=== PATIENT | male | born 1975 | race Two or more races ===

== ENCOUNTER 2017-07-25 12:18 | Inpatient (IN) | payer MEDICAID ==
[~2017-07-25] VITALS: Ht 165.1 cm; Wt 86.2 kg
[~2017-07-25 12:18] MED LIST: CEPHALEXIN500 MG ORAL; HYDROCODON-ACE1 EA15 ORAL; METFORMIN HCL850 M1 ORAL
[2017-07-25] MEDS ORDERED: Vancomycin 1.5gm/D5W 250ml 250 ML IVPB ONE (13:00)
[2017-07-25] MEDS ORDERED: NS 1000ml 2,600 ML IVLG ONE (13:00)
[2017-07-25] MEDS ORDERED: Morphine Sulfate 4mg/ml Inj IVP ONE (13:00)
[2017-07-25] MEDS ORDERED: Cefepime 1gm vial ONE (13:10)
[2017-07-25] MEDS: Cefepime HCl 1 GM in NS 55 ML IV SCH ×2 (13:14→15:59)
[2017-07-25 13:47] VITALS: BP 148/84
[2017-07-25 14:05] LABS: BASOPHILS % (AUTO) 0.8 % (0.0-2.0); EOSINOPHILS % (AUTO) 0.2 % (0.0-3.0); LYMPHOCYTES % (AUTO) 11.4 % (20.0-45.0); MEAN CORPUSCULAR HGB CONC 32.4 G/DL (32.0-36.0); MEAN CORPUSCULAR VOLUME 93 FL (80-99); MONOCYTES % (AUTO) 9.6 % (1.0-10.0); PLATELET COUNT 242 K/UL (150-450); RED CELL DISTRIBUTION WIDTH 11.5 % (11.6-14.8); WHITE BLOOD COUNT 14.6 K/UL (4.8-10.8)
[2017-07-25 14:11] LABS: PROTHROMBIN TIME 10.6 SEC (9.30-11.50)
[2017-07-25 14:16] LABS: TROPONIN I < 0.30 ng/mL (<=0.30)
[2017-07-25 14:19] LABS: ALANINE AMINOTRANSFERASE 25 U/L (3-41); ALBUMIN/GLOBULIN RATIO 0.6 (1.0-2.7); ANION GAP 19 (5-15); ASPARTATE AMINO TRANSFERASE 18 U/L (5-40); CALCIUM 9.2 mg/dL (8.6-10.2); CARBON DIOXIDE 22 mEQ/L (20-30); CHLORIDE 82 mEQ/L (98-107); CREATININE 0.9 mg/dL (0.7-1.2); GLOMERULAR FILTRATION RATE > 60 mL/min (>60); HEMOLYSIS 1; POTASSIUM 4.5 mEQ/L (3.4-4.9); SODIUM 123 mEQ/L (135-145); TOTAL PROTEIN 8.7 g/dL (6.6-8.7)
[2017-07-25 14:21] LABS: REFLEX LACTIC ACID YES OR NO YES
[2017-07-25 14:30] LABS: CKMB 3.1 ng/mL (< 6.7)
--- NOTE | 2017-07-25 14:33 | Emergency Room Report ---
History of Present Illness General Chief Complaint: Skin Rash/Abscess Source: Patient Present Illness HPI The patient presents with an infection of his right shoulder. He is a diabetic. He stopped taking his diabetic medication because he started developing a reaction in his groin. He's been off of his diabetic medications for several months now. He states he had a skin infection a year ago and received a tetanus shot at that time. Says that shoulder is swollen and become red and there is crusting there is no drainage. He says the pain is mild at the moment and doesn't radiate (though he reported 10/10 pain to RN). Pain localized, not radiate and burning, pressure and aching. He denies any shortness of breath a productive cough. He does have polyuria and polydipsia. No cough, chest pain, NVD, dysuria. When previously admitted he had I and D of thigh abscess. W/U neg for osteo and SBE. He was admitted in 2016. D/C dx: 1. Staph aureus back abscess and cellulitis with left leg/thigh abscess, status post incision and drainage. 2. Staph aureus bacteremia and sepsis. , possible thoracic spine abscess. Negative for endocarditis. 3. Hyponatremia. 4. Diabetes mellitus, controlled. 5. Anemia of chronic disease. Allergies: Coded Allergies: No Known Allergies (Unverified , 04/19/16) Patient History Past Medical History: see triage record Social History: Reports: alcohol use - none for 8 months, Denies: smoking, drug use Social History Narrative with family Reviewed Nursing Documentation: PMH: Agreed, PSxH: Agreed Nursing Documentation-PM Past Medical History: No History, Except For Hx Hypertension: Yes Hx Diabetes: Yes Hx Cancer: No Hx Gastrointestinal Problems: Yes Hx Neurological Problems: No Review of Systems All Other Systems: negative except mentioned in HPI Physical Exam Vital Signs Date Time Temp Pulse Resp B/P (MAP) Pulse Ox O2 Delivery O2 Flow Rate FiO2 07/25/17 12:34 134 20 150/87 95 Room Air 07/25/17 13:47 98.9 Sp02 EP Interpretation: reviewed, normal General Appearance: well appearing, no apparent distress, GCS 15 Head: normocephalic Eyes: bilateral eye normal inspection, bilateral eye PERRL ENT: moist mucus membranes Neck: supple Respiratory: lungs clear, normal breath sounds, other - see skin Cardiovascular #1: tachycardia Cardiovascular #2: 2+ radial (R) Gastrointestinal: normal inspection, normal bowel sounds, non tender, no mass, non-distended, overweight Musculoskeletal: back normal, gait/station normal, normal range of motion, other - no shoulder tenderness with AROM Neurologic: alert, oriented x3, grossly normal Psychiatric: mood/affect normal - poor insight Skin: warm/dry, other - large exophytic lesion R shoulder with induration and no fluctuance. Extending erythema anterior shoulder area Medical Decision Making Diagnostic Impression: Primary Impression: Cellulitis right shoulder Additional Impressions: Elevated lactic acid level Poorly controlled diabetes mellitus Non-compliance Possible adverse reaction to diabetic medications ER Course Patient with infection R shoulder and poor compliance with meds for diabetes. Ddx: abscess, cellulitis, sepsis, fasciitis, hyperglycemia, DKA amongst others. Emergent evaluation with labs, BC, lactate, CT of chest with contrast. Antibiotics indicated. Labs with leukocytosis, slightly elevated lactate, elevated glucose with normal bicarb. CT with inflammation without clear abscess formation. SUgar still high after boluses. Insulin ordered. Improved but still needs IV antibiotics and control of glucose. Lactate normalizing. Concern over alleged adverse reaction to diabetic meds. Admit med, Dr. Suarez. (Discussed with Dr. Mendez.) Discussed with Dr. Francis for consult as might need surgical debridement. ( Called as opposed to Dr. Velez and Zeeshan due to lack of follow with other MDs.) Laboratory Tests Test 07/25/17 13:03 07/25/17 14:50 White Blood Count 14.6 K/UL (4.8-10.8) H Red Blood Count 4.70 M/UL (4.70-6.10) Hemoglobin 14.1 G/DL (14.2-18.0) L Hematocrit 43.5 % (42.0-52.0) Mean Corpuscular Volume 93 FL (80-99) Mean Corpuscular Hemoglobin 30.0 PG (27.0-31.0) Mean Corpuscular Hemoglobin Concent 32.4 G/DL (32.0-36.0) Red Cell Distribution Width 11.5 % (11.6-14.8) L Platelet Count 242 K/UL (150-450) Mean Platelet Volume 10.0 FL (6.5-10.1) Neutrophils (%) (Auto) 78.0 % (45.0-75.0) H Lymphocytes (%) (Auto) 11.4 % (20.0-45.0) L Monocytes (%) (Auto) 9.6 % (1.0-10.0) Eosinophils (%) (Auto) 0.2 % (0.0-3.0) Basophils (%) (Auto) 0.8 % (0.0-2.0) Prothrombin Time 10.6 SEC (9.30-11.50) Prothrombin Time INR 1.0 (0.9-1.1) PTT 31 SEC (23-33) Sodium Level 123 mEQ/L (135-145) L Potassium Level 4.5 mEQ/L (3.4-4.9) Chloride Level 82 mEQ/L (98-107) L Carbon Dioxide Level 22 mEQ/L (20-30) Anion Gap 19 (5-15) H Blood Urea Nitrogen 20 mg/dL (7-23) Creatinine 0.9 mg/dL (0.7-1.2) Estimate Glomerular Filtration Rate > 60 mL/min (>60) Glucose Level 637 mg/dL (74-106) *H Lactic Acid Level 2.50 mmol/L (0.66-2.22) H 2.00 mmol/L (0.66-2.22) Calcium Level 9.2 mg/dL (8.6-10.2) Total Bilirubin 0.4 mg/dL (0.0-1.2) Aspartate Amino Transferase (AST) 18 U/L (5-40) Alanine Aminotransferase (ALT) 25 U/L (3-41) Alkaline Phosphatase 134 U/L (40-129) H Total Creatine Kinase 149 U/L (38-174) Creatine Kinase MB 3.1 ng/mL (< 6.7) Creatine Kinase MB Relative Index 2.0 Troponin I < 0.30 ng/mL (<=0.30) Pro-B-Type Natriuretic Peptide 96 pg/mL (0-125) Total Protein 8.7 g/dL (6.6-8.7) Albumin 3.4 g/dL (3.5-5.2) L Globulin 5.3 g/dL Albumin/Globulin Ratio 0.6 (1.0-2.7) L EKG Diagnostic Results Rate: tachycardiac Rhythm: NSR ST Segments: no acute changes Rhythm Strip Diag. Results EP Interpretation: yes Rhythm: no PVC's, no ectopy, other - Sinus tachycardia CT/MRI/US Diagnostic Results CT/MRI/US Diagnostic Results : Imaging Test Ordered: CT chest with contrast Impression Large area of subcutaneous edema skin thickening and right upper back consistent with cellulitis. No abscess fluid definitely seen enlargement of the trapezius another back muscles deep the area of inflammation noticed Last Vital Signs Date Time Temp Pulse Resp B/P (MAP) Pulse Ox O2 Delivery O2 Flow Rate FiO2 07/25/17 16:24 98.4 112 20 142/96 95 Room Air Status: improved Disposition: ADMITTED INPATIENT Condition: Serious Referrals: NOT CHOSEN IPA/,REFERRING (PCP) Earl Méndez M.D. Jul 25, 2017 14:33
[2017-07-25 15:48] VITALS: BP 137/87
[2017-07-25] MEDS ORDERED: Albuterol/Ipratropium 3ml neb HHN PRN (16:15)
[2017-07-25] MEDS ORDERED: Morphine Sulfate 2mg/ml Inj IVP PRN (16:15)
[2017-07-25] MEDS ORDERED: Miralax 17gm pkt ORAL PRN (16:15)
[2017-07-25] MEDS ORDERED: Nitroglycerin Subl 0.4mg tab SL PRN (16:15)
[2017-07-25 16:24] VITALS: BP 142/96
[2017-07-25] MEDS: NovoLOG Insulin Flexpen SUBQ SCH ×2 (17:31→21:24)
--- NOTE | 2017-07-25 18:48 | Infectious Diseases Prog Note ---
Assessment/Plan Problems: (1) Abscess of right shoulder (2) Poorly controlled diabetes mellitus Subjective Allergies: Coded Allergies: No Known Allergies (Unverified , 04/19/16) Objective Vital Signs Last 24 Hour Vital Signs Date Time Temp Pulse Resp B/P (MAP) Pulse Ox O2 Delivery O2 Flow Rate FiO2 07/25/17 16:24 98.4 112 20 142/96 95 Room Air 07/25/17 15:48 98.1 97 20 137/87 96 Room Air 07/25/17 15:19 98 24 148/84 96 Room Air 07/25/17 13:47 98.9 112 29 148/84 93 Room Air 07/25/17 12:34 134 20 150/87 95 Room Air Height (Feet): 5 Height (Inches): 5.00 Weight (Pounds): 190 Laboratory Tests Test 07/25/17 13:03 07/25/17 14:50 White Blood Count 14.6 K/UL (4.8-10.8) H Red Blood Count 4.70 M/UL (4.70-6.10) Hemoglobin 14.1 G/DL (14.2-18.0) L Hematocrit 43.5 % (42.0-52.0) Mean Corpuscular Volume 93 FL (80-99) Mean Corpuscular Hemoglobin 30.0 PG (27.0-31.0) Mean Corpuscular Hemoglobin Concent 32.4 G/DL (32.0-36.0) Red Cell Distribution Width 11.5 % (11.6-14.8) L Platelet Count 242 K/UL (150-450) Mean Platelet Volume 10.0 FL (6.5-10.1) Neutrophils (%) (Auto) 78.0 % (45.0-75.0) H Lymphocytes (%) (Auto) 11.4 % (20.0-45.0) L Monocytes (%) (Auto) 9.6 % (1.0-10.0) Eosinophils (%) (Auto) 0.2 % (0.0-3.0) Basophils (%) (Auto) 0.8 % (0.0-2.0) Prothrombin Time 10.6 SEC (9.30-11.50) Prothromb Time International Ratio 1.0 (0.9-1.1) Activated Partial Thromboplast Time 31 SEC (23-33) Sodium Level 123 mEQ/L (135-145) L Potassium Level 4.5 mEQ/L (3.4-4.9) Chloride Level 82 mEQ/L (98-107) L Carbon Dioxide Level 22 mEQ/L (20-30) Anion Gap 19 (5-15) H Blood Urea Nitrogen 20 mg/dL (7-23) Creatinine 0.9 mg/dL (0.7-1.2) Estimat Glomerular Filtration Rate > 60 mL/min (>60) Glucose Level 637 mg/dL (74-106) *H Lactic Acid Level 2.50 mmol/L (0.66-2.22) H 2.00 mmol/L (0.66-2.22) Calcium Level 9.2 mg/dL (8.6-10.2) Total Bilirubin 0.4 mg/dL (0.0-1.2) Aspartate Amino Transf (AST/SGOT) 18 U/L (5-40) Alanine Aminotransferase (ALT/SGPT) 25 U/L (3-41) Alkaline Phosphatase 134 U/L (40-129) H Total Creatine Kinase 149 U/L (38-174) Creatine Kinase MB 3.1 ng/mL (< 6.7) Creatine Kinase MB Relative Index 2.0 Troponin I < 0.30 ng/mL (<=0.30) Pro-B-Type Natriuretic Peptide 96 pg/mL (0-125) Total Protein 8.7 g/dL (6.6-8.7) Albumin 3.4 g/dL (3.5-5.2) L Globulin 5.3 g/dL Albumin/Globulin Ratio 0.6 (1.0-2.7) L Current Medications Medications (Trade) Dose Ordered Sig/Leah Route PRN Reason Start Time Stop Time Status Last Admin Dose Admin Acetaminophen (Tylenol) 650 mg Q4H PRN ORAL fever 07/25/17 16:15 08/24/17 16:14 Albuterol/ Ipratropium (DuoNeb 0.5-3(2.5)mg/3ml) 3 ml Q4H PRN HHN Shortness of Breath 07/25/17 16:15 07/30/17 16:14 Cefepime HCl 2 gm/ Dextrose 110 ml @ 220 mls/hr EVERY 12 HOURS IV 07/25/17 21:00 08/01/17 20:59 Dextrose (Dextrose 50%) STAT PRN IV Hypoglycemia 07/25/17 16:15 08/24/17 16:14 Heparin Sodium (Porcine) (Heparin 5000 units/ml) 5,000 units EVERY 12 HOURS SUBQ 07/25/17 21:00 08/24/17 20:59 Insulin Aspart (NovoLOG) BEFORE MEALS AND HS SUBQ 07/25/17 17:00 08/24/17 16:59 07/25/17 17:31 Morphine Sulfate (Morphine Sulfate) 2 mg Q4H PRN IVP Moderate Pain (Pain Scale 4-6) 07/25/17 16:15 08/01/17 16:14 Nitroglycerin (Ntg) 0.4 mg Q5M PRN SL Prn Chest Pain 07/25/17 16:15 08/24/17 16:14 Ondansetron HCl (Zofran) 4 mg Q6H PRN IVP Nausea & Vomiting 07/25/17 16:15 08/24/17 16:14 Polyethylene Glycol (Miralax) 17 gm DAILYPRN PRN ORAL Constipation 07/25/17 16:15 08/24/17 16:14 Temazepam (Restoril) 15 mg HSPRN PRN ORAL Insomnia 07/25/17 16:15 08/01/17 16:14 Vancomycin HCl (Vanco rx to dose) 1 ea DAILY PRN MISC PER RX PROTOCOL 07/25/17 16:15 08/24/17 16:14 Vancomycin HCl/ Dextrose 250 ml @ 166.667 mls/hr Q12HR@0200,1400 IVPB 07/26/17 02:00 07/31/17 01:59 Fernando Clayton M.D. Jul 25, 2017 18:48
[2017-07-25 20:00] VITALS: BP 143/94
--- NOTE | 2017-07-25 20:26 | General Surgery Progress Note ---
General Surgery-Progress Note Subjective Reason for Consult abscess right shoulder Objective Last 24 Hour Vital Signs Date Time Temp Pulse Resp B/P (MAP) Pulse Ox O2 Delivery O2 Flow Rate FiO2 07/25/17 16:24 98.4 112 20 142/96 95 Room Air 07/25/17 15:48 98.1 97 20 137/87 96 Room Air 07/25/17 15:19 98 24 148/84 96 Room Air 07/25/17 13:47 98.9 112 29 148/84 93 Room Air 07/25/17 12:34 134 20 150/87 95 Room Air I&O Intake and Output 07/25/17 07/26/17 19:00 07:00 Intake Total 250 ml Output Total 500 ml Balance -250 ml Intake IV Total 250 ml Output Urine Total 500 ml Respiratory: clear Abdomen: soft, non-tender, present bowel sounds Extremities: no tenderness, other - venous stasis changes Laboratory Tests Test 07/25/17 13:03 07/25/17 14:50 White Blood Count 14.6 K/UL (4.8-10.8) H Red Blood Count 4.70 M/UL (4.70-6.10) Hemoglobin 14.1 G/DL (14.2-18.0) L Hematocrit 43.5 % (42.0-52.0) Mean Corpuscular Volume 93 FL (80-99) Mean Corpuscular Hemoglobin 30.0 PG (27.0-31.0) Mean Corpuscular Hemoglobin Concent 32.4 G/DL (32.0-36.0) Red Cell Distribution Width 11.5 % (11.6-14.8) L Platelet Count 242 K/UL (150-450) Mean Platelet Volume 10.0 FL (6.5-10.1) Neutrophils (%) (Auto) 78.0 % (45.0-75.0) H Lymphocytes (%) (Auto) 11.4 % (20.0-45.0) L Monocytes (%) (Auto) 9.6 % (1.0-10.0) Eosinophils (%) (Auto) 0.2 % (0.0-3.0) Basophils (%) (Auto) 0.8 % (0.0-2.0) Prothrombin Time 10.6 SEC (9.30-11.50) Prothromb Time International Ratio 1.0 (0.9-1.1) Activated Partial Thromboplast Time 31 SEC (23-33) Sodium Level 123 mEQ/L (135-145) L Potassium Level 4.5 mEQ/L (3.4-4.9) Chloride Level 82 mEQ/L (98-107) L Carbon Dioxide Level 22 mEQ/L (20-30) Anion Gap 19 (5-15) H Blood Urea Nitrogen 20 mg/dL (7-23) Creatinine 0.9 mg/dL (0.7-1.2) Estimat Glomerular Filtration Rate > 60 mL/min (>60) Glucose Level 637 mg/dL (74-106) *H Lactic Acid Level 2.50 mmol/L (0.66-2.22) H 2.00 mmol/L (0.66-2.22) Calcium Level 9.2 mg/dL (8.6-10.2) Total Bilirubin 0.4 mg/dL (0.0-1.2) Aspartate Amino Transf (AST/SGOT) 18 U/L (5-40) Alanine Aminotransferase (ALT/SGPT) 25 U/L (3-41) Alkaline Phosphatase 134 U/L (40-129) H Total Creatine Kinase 149 U/L (38-174) Creatine Kinase MB 3.1 ng/mL (< 6.7) Creatine Kinase MB Relative Index 2.0 Troponin I < 0.30 ng/mL (<=0.30) Pro-B-Type Natriuretic Peptide 96 pg/mL (0-125) Total Protein 8.7 g/dL (6.6-8.7) Albumin 3.4 g/dL (3.5-5.2) L Globulin 5.3 g/dL Albumin/Globulin Ratio 0.6 (1.0-2.7) L Assessment Additional Comments Abscess Right shoulder Plan Additional Comments Scheduled for I&D tomorrow ZAIN DE LA CRUZ Jul 25, 2017 20:26
[2017-07-25] MEDS ORDERED: Acetaminophen 650 MG SUPP RECTAL PRN (20:30)
[2017-07-25] MEDS: Cefepime HCl 2 GM in D5W 110 ML IV SCH (21:21)
[2017-07-25] MEDS: Heparin 5000 units/ml inj SUBQ SCH (21:24)
[2017-07-25] MEDS ORDERED: Betadine 4oz Bottle TOPIC ONE (23:00)
[2017-07-26 00:12] VITALS: BP 133/94
[2017-07-26] MEDS ORDERED: Vancomycin 1 GM in D5W 275 ML IV SCH (00:30)
[2017-07-26] MEDS: Vancomycin 1250mg/D5W 250ml IVPB SCH ×2 (02:00→14:40)
[2017-07-26 04:00] VITALS: BP 141/85
[2017-07-26] MEDS: NovoLOG Insulin Flexpen SUBQ SCH ×7 (06:23→21:09)
[2017-07-26 08:00] VITALS: BP 133/91
[2017-07-26 08:05] LABS: BASOPHILS % (AUTO) 1.5 % (0.0-2.0); EOSINOPHILS % (AUTO) 0.4 % (0.0-3.0); LYMPHOCYTES % (AUTO) 12.8 % (20.0-45.0); MEAN CORPUSCULAR HEMOGLOBIN 31.8 PG (27.0-31.0); MEAN CORPUSCULAR HGB CONC 34.3 G/DL (32.0-36.0); MEAN CORPUSCULAR VOLUME 93 FL (80-99); MEAN PLATELET VOLUME 9.5 FL (6.5-10.1); MONOCYTES % (AUTO) 8.5 % (1.0-10.0); NEUTROPHILS % (AUTO) 76.8 % (45.0-75.0); PLATELET COUNT 221 K/UL (150-450); RED BLOOD COUNT 4.33 M/UL (4.70-6.10); RED CELL DISTRIBUTION WIDTH 11.6 % (11.6-14.8); WHITE BLOOD COUNT 13.5 K/UL (4.8-10.8)
[2017-07-26 08:17] LABS: ALANINE AMINOTRANSFERASE 20 U/L (3-41); ALBUMIN/GLOBULIN RATIO 0.5 (1.0-2.7); ANION GAP 16 (5-15); ASPARTATE AMINO TRANSFERASE 19 U/L (5-40); CALCIUM 8.8 mg/dL (8.6-10.2); CARBON DIOXIDE 23 mEQ/L (20-30); CHLORIDE 88 mEQ/L (98-107); CREATININE 0.7 mg/dL (0.7-1.2); GLOMERULAR FILTRATION RATE > 60 mL/min (>60); HEMOLYSIS 2; POTASSIUM 3.9 mEQ/L (3.4-4.9); SODIUM 127 mEQ/L (135-145); TOTAL PROTEIN 8.1 g/dL (6.6-8.7)
[2017-07-26] MEDS: Cefepime HCl 2 GM in D5W 110 ML IV SCH (08:20)
[2017-07-26] MEDS: Heparin 5000 units/ml inj SUBQ SCH ×2 (08:21→21:06)
--- NOTE | 2017-07-26 08:32 | Consultation ---
DATE OF CONSULTATION: 07/25/2017 PREOPERATIVE CONSULTATION CONSULTING PHYSICIAN: Mike Francis M.D. Requesting Physician: ER physician, REASON FOR CONSULTATION: Abscess of the posterior right shoulder. History Of Present Illness: This is a 42-year-old male with history of diabetes presented to emergency room complaining of swelling and pain at the right shoulder for about five days. Apparently, it has had a drainage of the pus yesterday. He claims that he has been having low-grade fever, but no chills. He has a history of previous abscesses. Past Medical History: He denies allergies, asthma, hypertension, and cardiac and renal diseases. He has a history of diabetes. Past Surgical History: Include open cholecystectomy and some kind of surgery on the left lower leg. MEDICATIONS: Please see the medicine reconciliation form. Social History: The patient is a 42-year-old male, who is single with one child. He is unemployed and denies smoking and drinking. REVIEW OF SYSTEMS: Unobtainable due to the language barrier. PHYSICAL EXAMINATION: General: The patient appeared to be a well-developed, well-nourished, and mildly obese 42-year-old male, in no acute distress, but it seemed that he has fever and he is warm. HEENT: Head is atraumatic and normocephalic. Eyes, pupils are equal, round, and reactive to light. Mouth is clear. NECK: There is no palpable thyromegaly or adenopathy. CHEST: Clear to auscultation and percussion. Heart: There is no gallop or murmur. S1 and S2 are within normal limits. Abdomen: Obese and protuberant, but soft and nontender. He has a scar of the right paramedian incision. GENITAL: Deferred. Extremities: He has a scar of the wound on the lateral side of the left lower leg. He has venous stasis changes and skin changes on both sides. On the posterior aspect of the right shoulder, he has a very large area of the erythema with induration and pustules besides there is small opening through which a yellowish brown pus is draining. LABORATORY DATA: CBC has shown a WBC 14,000 with a left shift. ASSESSMENT: Abscess of the posterior right shoulder. Plan: The patient has been scheduled for incision and drainage of this abscess tomorrow. The risks and benefits have been explained to him. He understood and granted consent. Mike Francis M.D. DR: JULIENNE JOB#: [id number] CC: LISA
--- NOTE | 2017-07-26 08:34 | General Progress Note ---
Assessment/Plan Problem List: (1) Non-compliance ICD Codes: Z91.19 - Patient's noncompliance with other medical treatment and regimen SNOMED: 0658279 (2) Poorly controlled diabetes mellitus ICD Codes: E11.65 - Type 2 diabetes mellitus with hyperglycemia SNOMED: 814070060 (3) Abscess of right shoulder ICD Codes: L02.413 - Cutaneous abscess of right upper limb SNOMED: 46775058 (4) Elevated lactic acid level ICD Codes: E87.2 - Acidosis SNOMED: 8860042 Assessment/Plan hold Metformin in the context of lactic acidosis Levemir 10 units bid Novolog 8 units ac tid + SSI Subjective Allergies: Coded Allergies: No Known Allergies (Unverified , 04/19/16) All Systems: reviewed and negative except above Subjective The patient presents with an infection of his right shoulder. He is a diabetic. He stopped taking his diabetic medication because he started developing a reaction in his groin. He's been off of his diabetic medications for several months now. He states he had a skin infection a year ago and received a tetanus shot at that time. Says that shoulder is swollen and become red and there is crusting there is no drainage. He says the pain is mild at the moment and doesn't radiate (though he reported 10/10 pain to RN). Pain localized, not radiate and burning, pressure and aching. He denies any shortness of breath a productive cough. He does have polyuria and polydipsia. Objective Last 24 Hour Vital Signs Date Time Temp Pulse Resp B/P (MAP) Pulse Ox O2 Delivery O2 Flow Rate FiO2 07/26/17 04:00 98.9 107 20 141/85 96 Room Air 07/26/17 00:12 98.2 105 20 133/94 94 Room Air 07/25/17 21:17 106 16 Room Air 21 07/25/17 20:00 97.8 97 20 143/94 94 Room Air 07/25/17 16:24 98.4 112 20 142/96 95 Room Air 07/25/17 15:48 98.1 97 20 137/87 96 Room Air 07/25/17 15:19 98 24 148/84 96 Room Air 07/25/17 13:47 98.9 112 29 148/84 93 Room Air 07/25/17 12:34 134 20 150/87 95 Room Air Laboratory Tests 07/25/17 13:03: White Blood Count 14.6H, Red Blood Count 4.70, Hemoglobin 14.1L, Hematocrit 43.5 , Mean Corpuscular Volume 93, Mean Corpuscular Hemoglobin 30.0, Mean Corpuscular Hemoglobin Concent 32.4, Red Cell Distribution Width 11.5L, Platelet Count 242, Mean Platelet Volume 10.0, Neutrophils (%) (Auto) 78.0H, Lymphocytes (%) (Auto) 11.4L, Monocytes (%) (Auto) 9.6, Eosinophils (%) (Auto) 0.2, Basophils (%) (Auto) 0.8, Prothrombin Time 10.6, Prothromb Time International Ratio 1.0, Activated Partial Thromboplast Time 31, Sodium Level 123L, Potassium Level 4.5, Chloride Level 82L, Carbon Dioxide Level 22, Anion Gap 19H, Blood Urea Nitrogen 20, Creatinine 0.9, Estimat Glomerular Filtration Rate > 60, Glucose Level 637*H, Lactic Acid Level 2.50H, Calcium Level 9.2, Total Bilirubin 0.4, Aspartate Amino Transf (AST/SGOT) 18, Alanine Aminotransferase (ALT/SGPT) 25, Alkaline Phosphatase 134H, Total Creatine Kinase 149, Creatine Kinase MB 3.1, Creatine Kinase MB Relative Index 2.0, Troponin I < 0.30, Pro-B-Type Natriuretic Peptide 96, Total Protein 8.7, Albumin 3.4L, Globulin 5.3, Albumin/Globulin Ratio 0.6L 07/25/17 14:50: Lactic Acid Level 2.00 07/26/17 07:00: White Blood Count 13.5H, Red Blood Count 4.33L, Hemoglobin 13.8L, Hematocrit 40.1L, Mean Corpuscular Volume 93, Mean Corpuscular Hemoglobin 31.8H, Mean Corpuscular Hemoglobin Concent 34.3, Red Cell Distribution Width 11.6, Platelet Count 221, Mean Platelet Volume 9.5, Neutrophils (%) (Auto) 76.8H, Lymphocytes ( %) (Auto) 12.8L, Monocytes (%) (Auto) 8.5, Eosinophils (%) (Auto) 0.4, Basophils (%) (Auto) 1.5, Sodium Level 127L, Potassium Level 3.9, Chloride Level 88L, Carbon Dioxide Level 23, Anion Gap 16H, Blood Urea Nitrogen 11, Creatinine 0.7, Estimat Glomerular Filtration Rate > 60, Glucose Level 368#H, Calcium Level 8.8, Total Bilirubin 0.4, Aspartate Amino Transf (AST/SGOT) 19, Alanine Aminotransferase (ALT/SGPT) 20, Alkaline Phosphatase 120, Total Protein 8.1, Albumin 2.7L, Globulin 5.4, Albumin/Globulin Ratio 0.5L Height (Feet): 5 Height (Inches): 5.00 Weight (Pounds): 190 General Appearance: no apparent distress Neck: normal alignment Cardiovascular: normal peripheral pulses Respiratory/Chest: chest wall non-tender Abdomen: normal bowel sounds Pelvis: normal external exam Edema: no edema noted Arm (L), no edema noted Arm (R), no edema noted Leg (L), no edema noted Leg (R), no edema noted Pedal (L), no edema noted Pedal (R), no edema noted Generalized Objective Current Medications Medications (Trade) Dose Ordered Sig/Leah Route PRN Reason Start Time Stop Time Status Last Admin Dose Admin Acetaminophen (Tylenol) 650 mg Q4H PRN ORAL fever 07/25/17 16:15 08/24/17 16:14 Acetaminophen (Tylenol) 650 mg Q4H PRN RECTAL Mild Pain (Pain Scale 1-3) 07/25/17 20:30 08/24/17 20:29 Albuterol/ Ipratropium (DuoNeb 0.5-3(2.5)mg/3ml) 3 ml Q4H PRN HHN Shortness of Breath 07/25/17 16:15 07/30/17 16:14 Cefepime HCl 2 gm/ Dextrose 110 ml @ 220 mls/hr EVERY 12 HOURS IV 07/25/17 21:00 08/01/17 20:59 07/26/17 08:20 Dextrose (Dextrose 50%) STAT PRN IV Hypoglycemia 07/25/17 16:15 08/24/17 16:14 Heparin Sodium (Porcine) (Heparin 5000 units/ml) 5,000 units EVERY 12 HOURS SUBQ 07/25/17 21:00 08/24/17 20:59 07/25/17 21:24 Insulin Aspart (NovoLOG) BEFORE MEALS AND HS SUBQ 07/25/17 17:00 08/24/17 16:59 07/26/17 06:23 Morphine Sulfate (Morphine Sulfate) 2 mg Q4H PRN IVP Moderate Pain (Pain Scale 4-6) 07/25/17 16:15 08/01/17 16:14 Nitroglycerin (Ntg) 0.4 mg Q5M PRN SL Prn Chest Pain 07/25/17 16:15 08/24/17 16:14 Ondansetron HCl (Zofran) 4 mg Q6H PRN IVP Nausea & Vomiting 07/25/17 16:15 08/24/17 16:14 Polyethylene Glycol (Miralax) 17 gm DAILYPRN PRN ORAL Constipation 07/25/17 16:15 08/24/17 16:14 Temazepam (Restoril) 15 mg HSPRN PRN ORAL Insomnia 07/25/17 16:15 08/01/17 16:14 Vancomycin HCl (Vanco rx to dose) 1 ea DAILY PRN MISC PER RX PROTOCOL 07/25/17 16:15 08/24/17 16:14 Vancomycin HCl/ Dextrose 250 ml @ 166.667 mls/hr Q12HR@0200,1400 IVPB 07/26/17 02:00 07/31/17 01:59 07/26/17 02:00 Item Value Date Time Bedside Blood Glucose 327 mg/dl H 07/26/17 0623 Bedside Blood Glucose 369 mg/dl H 07/25/17 2124 Bedside Blood Glucose 375 mg/dl H 07/25/17 1731 Bedside Blood Glucose 445 mg/dl H 07/25/17 1454 ANN DUARTE Jul 26, 2017 08:34
--- NOTE | 2017-07-26 09:06 | Diagnostic Imaging Report ---
Indication: Chest wall abscess. Chest pain Technique: Continuous helical transaxial imaging of the chest was obtained from the thoracic inlet to the upper abdomen after intravenous nonionic contrast administration. Coronal 2-D reformats were also obtained. Total Dose length Product (DLP): [address] Dose Index Volume (CTDIvol): 0.15, 20.16 mGy Comparison: none Findings: In the right upper part of the back there is a fairly extensive focal area of subcutaneous soft tissue stranding with enlargement of the underlying muscle which includes the trapezius muscle. There is no defined fluid collection. Similar findings to lesser extent seen in the right anterior chest wall. By imaging the findings could be due to trauma, contusion injury. Cellulitis is suspected clinically. There is thickening of the skin overlying the back. There is no evidence of intrathoracic extension. The lungs are clear. There is no pleural effusion or mediastinal fluid identified. The liver is diffusely hypodense consistent with fatty infiltration. No gross abnormalities of the osseous structures are identified. Impression: Large area of subcutaneous edema and skin thickening with some muscular enlargement in the right posterior aspect of the chest. Findings consistent with cellulitis given the current history. No drainable abscess identified. Followup suggested. No acute intrathoracic findings Fatty liver The CT scanner at [facility] is accredited by the [employer] and the scans are performed using dose optimization techniques as appropriate to a performed exam including Automatic Exposure control.
--- NOTE | 2017-07-26 10:16 | Diagnostic Imaging Report ---
Indication: Chest pain Comparison: 04/19/16 A single view chest radiograph was obtained. Findings: Sternotomy noted. There is mild left basal atelectasis cardiomegaly and generalized osteopenia. Impression: Mild left basal atelectasis
--- NOTE | 2017-07-26 10:45 | Anethesia Preoperative Eval ---
Anesthesia Pre-op PMH/ROS General Date of Evaluation: Jul 26, 2017 Anesthesiologist: Doris ASA Score: ASA 3 Mallampati Score Class I : Soft palate, uvula, fauces, pillars visible Class II: Soft palate, uvula, fauces visible Class III: Soft palate, base of uvula visible Class IV: Only hard plate visible Mallampati Classification: Class II Surgeon: Tito Diagnosis: Shoulder absess Surgical Procedure: I&D shoulder absess Family History: no anesthesia problems Allergies: Coded Allergies: No Known Allergies (Unverified , 04/19/16) Medications: see eMAR Past Medical History Cardiovascular: Reports: HTN, Denies: CAD, CA, valve dz, arrhythmia, other Pulmonary: Denies: asthma, COPD, MIHIR, other Gastrointestinal/Genitourinary: Denies: GERD, CRI, ESRD, other Neurologic/Psychiatric: Denies: dementia, CVA, depression/anxiety, TIA, other Endocrine: Reports: DM, Denies: hypothyroidism, steroids, other HEENT: Denies: cataract (L), cataract (R), glaucoma, SHISHMAREF IRA (L), SHISHMAREF IRA (R), other Hematology/Immune: Reports: anemia, Denies: DVT, bleeding disorder, other Musculoskeletal/Integumentary: Denies: OA, RA, DJD, DDD, edema, other PMH Narrative: DM, HTN, thigh absess PSxH Narrative: I&D of thigh absess Anesthesia Pre-op Phys. Exam Physician Exam Last Vital Signs Date Time Temp Pulse Resp B/P (MAP) Pulse Ox O2 Delivery O2 Flow Rate FiO2 07/26/17 08:00 98.0 102 20 133/91 95 Room Air 07/26/17 07:55 21 Constitutional: NAD Neurologic: CN 2-12 intact Cardiovascular: RRR, no M/R/G Respiratory: CTA Gastrointestinal: S/NT/ND Airway Exam Mallampati Score: Class II MO: full ROM: full Teeth: intact Anesthesia Pre-op A/P Labs Hematology Test 07/25/17 13:03 07/26/17 07:00 White Blood Count 14.6 K/UL (4.8-10.8) H 13.5 K/UL (4.8-10.8) H Red Blood Count 4.70 M/UL (4.70-6.10) 4.33 M/UL (4.70-6.10) L Hemoglobin 14.1 G/DL (14.2-18.0) L 13.8 G/DL (14.2-18.0) L Hematocrit 43.5 % (42.0-52.0) 40.1 % (42.0-52.0) L Mean Corpuscular Volume 93 FL (80-99) 93 FL (80-99) Mean Corpuscular Hemoglobin 30.0 PG (27.0-31.0) 31.8 PG (27.0-31.0) H Mean Corpuscular Hemoglobin Concent 32.4 G/DL (32.0-36.0) 34.3 G/DL (32.0-36.0) Red Cell Distribution Width 11.5 % (11.6-14.8) L 11.6 % (11.6-14.8) Platelet Count 242 K/UL (150-450) 221 K/UL (150-450) Mean Platelet Volume 10.0 FL (6.5-10.1) 9.5 FL (6.5-10.1) Neutrophils (%) (Auto) 78.0 % (45.0-75.0) H 76.8 % (45.0-75.0) H Lymphocytes (%) (Auto) 11.4 % (20.0-45.0) L 12.8 % (20.0-45.0) L Monocytes (%) (Auto) 9.6 % (1.0-10.0) 8.5 % (1.0-10.0) Eosinophils (%) (Auto) 0.2 % (0.0-3.0) 0.4 % (0.0-3.0) Basophils (%) (Auto) 0.8 % (0.0-2.0) 1.5 % (0.0-2.0) Coagulation Test 07/25/17 13:03 Prothrombin Time 10.6 SEC (9.30-11.50) Prothromb Time International Ratio 1.0 (0.9-1.1) Activated Partial Thromboplast Time 31 SEC (23-33) Chemistry Test 07/25/17 13:03 07/25/17 14:50 07/26/17 07:00 Sodium Level 123 mEQ/L (135-145) L 127 mEQ/L (135-145) L Potassium Level 4.5 mEQ/L (3.4-4.9) 3.9 mEQ/L (3.4-4.9) Chloride Level 82 mEQ/L (98-107) L 88 mEQ/L (98-107) L Carbon Dioxide Level 22 mEQ/L (20-30) 23 mEQ/L (20-30) Anion Gap 19 (5-15) H 16 (5-15) H Blood Urea Nitrogen 20 mg/dL (7-23) 11 mg/dL (7-23) Creatinine 0.9 mg/dL (0.7-1.2) 0.7 mg/dL (0.7-1.2) Estimat Glomerular Filtration Rate > 60 mL/min (>60) > 60 mL/min (>60) Glucose Level 637 mg/dL (74-106) *H 368 mg/dL (74-106) #H Lactic Acid Level 2.50 mmol/L (0.66-2.22) H 2.00 mmol/L (0.66-2.22) Calcium Level 9.2 mg/dL (8.6-10.2) 8.8 mg/dL (8.6-10.2) Total Bilirubin 0.4 mg/dL (0.0-1.2) 0.4 mg/dL (0.0-1.2) Aspartate Amino Transf (AST/SGOT) 18 U/L (5-40) 19 U/L (5-40) Alanine Aminotransferase (ALT/SGPT) 25 U/L (3-41) 20 U/L (3-41) Alkaline Phosphatase 134 U/L (40-129) H 120 U/L (40-129) Total Creatine Kinase 149 U/L (38-174) Creatine Kinase MB 3.1 ng/mL (< 6.7) Creatine Kinase MB Relative Index 2.0 Troponin I < 0.30 ng/mL (<=0.30) Pro-B-Type Natriuretic Peptide 96 pg/mL (0-125) Total Protein 8.7 g/dL (6.6-8.7) 8.1 g/dL (6.6-8.7) Albumin 3.4 g/dL (3.5-5.2) L 2.7 g/dL (3.5-5.2) L Globulin 5.3 g/dL 5.4 g/dL Albumin/Globulin Ratio 0.6 (1.0-2.7) L 0.5 (1.0-2.7) L Risk Assessment & Plan Assessment: Hypertensive, diabetic male admitted with glucose 627...now 368 and hyponatremia of 123 upon admission...now 127 with shoulder absess. Plan: GA. Discussed with Dr. Francis. Patient needs to stabilized before bringing him to the OR for this urgent but non emergent I&D. Patient's glucose and sodium levels are improving and should continue to improve before surgery. Surgery is tentatively scheduled for tomorrow (07/27/17) pending continued lab improvement. Patient's abnormal lab values are more attributed to his non compliance than the absess. OR has been notified to put the case on tomorrow's schedule. Dr. Francis will be available. Status Change Before Surgery: Yes - See above note. Tentatively scheduled for tomorrow pending continued lab improvements. JAIMIE MAKI M.D. Jul 26, 2017 10:45
[2017-07-26] MEDS: Levemir Flexpen SUBQ SCH ×2 (11:25→17:14)
[2017-07-26 12:00] VITALS: BP 140/87
--- NOTE | 2017-07-26 12:03 | Infectious Diseases Prog Note ---
Assessment/Plan Assessment/Plan ASSESSMENT: #Abscess of the posterior right shoulder -afebrile -wound cx ordered #Gram positive bacteremia - 2ry to above- r/o MRSA -07/25- both sets + for GPC in clusters #Leukocytosis, improving #DM2 Plan: -Continue IV Vancomycinand Cefepime #2 pending wound cx and ID GPC in bcx -Plan for I+D today; needs for source control, now specially that is bacteremic -please send bacterial cultures -Repeat 2 sets of bcx -wound care -f/u cx -Monitor CBC/BMP, temperatures Discussed with RN. Subjective Allergies: Coded Allergies: No Known Allergies (Unverified , 04/19/16) Subjective afebrile now bacteremic with GPC in clusters awaiting I+D leukocytosis improving Objective Vital Signs Last 24 Hour Vital Signs Date Time Temp Pulse Resp B/P (MAP) Pulse Ox O2 Delivery O2 Flow Rate FiO2 07/26/17 08:00 98.0 102 20 133/91 95 Room Air 07/26/17 07:55 102 16 Room Air 21 07/26/17 04:00 98.9 107 20 141/85 96 Room Air 07/26/17 00:12 98.2 105 20 133/94 94 Room Air 07/25/17 21:17 106 16 Room Air 21 07/25/17 20:00 97.8 97 20 143/94 94 Room Air 07/25/17 16:24 98.4 112 20 142/96 95 Room Air 07/25/17 15:48 98.1 97 20 137/87 96 Room Air 07/25/17 15:19 98 24 148/84 96 Room Air 07/25/17 13:47 98.9 112 29 148/84 93 Room Air 07/25/17 12:34 134 20 150/87 95 Room Air Height (Feet): 5 Height (Inches): 5.00 Weight (Pounds): 190 Objective General: The patient appeared to be a well-developed, well-nourished, in no acute distress HEENT: Head is atraumatic and normocephalic. Eyes, pupils are equal,round, and reactive to light. Mouth is clear. NECK: There is no palpable thyromegaly or adenopathy. CHEST: Clear to auscultation and percussion. Heart: There is no gallop or murmur. S1 and S2 are within normal limits. Abdomen: Obese and protuberant, but soft and nontender. He has a scar of the right paramedian incision. GENITAL: Deferred. Extremities: He has a scar of the wound on the lateral side of the left lower leg. He has venous stasis changes and skin changes on both sides. On the posterior aspect of the right shoulder, he has a very large area ofthe erythema with induration and pustules besides there is small opening through which a yellowish brown pus is draining. reviewed Laboratory Tests Test 07/25/17 13:03 07/25/17 14:50 07/26/17 07:00 White Blood Count 14.6 K/UL (4.8-10.8) H 13.5 K/UL (4.8-10.8) H Red Blood Count 4.70 M/UL (4.70-6.10) 4.33 M/UL (4.70-6.10) L Hemoglobin 14.1 G/DL (14.2-18.0) L 13.8 G/DL (14.2-18.0) L Hematocrit 43.5 % (42.0-52.0) 40.1 % (42.0-52.0) L Mean Corpuscular Volume 93 FL (80-99) 93 FL (80-99) Mean Corpuscular Hemoglobin 30.0 PG (27.0-31.0) 31.8 PG (27.0-31.0) H Mean Corpuscular Hemoglobin Concent 32.4 G/DL (32.0-36.0) 34.3 G/DL (32.0-36.0) Red Cell Distribution Width 11.5 % (11.6-14.8) L 11.6 % (11.6-14.8) Platelet Count 242 K/UL (150-450) 221 K/UL (150-450) Mean Platelet Volume 10.0 FL (6.5-10.1) 9.5 FL (6.5-10.1) Neutrophils (%) (Auto) 78.0 % (45.0-75.0) H 76.8 % (45.0-75.0) H Lymphocytes (%) (Auto) 11.4 % (20.0-45.0) L 12.8 % (20.0-45.0) L Monocytes (%) (Auto) 9.6 % (1.0-10.0) 8.5 % (1.0-10.0) Eosinophils (%) (Auto) 0.2 % (0.0-3.0) 0.4 % (0.0-3.0) Basophils (%) (Auto) 0.8 % (0.0-2.0) 1.5 % (0.0-2.0) Prothrombin Time 10.6 SEC (9.30-11.50) Prothromb Time International Ratio 1.0 (0.9-1.1) Activated Partial Thromboplast Time 31 SEC (23-33) Sodium Level 123 mEQ/L (135-145) L 127 mEQ/L (135-145) L Potassium Level 4.5 mEQ/L (3.4-4.9) 3.9 mEQ/L (3.4-4.9) Chloride Level 82 mEQ/L (98-107) L 88 mEQ/L (98-107) L Carbon Dioxide Level 22 mEQ/L (20-30) 23 mEQ/L (20-30) Anion Gap 19 (5-15) H 16 (5-15) H Blood Urea Nitrogen 20 mg/dL (7-23) 11 mg/dL (7-23) Creatinine 0.9 mg/dL (0.7-1.2) 0.7 mg/dL (0.7-1.2) Estimat Glomerular Filtration Rate > 60 mL/min (>60) > 60 mL/min (>60) Glucose Level 637 mg/dL (74-106) *H 368 mg/dL (74-106) #H Lactic Acid Level 2.50 mmol/L (0.66-2.22) H 2.00 mmol/L (0.66-2.22) Calcium Level 9.2 mg/dL (8.6-10.2) 8.8 mg/dL (8.6-10.2) Total Bilirubin 0.4 mg/dL (0.0-1.2) 0.4 mg/dL (0.0-1.2) Aspartate Amino Transf (AST/SGOT) 18 U/L (5-40) 19 U/L (5-40) Alanine Aminotransferase (ALT/SGPT) 25 U/L (3-41) 20 U/L (3-41) Alkaline Phosphatase 134 U/L (40-129) H 120 U/L (40-129) Total Creatine Kinase 149 U/L (38-174) Creatine Kinase MB 3.1 ng/mL (< 6.7) Creatine Kinase MB Relative Index 2.0 Troponin I < 0.30 ng/mL (<=0.30) Pro-B-Type Natriuretic Peptide 96 pg/mL (0-125) Total Protein 8.7 g/dL (6.6-8.7) 8.1 g/dL (6.6-8.7) Albumin 3.4 g/dL (3.5-5.2) L 2.7 g/dL (3.5-5.2) L Globulin 5.3 g/dL 5.4 g/dL Albumin/Globulin Ratio 0.6 (1.0-2.7) L 0.5 (1.0-2.7) L Current Medications Medications (Trade) Dose Ordered Sig/Leah Route PRN Reason Start Time Stop Time Status Last Admin Dose Admin Acetaminophen (Tylenol) 650 mg Q4H PRN ORAL fever 07/25/17 16:15 08/24/17 16:14 Acetaminophen (Tylenol) 650 mg Q4H PRN RECTAL Mild Pain (Pain Scale 1-3) 07/25/17 20:30 08/24/17 20:29 Albuterol/ Ipratropium (DuoNeb 0.5-3(2.5)mg/3ml) 3 ml Q4H PRN HHN Shortness of Breath 07/25/17 16:15 07/30/17 16:14 Cefepime HCl 2 gm/ Dextrose 110 ml @ 220 mls/hr EVERY 12 HOURS IV 07/25/17 21:00 08/01/17 20:59 07/26/17 08:20 Dextrose (Dextrose 50%) STAT PRN IV Hypoglycemia 07/25/17 16:15 08/24/17 16:14 Dextrose (Dextrose 50%) STAT PRN IV Hypoglycemia 07/26/17 08:45 08/25/17 08:44 Heparin Sodium (Porcine) (Heparin 5000 units/ml) 5,000 units EVERY 12 HOURS SUBQ 07/25/17 21:00 08/24/17 20:59 07/25/17 21:24 Insulin Aspart (NovoLOG) BEFORE MEALS AND HS SUBQ 07/25/17 17:00 08/24/17 16:59 07/26/17 06:23 Insulin Aspart (NovoLOG) 8 units NOVOTIAC SUBQ 07/26/17 11:50 08/25/17 11:49 Insulin Detemir (Levemir) 10 units BID SUBQ 07/26/17 09:00 08/25/17 08:59 07/26/17 11:25 Morphine Sulfate (Morphine Sulfate) 2 mg Q4H PRN IVP Moderate Pain (Pain Scale 4-6) 07/25/17 16:15 08/01/17 16:14 Nitroglycerin (Ntg) 0.4 mg Q5M PRN SL Prn Chest Pain 07/25/17 16:15 08/24/17 16:14 Ondansetron HCl (Zofran) 4 mg Q6H PRN IVP Nausea & Vomiting 07/25/17 16:15 08/24/17 16:14 Polyethylene Glycol (Miralax) 17 gm DAILYPRN PRN ORAL Constipation 07/25/17 16:15 08/24/17 16:14 Temazepam (Restoril) 15 mg HSPRN PRN ORAL Insomnia 07/25/17 16:15 08/01/17 16:14 Vancomycin HCl (Vanco rx to dose) 1 ea DAILY PRN MISC PER RX PROTOCOL 07/25/17 16:15 08/24/17 16:14 Vancomycin HCl/ Dextrose 250 ml @ 166.667 mls/hr Q12HR@0200,1400 IVPB 07/26/17 02:00 07/31/17 01:59 07/26/17 02:00 Ramya Sutton M.D. Jul 26, 2017 12:03
--- NOTE | 2017-07-26 12:55 | Diagnostic Imaging Report ---
APPROVED REPORT CPT Code: 16971 Present Symptoms Comments: R/O DVT BILATERAL: Imaging reveals a patent deep venous system bilaterally. There is no evidence of thrombus within the femoral, popliteal or tibial segments. The greater saphenous veins are also within normal limits. Doppler indicates normal spontaneous flow within these segments.
--- NOTE | 2017-07-26 12:56 | General Surgery Progress Note ---
General Surgery-Progress Note Objective Last 24 Hour Vital Signs Date Time Temp Pulse Resp B/P (MAP) Pulse Ox O2 Delivery O2 Flow Rate FiO2 07/26/17 12:00 98.2 94 20 140/87 96 Room Air 07/26/17 08:00 98.0 102 20 133/91 95 Room Air 07/26/17 07:55 102 16 Room Air 07/26/17 04:00 98.9 107 20 141/85 96 Room Air 07/26/17 00:12 98.2 105 20 133/94 94 Room Air 07/25/17 21:17 106 16 Room Air 21 07/25/17 20:00 97.8 97 20 143/94 94 Room Air 07/25/17 16:24 98.4 112 20 142/96 95 Room Air 07/25/17 15:48 98.1 97 20 137/87 96 Room Air 07/25/17 15:19 98 24 148/84 96 Room Air 07/25/17 13:47 98.9 112 29 148/84 93 Room Air I&O Intake and Output 07/26/17 07/27/17 19:00 07:00 Output Total 300 ml Balance -300 ml Output Urine Total 300 ml Extremities: other - erythema and edema post. right shoulder Laboratory Tests Test 07/25/17 13:03 07/25/17 14:50 07/26/17 07:00 White Blood Count 14.6 K/UL (4.8-10.8) H 13.5 K/UL (4.8-10.8) H Red Blood Count 4.70 M/UL (4.70-6.10) 4.33 M/UL (4.70-6.10) L Hemoglobin 14.1 G/DL (14.2-18.0) L 13.8 G/DL (14.2-18.0) L Hematocrit 43.5 % (42.0-52.0) 40.1 % (42.0-52.0) L Mean Corpuscular Volume 93 FL (80-99) 93 FL (80-99) Mean Corpuscular Hemoglobin 30.0 PG (27.0-31.0) 31.8 PG (27.0-31.0) H Mean Corpuscular Hemoglobin Concent 32.4 G/DL (32.0-36.0) 34.3 G/DL (32.0-36.0) Red Cell Distribution Width 11.5 % (11.6-14.8) L 11.6 % (11.6-14.8) Platelet Count 242 K/UL (150-450) 221 K/UL (150-450) Mean Platelet Volume 10.0 FL (6.5-10.1) 9.5 FL (6.5-10.1) Neutrophils (%) (Auto) 78.0 % (45.0-75.0) H 76.8 % (45.0-75.0) H Lymphocytes (%) (Auto) 11.4 % (20.0-45.0) L 12.8 % (20.0-45.0) L Monocytes (%) (Auto) 9.6 % (1.0-10.0) 8.5 % (1.0-10.0) Eosinophils (%) (Auto) 0.2 % (0.0-3.0) 0.4 % (0.0-3.0) Basophils (%) (Auto) 0.8 % (0.0-2.0) 1.5 % (0.0-2.0) Prothrombin Time 10.6 SEC (9.30-11.50) Prothromb Time International Ratio 1.0 (0.9-1.1) Activated Partial Thromboplast Time 31 SEC (23-33) Sodium Level 123 mEQ/L (135-145) L 127 mEQ/L (135-145) L Potassium Level 4.5 mEQ/L (3.4-4.9) 3.9 mEQ/L (3.4-4.9) Chloride Level 82 mEQ/L (98-107) L 88 mEQ/L (98-107) L Carbon Dioxide Level 22 mEQ/L (20-30) 23 mEQ/L (20-30) Anion Gap 19 (5-15) H 16 (5-15) H Blood Urea Nitrogen 20 mg/dL (7-23) 11 mg/dL (7-23) Creatinine 0.9 mg/dL (0.7-1.2) 0.7 mg/dL (0.7-1.2) Estimat Glomerular Filtration Rate > 60 mL/min (>60) > 60 mL/min (>60) Glucose Level 637 mg/dL (74-106) *H 368 mg/dL (74-106) #H Lactic Acid Level 2.50 mmol/L (0.66-2.22) H 2.00 mmol/L (0.66-2.22) Calcium Level 9.2 mg/dL (8.6-10.2) 8.8 mg/dL (8.6-10.2) Total Bilirubin 0.4 mg/dL (0.0-1.2) 0.4 mg/dL (0.0-1.2) Aspartate Amino Transf (AST/SGOT) 18 U/L (5-40) 19 U/L (5-40) Alanine Aminotransferase (ALT/SGPT) 25 U/L (3-41) 20 U/L (3-41) Alkaline Phosphatase 134 U/L (40-129) H 120 U/L (40-129) Total Creatine Kinase 149 U/L (38-174) Creatine Kinase MB 3.1 ng/mL (< 6.7) Creatine Kinase MB Relative Index 2.0 Troponin I < 0.30 ng/mL (<=0.30) Pro-B-Type Natriuretic Peptide 96 pg/mL (0-125) Total Protein 8.7 g/dL (6.6-8.7) 8.1 g/dL (6.6-8.7) Albumin 3.4 g/dL (3.5-5.2) L 2.7 g/dL (3.5-5.2) L Globulin 5.3 g/dL 5.4 g/dL Albumin/Globulin Ratio 0.6 (1.0-2.7) L 0.5 (1.0-2.7) L Assessment Additional Comments Abscess posterior right shoulder Plan Additional Comments surgery was postpond by anesthesialogist due to Na 127 and blood glucose of 360. He is scheduled for tomorrow ZAIN DE LA CRUZ Jul 26, 2017 12:56
--- NOTE | 2017-07-26 13:53 | General Progress Note ---
Progress Note Progress Note [id number] full consult dictated BHARGAVI SANZ Jul 26, 2017 13:53
[2017-07-26 16:00] VITALS: BP 112/86
[2017-07-26] MEDS: Betadine 4oz Bottle TOPIC SCH ×2 (16:00→21:28)
--- NOTE | 2017-07-26 17:26 | Infectious Diseases Prog Note ---
Assessment/Plan Problems: (1) Abscess of right shoulder Assessment & Plan: recommend I&D for source control since he is septic , will broaden his coverage to vancomycin and zosyn pending abscess culture results, (2) Gram-positive cocci bacteremia Assessment & Plan: due to shoulder abscess , needs source control with I&D, surgery is following for procedure tomorrow, continue vancomycin, and zosyn , will order 2 D echo to rule out valve vegetations , will repeat blood culture to confirm clearance (3) Poorly controlled diabetes mellitus Subjective Constitutional: Reports: no symptoms HEENT: Reports: no symptoms Respiratory: Reports: no symptoms Breasts: Reports: no symptoms Cardiovascular: Reports: no symptoms Gastrointestinal/Abdominal: Reports: no symptoms Genitourinary: Reports: no symptoms Neurologic: Reports: no symptoms Psychiatric: Reports: no symptoms Skin: Reports: rash, ulcer, other - shoulder swelling and redness Endocrine: Reports: no symptoms Musculoskeletal: Reports: pain, swelling Allergies: Coded Allergies: No Known Allergies (Unverified , 04/19/16) Objective Vital Signs Last 24 Hour Vital Signs Date Time Temp Pulse Resp B/P (MAP) Pulse Ox O2 Delivery O2 Flow Rate FiO2 07/26/17 16:00 97.6 99 19 112/86 95 Room Air 07/26/17 12:00 98.2 94 20 140/87 96 Room Air 07/26/17 08:00 98.0 102 20 133/91 95 Room Air 07/26/17 07:55 102 16 Room Air 07/26/17 04:00 98.9 107 20 141/85 96 Room Air 07/26/17 00:12 98.2 105 20 133/94 94 Room Air 07/25/17 21:17 106 16 Room Air 21 07/25/17 20:00 97.8 97 20 143/94 94 Room Air Height (Feet): 5 Height (Inches): 5.00 Weight (Pounds): 190 General Appearance: WD/WN, no acute distress HEENT: normocephalic, atraumatic, anicteric Respiratory/Chest: chest wall non-tender, lungs clear, normal breath sounds, no respiratory distress, no accessory muscle use Cardiovascular: normal peripheral pulses, normal rate, regular rhythm, no gallop/murmur, no JVD Abdomen: normal bowel sounds, soft, non tender, no organomegaly, non distended , no mass Extremities: no cyanosis, no clubbing Skin: ulcers, other - red and swallen at the right shoulder with flactuation Microbiology Date/Time Source Procedure Growth Status 07/25/17 13:10 Blood Blood Culture - Preliminary Resulted 07/25/17 13:03 Blood Blood Culture - Preliminary Resulted Laboratory Tests Test 07/26/17 07:00 White Blood Count 13.5 K/UL (4.8-10.8) H Red Blood Count 4.33 M/UL (4.70-6.10) L Hemoglobin 13.8 G/DL (14.2-18.0) L Hematocrit 40.1 % (42.0-52.0) L Mean Corpuscular Volume 93 FL (80-99) Mean Corpuscular Hemoglobin 31.8 PG (27.0-31.0) H Mean Corpuscular Hemoglobin Concent 34.3 G/DL (32.0-36.0) Red Cell Distribution Width 11.6 % (11.6-14.8) Platelet Count 221 K/UL (150-450) Mean Platelet Volume 9.5 FL (6.5-10.1) Neutrophils (%) (Auto) 76.8 % (45.0-75.0) H Lymphocytes (%) (Auto) 12.8 % (20.0-45.0) L Monocytes (%) (Auto) 8.5 % (1.0-10.0) Eosinophils (%) (Auto) 0.4 % (0.0-3.0) Basophils (%) (Auto) 1.5 % (0.0-2.0) Sodium Level 127 mEQ/L (135-145) L Potassium Level 3.9 mEQ/L (3.4-4.9) Chloride Level 88 mEQ/L (98-107) L Carbon Dioxide Level 23 mEQ/L (20-30) Anion Gap 16 (5-15) H Blood Urea Nitrogen 11 mg/dL (7-23) Creatinine 0.7 mg/dL (0.7-1.2) Estimat Glomerular Filtration Rate > 60 mL/min (>60) Glucose Level 368 mg/dL (74-106) #H Calcium Level 8.8 mg/dL (8.6-10.2) Total Bilirubin 0.4 mg/dL (0.0-1.2) Aspartate Amino Transf (AST/SGOT) 19 U/L (5-40) Alanine Aminotransferase (ALT/SGPT) 20 U/L (3-41) Alkaline Phosphatase 120 U/L (40-129) Total Protein 8.1 g/dL (6.6-8.7) Albumin 2.7 g/dL (3.5-5.2) L Globulin 5.4 g/dL Albumin/Globulin Ratio 0.5 (1.0-2.7) L Current Medications Medications (Trade) Dose Ordered Sig/Leah Route PRN Reason Start Time Stop Time Status Last Admin Dose Admin Acetaminophen (Tylenol) 650 mg Q4H PRN ORAL fever 07/25/17 16:15 08/24/17 16:14 Acetaminophen (Tylenol) 650 mg Q4H PRN RECTAL Mild Pain (Pain Scale 1-3) 07/25/17 20:30 08/24/17 20:29 Albuterol/ Ipratropium (DuoNeb 0.5-3(2.5)mg/3ml) 3 ml Q4H PRN HHN Shortness of Breath 07/25/17 16:15 07/30/17 16:14 Cefepime HCl 2 gm/ Sodium Chloride 110 ml @ 220 mls/hr EVERY 12 HOURS IV 07/26/17 21:00 08/02/17 20:59 Dextrose (Dextrose 50%) STAT PRN IV Hypoglycemia 07/25/17 16:15 08/24/17 16:14 Dextrose (Dextrose 50%) STAT PRN IV Hypoglycemia 07/26/17 08:45 08/25/17 08:44 Heparin Sodium (Porcine) (Heparin 5000 units/ml) 5,000 units EVERY 12 HOURS SUBQ 07/25/17 21:00 08/24/17 20:59 07/25/17 21:24 Insulin Aspart (NovoLOG) BEFORE MEALS AND HS SUBQ 07/25/17 17:00 08/24/17 16:59 07/26/17 17:16 Insulin Aspart (NovoLOG) 8 units NOVOTIAC SUBQ 07/26/17 11:50 08/25/17 11:49 07/26/17 17:15 Insulin Detemir (Levemir) 10 units BID SUBQ 07/26/17 09:00 08/25/17 08:59 07/26/17 17:14 Morphine Sulfate (Morphine Sulfate) 2 mg Q4H PRN IVP Moderate Pain (Pain Scale 4-6) 07/25/17 16:15 08/01/17 16:14 Nitroglycerin (Ntg) 0.4 mg Q5M PRN SL Prn Chest Pain 07/25/17 16:15 08/24/17 16:14 Ondansetron HCl (Zofran) 4 mg Q6H PRN IVP Nausea & Vomiting 07/25/17 16:15 08/24/17 16:14 Polyethylene Glycol (Miralax) 17 gm DAILYPRN PRN ORAL Constipation 07/25/17 16:15 08/24/17 16:14 Povidone Iodine (Betadine Caridad) 1 applic EVERY 8 HOURS TOPIC 07/26/17 16:00 08/25/17 15:59 Sodium Chloride 1,000 ml @ 100 mls/hr Q10H IV 07/26/17 15:30 08/25/17 15:29 07/26/17 15:30 Temazepam (Restoril) 15 mg HSPRN PRN ORAL Insomnia 07/25/17 16:15 08/01/17 16:14 Vancomycin HCl (Vanco rx to dose) 1 ea DAILY PRN MISC PER RX PROTOCOL 07/25/17 16:15 08/24/17 16:14 Vancomycin HCl 1.25 gm/Sodium Chloride 275 ml @ 183.708 mls/hr Q12HR@0200,1400 IVPB 07/27/17 02:00 08/01/17 01:59 Fernando Clayton M.D. Jul 26, 2017 17:26
[2017-07-26] MEDS: Piperacillin/Tazobactam 3.375 GM in D5W 110 ML IVPB SCH (18:32)
--- NOTE | 2017-07-26 19:16 | Cardiology Report ---
APPROVED REPORT EKG Measurement Heart [id number] Sinus tachycardia Rightward axis T wave abnormality, consider inferior ischemia Abnormal ECG
[2017-07-26 20:00] VITALS: BP 137/99
[2017-07-26 21:00] LABS: APPEARANCE,URINE CLEAR; KETONES,URINE 1+ (NEGATIVE); LEUKOCYTE ESTERASE ,URINE NEGATIVE (NEGATIVE); NITRITE,URINE NEGATIVE (NEGATIVE); PH,URINE 6.5 (4.5-8.0); PROTEIN,URINE 2+ (NEGATIVE); UROBILINOGEN,URINE 4 MG/DL (0.0-1.0)
[2017-07-26] MEDS ORDERED: Cefepime HCl 2 GM in NS 110 ML IV SCH (21:00)
[2017-07-26 21:10] LABS: CREATININE, RANDOM URINE 49.5 mg/dL
[2017-07-26 21:37] LABS: AMORPHOUS SEDIMENT,UR FEW /LPF; BACTERIA,URINE FEW /HPF
--- NOTE | 2017-07-26 22:15 | Consultation ---
DATE OF CONSULTATION: 07/26/2017 NEPHROLOGY CONSULTATION CONSULTING PHYSICIAN: Lashell Pedroza M.D. REFERRING PHYSICIAN: Mu Suarez D.O. REASON FOR CONSULTATION: Persistent hyponatremia. History of Present Illness: The patient is a 42-year-old male with past medical history significant for history of diabetes, hypertension, history of morbid obesity, history of chronic kidney disease baseline creatinine is unknown. He presented to emergency room at [facility] complaining of five days history of right shoulder pain, drainage, redness, and low-grade fever. Upon arrival, the patient found to have blood sugar more than 600. Also the sodium was 127. The patient consequently was seen by a surgeon and was planned to take for I and D of the right shoulder. I was called for management of renal disease and electrolyte imbalance. PAST MEDICAL HISTORY: Includin. Hypertension. 2. Diabetes. 3. Dyslipidemia. 4. Morbid obesity. MEDICATIONS: Reconciliation was reviewed. Social History: This is a 42-year-old male, single, has one child. He is unemployed and denies any history of alcohol or recreational drug use. Family History: Positive for history of diabetes. Denied any history of kidney disease in the family. Review Of Systems: General: He complained of generalized weakness, complained of fever and chills. No night sweats. Head and Neck: Denies any dysphagia, odynophagia, blurry vision, headache, or neck stiffness. Pulmonary: No shortness of breath. No cough. No sputum. Cardiovascular: Denies any chest pain or palpitations. Gastrointestinal: Denies any nausea, vomiting, diarrhea, hematemesis, or hematochezia. Genitourinary: Denies any dysuria, frequency, or hematuria. Musculoskeletal: He complained of right shoulder redness, drainage, and pain. PHYSICAL EXAMINATION: General: The patient is a 42-year-old morbidly obese male, in no acute distress. Vital Signs: Has temperature of 98 degrees, blood pressure of 132/94, pulse rate of 106, and respiratory rate of 18. Head and Neck: No JVP. No LAD. No thyromegaly. Extraocular movement intact. Pupils are reactive to light and accommodation. LUNGS: Clear to auscultation. CARDIAC: Regular rate and rhythm. S1 and S2. No murmur. No rub. ABDOMEN: Obese, nontender, and nondistended. Extremities: A 1 to 2+ edema. Right shoulder, he has a 20 x 20 cm round lesion with the yellowish, foul smelling drainage. It is very tender to touch and has had some degree of fluctuation. Laboratory Values: The patient had sodium of 127, potassium 3.9, chloride 88, bicarb 23 , BUN of 11, creatinine 0.7, and glucose of 368. Calcium of 8.8. Total AST of 18 and ALT of 19. Albumin of 2.7. CBC revealed WBC count of 13.5, hemoglobin of 13.8, hematocrit of 40, and platelet count of 221,000. There is no chemistry. ASSESSMENT: 1. Hypovolemic hyponatremia. The corrected sodium for the elevated blood sugar is 131.6, which is in the more acceptable level. 2. Rule out diabetic nephropathy. 3. Rule out hypertensive nephrosclerosis. 4. Tachycardia. Plan: Plan for the patient to start the patient on normal saline at 100 mL/hour. Obtain UA. Check the random urine protein-creatinine ratio to calculate the proteinuria. Check the urine sodium and creatinine to calculate fractional excretion of sodium. I will mix all IV piggyback with normal saline. I would avoid any NSAIDs or nephrotoxics. Replace electrolytes as needed. Again, I would like to thank Dr. Mu Suarez for allowing me to participate in the care of this patient. Lashell Pedroza M.D. DR: RUBIA JOB#: [id number] CC:
--- NOTE | 2017-07-26 22:51 | Brief Operative Note ---
Immediate Post Operative Note Operative Note Post-op Diagnosis: same as pre-op Findings: consistent w/pre-op dx studies Surgeon: MD Maria Del Carmen Flagsetter: none Anesthesia: general Specimen: none Complications: none Condition: stable Fluids: per anesthesialogist Estimated Blood Loss: minimal Drains: none Implant(s) used?: No ZAIN DE LA CRUZ Jul 26, 2017 22:51
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
[2017-07-27] VITALS (13 sets, daily range): BP systolic 103–155; BP diastolic 68–98
[2017-07-27] MEDS ORDERED: Vancomycin 1.25 GM in NS 275 ML IVPB SCH (02:00)
[2017-07-27] MEDS ORDERED: Vancomycin 1250mg/D5W 250ml 250 ML IVPB SCH (02:00)
[2017-07-27] MEDS ORDERED: Vancomycin 1gm inj IVPB ONE (02:30)
[2017-07-27] MEDS: Betadine 4oz Bottle TOPIC SCH ×3 (06:11→21:41)
[2017-07-27] MEDS: Piperacillin/Tazobactam 3.375 GM in D5W 110 ML IVPB SCH ×2 (06:14→14:00)
[2017-07-27] MEDS: NovoLOG Insulin Flexpen SUBQ SCH ×8 (06:30→21:44)
[2017-07-27 07:19] LABS: BASOPHILS % (AUTO) 1.3 % (0.0-2.0); LYMPHOCYTES % (AUTO) 15.1 % (20.0-45.0); MEAN CORPUSCULAR HEMOGLOBIN 31.8 PG (27.0-31.0); MEAN CORPUSCULAR VOLUME 94 FL (80-99); MONOCYTES % (AUTO) 7.1 % (1.0-10.0); NEUTROPHILS % (AUTO) 75.5 % (45.0-75.0); PLATELET COUNT 219 K/UL (150-450); RED CELL DISTRIBUTION WIDTH 11.9 % (11.6-14.8)
[2017-07-27 07:51] LABS: ANION GAP 13 (5-15); CALCIUM 8.5 mg/dL (8.6-10.2); CARBON DIOXIDE 26 mEQ/L (20-30); CHLORIDE 91 mEQ/L (98-107); CREATININE 0.6 mg/dL (0.7-1.2); GLOMERULAR FILTRATION RATE > 60 mL/min (>60); HEMOLYSIS 1; POTASSIUM 3.9 mEQ/L (3.4-4.9); SODIUM 130 mEQ/L (135-145)
[2017-07-27] MEDS ORDERED: Vancomycin 1.5 GM/D5W 250ML IVPB SCH (08:00)
--- NOTE | 2017-07-27 08:30 | History and Physical Report ---
DATE OF ADMISSION: 07/25/2017 TIME: At 2 p.m. ATTENDING PHYSICIAN: Mu Suarez D.O. CONSULTANTS: 1. Dr. Cleaning. 2. Belen Sanches M.D. 3. Gil Alanis M.D. 4. Lashell Pedroza M.D. CHIEF COMPLAINT: Right should abscess x5 days. History of Present Illness: The patient is a 42-year-old male, who lives at home with history of diabetes, developed right shoulder abscess five days ago that got worse and worse. It is on the posterior of scapular blade upper area. It became painful, red, and draining. The patient came to [place], diagnosed above and admitted to medical floor for further treatment and started on IV antibiotics. Currently, calm, sitting on bed. No complaints other than slight back pain. No shortness of breath. No nausea, vomiting, or diarrhea. PAST MEDICAL HISTORY: Diabetes. PAST SURGICAL HISTORY: Back surgery. Medications: Include NovoLog, Levemir, vancomycin, cefepime, heparin, Tylenol, and morphine. ALLERGIES: Denies. SOCIAL HISTORY: No smoking. No alcohol. No intravenous drug abuse. FAMILY HISTORY: Noncontributory. PHYSICAL EXAMINATION: GENERAL: Calm in bed, oriented x3, in no acute distress. Vital Signs: Temperature is 98 degrees, pulse 94, respiratory rate 20, and blood pressure 140/87. CARDIOVASCULAR: No murmurs. LUNGS: Distant and clear. ABDOMEN: Positive bowel sounds. Nontender and nondistended. EXTREMITIES: No cyanosis, clubbing, or edema. Back: Back area, dressing on the right shoulder blade area stained slightly with blood and drainage. NEUROLOGICAL: The patient moves all extremities, but slightly weak. Laboratory Data: Labs at this time show white count 13, hemoglobin and hematocrit 13.8/40.1, and platelets 221,000. BMP shows sodium 127, chloride , and sugar initially was 267 and now it is 368. BUN and creatinine are 11 and 0.7. INR is 1.0 and PTT is 31. ASSESSMENT: 1. Left shoulder abscess. 2. Diabetes. 3. Hyperglycemia. 4. Hyponatremia. Plan: Continue pre-medications, wound care, antibiotics per Infectious Diseases, blood sugar, pain control, dietary to follow, CBC and BMP in the morning, OT/PT, and dietary evaluation. Dr. Cleaning, Dr. Sanches, Dr. Alanis, and Dr. Pedroza to consult. Mu Suarez D.O. DR: NORMA JOB#: [id number] CC:
[2017-07-27] MEDS: Heparin 5000 units/ml inj SUBQ SCH ×2 (08:42→21:43)
[2017-07-27] MEDS: Levemir Flexpen SUBQ SCH ×2 (08:43→17:26)
--- NOTE | 2017-07-27 09:13 | General Progress Note ---
Assessment/Plan Problem List: (1) Non-compliance ICD Codes: Z91.19 - Patient's noncompliance with other medical treatment and regimen SNOMED: 0098383 (2) Poorly controlled diabetes mellitus ICD Codes: E11.65 - Type 2 diabetes mellitus with hyperglycemia SNOMED: 474254977 (3) Abscess of right shoulder ICD Codes: L02.413 - Cutaneous abscess of right upper limb SNOMED: 31809281 (4) Elevated lactic acid level ICD Codes: E87.2 - Acidosis SNOMED: 0187006 Assessment/Plan continue to hold Metformin increase Levemir to 15 units bid incease Novolog 8 to 12 units ac tid + SSI Subjective Allergies: Coded Allergies: No Known Allergies (Unverified , 04/19/16) All Systems: reviewed and negative except above Subjective events noted - interval noted reviewed did not received scheduled insulin due to NPO status Objective Last 24 Hour Vital Signs Date Time Temp Pulse Resp B/P (MAP) Pulse Ox O2 Delivery O2 Flow Rate FiO2 07/27/17 08:00 98.4 94 20 135/70 97 Room Air 07/27/17 07:46 78 16 Room Air 07/27/17 04:00 97.6 95 20 124/80 96 Room Air 07/27/17 00:00 98.5 93 20 155/86 100 Room Air 07/26/17 20:00 97.8 98 20 137/99 97 Room Air 07/26/17 19:30 98 16 Room Air 21 07/26/17 16:00 97.6 99 19 112/86 95 Room Air 07/26/17 12:00 98.2 94 20 140/87 96 Room Air Laboratory Tests 07/26/17 15:17: Urine Color Yellow, Urine Appearance Clear, Urine pH 6.5, Urine Specific Catarina 1.010, Urine Protein 2+H, Urine Glucose (UA) 4+H, Urine Ketones 1+H, Urine Occult Blood 4+H, Urine Nitrite Negative, Urine Bilirubin Negative, Urine Urobilinogen 4H, Urine Leukocyte Esterase Negative, Urine RBC 5-10H, Urine WBC 2 -4, Urine Squamous Epithelial Cells None, Urine Amorphous Sediment FewH, Urine Bacteria Few 07/26/17 17:57: Urine Random Total Protein 67, Urine Random Sodium 10, Urine Creatinine 49.5 07/26/17 18:30: Urine Random Creatinine [Pending], Urine Random Microalbumin [Pending], Urine Microalbumin/Creatinine Ratio [Pending] 07/27/17 01:00: Vancomycin Level Trough 4.1L 07/27/17 05:55: White Blood Count 13.0H, Red Blood Count 4.00L, Hemoglobin 12.7L, Hematocrit 37.4L, Mean Corpuscular Volume 94, Mean Corpuscular Hemoglobin 31.8H, Mean Corpuscular Hemoglobin Concent 34.0, Red Cell Distribution Width 11.9, Platelet Count 219, Mean Platelet Volume 9.0, Neutrophils (%) (Auto) 75.5H, Lymphocytes ( %) (Auto) 15.1L, Monocytes (%) (Auto) 7.1, Eosinophils (%) (Auto) 1.0, Basophils (%) (Auto) 1.3, Sodium Level 130L, Potassium Level 3.9, Chloride Level 91L, Carbon Dioxide Level 26, Anion Gap 13, Blood Urea Nitrogen 10, Creatinine 0.6L, Estimat Glomerular Filtration Rate > 60, Glucose Level 339H, Calcium Level 8.5L Height (Feet): 5 Height (Inches): 5.00 Weight (Pounds): 190 General Appearance: no apparent distress Neck: normal alignment Cardiovascular: regular rhythm Respiratory/Chest: chest wall non-tender Abdomen: normal bowel sounds Pelvis: normal external exam Objective Current Medications Medications (Trade) Dose Ordered Sig/Leah Route PRN Reason Start Time Stop Time Status Last Admin Dose Admin Acetaminophen (Tylenol) 650 mg Q4H PRN ORAL fever 07/25/17 16:15 08/24/17 16:14 Acetaminophen (Tylenol) 650 mg Q4H PRN RECTAL Mild Pain (Pain Scale 1-3) 07/25/17 20:30 08/24/17 20:29 Albuterol/ Ipratropium (DuoNeb 0.5-3(2.5)mg/3ml) 3 ml Q4H PRN HHN Shortness of Breath 07/25/17 16:15 07/30/17 16:14 Dextrose (Dextrose 50%) STAT PRN IV Hypoglycemia 07/25/17 16:15 08/24/17 16:14 Dextrose (Dextrose 50%) STAT PRN IV Hypoglycemia 07/26/17 08:45 08/25/17 08:44 Heparin Sodium (Porcine) (Heparin 5000 units/ml) 5,000 units EVERY 12 HOURS SUBQ 07/25/17 21:00 08/24/17 20:59 07/27/17 08:42 Insulin Aspart (NovoLOG) BEFORE MEALS AND HS SUBQ 07/25/17 17:00 08/24/17 16:59 07/27/17 07:14 Insulin Aspart (NovoLOG) 8 units NOVOTIAC SUBQ 07/26/17 11:50 08/25/17 11:49 07/26/17 17:15 Insulin Detemir (Levemir) 10 units BID SUBQ 07/26/17 09:00 08/25/17 08:59 07/27/17 08:43 Morphine Sulfate (Morphine Sulfate) 2 mg Q4H PRN IVP Moderate Pain (Pain Scale 4-6) 07/25/17 16:15 08/01/17 16:14 Nitroglycerin (Ntg) 0.4 mg Q5M PRN SL Prn Chest Pain 07/25/17 16:15 08/24/17 16:14 Ondansetron HCl (Zofran) 4 mg Q6H PRN IVP Nausea & Vomiting 07/25/17 16:15 08/24/17 16:14 Piperacillin Sod/ Tazobactam Sod 3.375 gm/Dextrose 110 ml @ 27.5 mls/hr EVERY 8 HOURS IVPB 07/26/17 18:00 07/31/17 17:59 07/27/17 06:14 Polyethylene Glycol (Miralax) 17 gm DAILYPRN PRN ORAL Constipation 07/25/17 16:15 08/24/17 16:14 Povidone Iodine (Betadine Caridad) 1 applic EVERY 8 HOURS TOPIC 07/26/17 16:00 08/25/17 15:59 07/27/17 06:11 Sodium Chloride 1,000 ml @ 100 mls/hr Q10H IV 07/26/17 15:30 08/25/17 15:29 07/27/17 01:38 Temazepam (Restoril) 15 mg HSPRN PRN ORAL Insomnia 07/25/17 16:15 08/01/17 16:14 Vancomycin HCl (Vanco rx to dose) 1 ea DAILY PRN MISC PER RX PROTOCOL 07/25/17 16:15 08/24/17 16:14 Vancomycin HCl/ Dextrose 250 ml @ 125 mls/hr Q8H IVPB 07/27/17 08:00 08/01/17 07:59 Item Value Date Time Bedside Blood Glucose 298 mg/dl H 07/27/17 0843 Bedside Blood Glucose 298 mg/dl H 07/27/17 0630 Bedside Blood Glucose 352 mg/dl H 07/26/17 2109 Bedside Blood Glucose 367 mg/dl H 07/26/17 1716 Bedside Blood Glucose 311 mg/dl H 07/26/17 1442 Bedside Blood Glucose 327 mg/dl H 07/26/17 0623 ANN DUARTE Jul 27, 2017 09:13
[2017-07-27] MEDS ORDERED: Morphine Sulfate 2mg/ml Inj IVP PRN ×2 (10:30→14:15)
[2017-07-27] MEDS ORDERED: Sterile Water Irrig 1000ml IRRIG ONE (10:36)
[2017-07-27] MEDS ORDERED: NS Irrig 1000ml ONE (10:36)
--- NOTE | 2017-07-27 12:10 | Pre-Procedure Note/Attestation ---
Pre-Procedure Note/Attestation Complete Prior to Procedure Planned Procedure: left Procedure Narrative: I&D Abscess posterior left shoulder Indications for Procedure Pre-Operative Diagnosis: Abscess posterior left shoulder Attestation I attest that I discussed the nature of the procedure; its benefits; risks and complications; and alternatives (and the risks and benefits of such alternatives ), prior to the procedure, with the patient (or the patient's legal player services representative). I attest that, if there was a reasonable possibility of needing a blood transfusion, the patient (or the patient's legal player services representative) was given the [facility] standardized written summary, pursuant to the [place] Blood Safety Act ([place] Health and Safety Code # 1645, as amended). I attest that I re-evaluated the patient just prior to the surgery and that there has been no change in the patient's H&P, except as documented below: ZAIN DE LA CRUZ Jul 27, 2017 12:10
--- NOTE | 2017-07-27 12:26 | Pulmonology Progress Note ---
Assessment/Plan Problems: (1) Abscess of right shoulder (2) Poorly controlled diabetes mellitus (3) Gram-positive cocci bacteremia Assessment/Plan IV abx check cultures wound care debridement symptomatic treatment Subjective ROS Limited/Unobtainable: No Constitutional: Reports: no symptoms HEENT: Repors: no symptoms Allergies: Coded Allergies: No Known Allergies (Unverified , 04/19/16) Objective Last 24 Hour Vital Signs Date Time Temp Pulse Resp B/P (MAP) Pulse Ox O2 Delivery O2 Flow Rate FiO2 07/27/17 08:00 98.4 94 20 135/70 97 Room Air 07/27/17 07:46 78 16 Room Air 21 07/27/17 04:00 97.6 95 20 124/80 96 Room Air 07/27/17 00:00 98.5 93 20 155/86 100 Room Air 07/26/17 20:00 97.8 98 20 137/99 97 Room Air 07/26/17 19:30 98 16 Room Air 21 07/26/17 16:00 97.6 99 19 112/86 95 Room Air Intake and Output 07/27/17 07/28/17 19:00 07:00 Intake Total 207.5 ml Output Total 350 ml Balance -142.5 ml IV Total 207.5 ml Output Urine Total 350 ml General Appearance: WD/WN HEENT: normocephalic, atraumatic Respiratory/Chest: chest wall non-tender, lungs clear Cardiovascular: normal peripheral pulses, normal rate Abdomen: soft, non tender, no mass Skin: no rash Microbiology Date/Time Source Procedure Growth Status 07/25/17 13:10 Blood Blood Culture - Preliminary Staphylococcus Aureus Resulted 07/25/17 13:03 Blood Blood Culture - Preliminary Staphylococcus Aureus Resulted 07/25/17 22:30 Shoulder Right Gram Stain - Final Resulted 07/25/17 22:30 Wound Culture - Preliminary Staphylococcus Aureus Resulted Laboratory Tests 07/26/17 15:17: Urine Color Yellow, Urine Appearance Clear, Urine pH 6.5, Urine Specific Celina 1.010, Urine Protein 2+H, Urine Glucose (UA) 4+H, Urine Ketones 1+H, Urine Occult Blood 4+H, Urine Nitrite Negative, Urine Bilirubin Negative, Urine Urobilinogen 4H, Urine Leukocyte Esterase Negative, Urine RBC 5-10H, Urine WBC 2 -4, Urine Squamous Epithelial Cells None, Urine Amorphous Sediment FewH, Urine Bacteria Few 07/26/17 17:57: Urine Random Total Protein 67, Urine Random Sodium 10, Urine Creatinine 49.5 07/26/17 18:30: Urine Random Creatinine [Pending], Urine Random Microalbumin [Pending], Urine Microalbumin/Creatinine Ratio [Pending] 07/27/17 01:00: Vancomycin Level Trough 4.1L 07/27/17 05:55: White Blood Count 13.0H, Red Blood Count 4.00L, Hemoglobin 12.7L, Hematocrit 37.4L, Mean Corpuscular Volume 94, Mean Corpuscular Hemoglobin 31.8H, Mean Corpuscular Hemoglobin Concent 34.0, Red Cell Distribution Width 11.9, Platelet Count 219, Mean Platelet Volume 9.0, Neutrophils (%) (Auto) 75.5H, Lymphocytes ( %) (Auto) 15.1L, Monocytes (%) (Auto) 7.1, Eosinophils (%) (Auto) 1.0, Basophils (%) (Auto) 1.3, Sodium Level 130L, Potassium Level 3.9, Chloride Level 91L, Carbon Dioxide Level 26, Anion Gap 13, Blood Urea Nitrogen 10, Creatinine 0.6L, Estimat Glomerular Filtration Rate > 60, Glucose Level 339H, Calcium Level 8.5L Current Medications Medications (Trade) Dose Ordered Sig/Leah Route PRN Reason Start Time Stop Time Status Last Admin Dose Admin Acetaminophen (Tylenol) 650 mg Q4H PRN ORAL fever 07/25/17 16:15 08/24/17 16:14 Acetaminophen (Tylenol) 650 mg Q4H PRN RECTAL Mild Pain (Pain Scale 1-3) 07/25/17 20:30 08/24/17 20:29 Albuterol/ Ipratropium (DuoNeb 0.5-3(2.5)mg/3ml) 3 ml Q4H PRN HHN Shortness of Breath 07/25/17 16:15 07/30/17 16:14 Dextrose (Dextrose 50%) STAT PRN IV Hypoglycemia 07/25/17 16:15 08/24/17 16:14 Dextrose (Dextrose 50%) STAT PRN IV Hypoglycemia 07/26/17 08:45 08/25/17 08:44 Heparin Sodium (Porcine) (Heparin 5000 units/ml) 5,000 units EVERY 12 HOURS SUBQ 07/25/17 21:00 08/24/17 20:59 07/27/17 08:42 Insulin Aspart (NovoLOG) BEFORE MEALS AND HS SUBQ 07/25/17 17:00 08/24/17 16:59 07/27/17 07:14 Insulin Aspart (NovoLOG) 12 units NOVOTIAC SUBQ 07/27/17 11:50 08/26/17 11:49 Insulin Detemir (Levemir) 15 units BID SUBQ 07/27/17 18:00 08/26/17 17:59 Morphine Sulfate (Morphine Sulfate) 2 mg Q4H PRN IVP For Pain 07/27/17 10:30 08/03/17 10:29 Nitroglycerin (Ntg) 0.4 mg Q5M PRN SL Prn Chest Pain 07/25/17 16:15 08/24/17 16:14 Ondansetron HCl (Zofran) 4 mg Q6H PRN IVP Nausea & Vomiting 07/25/17 16:15 08/24/17 16:14 Piperacillin Sod/ Tazobactam Sod 3.375 gm/Dextrose 110 ml @ 27.5 mls/hr EVERY 8 HOURS IVPB 07/26/17 18:00 07/31/17 17:59 07/27/17 06:14 Polyethylene Glycol (Miralax) 17 gm DAILYPRN PRN ORAL Constipation 07/25/17 16:15 08/24/17 16:14 Povidone Iodine (Betadine Caridad) 1 applic EVERY 8 HOURS TOPIC 07/26/17 16:00 08/25/17 15:59 07/27/17 06:11 Sodium Chloride 1,000 ml @ 100 mls/hr Q10H IV 07/26/17 15:30 08/25/17 15:29 07/27/17 01:38 Temazepam (Restoril) 15 mg HSPRN PRN ORAL Insomnia 07/25/17 16:15 08/01/17 16:14 Vancomycin HCl (Vanco rx to dose) 1 ea DAILY PRN MISC PER RX PROTOCOL 07/25/17 16:15 08/24/17 16:14 Vancomycin HCl/ Dextrose 250 ml @ 125 mls/hr Q8H IVPB 07/27/17 08:00 08/01/17 07:59 07/27/17 10:02 SOPHIA LESLIE 3, 2017 12:26
[2017-07-27] MEDS ORDERED: Bacitracin 50000 Units Vial ONE (12:59)
--- NOTE | 2017-07-27 13:06 | General Progress Note ---
Assessment/Plan Problem List: (1) Abscess of back ICD Codes: L02.212 - Cutaneous abscess of back [any part, except buttock] SNOMED: 012802999 (2) Abscess of right shoulder ICD Codes: L02.413 - Cutaneous abscess of right upper limb SNOMED: 26392347 (3) Poorly controlled diabetes mellitus ICD Codes: E11.65 - Type 2 diabetes mellitus with hyperglycemia SNOMED: 445830506 Status: stable, progressing Assessment/Plan ot pt diet wound care abx pain control cbc bmp am Subjective Constitutional: Reports: weakness Allergies: Coded Allergies: No Known Allergies (Unverified , 04/19/16) All Systems: reviewed and negative except above Subjective pending sx Objective Last 24 Hour Vital Signs Date Time Temp Pulse Resp B/P (MAP) Pulse Ox O2 Delivery O2 Flow Rate FiO2 07/27/17 08:00 98.4 94 20 135/70 97 Room Air 07/27/17 07:46 78 16 Room Air 21 07/27/17 04:00 97.6 95 20 124/80 96 Room Air 07/27/17 00:00 98.5 93 20 155/86 100 Room Air 07/26/17 20:00 97.8 98 20 137/99 97 Room Air 07/26/17 19:30 98 16 Room Air 21 07/26/17 16:00 97.6 99 19 112/86 95 Room Air Intake and Output 07/27/17 07/28/17 19:00 07:00 Intake Total 207.5 ml Output Total 350 ml Balance -142.5 ml IV Total 207.5 ml Output Urine Total 350 ml Laboratory Tests 07/26/17 15:17: Urine Color Yellow, Urine Appearance Clear, Urine pH 6.5, Urine Specific [place] 1.010, Urine Protein 2+H, Urine Glucose (UA) 4+H, Urine Ketones 1+H, Urine Occult Blood 4+H, Urine Nitrite Negative, Urine Bilirubin Negative, Urine Urobilinogen 4H, Urine Leukocyte Esterase Negative, Urine RBC 5-10H, Urine WBC 2 -4, Urine Squamous Epithelial Cells None, Urine Amorphous Sediment FewH, Urine Bacteria Few 07/26/17 17:57: Urine Random Total Protein 67, Urine Random Sodium 10, Urine Creatinine 49.5 07/26/17 18:30: Urine Random Creatinine [Pending], Urine Random Microalbumin [Pending], Urine Microalbumin/Creatinine Ratio [Pending] 07/27/17 01:00: Vancomycin Level Trough 4.1L 07/27/17 05:55: White Blood Count 13.0H, Red Blood Count 4.00L, Hemoglobin 12.7L, Hematocrit 37.4L, Mean Corpuscular Volume 94, Mean Corpuscular Hemoglobin 31.8H, Mean Corpuscular Hemoglobin Concent 34.0, Red Cell Distribution Width 11.9, Platelet Count 219, Mean Platelet Volume 9.0, Neutrophils (%) (Auto) 75.5H, Lymphocytes ( %) (Auto) 15.1L, Monocytes (%) (Auto) 7.1, Eosinophils (%) (Auto) 1.0, Basophils (%) (Auto) 1.3, Sodium Level 130L, Potassium Level 3.9, Chloride Level 91L, Carbon Dioxide Level 26, Anion Gap 13, Blood Urea Nitrogen 10, Creatinine 0.6L, Estimat Glomerular Filtration Rate > 60, Glucose Level 339H, Calcium Level 8.5L Height (Feet): 5 Height (Inches): 5.00 Weight (Pounds): 190 General Appearance: alert EENT: normal ENT inspection Neck: normal alignment Cardiovascular: normal peripheral pulses, normal rate, regular rhythm Respiratory/Chest: chest wall non-tender, lungs clear, normal breath sounds Abdomen: normal bowel sounds, non tender, soft Extremities: normal inspection Edema: no edema noted Arm (L), no edema noted Arm (R), no edema noted Leg (L), no edema noted Leg (R), no edema noted Pedal (L), no edema noted Pedal (R), no edema noted Generalized Neurologic: responsive, motor weakness Skin: normal pigmentation, warm/dry Objective wound dressing sl stained back of right scapula BOB HILL Jul 27, 2017 13:06
--- NOTE | 2017-07-27 13:27 | Immediate Post-Op Evaluation ---
Immediate Post-Op Evalulation Immediate Post-Op Evalulation Procedure: Right shoulder I&D Date of Evaluation: Jul 27, 2017 Time of Evaluation: 13:28 IV Fluids: 1.1L Blood Products: 0 Estimated Blood Loss: 600 Urinary Output: 0 Blood Pressure Systolic: 115 Blood Pressure Diastolic: 72 Pulse Rate: 100 Respiratory Rate: 19 O2 Sat by Pulse Oximetry: 100 Temperature (Fahrenheit): 100.7 Pain Score (1-10): 0 Nausea: No Vomiting: No Complications 0 Patient Status: awake, reacts, patent, none Hydration Status: adequate Drug: Vancomycin 1.5g Given Within 1 Hr of Incision: Yes Time Given: 12:00 DAINA BLAIR M.D. Jul 27, 2017 13:27
--- NOTE | 2017-07-27 13:42 | Brief Operative Note ---
Immediate Post Operative Note Operative Note Pre-op Diagnosis: Abscess posterior left shoulder Procedure: I & D posterior right shoulder with extensive debridement Post-op Diagnosis: sopporotive fasciitis posterior right shoulder Findings: consistent w/pre-op dx studies Surgeon: MD Maria Del Carmen Development Expert: none Anesthesiologist: MD Isra Anesthesia: general Specimen: yes Complications: none Condition: stable Fluids: per anesthesiologist Estimated Blood Loss: volume - 150 ml Packing: Betadine soaked Kerlix roll Implant(s) used?: No ZAIN DE LA CRUZ Jul 27, 2017 13:42
[2017-07-27] MEDS ORDERED: fentaNYL 100 mcg/2 mL IV PRN (13:45)
[2017-07-27] MEDS ORDERED: DiphenhydrAMINE 50mg/ml Inj IVP PRN (13:45)
[2017-07-27] MEDS ORDERED: Morphine Sulfate 4mg/ml Inj IVP PRN (13:45)
--- NOTE | 2017-07-27 13:59 | Pre-Procedure Note/Attestation ---
Pre-Procedure Note/Attestation Complete Prior to Procedure Planned Procedure: right Procedure Narrative: I & D abscess posterior right shoulder Indications for Procedure Pre-Operative Diagnosis: Abscess posterior right shoulder Attestation I attest that I discussed the nature of the procedure; its benefits; risks and complications; and alternatives (and the risks and benefits of such alternatives ), prior to the procedure, with the patient (or the patient's legal admitting representative). I attest that, if there was a reasonable possibility of needing a blood transfusion, the patient (or the patient's legal admitting representative) was given the [facility] standardized written summary, pursuant to the [place] Blood Safety Act ([place] Health and Safety Code # 1645, as amended). I attest that I re-evaluated the patient just prior to the surgery and that there has been no change in the patient's H&P, except as documented below: ZAIN DE LA CRUZ Jul 27, 2017 13:59
[2017-07-27] MEDS ORDERED: Acetaminophen (Non formulary) 100 ML IV ONE (14:00)
--- NOTE | 2017-07-27 15:23 | Nephrology Progress Note ---
Assessment/Plan Assessment 1.Hyponatremia (corrected na is 134) 2,uncontrolled DM 3,HTN 4.Right shoulder abscess 5.morbid obesity Plan to continue ivf mix all ivpb with NS.9 replace electrolyte as need it avoid NSAID Subjective Constitutional: Reports: no symptoms HEENT: Reports: no symptoms Genitourinary: Reports: no symptoms Neurologic/Psychiatric: Reports: no symptoms Subjective going for I&D of his shoulder today Objective Objective Last 24 Hour Vital Signs Date Time Temp Pulse Resp B/P (MAP) Pulse Ox O2 Delivery O2 Flow Rate FiO2 07/27/17 14:25 99.1 100 25 123/86 97 Nasal Cannula 3.0 07/27/17 14:10 98 23 120/85 98 Nasal Cannula 3.0 07/27/17 14:00 98 24 114/83 98 Nasal Cannula 3.0 07/27/17 13:45 101 27 140/89 99 Simple Mask 6.0 07/27/17 13:44 100.3 07/27/17 13:35 101 26 112/68 99 Simple Mask 6.0 07/27/17 13:30 101 30 103/70 99 Simple Mask 6.0 07/27/17 13:27 100 19 100 07/27/17 13:23 100.3 104 28 115/72 99 Simple Mask 6.0 07/27/17 08:00 98.4 94 20 135/70 97 Room Air 07/27/17 07:46 78 16 Room Air 21 07/27/17 04:00 97.6 95 20 124/80 96 Room Air 07/27/17 00:00 98.5 93 20 155/86 100 Room Air 07/26/17 20:00 97.8 98 20 137/99 97 Room Air 07/26/17 19:30 98 16 Room Air 21 07/26/17 16:00 97.6 99 19 112/86 95 Room Air Intake and Output 07/27/17 07/28/17 19:00 07:00 Intake Total 1457.5 ml Output Total 950 ml Balance 507.5 ml IV Total 1457.5 ml Output Urine Total 350 ml Estimated Blood Loss 600 ml Laboratory Tests 07/26/17 15:17: Urine Color Yellow, Urine Appearance Clear, Urine pH 6.5, Urine Specific [place] 1.010, Urine Protein 2+H, Urine Glucose (UA) 4+H, Urine Ketones 1+H, Urine Occult Blood 4+H, Urine Nitrite Negative, Urine Bilirubin Negative, Urine Urobilinogen 4H, Urine Leukocyte Esterase Negative, Urine RBC 5-10H, Urine WBC 2 -4, Urine Squamous Epithelial Cells None, Urine Amorphous Sediment FewH, Urine Bacteria Few 07/26/17 17:57: Urine Random Total Protein 67, Urine Random Sodium 10, Urine Creatinine 49.5 07/26/17 18:30: Urine Random Creatinine [Pending], Urine Random Microalbumin [Pending], Urine Microalbumin/Creatinine Ratio [Pending] 07/27/17 01:00: Vancomycin Level Trough 4.1L 07/27/17 05:55: White Blood Count 13.0H, Red Blood Count 4.00L, Hemoglobin 12.7L, Hematocrit 37.4L, Mean Corpuscular Volume 94, Mean Corpuscular Hemoglobin 31.8H, Mean Corpuscular Hemoglobin Concent 34.0, Red Cell Distribution Width 11.9, Platelet Count 219, Mean Platelet Volume 9.0, Neutrophils (%) (Auto) 75.5H, Lymphocytes ( %) (Auto) 15.1L, Monocytes (%) (Auto) 7.1, Eosinophils (%) (Auto) 1.0, Basophils (%) (Auto) 1.3, Sodium Level 130L, Potassium Level 3.9, Chloride Level 91L, Carbon Dioxide Level 26, Anion Gap 13, Blood Urea Nitrogen 10, Creatinine 0.6L, Estimat Glomerular Filtration Rate > 60, Glucose Level 339H, Calcium Level 8.5L Height (Feet): 5 Height (Inches): 5.00 Weight (Pounds): 190 Objective Head and Neck: No JVP. No LAD. No thyromegaly. Extraocular movement intact. Pupils are reactive to light and accommodation. LUNGS: Clear to auscultation. CARDIAC: Regular rate and rhythm. S1 and S2. No murmur. No rub. ABDOMEN: Obese, nontender, and nondistended. Extremities: A 1 to 2+ edema. Right shoulder, he has a 20 x 20 cm round lesion with the yellowish, foul smelling drainage. It is very tender to touch and has had some degree of fluctuation. BHARGAVI SANZ Jul 27, 2017 15:23
[2017-07-27] MEDS ORDERED: Acetaminophen 650 MG SUPP RECTAL PRN (15:45)
[2017-07-27] MEDS ORDERED: Piperacillin/Tazobactam 3.375 GM in NS 110 ML IVPB SCH (16:00)
[2017-07-27] MEDS: Piperacillin/Tazobactam 3.375 GM in NS 110 ML IVPB SCH (17:19)
--- NOTE | 2017-07-27 17:19 | Infectious Diseases Prog Note ---
Assessment/Plan Problems: (1) Abscess of right shoulder Assessment & Plan: S/P I&D for source control since he is septic , will continue vancomycin and zosyn pending abscess culture results, (2) Gram-positive cocci bacteremia Assessment & Plan: due to shoulder abscess , had source control with I&D, surgery is following , continue vancomycin, and zosyn , await 2 D echo to rule out valve vegetations , will repeat blood culture to confirm clearance (3) Poorly controlled diabetes mellitus Assessment & Plan: recommend tight glycemic control to keep blood glucose between 80-120 Subjective Constitutional: Reports: fatigue, drenching sweats HEENT: Reports: no symptoms Respiratory: Reports: no symptoms Breasts: Reports: no symptoms Cardiovascular: Reports: no symptoms Gastrointestinal/Abdominal: Reports: no symptoms Genitourinary: Reports: no symptoms Neurologic: Reports: no symptoms Psychiatric: Reports: no symptoms Skin: Reports: ulcer, other - redenss and swelling on the right shoulder Musculoskeletal: Reports: pain, swelling Allergies: Coded Allergies: No Known Allergies (Unverified , 04/19/16) Objective Vital Signs Last 24 Hour Vital Signs Date Time Temp Pulse Resp B/P (MAP) Pulse Ox O2 Delivery O2 Flow Rate FiO2 07/27/17 15:46 98.6 102 20 124/83 95 Nasal Cannula 2.0 07/27/17 14:38 98.4 100 20 130/74 95 Nasal Cannula 2.0 07/27/17 14:25 99.1 100 25 123/86 97 Nasal Cannula 3.0 07/27/17 14:10 98 23 120/85 98 Nasal Cannula 3.0 07/27/17 14:00 98 24 114/83 98 Nasal Cannula 3.0 07/27/17 13:45 101 27 140/89 99 Simple Mask 6.0 07/27/17 13:44 100.3 07/27/17 13:35 101 26 112/68 99 Simple Mask 6.0 07/27/17 13:30 101 30 103/70 99 Simple Mask 6.0 07/27/17 13:27 100 19 100 07/27/17 13:23 100.3 104 28 115/72 99 Simple Mask 6.0 07/27/17 08:00 98.4 94 20 135/70 97 Room Air 07/27/17 07:46 78 16 Room Air 21 07/27/17 04:00 97.6 95 20 124/80 96 Room Air 07/27/17 00:00 98.5 93 20 155/86 100 Room Air 07/26/17 20:00 97.8 98 20 137/99 97 Room Air 07/26/17 19:30 98 16 Room Air 21 Height (Feet): 5 Height (Inches): 5.00 Weight (Pounds): 190 General Appearance: WD/WN, no acute distress HEENT: normocephalic, atraumatic, anicteric, mucous membranes moist Respiratory/Chest: chest wall non-tender, lungs clear, normal breath sounds, no respiratory distress, no accessory muscle use Cardiovascular: normal peripheral pulses, normal rate, regular rhythm, no gallop/murmur, no JVD Abdomen: normal bowel sounds, soft, non tender, no organomegaly, non distended , no mass Extremities: no cyanosis, no clubbing Skin: ulcers, other - red and swallen on the posterior right shoulder Microbiology Date/Time Source Procedure Growth Status 07/25/17 13:10 Blood Blood Culture - Preliminary Staphylococcus Aureus Resulted 07/25/17 13:03 Blood Blood Culture - Preliminary Staphylococcus Aureus Resulted 07/25/17 22:30 Shoulder Right Gram Stain - Final Resulted 07/25/17 22:30 Wound Culture - Preliminary Staphylococcus Aureus Resulted Laboratory Tests Test 07/26/17 17:57 07/26/17 18:30 07/27/17 01:00 07/27/17 05:55 Urine Random Total Protein 67 mg/dL Urine Random Sodium 10 mmol/L Urine Creatinine 49.5 mg/dL Urine Random Creatinine Pending Urine Random Microalbumin Pending Urine Microalbumin/Creatinine Ratio Pending Vancomycin Level Trough 4.1 ug/mL (5.0-12.0) L White Blood Count 13.0 K/UL (4.8-10.8) H Red Blood Count 4.00 M/UL (4.70-6.10) L Hemoglobin 12.7 G/DL (14.2-18.0) L Hematocrit 37.4 % (42.0-52.0) L Mean Corpuscular Volume 94 FL (80-99) Mean Corpuscular Hemoglobin 31.8 PG (27.0-31.0) H Mean Corpuscular Hemoglobin Concent 34.0 G/DL (32.0-36.0) Red Cell Distribution Width 11.9 % (11.6-14.8) Platelet Count 219 K/UL (150-450) Mean Platelet Volume 9.0 FL (6.5-10.1) Neutrophils (%) (Auto) 75.5 % (45.0-75.0) H Lymphocytes (%) (Auto) 15.1 % (20.0-45.0) L Monocytes (%) (Auto) 7.1 % (1.0-10.0) Eosinophils (%) (Auto) 1.0 % (0.0-3.0) Basophils (%) (Auto) 1.3 % (0.0-2.0) Sodium Level 130 mEQ/L (135-145) L Potassium Level 3.9 mEQ/L (3.4-4.9) Chloride Level 91 mEQ/L (98-107) L Carbon Dioxide Level 26 mEQ/L (20-30) Anion Gap 13 (5-15) Blood Urea Nitrogen 10 mg/dL (7-23) Creatinine 0.6 mg/dL (0.7-1.2) L Estimat Glomerular Filtration Rate > 60 mL/min (>60) Glucose Level 339 mg/dL (74-106) H Calcium Level 8.5 mg/dL (8.6-10.2) L Current Medications Medications (Trade) Dose Ordered Sig/Leah Route PRN Reason Start Time Stop Time Status Last Admin Dose Admin Acetaminophen (Tylenol) 650 mg Q4H PRN ORAL fever 07/25/17 16:15 08/24/17 16:14 Acetaminophen (Tylenol) 650 mg Q4H PRN RECTAL Mild Pain (Pain Scale 1-3) 07/27/17 15:45 08/24/17 20:29 Albuterol/ Ipratropium (DuoNeb 0.5-3(2.5)mg/3ml) 3 ml Q4H PRN HHN Shortness of Breath 07/25/17 16:15 07/30/17 16:14 Dextrose (Dextrose 50%) STAT PRN IV Hypoglycemia 07/26/17 08:45 08/25/17 08:44 Heparin Sodium (Porcine) (Heparin 5000 units/ml) 5,000 units EVERY 12 HOURS SUBQ 07/25/17 21:00 08/24/17 20:59 07/27/17 08:42 Insulin Aspart (NovoLOG) BEFORE MEALS AND HS SUBQ 07/25/17 17:00 08/24/17 16:59 07/27/17 07:14 Insulin Aspart (NovoLOG) 12 units NOVOTIAC SUBQ 07/27/17 11:50 08/26/17 11:49 Insulin Detemir (Levemir) 15 units BID SUBQ 07/27/17 18:00 08/26/17 17:59 Morphine Sulfate (Morphine Sulfate) 2 mg Q4H PRN IVP Moderate Pain (Pain Scale 4-6) 07/27/17 14:15 08/03/17 10:29 Morphine Sulfate (Morphine Sulfate) 4 mg Q4H PRN IVP pain score 7-10 07/27/17 13:45 08/03/17 13:44 Nitroglycerin (Ntg) 0.4 mg Q5M PRN SL Prn Chest Pain 07/25/17 16:15 08/24/17 16:14 Ondansetron HCl (Zofran) 4 mg Q6H PRN IVP Nausea & Vomiting 07/25/17 16:15 08/24/17 16:14 Piperacillin Sod/ Tazobactam Sod 3.375 gm/Sodium Chloride 110 ml @ 27.5 mls/hr EVERY 8 HOURS IVPB 07/27/17 18:00 08/03/17 17:59 Polyethylene Glycol (Miralax) 17 gm DAILYPRN PRN ORAL Constipation 07/25/17 16:15 08/24/17 16:14 Povidone Iodine (Betadine [place]) 1 applic EVERY 8 HOURS TOPIC 07/26/17 16:00 08/25/17 15:59 07/27/17 06:11 Sodium Chloride 1,000 ml @ 0 mls/hr Q0M IV 07/27/17 14:30 08/26/17 14:29 Temazepam (Restoril) 15 mg HSPRN PRN ORAL Insomnia 07/25/17 16:15 08/01/17 16:14 Vancomycin HCl (Vanco rx to dose) 1 ea DAILY PRN MISC PER RX PROTOCOL 07/25/17 16:15 08/24/17 16:14 Vancomycin HCl 1500 mg/Sodium Chloride 275 ml @ 137.5 mls/ hr Q8HR@0000,0800,1600 IVPB 07/27/17 16:00 08/01/17 15:59 07/27/17 15:56 Fernando Clayton M.D. Jul 27, 2017 17:18
--- NOTE | 2017-07-27 17:56 | Cardiology Report ---
APPROVED REPORT EXAM: Two-dimensional and M-mode echocardiogram with Doppler and color Doppler. INDICATION Endocarditis M-Mode DIMENSIONS IVSd1.0 (0.7-1.1cm)Left Atrium (MM)3.8 (1.6-4.0cm) LVDd1.9 (3.5-5.6cm)Aortic Root2.8 (2.0-3.7cm) PWd5.4 (0.7-1.1cm)Aortic Cusp Exc.2.4 (1.5-2.0cm) LVDs1.3 (2.5-4.0cm) PWs2.6 cm Technically difficult study due to poor acoustical windows. Normal left ventricular chamber size, hyperdynamic systolic function and wall motion to extent visualized. Left ventricular ejection fraction estimated to be 70-75 %. Moderate left ventricular hypertrophy. Anterior Echo-free space, may be due to pericardial fat or effusion. All other cardiac chamber sizes are within normal limits. Focal aortic valve sclerosis with adequate cusp excursion. Thickened mitral valve leaflets with normal excursion. Mitral annulus and aortic root calcification. Pulmonic valve not well visualized. Normal tricuspid valve structure. IVC at normal size with physiologic collapse. No discrete vegetations seen, however SBE may not be excluded by transthoracic 2-D echo. Consider JULEE if clinically indicated. A color flow and spectral Doppler study was performed and revealed: Trace aortic regurgitation. Trace mitral regurgitation. Mitral diastolic velocities suggest reduced left ventricular relaxation c/w mild LV diastolic dysfunction (Grade I). Trace tricuspid regurgitation. Tricuspid systolic velocities suggests peak right ventricular systolic pressure of 24 mmHg.
--- NOTE | 2017-07-27 23:00 | Operative Note - Dictated ---
DATE OF OPERATION: 07/27/2017 PREOPERATIVE DIAGNOSIS: Abscess of the posterior right shoulder. Postoperative Diagnosis: Extensive suppurative fasciitis, posterior right shoulder. Operation: Incision and drainage and extensive debridement of the posterior right shoulder. COMPLICATION: None. SURGEON: Mike Francis M.D. JANITORIAL MAINTENANCE WORKER: None. ANESTHESIA: General with a laryngeal mask. ANESTHESIOLOGIST: Dr. Dhaliwal. Indication: This is a 42-year-old male with a long history of diabetes, presented to emergency room complaining of the swelling, erythema and pain at the posterior aspect of the right shoulder. He claimed that he has had it for about 5 to 6 days. Physical examination showed severe erythema of the large area on the posterior aspect of the right shoulder with the blebs and pustules, besides that he had a small opening from which the pus was draining. The patient was admitted and he was started on IV antibiotic and CBC on admission was 16,000. The patient was scheduled for surgery yesterday, but the blood glucose was still very high and anesthesiologist recommended postponement of the surgery. Finally, today he was scheduled for debridement. Procedure: The patient was placed supine on the operating table and after general anesthesia with laryngeal mask, he was placed in the left decubitus position and the right posterior shoulder was properly prepped and draped. An incision was given at the middle of that erythema and pus drained. Digital examination was performed. It showed the cavity and so the incision was extended and the skin and the subcutaneous tissue in this area was removed and it was noticed that the patient had large amount of necrotic infected tissue, which involved the fascia and even the superficial part of the muscle. Gradually, the debridement was performed and we had to continue removing the skin and the fascia, but there was no end to it and the patient had very extensive infected necrotic fascia in this area and subcutaneous tissue, which was gradually debrided and was removed. Finally, there was a defect was made in the posterior aspect of the right shoulder, which was about 7 x 3 inches. With applying pressure to the around this area, there was a slight amount of pus, but I felt that at this time the debridement was enough and will get a chance to intravenous antibiotic to work for few days and if the infection continued, he would require further debridement, probably the skin and the soft tissues at the posterior aspect of the whole shoulder and scapula needs to be removed, but at this time I would like to give it a chance to the intravenous antibiotics. The bleeding points were cauterized. Despite of extensive care at the exit site, the patient lost about 100 to 150 mL of blood. Then, the cavity was irrigated with antibiotic solution and the bleeding points were controlled and then it was packed with the Kerlix roll soaked with Betadine. The patient tolerated the procedure well and was transferred to recovery room in stable condition and extubated. The sponge and needle count correct. Estimated blood loss 150 mL. Condition of the patient at the end of procedure is stable. Mike Francis M.D. DR: BRIAN JOB#: [id number] CC:
[2017-07-28 00:31] VITALS: BP 132/93
[2017-07-28 04:20] VITALS: BP 135/83
[2017-07-28] MEDS: Piperacillin/Tazobactam 3.375 GM in NS 110 ML IVPB SCH ×3 (05:59→21:44)
[2017-07-28] MEDS: NovoLOG Insulin Flexpen SUBQ SCH ×7 (06:02→21:12)
[2017-07-28] MEDS: Betadine 4oz Bottle TOPIC SCH ×2 (06:05→13:42)
--- NOTE | 2017-07-28 06:59 | 48 Hour Post Anesthesia Eval ---
Post Anesthesia Evaluation Procedure: Right shoulder I&D Date of Evaluation: Jul 28, 2017 Time of Evaluation: 06:34 Blood Pressure Systolic: 135 0: 83 Pulse Rate: 90 Respiratory Rate: 18 Temperature (Fahrenheit): 97.7 O2 Sat by Pulse Oximetry: 96 Airway: patent Nausea: No Vomiting: No Pain Intensity: 2 Hydration Status: adequate Cardiopulmonary Status: Stable Mental Status/LOC: patient returned to baseline Follow-up Care/Observations: 0 Post-Anesthesia Complications: 0 Follow-up care needed: N/A George Nathan MD Jul 28, 2017 06:59
--- NOTE | 2017-07-28 07:46 | General Progress Note ---
Assessment/Plan Problem List: (1) Non-compliance ICD Codes: Z91.19 - Patient's noncompliance with other medical treatment and regimen SNOMED: 6686216 (2) Poorly controlled diabetes mellitus ICD Codes: E11.65 - Type 2 diabetes mellitus with hyperglycemia SNOMED: 260479887 (3) Abscess of right shoulder ICD Codes: L02.413 - Cutaneous abscess of right upper limb SNOMED: 85254864 (4) Elevated lactic acid level ICD Codes: E87.2 - Acidosis SNOMED: 8833577 Assessment/Plan continue to hold Metformin since he presented with lactic acidosis continue Levemir 15 units bid continue Novolog 12 units ac tid + SSI Subjective Allergies: Coded Allergies: No Known Allergies (Unverified , 04/19/16) All Systems: reviewed and negative except above Subjective events noted - interval noted reviewed I&D done yesterday he is back on diabetic diet Objective Last 24 Hour Vital Signs Date Time Temp Pulse Resp B/P (MAP) Pulse Ox O2 Delivery O2 Flow Rate FiO2 07/28/17 06:59 90 18 96 07/28/17 04:20 97.7 90 18 135/83 96 Room Air 07/28/17 00:31 97.7 75 18 132/93 95 Room Air 07/27/17 20:07 99.1 106 19 143/98 98 Room Air 07/27/17 19:30 85 16 Room Air 21 07/27/17 15:46 98.6 102 20 124/83 95 Nasal Cannula 2.0 07/27/17 14:38 98.4 100 20 130/74 95 Nasal Cannula 2.0 07/27/17 14:25 99.1 100 25 123/86 97 Nasal Cannula 3.0 07/27/17 14:10 98 23 120/85 98 Nasal Cannula 3.0 07/27/17 14:00 98 24 114/83 98 Nasal Cannula 3.0 07/27/17 13:45 101 27 140/89 99 Simple Mask 6.0 07/27/17 13:44 100.3 07/27/17 13:35 101 26 112/68 99 Simple Mask 6.0 07/27/17 13:30 101 30 103/70 99 Simple Mask 6.0 07/27/17 13:27 100 19 100 07/27/17 13:23 100.3 104 28 115/72 99 Simple Mask 6.0 07/27/17 08:00 98.4 94 20 135/70 97 Room Air 07/27/17 07:46 78 16 Room Air 21 Height (Feet): 5 Height (Inches): 5.00 Weight (Pounds): 190 General Appearance: no apparent distress Neck: normal alignment Cardiovascular: normal rate Respiratory/Chest: chest wall non-tender Abdomen: normal bowel sounds Pelvis: normal external exam Edema: no edema noted Arm (L), no edema noted Arm (R), no edema noted Leg (L), no edema noted Leg (R), no edema noted Pedal (L), no edema noted Pedal (R), no edema noted Generalized Objective Current Medications Medications (Trade) Dose Ordered Sig/Leah Route PRN Reason Start Time Stop Time Status Last Admin Dose Admin Acetaminophen (Tylenol) 650 mg Q4H PRN ORAL fever 07/25/17 16:15 08/24/17 16:14 Acetaminophen (Tylenol) 650 mg Q4H PRN RECTAL Mild Pain (Pain Scale 1-3) 07/27/17 15:45 08/24/17 20:29 Albuterol/ Ipratropium (DuoNeb 0.5-3(2.5)mg/3ml) 3 ml Q4H PRN HHN Shortness of Breath 07/25/17 16:15 07/30/17 16:14 Dextrose (Dextrose 50%) STAT PRN IV Hypoglycemia 07/26/17 08:45 08/25/17 08:44 Heparin Sodium (Porcine) (Heparin 5000 units/ml) 5,000 units EVERY 12 HOURS SUBQ 07/25/17 21:00 08/24/17 20:59 07/27/17 21:43 Insulin Aspart (NovoLOG) BEFORE MEALS AND HS SUBQ 07/25/17 17:00 08/24/17 16:59 07/28/17 06:02 Insulin Aspart (NovoLOG) 12 units NOVOTIAC SUBQ 07/27/17 11:50 08/26/17 11:49 07/27/17 17:28 Insulin Detemir (Levemir) 15 units BID SUBQ 07/27/17 18:00 08/26/17 17:59 07/27/17 17:26 Morphine Sulfate (Morphine Sulfate) 2 mg Q4H PRN IVP Moderate Pain (Pain Scale 4-6) 07/27/17 14:15 08/03/17 10:29 Morphine Sulfate (Morphine Sulfate) 4 mg Q4H PRN IVP pain score 7-10 07/27/17 13:45 08/03/17 13:44 Nitroglycerin (Ntg) 0.4 mg Q5M PRN SL Prn Chest Pain 07/25/17 16:15 08/24/17 16:14 Ondansetron HCl (Zofran) 4 mg Q6H PRN IVP Nausea & Vomiting 07/25/17 16:15 08/24/17 16:14 Piperacillin Sod/ Tazobactam Sod 3.375 gm/Sodium Chloride 110 ml @ 27.5 mls/hr EVERY 8 HOURS IVPB 07/27/17 18:00 08/03/17 17:59 07/28/17 05:59 Polyethylene Glycol (Miralax) 17 gm DAILYPRN PRN ORAL Constipation 07/25/17 16:15 08/24/17 16:14 Povidone Iodine (Betadine Caridad) 1 applic EVERY 8 HOURS TOPIC 07/26/17 16:00 08/25/17 15:59 07/28/17 06:05 Sodium Chloride 1,000 ml @ 0 mls/hr Q0M IV 07/27/17 14:30 08/26/17 14:29 Temazepam (Restoril) 15 mg HSPRN PRN ORAL Insomnia 07/25/17 16:15 08/01/17 16:14 Vancomycin HCl (Vanco rx to dose) 1 ea DAILY PRN MISC PER RX PROTOCOL 07/25/17 16:15 08/24/17 16:14 Vancomycin HCl 1500 mg/Sodium Chloride 275 ml @ 137.5 mls/ hr Q8HR@0000,0800,1600 IVPB 07/27/17 16:00 08/01/17 15:59 07/27/17 23:28 Item Value Date Time Bedside Blood Glucose 190 mg/dl H 07/28/17 0602 Bedside Blood Glucose 275 mg/dl H 07/27/17 2144 Bedside Blood Glucose 327 mg/dl H 07/27/17 1728 Bedside Blood Glucose 298 mg/dl H 07/27/17 0843 ANN DUARTE Jul 28, 2017 07:46
[2017-07-28 07:59] LABS: BASOPHILS % (AUTO) 0.7 % (0.0-2.0); LYMPHOCYTES % (AUTO) 16.4 % (20.0-45.0); MEAN CORPUSCULAR HEMOGLOBIN 31.5 PG (27.0-31.0); MEAN CORPUSCULAR HGB CONC 34.2 G/DL (32.0-36.0); MEAN CORPUSCULAR VOLUME 92 FL (80-99); MEAN PLATELET VOLUME 8.4 FL (6.5-10.1); PLATELET COUNT 224 K/UL (150-450); RED BLOOD COUNT 3.42 M/UL (4.70-6.10)
[2017-07-28 08:00] VITALS: BP 149/92
[2017-07-28 08:33] LABS: CALCIUM 7.4 mg/dL (8.6-10.2); CREATININE 1.6 mg/dL (0.7-1.2); GLOMERULAR FILTRATION RATE 47.2 mL/min (>60); POTASSIUM 3.5 mEQ/L (3.4-4.9)
[2017-07-28] MEDS: Levemir Flexpen SUBQ SCH ×2 (08:36→17:59)
[2017-07-28] MEDS: Heparin 5000 units/ml inj SUBQ SCH ×2 (08:39→21:13)
[2017-07-28] MEDS ORDERED: Propofol 200mg/20ml IV ONE (09:00)
[2017-07-28] MEDS ORDERED: Midazolam 2mg/2ml Inj ONE (10:32)
[2017-07-28] MEDS ORDERED: fentaNYL 100 mcg/2 mL IV ONE (10:32)
[2017-07-28] MEDS ORDERED: Lidocaine 1% MPF 10mg/ml 5ml ONE (10:32)
[2017-07-28 12:00] VITALS: BP 123/80
--- NOTE | 2017-07-28 12:57 | General Surgery Progress Note ---
General Surgery-Progress Note Subjective Procedure Performed I & D posterior right shoulder with extensive debridement Symptoms: improved Objective Last 24 Hour Vital Signs Date Time Temp Pulse Resp B/P (MAP) Pulse Ox O2 Delivery O2 Flow Rate FiO2 07/28/17 12:00 98.1 93 20 123/80 96 Room Air 07/28/17 09:03 89 16 Room Air 21 07/28/17 08:00 98.4 95 20 149/92 98 Nasal Cannula 2.0 07/28/17 06:59 90 18 96 07/28/17 04:20 97.7 90 18 135/83 96 Room Air 07/28/17 00:31 97.7 75 18 132/93 95 Room Air 07/27/17 20:07 99.1 106 19 143/98 98 Room Air 07/27/17 19:30 85 16 Room Air 21 07/27/17 15:46 98.6 102 20 124/83 95 Nasal Cannula 2.0 07/27/17 14:38 98.4 100 20 130/74 95 Nasal Cannula 2.0 07/27/17 14:25 99.1 100 25 123/86 97 Nasal Cannula 3.0 07/27/17 14:10 98 23 120/85 98 Nasal Cannula 3.0 07/27/17 14:00 98 24 114/83 98 Nasal Cannula 3.0 07/27/17 13:45 101 27 140/89 99 Simple Mask 6.0 07/27/17 13:44 100.3 07/27/17 13:35 101 26 112/68 99 Simple Mask 6.0 07/27/17 13:30 101 30 103/70 99 Simple Mask 6.0 07/27/17 13:27 100 19 100 07/27/17 13:23 100.3 104 28 115/72 99 Simple Mask 6.0 I&O Intake and Output 07/28/17 07/29/17 19:00 07:00 Intake Total 570.0 ml Balance 570.0 ml Intake Oral 350 ml IV Total 220.0 ml Wound: other - cavity open no drainage erythema has reduced Laboratory Tests Test 07/28/17 07:30 White Blood Count 13.0 K/UL (4.8-10.8) H Red Blood Count 3.42 M/UL (4.70-6.10) L Hemoglobin 10.8 G/DL (14.2-18.0) L Hematocrit 31.5 % (42.0-52.0) L Mean Corpuscular Volume 92 FL (80-99) Mean Corpuscular Hemoglobin 31.5 PG (27.0-31.0) H Mean Corpuscular Hemoglobin Concent 34.2 G/DL (32.0-36.0) Red Cell Distribution Width 12.0 % (11.6-14.8) Platelet Count 224 K/UL (150-450) Mean Platelet Volume 8.4 FL (6.5-10.1) Neutrophils (%) (Auto) 76.0 % (45.0-75.0) H Lymphocytes (%) (Auto) 16.4 % (20.0-45.0) L Monocytes (%) (Auto) 6.0 % (1.0-10.0) Eosinophils (%) (Auto) 1.0 % (0.0-3.0) Basophils (%) (Auto) 0.7 % (0.0-2.0) Sodium Level 137 mEQ/L (135-145) Potassium Level 3.5 mEQ/L (3.4-4.9) Chloride Level 98 mEQ/L (98-107) Carbon Dioxide Level 23 mEQ/L (20-30) Anion Gap 16 (5-15) H Blood Urea Nitrogen 21 mg/dL (7-23) Creatinine 1.6 mg/dL (0.7-1.2) #H Estimat Glomerular Filtration Rate 47.2 mL/min (>60) Glucose Level 183 mg/dL (74-106) #H Calcium Level 7.4 mg/dL (8.6-10.2) L Vancomycin Level Trough 30.8 ug/mL (5.0-12.0) H Assessment Post-op Diagnosis suppurotive fasciitis posterior right shoulder Plan Additional Comments continue as before ZAIN DE LA CRUZ Jul 28, 2017 12:57
--- NOTE | 2017-07-28 13:45 | General Progress Note ---
Assessment/Plan Problem List: (1) Abscess of back ICD Codes: L02.212 - Cutaneous abscess of back [any part, except buttock] SNOMED: 408383156 (2) Abscess of right shoulder ICD Codes: L02.413 - Cutaneous abscess of right upper limb SNOMED: 72167220 (3) Poorly controlled diabetes mellitus ICD Codes: E11.65 - Type 2 diabetes mellitus with hyperglycemia SNOMED: 341146542 Status: stable, progressing, tolerating diet Assessment/Plan ot pt diet wound care abx pain control cbc bmp am Subjective Constitutional: Reports: weakness Allergies: Coded Allergies: No Known Allergies (Unverified , 04/19/16) Subjective calm in bed Objective Last 24 Hour Vital Signs Date Time Temp Pulse Resp B/P (MAP) Pulse Ox O2 Delivery O2 Flow Rate FiO2 07/28/17 12:00 98.1 93 20 123/80 96 Room Air 07/28/17 09:03 89 16 Room Air 21 07/28/17 08:00 98.4 95 20 149/92 98 Nasal Cannula 2.0 07/28/17 06:59 90 18 96 07/28/17 04:20 97.7 90 18 135/83 96 Room Air 07/28/17 00:31 97.7 75 18 132/93 95 Room Air 07/27/17 20:07 99.1 106 19 143/98 98 Room Air 07/27/17 19:30 85 16 Room Air 21 07/27/17 15:46 98.6 102 20 124/83 95 Nasal Cannula 2.0 07/27/17 14:38 98.4 100 20 130/74 95 Nasal Cannula 2.0 07/27/17 14:25 99.1 100 25 123/86 97 Nasal Cannula 3.0 07/27/17 14:10 98 23 120/85 98 Nasal Cannula 3.0 07/27/17 14:00 98 24 114/83 98 Nasal Cannula 3.0 Intake and Output 07/28/17 07/29/17 19:00 07:00 Intake Total 810.0 ml Output Total 600 ml Balance 210.0 ml Intake Oral 590 ml IV Total 220.0 ml Output Urine Total 600 ml Laboratory Tests 07/28/17 07:30: White Blood Count 13.0H, Red Blood Count 3.42L, Hemoglobin 10.8L, Hematocrit 31.5L, Mean Corpuscular Volume 92, Mean Corpuscular Hemoglobin 31.5H, Mean Corpuscular Hemoglobin Concent 34.2, Red Cell Distribution Width 12.0, Platelet Count 224, Mean Platelet Volume 8.4, Neutrophils (%) (Auto) 76.0H, Lymphocytes ( %) (Auto) 16.4L, Monocytes (%) (Auto) 6.0, Eosinophils (%) (Auto) 1.0, Basophils (%) (Auto) 0.7, Sodium Level 137, Potassium Level 3.5, Chloride Level 98, Carbon Dioxide Level 23, Anion Gap 16H, Blood Urea Nitrogen 21, Creatinine 1.6#H, Estimat Glomerular Filtration Rate 47.2, Glucose Level 183#H, Calcium Level 7.4L, Vancomycin Level Trough 30.8H Height (Feet): 5 Height (Inches): 5.00 Weight (Pounds): 190 General Appearance: alert EENT: normal ENT inspection Neck: normal alignment Cardiovascular: normal peripheral pulses, normal rate, regular rhythm Respiratory/Chest: chest wall non-tender, lungs clear, normal breath sounds Extremities: normal inspection Edema: no edema noted Arm (L), no edema noted Arm (R), no edema noted Leg (L), no edema noted Leg (R), no edema noted Pedal (L), no edema noted Pedal (R), no edema noted Generalized Neurologic: responsive, motor weakness Skin: normal pigmentation, warm/dry Objective wound dressing sl stained back of right scapula BOB HILL Jul 28, 2017 13:45
[2017-07-28 16:00] VITALS: BP 156/97
--- NOTE | 2017-07-28 16:24 | Infectious Diseases Prog Note ---
Assessment/Plan Problems: (1) Abscess of right shoulder Assessment & Plan: S/P I&D for source control since he is septic , will continue vancomycin and zosyn pending abscess culture results, (2) Gram-positive cocci bacteremia Assessment & Plan: due to shoulder abscess , had source control with I&D, surgery is following , on vancomycin, and zosyn , 2 D echo didn't show any valve vegetations , repeated blood culture to confirm clearance is still negative , will stop vancomycin since his creatinine is going up , continue zosyn only for now which cover MSSA bacteremia and skin abscess. check random vancomycin level (3) Poorly controlled diabetes mellitus Assessment & Plan: recommend tight glycemic control to keep blood glucose between 80-120 (4) AUGUSTO (acute kidney injury) Assessment & Plan: continue iv fluids for hydration, will stop vancomycin , monitor renal function, nephrology is following Subjective Constitutional: Reports: no symptoms HEENT: Reports: no symptoms Respiratory: Reports: no symptoms Breasts: Reports: no symptoms Cardiovascular: Reports: no symptoms Gastrointestinal/Abdominal: Reports: no symptoms Genitourinary: Reports: no symptoms Neurologic: Reports: no symptoms Psychiatric: Reports: no symptoms Skin: Reports: other - red and swallen in the [place] Endocrine: Reports: no symptoms Hematologic: Reports: no symptoms Allergies: Coded Allergies: No Known Allergies (Unverified , 04/19/16) Objective Vital Signs Last 24 Hour Vital Signs Date Time Temp Pulse Resp B/P (MAP) Pulse Ox O2 Delivery O2 Flow Rate FiO2 07/28/17 12:00 98.1 93 20 123/80 96 Room Air 07/28/17 09:03 89 16 Room Air 21 07/28/17 08:00 98.4 95 20 149/92 98 Nasal Cannula 2.0 07/28/17 06:59 90 18 96 07/28/17 04:20 97.7 90 18 135/83 96 Room Air 07/28/17 00:31 97.7 75 18 132/93 95 Room Air 07/27/17 20:07 99.1 106 19 143/98 98 Room Air 07/27/17 19:30 85 16 Room Air 21 Height (Feet): 5 Height (Inches): 5.00 Weight (Pounds): 190 General Appearance: WD/WN, no acute distress HEENT: normocephalic, atraumatic, anicteric, mucous membranes moist, PERRL Respiratory/Chest: chest wall non-tender, lungs clear, normal breath sounds, no respiratory distress, no accessory muscle use Cardiovascular: normal peripheral pulses, normal rate, regular rhythm, no gallop/murmur, no JVD Abdomen: normal bowel sounds, soft, non tender, no organomegaly, non distended , no mass, no scars Extremities: no cyanosis, no clubbing Skin: no rash, no ulcers, other - right [place] surgical wound covered with dressing, unable to assess . Neurologic/Psychiatric: alert, oriented x 3 Lymphatic: no neck adenopathy, no groin adenopathy Musculoskeletal: no effusion, other - right shoulder muscle swelling and tenderness Microbiology Date/Time Source Procedure Growth Status 07/26/17 13:50 Blood Blood Culture - Preliminary NO GROWTH AFTER 24 HOURS Resulted 07/26/17 13:45 Blood Blood Culture - Preliminary NO GROWTH AFTER 24 HOURS Resulted 07/26/17 13:10 Shoulder Right Gram Stain - Final Resulted 07/26/17 13:10 Wound Culture - Preliminary Staphylococcus Aureus Resulted 07/25/17 22:30 Shoulder Right Gram Stain - Final Resulted 07/25/17 22:30 Wound Culture - Preliminary Staphylococcus Aureus Resulted Laboratory Tests Test 07/28/17 07:30 White Blood Count 13.0 K/UL (4.8-10.8) H Red Blood Count 3.42 M/UL (4.70-6.10) L Hemoglobin 10.8 G/DL (14.2-18.0) L Hematocrit 31.5 % (42.0-52.0) L Mean Corpuscular Volume 92 FL (80-99) Mean Corpuscular Hemoglobin 31.5 PG (27.0-31.0) H Mean Corpuscular Hemoglobin Concent 34.2 G/DL (32.0-36.0) Red Cell Distribution Width 12.0 % (11.6-14.8) Platelet Count 224 K/UL (150-450) Mean Platelet Volume 8.4 FL (6.5-10.1) Neutrophils (%) (Auto) 76.0 % (45.0-75.0) H Lymphocytes (%) (Auto) 16.4 % (20.0-45.0) L Monocytes (%) (Auto) 6.0 % (1.0-10.0) Eosinophils (%) (Auto) 1.0 % (0.0-3.0) Basophils (%) (Auto) 0.7 % (0.0-2.0) Sodium Level 137 mEQ/L (135-145) Potassium Level 3.5 mEQ/L (3.4-4.9) Chloride Level 98 mEQ/L (98-107) Carbon Dioxide Level 23 mEQ/L (20-30) Anion Gap 16 (5-15) H Blood Urea Nitrogen 21 mg/dL (7-23) Creatinine 1.6 mg/dL (0.7-1.2) #H Estimat Glomerular Filtration Rate 47.2 mL/min (>60) Glucose Level 183 mg/dL (74-106) #H Calcium Level 7.4 mg/dL (8.6-10.2) L Vancomycin Level Trough 30.8 ug/mL (5.0-12.0) H Current Medications Medications (Trade) Dose Ordered Sig/Leah Route PRN Reason Start Time Stop Time Status Last Admin Dose Admin Acetaminophen (Tylenol) 650 mg Q4H PRN ORAL fever 07/25/17 16:15 08/24/17 16:14 Acetaminophen (Tylenol) 650 mg Q4H PRN RECTAL Mild Pain (Pain Scale 1-3) 07/27/17 15:45 08/24/17 20:29 Albuterol/ Ipratropium (DuoNeb 0.5-3(2.5)mg/3ml) 3 ml Q4H PRN HHN Shortness of Breath 07/25/17 16:15 07/30/17 16:14 Dextrose (Dextrose 50%) STAT PRN IV Hypoglycemia 07/26/17 08:45 08/25/17 08:44 Heparin Sodium (Porcine) (Heparin 5000 units/ml) 5,000 units EVERY 12 HOURS SUBQ 07/25/17 21:00 08/24/17 20:59 07/28/17 08:39 Insulin Aspart (NovoLOG) BEFORE MEALS AND HS SUBQ 07/25/17 17:00 08/24/17 16:59 07/28/17 13:48 Insulin Aspart (NovoLOG) 12 units NOVOTIAC SUBQ 07/27/17 11:50 08/26/17 11:49 07/28/17 13:49 Insulin Detemir (Levemir) 15 units BID SUBQ 07/27/17 18:00 08/26/17 17:59 07/28/17 08:36 Morphine Sulfate (Morphine Sulfate) 2 mg Q4H PRN IVP Moderate Pain (Pain Scale 4-6) 07/27/17 14:15 08/03/17 10:29 Morphine Sulfate (Morphine Sulfate) 4 mg Q4H PRN IVP pain score 7-10 07/27/17 13:45 08/03/17 13:44 Nitroglycerin (Ntg) 0.4 mg Q5M PRN SL Prn Chest Pain 07/25/17 16:15 08/24/17 16:14 Ondansetron HCl (Zofran) 4 mg Q6H PRN IVP Nausea & Vomiting 07/25/17 16:15 08/24/17 16:14 Piperacillin Sod/ Tazobactam Sod 3.375 gm/Sodium Chloride 110 ml @ 27.5 mls/hr EVERY 8 HOURS IVPB 07/27/17 18:00 08/03/17 17:59 07/28/17 13:42 Polyethylene Glycol (Miralax) 17 gm DAILYPRN PRN ORAL Constipation 07/25/17 16:15 08/24/17 16:14 Povidone Iodine (Betadine Caridad) 1 applic EVERY 8 HOURS TOPIC 07/26/17 16:00 08/25/17 15:59 07/28/17 13:42 Sodium Chloride 1,000 ml @ 0 mls/hr Q0M IV 07/27/17 14:30 08/26/17 14:29 Temazepam (Restoril) 15 mg HSPRN PRN ORAL Insomnia 07/25/17 16:15 08/01/17 16:14 Vancomycin HCl (Vanco rx to dose) 1 ea DAILY PRN MISC PER RX PROTOCOL 07/25/17 16:15 08/24/17 16:14 Fernando Clayton M.D. Jul 28, 2017 16:23
[2017-07-28] MEDS ORDERED: D5 1/2NS 1000ml IV ONE (17:44)
[2017-07-28] MEDS ORDERED: NS 500ML IV ONE (17:44)
[2017-07-28] MEDS ORDERED: 1/2 NS 1000ml IV ONE (17:44)
[2017-07-28] MEDS ORDERED: NS 275ml ONE (17:44)
[2017-07-28] MEDS ORDERED: Tubing IV Secondary IV ONE ×2 (17:44)
[2017-07-28 20:11] VITALS: BP 160/96
[2017-07-29] VITALS (7 sets, daily range): BP systolic 111–151; BP diastolic 70–98
[2017-07-29] MEDS: Piperacillin/Tazobactam 3.375 GM in NS 110 ML IVPB SCH ×3 (06:30→20:56)
[2017-07-29] MEDS: NovoLOG Insulin Flexpen SUBQ SCH ×7 (06:39→20:57)
[2017-07-29 07:31] LABS: BASOPHILS % (AUTO) 1.1 % (0.0-2.0); EOSINOPHILS % (AUTO) 1.8 % (0.0-3.0); LYMPHOCYTES % (AUTO) 25.6 % (20.0-45.0); MEAN CORPUSCULAR HEMOGLOBIN 29.5 PG (27.0-31.0); MEAN CORPUSCULAR HGB CONC 30.3 G/DL (32.0-36.0); MEAN CORPUSCULAR VOLUME 97 FL (80-99); MONOCYTES % (AUTO) 6.7 % (1.0-10.0); NEUTROPHILS % (AUTO) 64.8 % (45.0-75.0); PLATELET COUNT 277 K/UL (150-450); RED BLOOD COUNT 3.79 M/UL (4.70-6.10); RED CELL DISTRIBUTION WIDTH 12.4 % (11.6-14.8); WHITE BLOOD COUNT 12.2 K/UL (4.8-10.8)
--- NOTE | 2017-07-29 08:11 | Nephrology Progress Note ---
Assessment/Plan Assessment 1.Hyponatremia (corrected na is 134) 2,uncontrolled DM 3,[place] 4.Right shoulder abscess 5.morbid obesity Plan to continue ivf repeat urine study mix all ivpb with NS.9 replace electrolyte as need it avoid NSAID Subjective Constitutional: Reports: no symptoms Genitourinary: Reports: no symptoms Neurologic/Psychiatric: Reports: no symptoms Subjective c/o right shoulder pain Objective Objective Last 24 Hour Vital Signs Date Time Temp Pulse Resp B/P (MAP) Pulse Ox O2 Delivery O2 Flow Rate FiO2 07/29/17 04:00 97.2 82 18 125/85 96 Room Air 07/29/17 02:00 82 111/70 07/29/17 00:26 97.6 94 19 137/89 100 Room Air 07/29/17 00:11 135/71 07/28/17 21:08 160/96 07/28/17 20:11 97.7 94 19 160/96 98 Room Air 07/28/17 19:56 92 18 Room Air 21 07/28/17 16:00 97.9 92 21 156/97 100 Room Air 07/28/17 12:00 98.1 93 20 123/80 96 Room Air 07/28/17 09:03 89 16 Room Air 21 Intake and Output 07/29/17 07/30/17 19:00 07:00 Intake Total 27.5 ml Balance 27.5 ml IV Total 27.5 ml Laboratory Tests 07/29/17 07:15: White Blood Count 12.2H, Red Blood Count 3.79L, Hemoglobin 11.2L, Hematocrit 37.0L, Mean Corpuscular Volume 97, Mean Corpuscular Hemoglobin 29.5, Mean Corpuscular Hemoglobin Concent 30.3L, Red Cell Distribution Width 12.4, Platelet Count 277, Mean Platelet Volume 8.0, Neutrophils (%) (Auto) 64.8, Lymphocytes (%) (Auto) 25.6, Monocytes (%) (Auto) 6.7, Eosinophils (%) (Auto) 1.8, Basophils (%) (Auto) 1.1, Sodium Level [Pending], Potassium Level [Pending] , Chloride Level [Pending], Carbon Dioxide Level [Pending], Blood Urea Nitrogen [Pending], Creatinine [Pending], Estimat Glomerular Filtration Rate [Pending], Glucose Level [Pending], Calcium Level [Pending], Random Vancomycin Level [ Pending] Height (Feet): 5 Height (Inches): 5.00 Weight (Pounds): 190 Objective Head and Neck: No JVP. No LAD. No thyromegaly. Extraocular movement intact. Pupils are reactive to light and accommodation. LUNGS: Clear to auscultation. CARDIAC: Regular rate and rhythm. S1 and S2. No murmur. No rub. ABDOMEN: Obese, nontender, and nondistended. Extremities: A 1 to 2+ edema. Right shoulder, he has a 20 x 20 cm round lesion with the yellowish, foul smelling drainage. It is very tender to touch and has had some degree of fluctuation. BHARGAVI SANZ Jul 29, 2017 08:11
[2017-07-29 08:15] LABS: CALCIUM 8.4 mg/dL (8.6-10.2); CREATININE 2.1 mg/dL (0.7-1.2); GLOMERULAR FILTRATION RATE 34.5 mL/min (>60)
[2017-07-29] MEDS: Betadine 4oz Bottle TOPIC SCH (08:53)
[2017-07-29] MEDS: Heparin 5000 units/ml inj SUBQ SCH ×2 (08:55→20:56)
[2017-07-29] MEDS: Levemir Flexpen SUBQ SCH ×2 (09:02→17:33)
[2017-07-29 09:54] LABS: CREATININE, RANDOM URINE 47.4 mg/dL
--- NOTE | 2017-07-29 14:50 | General Progress Note ---
Assessment/Plan Problem List: (1) Abscess of back ICD Codes: L02.212 - Cutaneous abscess of back [any part, except buttock] SNOMED: 545973251 (2) Abscess of right shoulder ICD Codes: L02.413 - Cutaneous abscess of right upper limb SNOMED: 60275535 (3) Poorly controlled diabetes mellitus ICD Codes: E11.65 - Type 2 diabetes mellitus with hyperglycemia SNOMED: 961829561 Status: stable, progressing, tolerating diet Assessment/Plan ot pt diet wound care abx pain control cbc bmp am dc plan Subjective Constitutional: Reports: weakness Allergies: Coded Allergies: No Known Allergies (Unverified , 04/19/16) All Systems: reviewed and negative except above Subjective calm in bed Objective Last 24 Hour Vital Signs Date Time Temp Pulse Resp B/P (MAP) Pulse Ox O2 Delivery O2 Flow Rate FiO2 07/29/17 13:00 117/82 07/29/17 12:00 98.3 76 20 117/82 98 Room Air 07/29/17 08:53 139/81 07/29/17 08:00 98.4 91 20 139/81 97 Room Air 07/29/17 06:45 77 17 Room Air 07/29/17 04:00 97.2 82 18 125/85 96 Room Air 07/29/17 02:00 82 111/70 07/29/17 00:26 97.6 94 19 137/89 100 Room Air 07/29/17 00:11 135/71 07/28/17 21:08 160/96 07/28/17 20:11 97.7 94 19 160/96 98 Room Air 07/28/17 19:56 92 18 Room Air 21 07/28/17 16:00 97.9 92 21 156/97 100 Room Air Intake and Output 07/29/17 07/30/17 19:00 07:00 Intake Total 627.5 ml Output Total 550 ml Balance 77.5 ml Intake Oral 600 ml IV Total 27.5 ml Output Urine Total 550 ml # Voids 2 Laboratory Tests 07/29/17 07:15: White Blood Count 12.2H, Red Blood Count 3.79L, Hemoglobin 11.2L, Hematocrit 37.0L, Mean Corpuscular Volume 97, Mean Corpuscular Hemoglobin 29.5, Mean Corpuscular Hemoglobin Concent 30.3L, Red Cell Distribution Width 12.4, Platelet Count 277, Mean Platelet Volume 8.0, Neutrophils (%) (Auto) 64.8, Lymphocytes (%) (Auto) 25.6, Monocytes (%) (Auto) 6.7, Eosinophils (%) (Auto) 1.8, Basophils (%) (Auto) 1.1, Sodium Level 133L, Potassium Level 4.0, Chloride Level 97L, Carbon Dioxide Level 26, Anion Gap 10, Blood Urea Nitrogen 26H, Creatinine 2.1H, Estimat Glomerular Filtration Rate 34.5, Glucose Level 139H, Calcium Level 8.4L, Random Vancomycin Level 24.4 07/29/17 08:50: Urine Eosinophils None seen, Urine Random Creatinine [Pending], Urine Random Microalbumin [Pending], Urine Random Total Protein 21, Urine Random Sodium 35, Urine Creatinine 47.4, Urine Microalbumin/Creatinine Ratio [Pending] Height (Feet): 5 Height (Inches): 5.00 Weight (Pounds): 190 General Appearance: alert EENT: normal ENT inspection Neck: normal alignment Cardiovascular: normal peripheral pulses, normal rate, regular rhythm Respiratory/Chest: chest wall non-tender, lungs clear, normal breath sounds Abdomen: normal bowel sounds, non tender, soft Extremities: normal inspection Edema: no edema noted Arm (L), no edema noted Arm (R), no edema noted Leg (L), no edema noted Leg (R), no edema noted Pedal (L), no edema noted Pedal (R), no edema noted Generalized Neurologic: responsive, motor weakness Skin: normal pigmentation, warm/dry Objective wound dressing sl stained back of right scapula BOB HILL Jul 29, 2017 14:50
--- NOTE | 2017-07-29 16:15 | Infectious Diseases Prog Note ---
Assessment/Plan Problems: (1) Abscess of right shoulder Assessment & Plan: S/P I&D for source control , will continue zosyn for now to cover for necrotizing fasciitis and skin abscess due to MSSA . (2) Gram-positive cocci bacteremia Assessment & Plan: due to shoulder abscess AND necrotizing fascitis , had source control with I&D, surgery is following , now on zosyn , 2 D echo didn' t show any valve vegetations , repeated blood culture to confirm clearance is still negative , continue zosyn only for now which cover MSSA bacteremia and skin necrotizing fascitis and abscess. monitor random vancomycin level (3) Poorly controlled diabetes mellitus Assessment & Plan: recommend tight glycemic control to keep blood glucose between 80-120 (4) AUGUSTO (acute kidney injury) Assessment & Plan: continue iv fluids for hydration, avoid nephrotoxic meds , monitor renal function, nephrology is following Subjective Constitutional: Reports: no symptoms HEENT: Reports: no symptoms Respiratory: Reports: no symptoms Breasts: Reports: no symptoms Cardiovascular: Reports: no symptoms Gastrointestinal/Abdominal: Reports: no symptoms Genitourinary: Reports: no symptoms Neurologic: Reports: no symptoms Psychiatric: Reports: no symptoms Skin: Reports: ulcer - and swelling , other Endocrine: Reports: no symptoms Hematologic: Reports: no symptoms Musculoskeletal: Reports: pain, swelling Allergies: Coded Allergies: No Known Allergies (Unverified , 04/19/16) Objective Vital Signs Last 24 Hour Vital Signs Date Time Temp Pulse Resp B/P (MAP) Pulse Ox O2 Delivery O2 Flow Rate FiO2 07/29/17 13:00 117/82 07/29/17 12:00 98.3 76 20 117/82 98 Room Air 07/29/17 08:53 139/81 07/29/17 08:00 98.4 91 20 139/81 97 Room Air 07/29/17 06:45 77 17 Room Air 07/29/17 04:00 97.2 82 18 125/85 96 Room Air 07/29/17 02:00 82 111/70 07/29/17 00:26 97.6 94 19 137/89 100 Room Air 07/29/17 00:11 135/71 07/28/17 21:08 160/96 07/28/17 20:11 97.7 94 19 160/96 98 Room Air 07/28/17 19:56 92 18 Room Air 21 Height (Feet): 5 Height (Inches): 5.00 Weight (Pounds): 190 General Appearance: WD/WN, no acute distress HEENT: normocephalic, atraumatic, anicteric, mucous membranes moist, PERRL, pharynx normal, supple Respiratory/Chest: chest wall non-tender, lungs clear, normal breath sounds, no respiratory distress, no accessory muscle use Cardiovascular: normal peripheral pulses, normal rate, regular rhythm, no gallop/murmur, no JVD Abdomen: normal bowel sounds, soft, non tender, no organomegaly, non distended , no mass Extremities: no cyanosis, no clubbing Skin: no rash, other - right posterior shoulder redness with erythema and swelling, surgical wound Laboratory Tests Test 07/29/17 07:15 07/29/17 08:50 White Blood Count 12.2 K/UL (4.8-10.8) H Red Blood Count 3.79 M/UL (4.70-6.10) L Hemoglobin 11.2 G/DL (14.2-18.0) L Hematocrit 37.0 % (42.0-52.0) L Mean Corpuscular Volume 97 FL (80-99) Mean Corpuscular Hemoglobin 29.5 PG (27.0-31.0) Mean Corpuscular Hemoglobin Concent 30.3 G/DL (32.0-36.0) L Red Cell Distribution Width 12.4 % (11.6-14.8) Platelet Count 277 K/UL (150-450) Mean Platelet Volume 8.0 FL (6.5-10.1) Neutrophils (%) (Auto) 64.8 % (45.0-75.0) Lymphocytes (%) (Auto) 25.6 % (20.0-45.0) Monocytes (%) (Auto) 6.7 % (1.0-10.0) Eosinophils (%) (Auto) 1.8 % (0.0-3.0) Basophils (%) (Auto) 1.1 % (0.0-2.0) Sodium Level 133 mEQ/L (135-145) L Potassium Level 4.0 mEQ/L (3.4-4.9) Chloride Level 97 mEQ/L (98-107) L Carbon Dioxide Level 26 mEQ/L (20-30) Anion Gap 10 (5-15) Blood Urea Nitrogen 26 mg/dL (7-23) H Creatinine 2.1 mg/dL (0.7-1.2) H Estimat Glomerular Filtration Rate 34.5 mL/min (>60) Glucose Level 139 mg/dL (74-106) H Calcium Level 8.4 mg/dL (8.6-10.2) L Random Vancomycin Level 24.4 ug/mL Urine Eosinophils None seen Urine Random Creatinine Pending Urine Random Microalbumin Pending Urine Random Total Protein 21 mg/dL Urine Random Sodium 35 mmol/L Urine Creatinine 47.4 mg/dL Urine Microalbumin/Creatinine Ratio Pending Current Medications Medications (Trade) Dose Ordered Sig/Leah Route PRN Reason Start Time Stop Time Status Last Admin Dose Admin Acetaminophen (Tylenol) 650 mg Q4H PRN ORAL fever 07/25/17 16:15 08/24/17 16:14 Acetaminophen (Tylenol) 650 mg Q4H PRN RECTAL Mild Pain (Pain Scale 1-3) 07/27/17 15:45 08/24/17 20:29 Albuterol/ Ipratropium (DuoNeb 0.5-3(2.5)mg/3ml) 3 ml Q4H PRN HHN Shortness of Breath 07/25/17 16:15 07/30/17 16:14 Clonidine HCl (Catapres) 0.1 mg QID ORAL 07/29/17 09:00 08/27/17 20:59 07/29/17 08:53 Dextrose (Dextrose 50%) STAT PRN IV Hypoglycemia 07/26/17 08:45 08/25/17 08:44 Heparin Sodium (Porcine) (Heparin 5000 units/ml) 5,000 units EVERY 12 HOURS SUBQ 07/25/17 21:00 08/24/17 20:59 07/29/17 08:55 Insulin Aspart (NovoLOG) BEFORE MEALS AND HS SUBQ 07/25/17 17:00 08/24/17 16:59 07/29/17 11:22 Insulin Aspart (NovoLOG) 12 units NOVOTIAC SUBQ 07/27/17 11:50 08/26/17 11:49 07/29/17 12:28 Insulin Detemir (Levemir) 15 units BID SUBQ 07/27/17 18:00 08/26/17 17:59 07/29/17 09:02 Morphine Sulfate (Morphine Sulfate) 2 mg Q4H PRN IVP Moderate Pain (Pain Scale 4-6) 07/27/17 14:15 08/03/17 10:29 Morphine Sulfate (Morphine Sulfate) 4 mg Q4H PRN IVP pain score 7-10 07/27/17 13:45 08/03/17 13:44 Nitroglycerin (Ntg) 0.4 mg Q5M PRN SL Prn Chest Pain 07/25/17 16:15 08/24/17 16:14 Ondansetron HCl (Zofran) 4 mg Q6H PRN IVP Nausea & Vomiting 07/25/17 16:15 08/24/17 16:14 Piperacillin Sod/ Tazobactam Sod 3.375 gm/Sodium Chloride 110 ml @ 27.5 mls/hr EVERY 8 HOURS IVPB 07/27/17 18:00 08/03/17 17:59 07/29/17 14:25 Polyethylene Glycol (Miralax) 17 gm DAILYPRN PRN ORAL Constipation 07/25/17 16:15 08/24/17 16:14 Povidone Iodine (Betadine Caridad) 1 applic DAILY TOPIC 07/29/17 09:00 08/25/17 15:59 07/29/17 08:53 Sodium Chloride 1,000 ml @ 100 mls/hr Q10H IV 07/29/17 12:45 08/28/17 12:44 07/29/17 12:36 Temazepam (Restoril) 15 mg HSPRN PRN ORAL Insomnia 07/25/17 16:15 08/01/17 16:14 Vancomycin HCl (Vanco rx to dose) 1 ea DAILY PRN MISC PER RX PROTOCOL 07/25/17 16:15 08/24/17 16:14 Fernando Clayton M.D. Jul 29, 2017 16:15
--- NOTE | 2017-07-29 17:54 | General Surgery Progress Note ---
General Surgery-Progress Note Subjective Procedure Performed I & D posterior right shoulder with extensive debridement Symptoms: improved Objective Last 24 Hour Vital Signs Date Time Temp Pulse Resp B/P (MAP) Pulse Ox O2 Delivery O2 Flow Rate FiO2 07/29/17 17:30 121/82 07/29/17 16:00 97.7 82 20 121/82 99 Room Air 07/29/17 13:00 117/82 07/29/17 12:00 98.3 76 20 117/82 98 Room Air 07/29/17 08:53 139/81 07/29/17 08:00 98.4 91 20 139/81 97 Room Air 07/29/17 06:45 77 17 Room Air 07/29/17 04:00 97.2 82 18 125/85 96 Room Air 07/29/17 02:00 82 111/70 07/29/17 00:26 97.6 94 19 137/89 100 Room Air 07/29/17 00:11 135/71 07/28/17 21:08 160/96 07/28/17 20:11 97.7 94 19 160/96 98 Room Air 07/28/17 19:56 92 18 Room Air 21 I&O Intake and Output 07/29/17 07/30/17 19:00 07:00 Intake Total 827.5 ml Output Total 550 ml Balance 277.5 ml Intake Oral 600 ml IV Total 227.5 ml Output Urine Total 550 ml # Voids 2 Extremities: other - cavity open no drainage erythema has improved Laboratory Tests Test 07/29/17 07:15 07/29/17 08:50 White Blood Count 12.2 K/UL (4.8-10.8) H Red Blood Count 3.79 M/UL (4.70-6.10) L Hemoglobin 11.2 G/DL (14.2-18.0) L Hematocrit 37.0 % (42.0-52.0) L Mean Corpuscular Volume 97 FL (80-99) Mean Corpuscular Hemoglobin 29.5 PG (27.0-31.0) Mean Corpuscular Hemoglobin Concent 30.3 G/DL (32.0-36.0) L Red Cell Distribution Width 12.4 % (11.6-14.8) Platelet Count 277 K/UL (150-450) Mean Platelet Volume 8.0 FL (6.5-10.1) Neutrophils (%) (Auto) 64.8 % (45.0-75.0) Lymphocytes (%) (Auto) 25.6 % (20.0-45.0) Monocytes (%) (Auto) 6.7 % (1.0-10.0) Eosinophils (%) (Auto) 1.8 % (0.0-3.0) Basophils (%) (Auto) 1.1 % (0.0-2.0) Sodium Level 133 mEQ/L (135-145) L Potassium Level 4.0 mEQ/L (3.4-4.9) Chloride Level 97 mEQ/L (98-107) L Carbon Dioxide Level 26 mEQ/L (20-30) Anion Gap 10 (5-15) Blood Urea Nitrogen 26 mg/dL (7-23) H Creatinine 2.1 mg/dL (0.7-1.2) H Estimat Glomerular Filtration Rate 34.5 mL/min (>60) Glucose Level 139 mg/dL (74-106) H Calcium Level 8.4 mg/dL (8.6-10.2) L Random Vancomycin Level 24.4 ug/mL Urine Eosinophils None seen Urine Random Creatinine Pending Urine Random Microalbumin Pending Urine Random Total Protein 21 mg/dL Urine Random Sodium 35 mmol/L Urine Creatinine 47.4 mg/dL Urine Microalbumin/Creatinine Ratio Pending Assessment Post-op Diagnosis suppurotive fasciitis posterior right shoulder Plan Additional Comments creatinine is increasing vancomycine should be replaced ZAIN DE LA CRUZ Jul 29, 2017 17:54
[2017-07-30] VITALS: BP 125/86
[2017-07-30 04:00] VITALS: BP 137/86
[2017-07-30 05:44] LABS: BASOPHILS % (AUTO) 0.9 % (0.0-2.0); EOSINOPHILS % (AUTO) 2.2 % (0.0-3.0); LYMPHOCYTES % (AUTO) 27.6 % (20.0-45.0); MEAN CORPUSCULAR HEMOGLOBIN 30.9 PG (27.0-31.0); MEAN CORPUSCULAR HGB CONC 32.6 G/DL (32.0-36.0); MEAN CORPUSCULAR VOLUME 95 FL (80-99); MEAN PLATELET VOLUME 7.9 FL (6.5-10.1); MONOCYTES % (AUTO) 7.6 % (1.0-10.0); NEUTROPHILS % (AUTO) 61.6 % (45.0-75.0); PLATELET COUNT 289 K/UL (150-450); RED CELL DISTRIBUTION WIDTH 12.2 % (11.6-14.8); WHITE BLOOD COUNT 10.1 K/UL (4.8-10.8)
[2017-07-30] MEDS: NovoLOG Insulin Flexpen SUBQ SCH ×7 (06:19→21:00)
[2017-07-30] MEDS: Piperacillin/Tazobactam 3.375 GM in NS 110 ML IVPB SCH ×3 (06:20→23:08)
[2017-07-30 07:27] LABS: CREATININE 2.3 mg/dL (0.7-1.2); POTASSIUM 4.5 mEQ/L (3.4-4.9)
[2017-07-30 08:00] VITALS: BP 147/97
[2017-07-30] MEDS: Heparin 5000 units/ml inj SUBQ SCH ×2 (08:40→23:12)
[2017-07-30] MEDS: Levemir Flexpen SUBQ SCH ×2 (08:41→17:30)
[2017-07-30] MEDS: Betadine 4oz Bottle TOPIC SCH (09:25)
--- NOTE | 2017-07-30 10:36 | General Progress Note ---
Assessment/Plan Problem List: (1) Abscess of back ICD Codes: L02.212 - Cutaneous abscess of back [any part, except buttock] SNOMED: 171773650 (2) Abscess of right shoulder ICD Codes: L02.413 - Cutaneous abscess of right upper limb SNOMED: 78718360 (3) Poorly controlled diabetes mellitus ICD Codes: E11.65 - Type 2 diabetes mellitus with hyperglycemia SNOMED: 700444844 Status: stable, progressing, tolerating diet Assessment/Plan ot pt diet wound care abx pain control dc w abx Subjective Constitutional: Reports: weakness Allergies: Coded Allergies: No Known Allergies (Unverified , 04/19/16) All Systems: reviewed and negative except above Subjective calm in bed Objective Last 24 Hour Vital Signs Date Time Temp Pulse Resp B/P (MAP) Pulse Ox O2 Delivery O2 Flow Rate FiO2 07/30/17 08:38 147/97 07/30/17 08:00 97.9 82 20 147/97 98 Room Air 07/30/17 07:57 82 18 Room Air 07/30/17 04:00 97.6 79 21 137/86 97 Room Air 07/30/17 00:00 97.6 82 20 125/86 97 Room Air 07/29/17 20:55 151/98 07/29/17 20:52 77 19 Room Air 07/29/17 20:00 97.4 80 20 151/98 98 Room Air 07/29/17 17:30 121/82 07/29/17 16:00 97.7 82 20 121/82 99 Room Air 07/29/17 13:00 117/82 07/29/17 12:00 98.3 76 20 117/82 98 Room Air Intake and Output 07/30/17 07/31/17 19:00 07:00 Intake Total 300 ml Balance 300 ml IV Total 300 ml Laboratory Tests 07/30/17 05:15: White Blood Count 10.1, Red Blood Count 3.40L, Hemoglobin 10.5L, Hematocrit 32.2L, Mean Corpuscular Volume 95, Mean Corpuscular Hemoglobin 30.9, Mean Corpuscular Hemoglobin Concent 32.6, Red Cell Distribution Width 12.2, Platelet Count 289, Mean Platelet Volume 7.9, Neutrophils (%) (Auto) 61.6, Lymphocytes (% ) (Auto) 27.6, Monocytes (%) (Auto) 7.6, Eosinophils (%) (Auto) 2.2, Basophils ( %) (Auto) 0.9, Sodium Level 138, Potassium Level 4.5, Chloride Level 102, Carbon Dioxide Level 24, Anion Gap 12, Blood Urea Nitrogen 31H, Creatinine 2.3H , Estimat Glomerular Filtration Rate 31.0, Glucose Level 112H, Calcium Level 8.0L Height (Feet): 5 Height (Inches): 5.00 Weight (Pounds): 190 General Appearance: alert EENT: normal ENT inspection Neck: normal alignment Cardiovascular: normal peripheral pulses, normal rate, regular rhythm Respiratory/Chest: chest wall non-tender, lungs clear, normal breath sounds Abdomen: normal bowel sounds, non tender, soft Extremities: normal inspection Edema: no edema noted Arm (L), no edema noted Arm (R), no edema noted Leg (L), no edema noted Leg (R), no edema noted Pedal (L), no edema noted Pedal (R), no edema noted Generalized Neurologic: responsive, motor weakness Skin: normal pigmentation, warm/dry Objective wound dressing sl stained back of right scapula BOB HILL Jul 30, 2017 10:36
[2017-07-30 12:00] VITALS: BP 120/77
--- NOTE | 2017-07-30 13:33 | General Surgery Progress Note ---
General Surgery-Progress Note Subjective Procedure Performed I & D posterior right shoulder with extensive debridement Symptoms: improved Objective Last 24 Hour Vital Signs Date Time Temp Pulse Resp B/P (MAP) Pulse Ox O2 Delivery O2 Flow Rate FiO2 07/30/17 12:30 120/77 07/30/17 12:00 97.9 69 20 120/77 98 Room Air 07/30/17 08:38 147/97 07/30/17 08:00 97.9 82 20 147/97 98 Room Air 07/30/17 07:57 82 18 Room Air 07/30/17 04:00 97.6 79 21 137/86 97 Room Air 07/30/17 00:00 97.6 82 20 125/86 97 Room Air 07/29/17 20:55 151/98 07/29/17 20:52 77 19 Room Air 07/29/17 20:00 97.4 80 20 151/98 98 Room Air 07/29/17 17:30 121/82 07/29/17 16:00 97.7 82 20 121/82 99 Room Air I&O Intake and Output 07/30/17 07/31/17 19:00 07:00 Intake Total 1200 ml Output Total 800 ml Balance 400 ml Intake Oral 700 ml IV Total 500 ml Output Urine Total 800 ml # Voids 3 Extremities: other - cavity open no drainage has some necrotic tissue at medial side Laboratory Tests Test 07/30/17 05:15 White Blood Count 10.1 K/UL (4.8-10.8) Red Blood Count 3.40 M/UL (4.70-6.10) L Hemoglobin 10.5 G/DL (14.2-18.0) L Hematocrit 32.2 % (42.0-52.0) L Mean Corpuscular Volume 95 FL (80-99) Mean Corpuscular Hemoglobin 30.9 PG (27.0-31.0) Mean Corpuscular Hemoglobin Concent 32.6 G/DL (32.0-36.0) Red Cell Distribution Width 12.2 % (11.6-14.8) Platelet Count 289 K/UL (150-450) Mean Platelet Volume 7.9 FL (6.5-10.1) Neutrophils (%) (Auto) 61.6 % (45.0-75.0) Lymphocytes (%) (Auto) 27.6 % (20.0-45.0) Monocytes (%) (Auto) 7.6 % (1.0-10.0) Eosinophils (%) (Auto) 2.2 % (0.0-3.0) Basophils (%) (Auto) 0.9 % (0.0-2.0) Sodium Level 138 mEQ/L (135-145) Potassium Level 4.5 mEQ/L (3.4-4.9) Chloride Level 102 mEQ/L (98-107) Carbon Dioxide Level 24 mEQ/L (20-30) Anion Gap 12 (5-15) Blood Urea Nitrogen 31 mg/dL (7-23) H Creatinine 2.3 mg/dL (0.7-1.2) H Estimat Glomerular Filtration Rate 31.0 mL/min (>60) Glucose Level 112 mg/dL (74-106) H Calcium Level 8.0 mg/dL (8.6-10.2) L Assessment Post-op Diagnosis suppurative fasciitis posterior right shoulder Plan Additional Comments continue as before ZAIN DE LA CRUZ Jul 30, 2017 13:33
[2017-07-30] MEDS ORDERED: NS 275ml ONE (15:03)
[2017-07-30 16:00] VITALS: BP 130/85
--- NOTE | 2017-07-30 16:19 | Infectious Diseases Prog Note ---
Assessment/Plan Problems: (1) Abscess of right shoulder Assessment & Plan: S/P I&D for source control , will continue zosyn for now to cover for necrotizing fasciitis and skin abscess due to MSSA , continue local wound care and management as per surgery . (2) Gram-positive cocci bacteremia Assessment & Plan: due to shoulder abscess AND necrotizing fascitis , had source control with I&D, surgery is following , now on zosyn , 2 D echo didn' t show any valve vegetations , repeated blood culture to confirm clearance is , continue zosyn only for now which cover MSSA bacteremia and skin necrotizing fascitis and abscess. monitor random vancomycin level , will need four weeks of iv antibiotics therapy for MSSA bacteremia . 08/23/17 (3) Poorly controlled diabetes mellitus Assessment & Plan: recommend tight glycemic control to keep blood glucose between 80-120 (4) [place] (acute kidney injury) Assessment & Plan: continue iv fluids for hydration, avoid nephrotoxic meds , monitor renal function, nephrology is following Subjective Constitutional: Reports: no symptoms HEENT: Reports: no symptoms Respiratory: Reports: no symptoms Breasts: Reports: no symptoms Cardiovascular: Reports: no symptoms Gastrointestinal/Abdominal: Reports: no symptoms Genitourinary: Reports: no symptoms Neurologic: Reports: no symptoms Psychiatric: Reports: no symptoms Skin: Reports: ulcer, other - open surgical wound with mild necrosis at the base Endocrine: Reports: no symptoms Hematologic: Reports: no symptoms Allergies: Coded Allergies: No Known Allergies (Unverified , 04/19/16) Objective Vital Signs Last 24 Hour Vital Signs Date Time Temp Pulse Resp B/P (MAP) Pulse Ox O2 Delivery O2 Flow Rate FiO2 07/30/17 16:00 98.5 72 20 130/85 Room Air 07/30/17 12:30 120/77 07/30/17 12:00 97.9 69 20 120/77 98 Room Air 07/30/17 08:38 147/97 07/30/17 08:00 97.9 82 20 147/97 98 Room Air 07/30/17 07:57 82 18 Room Air 07/30/17 04:00 97.6 79 21 137/86 97 Room Air 07/30/17 00:00 97.6 82 20 125/86 97 Room Air 07/29/17 20:55 151/98 07/29/17 20:52 77 19 Room Air 07/29/17 20:00 97.4 80 20 151/98 98 Room Air 07/29/17 17:30 121/82 Height (Feet): 5 Height (Inches): 5.00 Weight (Pounds): 190 General Appearance: WD/WN, no acute distress HEENT: normocephalic, atraumatic, anicteric, mucous membranes moist Respiratory/Chest: chest wall non-tender, lungs clear, normal breath sounds, no respiratory distress, no accessory muscle use Cardiovascular: normal peripheral pulses, normal rate, regular rhythm, no gallop/murmur Abdomen: normal bowel sounds, soft, non tender, no organomegaly, non distended , no mass Extremities: no cyanosis, no clubbing Skin: no rash, no lesions, other - posterior shoulder necrotic wound with drainage Laboratory Tests Test 07/30/17 05:15 White Blood Count 10.1 K/UL (4.8-10.8) Red Blood Count 3.40 M/UL (4.70-6.10) L Hemoglobin 10.5 G/DL (14.2-18.0) L Hematocrit 32.2 % (42.0-52.0) L Mean Corpuscular Volume 95 FL (80-99) Mean Corpuscular Hemoglobin 30.9 PG (27.0-31.0) Mean Corpuscular Hemoglobin Concent 32.6 G/DL (32.0-36.0) Red Cell Distribution Width 12.2 % (11.6-14.8) Platelet Count 289 K/UL (150-450) Mean Platelet Volume 7.9 FL (6.5-10.1) Neutrophils (%) (Auto) 61.6 % (45.0-75.0) Lymphocytes (%) (Auto) 27.6 % (20.0-45.0) Monocytes (%) (Auto) 7.6 % (1.0-10.0) Eosinophils (%) (Auto) 2.2 % (0.0-3.0) Basophils (%) (Auto) 0.9 % (0.0-2.0) Sodium Level 138 mEQ/L (135-145) Potassium Level 4.5 mEQ/L (3.4-4.9) Chloride Level 102 mEQ/L (98-107) Carbon Dioxide Level 24 mEQ/L (20-30) Anion Gap 12 (5-15) Blood Urea Nitrogen 31 mg/dL (7-23) H Creatinine 2.3 mg/dL (0.7-1.2) H Estimat Glomerular Filtration Rate 31.0 mL/min (>60) Glucose Level 112 mg/dL (74-106) H Calcium Level 8.0 mg/dL (8.6-10.2) L Current Medications Medications (Trade) Dose Ordered Sig/Leah Route PRN Reason Start Time Stop Time Status Last Admin Dose Admin Acetaminophen (Tylenol) 650 mg Q4H PRN ORAL fever 07/25/17 16:15 08/24/17 16:14 Acetaminophen (Tylenol) 650 mg Q4H PRN RECTAL Mild Pain (Pain Scale 1-3) 07/27/17 15:45 08/24/17 20:29 Albuterol/ Ipratropium (DuoNeb 0.5-3(2.5)mg/3ml) 3 ml Q4H PRN HHN Shortness of Breath 07/25/17 16:15 07/30/17 16:14 Clonidine HCl (Catapres) 0.1 mg QID ORAL 07/29/17 09:00 08/27/17 20:59 07/30/17 12:30 Dextrose (Dextrose 50%) STAT PRN IV Hypoglycemia 07/26/17 08:45 08/25/17 08:44 Heparin Sodium (Porcine) (Heparin 5000 units/ml) 5,000 units EVERY 12 HOURS SUBQ 07/25/17 21:00 08/24/17 20:59 07/30/17 08:40 Insulin Aspart (NovoLOG) BEFORE MEALS AND HS SUBQ 07/25/17 17:00 08/24/17 16:59 07/30/17 12:32 Insulin Aspart (NovoLOG) 12 units NOVOTIAC SUBQ 07/27/17 11:50 08/26/17 11:49 07/30/17 12:33 Insulin Detemir (Levemir) 15 units BID SUBQ 07/27/17 18:00 08/26/17 17:59 07/30/17 08:41 Morphine Sulfate (Morphine Sulfate) 2 mg Q4H PRN IVP Moderate Pain (Pain Scale 4-6) 07/27/17 14:15 08/03/17 10:29 Morphine Sulfate (Morphine Sulfate) 4 mg Q4H PRN IVP pain score 7-10 07/27/17 13:45 08/03/17 13:44 Nitroglycerin (Ntg) 0.4 mg Q5M PRN SL Prn Chest Pain 07/25/17 16:15 08/24/17 16:14 Ondansetron HCl (Zofran) 4 mg Q6H PRN IVP Nausea & Vomiting 07/25/17 16:15 08/24/17 16:14 Piperacillin Sod/ Tazobactam Sod 3.375 gm/Sodium Chloride 110 ml @ 27.5 mls/hr EVERY 8 HOURS IVPB 07/27/17 18:00 08/03/17 17:59 07/30/17 13:41 Polyethylene Glycol (Miralax) 17 gm DAILYPRN PRN ORAL Constipation 07/25/17 16:15 08/24/17 16:14 Povidone Iodine (Betadine Caridad) 1 applic DAILY TOPIC 07/29/17 09:00 08/25/17 15:59 07/30/17 09:25 Sodium Chloride 1,000 ml @ 100 mls/hr Q10H IV 07/29/17 12:45 08/28/17 12:44 07/30/17 11:35 Temazepam (Restoril) 15 mg HSPRN PRN ORAL Insomnia 07/25/17 16:15 08/01/17 16:14 Vancomycin HCl (Vanco rx to dose) 1 ea DAILY PRN MISC PER RX PROTOCOL 07/25/17 16:15 08/24/17 16:14 Fernando Clayton M.D. Jul 30, 2017 16:19
--- NOTE | 2017-07-30 18:47 | General Progress Note ---
Assessment/Plan Problem List: (1) Non-compliance ICD Codes: Z91.19 - Patient's noncompliance with other medical treatment and regimen SNOMED: 9932479 (2) Poorly controlled diabetes mellitus ICD Codes: E11.65 - Type 2 diabetes mellitus with hyperglycemia SNOMED: 007189861 (3) Abscess of right shoulder ICD Codes: L02.413 - Cutaneous abscess of right upper limb SNOMED: 18157176 (4) Elevated lactic acid level ICD Codes: E87.2 - Acidosis SNOMED: 3045473 Assessment/Plan continue to hold Metformin since he presented with lactic acidosis continue Levemir 15 units bid continue Novolog 12 units ac tid + SSI Subjective Allergies: Coded Allergies: No Known Allergies (Unverified , 04/19/16) All Systems: reviewed and negative except above Subjective events noted - interval noted reviewed Objective Last 24 Hour Vital Signs Date Time Temp Pulse Resp B/P (MAP) Pulse Ox O2 Delivery O2 Flow Rate FiO2 07/30/17 17:26 130/65 07/30/17 16:00 98.5 72 20 130/85 Room Air 07/30/17 12:30 120/77 07/30/17 12:00 97.9 69 20 120/77 98 Room Air 07/30/17 08:38 147/97 07/30/17 08:00 97.9 82 20 147/97 98 Room Air 07/30/17 07:57 82 18 Room Air 07/30/17 04:00 97.6 79 21 137/86 97 Room Air 07/30/17 00:00 97.6 82 20 125/86 97 Room Air 07/29/17 20:55 151/98 07/29/17 20:52 77 19 Room Air 07/29/17 20:00 97.4 80 20 151/98 98 Room Air Intake and Output 07/30/17 07/31/17 19:00 07:00 Intake Total 2250 ml Output Total 1900 ml Balance 350 ml Intake Oral 1100 ml IV Total 1150 ml Output Urine Total 1900 ml # Voids 6 Laboratory Tests 07/30/17 05:15: White Blood Count 10.1, Red Blood Count 3.40L, Hemoglobin 10.5L, Hematocrit 32.2L, Mean Corpuscular Volume 95, Mean Corpuscular Hemoglobin 30.9, Mean Corpuscular Hemoglobin Concent 32.6, Red Cell Distribution Width 12.2, Platelet Count 289, Mean Platelet Volume 7.9, Neutrophils (%) (Auto) 61.6, Lymphocytes (% ) (Auto) 27.6, Monocytes (%) (Auto) 7.6, Eosinophils (%) (Auto) 2.2, Basophils ( %) (Auto) 0.9, Sodium Level 138, Potassium Level 4.5, Chloride Level 102, Carbon Dioxide Level 24, Anion Gap 12, Blood Urea Nitrogen 31H, Creatinine 2.3H , Estimat Glomerular Filtration Rate 31.0, Glucose Level 112H, Calcium Level 8.0L Height (Feet): 5 Height (Inches): 5.00 Weight (Pounds): 190 General Appearance: no apparent distress EENT: PERRL/EOMI Neck: normal alignment Cardiovascular: normal peripheral pulses Respiratory/Chest: lungs clear Abdomen: normal bowel sounds Edema: no edema noted Arm (L), no edema noted Arm (R), no edema noted Leg (L), no edema noted Leg (R), no edema noted Pedal (L), no edema noted Pedal (R), no edema noted Generalized Objective Current Medications Medications (Trade) Dose Ordered Sig/Leah Route PRN Reason Start Time Stop Time Status Last Admin Dose Admin Acetaminophen (Tylenol) 650 mg Q4H PRN ORAL fever 07/25/17 16:15 08/24/17 16:14 Acetaminophen (Tylenol) 650 mg Q4H PRN RECTAL Mild Pain (Pain Scale 1-3) 07/27/17 15:45 08/24/17 20:29 Clonidine HCl (Catapres) 0.1 mg QID ORAL 07/29/17 09:00 08/27/17 20:59 07/30/17 17:26 Dextrose (Dextrose 50%) STAT PRN IV Hypoglycemia 07/26/17 08:45 08/25/17 08:44 Heparin Sodium (Porcine) (Heparin 5000 units/ml) 5,000 units EVERY 12 HOURS SUBQ 07/25/17 21:00 08/24/17 20:59 07/30/17 08:40 Insulin Aspart (NovoLOG) BEFORE MEALS AND HS SUBQ 07/25/17 17:00 08/24/17 16:59 07/30/17 12:32 Insulin Aspart (NovoLOG) 12 units NOVOTIAC SUBQ 07/27/17 11:50 08/26/17 11:49 07/30/17 17:29 Insulin Detemir (Levemir) 15 units BID SUBQ 07/27/17 18:00 08/26/17 17:59 07/30/17 17:30 Morphine Sulfate (Morphine Sulfate) 2 mg Q4H PRN IVP Moderate Pain (Pain Scale 4-6) 07/27/17 14:15 08/03/17 10:29 Morphine Sulfate (Morphine Sulfate) 4 mg Q4H PRN IVP pain score 7-10 07/27/17 13:45 08/03/17 13:44 Nitroglycerin (Ntg) 0.4 mg Q5M PRN SL Prn Chest Pain 07/25/17 16:15 08/24/17 16:14 Ondansetron HCl (Zofran) 4 mg Q6H PRN IVP Nausea & Vomiting 07/25/17 16:15 08/24/17 16:14 Piperacillin Sod/ Tazobactam Sod 3.375 gm/Sodium Chloride 110 ml @ 27.5 mls/hr EVERY 8 HOURS IVPB 07/27/17 18:00 08/03/17 17:59 07/30/17 13:41 Polyethylene Glycol (Miralax) 17 gm DAILYPRN PRN ORAL Constipation 07/25/17 16:15 08/24/17 16:14 Povidone Iodine (Betadine [place]) 1 applic DAILY TOPIC 07/29/17 09:00 08/25/17 15:59 07/30/17 09:25 Sodium Chloride 1,000 ml @ 100 mls/hr Q10H IV 07/29/17 12:45 08/28/17 12:44 07/30/17 11:35 Temazepam (Restoril) 15 mg HSPRN PRN ORAL Insomnia 07/25/17 16:15 08/01/17 16:14 Vancomycin HCl (Vanco rx to dose) 1 ea DAILY PRN MISC PER RX PROTOCOL 07/25/17 16:15 08/24/17 16:14 Item Value Date Time Bedside Blood Glucose 109 mg/dl 07/30/17 1730 Bedside Blood Glucose 209 mg/dl H 07/30/17 1233 Bedside Blood Glucose 104 mg/dl 07/30/17 0841 Bedside Blood Glucose 104 mg/dl 07/30/17 0619 ANN DUARTE 6, 2017 18:47
--- NOTE | 2017-07-30 18:53 | Pulmonology Progress Note ---
Assessment/Plan Problems: (1) Abscess of right shoulder (2) Poorly controlled diabetes mellitus (3) Gram-positive cocci bacteremia Assessment/Plan IV abx check cultures wound care debridement symptomatic treatment Subjective ROS Limited/Unobtainable: No Constitutional: Reports: fever, chills, fatigue Genitourinary: Reports: frequency Neurologic: Reports: weakness Musculoskeletal: Reports: pain, swelling, stiffness, other - difficult abduction and adduction secondary to severe shoulder pain on right side Allergies: Coded Allergies: No Known Allergies (Unverified , 04/19/16) Objective Last 24 Hour Vital Signs Date Time Temp Pulse Resp B/P (MAP) Pulse Ox O2 Delivery O2 Flow Rate FiO2 07/30/17 17:26 130/65 07/30/17 16:00 98.5 72 20 130/85 Room Air 07/30/17 12:30 120/77 07/30/17 12:00 97.9 69 20 120/77 98 Room Air 07/30/17 08:38 147/97 07/30/17 08:00 97.9 82 20 147/97 98 Room Air 07/30/17 07:57 82 18 Room Air 07/30/17 04:00 97.6 79 21 137/86 97 Room Air 07/30/17 00:00 97.6 82 20 125/86 97 Room Air 07/29/17 20:55 151/98 07/29/17 20:52 77 19 Room Air 07/29/17 20:00 97.4 80 20 151/98 98 Room Air Intake and Output 07/30/17 07/31/17 19:00 07:00 Intake Total 2250 ml Output Total 1900 ml Balance 350 ml Intake Oral 1100 ml IV Total 1150 ml Output Urine Total 1900 ml # Voids 6 General Appearance: no acute distress HEENT: normocephalic, atraumatic, PERRL Respiratory/Chest: chest wall non-tender, lungs clear, normal breath sounds Cardiovascular: normal peripheral pulses, normal rate, regular rhythm, no JVD Abdomen: normal bowel sounds, soft, non tender, no organomegaly, non distended Genitourinary: normal external genitalia Extremities: other - severe limiitation in right shoulder movement secondary to severe pain large carbuncle right shoulder with edema and erythema Skin: rash, lesions Neurologic/Psychiatric: applied exercise physiologist II-XII grossly normal, no motor/sensory deficits Laboratory Tests 07/30/17 05:15: White Blood Count 10.1, Red Blood Count 3.40L, Hemoglobin 10.5L, Hematocrit 32.2L, Mean Corpuscular Volume 95, Mean Corpuscular Hemoglobin 30.9, Mean Corpuscular Hemoglobin Concent 32.6, Red Cell Distribution Width 12.2, Platelet Count 289, Mean Platelet Volume 7.9, Neutrophils (%) (Auto) 61.6, Lymphocytes (% ) (Auto) 27.6, Monocytes (%) (Auto) 7.6, Eosinophils (%) (Auto) 2.2, Basophils ( %) (Auto) 0.9, Sodium Level 138, Potassium Level 4.5, Chloride Level 102, Carbon Dioxide Level 24, Anion Gap 12, Blood Urea Nitrogen 31H, Creatinine 2.3H , Estimat Glomerular Filtration Rate 31.0, Glucose Level 112H, Calcium Level 8.0L Current Medications Medications (Trade) Dose Ordered Sig/Leah Route PRN Reason Start Time Stop Time Status Last Admin Dose Admin Acetaminophen (Tylenol) 650 mg Q4H PRN ORAL fever 07/25/17 16:15 08/24/17 16:14 Acetaminophen (Tylenol) 650 mg Q4H PRN RECTAL Mild Pain (Pain Scale 1-3) 07/27/17 15:45 08/24/17 20:29 Clonidine HCl (Catapres) 0.1 mg QID ORAL 07/29/17 09:00 08/27/17 20:59 07/30/17 17:26 Dextrose (Dextrose 50%) STAT PRN IV Hypoglycemia 07/26/17 08:45 08/25/17 08:44 Heparin Sodium (Porcine) (Heparin 5000 units/ml) 5,000 units EVERY 12 HOURS SUBQ 07/25/17 21:00 08/24/17 20:59 07/30/17 08:40 Insulin Aspart (NovoLOG) BEFORE MEALS AND HS SUBQ 07/25/17 17:00 08/24/17 16:59 07/30/17 12:32 Insulin Aspart (NovoLOG) 12 units NOVOTIAC SUBQ 07/27/17 11:50 08/26/17 11:49 07/30/17 17:29 Insulin Detemir (Levemir) 15 units BID SUBQ 07/27/17 18:00 08/26/17 17:59 07/30/17 17:30 Morphine Sulfate (Morphine Sulfate) 2 mg Q4H PRN IVP Moderate Pain (Pain Scale 4-6) 07/27/17 14:15 08/03/17 10:29 Morphine Sulfate (Morphine Sulfate) 4 mg Q4H PRN IVP pain score 7-10 07/27/17 13:45 08/03/17 13:44 Nitroglycerin (Ntg) 0.4 mg Q5M PRN SL Prn Chest Pain 07/25/17 16:15 08/24/17 16:14 Ondansetron HCl (Zofran) 4 mg Q6H PRN IVP Nausea & Vomiting 07/25/17 16:15 08/24/17 16:14 Piperacillin Sod/ Tazobactam Sod 3.375 gm/Sodium Chloride 110 ml @ 27.5 mls/hr EVERY 8 HOURS IVPB 07/27/17 18:00 08/03/17 17:59 07/30/17 13:41 Polyethylene Glycol (Miralax) 17 gm DAILYPRN PRN ORAL Constipation 07/25/17 16:15 08/24/17 16:14 Povidone Iodine (Betadine Caridad) 1 applic DAILY TOPIC 07/29/17 09:00 08/25/17 15:59 07/30/17 09:25 Sodium Chloride 1,000 ml @ 100 mls/hr Q10H IV 07/29/17 12:45 08/28/17 12:44 07/30/17 11:35 Temazepam (Restoril) 15 mg HSPRN PRN ORAL Insomnia 07/25/17 16:15 08/01/17 16:14 Vancomycin HCl (Vanco rx to dose) 1 ea DAILY PRN MISC PER RX PROTOCOL 07/25/17 16:15 08/24/17 16:14 SOPHIA LESLIE Jul 30, 2017 18:53
[2017-07-30 20:00] VITALS: BP 123/89
[2017-07-31 00:39] VITALS: BP 126/79
[2017-07-31 04:00] VITALS: BP 120/77
[2017-07-31] MEDS: Piperacillin/Tazobactam 3.375 GM in NS 110 ML IVPB SCH ×3 (06:21→21:58)
[2017-07-31] MEDS: NovoLOG Insulin Flexpen SUBQ SCH ×7 (06:26→21:49)
[2017-07-31 07:07] LABS: EOSINOPHILS % (AUTO) 2.4 % (0.0-3.0); LYMPHOCYTES % (AUTO) 26.2 % (20.0-45.0); MEAN CORPUSCULAR HEMOGLOBIN 30.9 PG (27.0-31.0); MEAN CORPUSCULAR HGB CONC 32.8 G/DL (32.0-36.0); MEAN CORPUSCULAR VOLUME 94 FL (80-99); MEAN PLATELET VOLUME 7.3 FL (6.5-10.1); MONOCYTES % (AUTO) 6.6 % (1.0-10.0); NEUTROPHILS % (AUTO) 63.8 % (45.0-75.0); PLATELET COUNT 348 K/UL (150-450); RED BLOOD COUNT 3.85 M/UL (4.70-6.10); RED CELL DISTRIBUTION WIDTH 12.5 % (11.6-14.8); WHITE BLOOD COUNT 9.3 K/UL (4.8-10.8)
[2017-07-31 07:51] LABS: CALCIUM 8.9 mg/dL (8.6-10.2); CREATININE 2.3 mg/dL (0.7-1.2); POTASSIUM 4.6 mEQ/L (3.4-4.9)
[2017-07-31 08:00] VITALS: BP 148/84
[2017-07-31] MEDS: Betadine 4oz Bottle TOPIC SCH (09:02)
[2017-07-31] MEDS: Heparin 5000 units/ml inj SUBQ SCH ×2 (09:03→21:48)
[2017-07-31] MEDS: Levemir Flexpen SUBQ SCH ×2 (09:05→17:49)
[2017-07-31 12:00] VITALS: BP 133/94
[2017-07-31] MEDS ORDERED: Vancomycin 1gm in D5W 275ml IVPB SCH (12:00)
--- NOTE | 2017-07-31 13:18 | General Surgery Progress Note ---
General Surgery-Progress Note Subjective Procedure Performed I & D posterior right shoulder with extensive debridement Symptoms: improved Objective Last 24 Hour Vital Signs Date Time Temp Pulse Resp B/P (MAP) Pulse Ox O2 Delivery O2 Flow Rate FiO2 07/31/17 12:43 146/84 07/31/17 09:02 148/84 07/31/17 08:35 84 18 Room Air 07/31/17 08:00 97.2 75 20 148/84 98 Room Air 07/31/17 04:00 97.6 71 19 120/77 97 Room Air 07/31/17 00:39 97.8 69 20 126/79 98 Room Air 07/30/17 23:12 123/89 07/30/17 20:00 97.3 74 20 123/89 98 Room Air 07/30/17 19:57 86 18 Room Air 07/30/17 17:26 130/65 07/30/17 16:00 98.5 72 20 130/85 Room Air I&O Intake and Output 07/31/17 08/01/17 19:00 07:00 Intake Total 1000 ml Output Total 250 ml Balance 750 ml Intake Oral 300 ml IV Total 700 ml Output Urine Total 250 ml Wound: clean, other - cavity open no drainage Laboratory Tests Test 07/31/17 05:40 White Blood Count 9.3 K/UL (4.8-10.8) Red Blood Count 3.85 M/UL (4.70-6.10) L Hemoglobin 11.9 G/DL (14.2-18.0) L Hematocrit 36.3 % (42.0-52.0) L Mean Corpuscular Volume 94 FL (80-99) Mean Corpuscular Hemoglobin 30.9 PG (27.0-31.0) Mean Corpuscular Hemoglobin Concent 32.8 G/DL (32.0-36.0) Red Cell Distribution Width 12.5 % (11.6-14.8) Platelet Count 348 K/UL (150-450) Mean Platelet Volume 7.3 FL (6.5-10.1) Neutrophils (%) (Auto) 63.8 % (45.0-75.0) Lymphocytes (%) (Auto) 26.2 % (20.0-45.0) Monocytes (%) (Auto) 6.6 % (1.0-10.0) Eosinophils (%) (Auto) 2.4 % (0.0-3.0) Basophils (%) (Auto) 1.0 % (0.0-2.0) Sodium Level 139 mEQ/L (135-145) Potassium Level 4.6 mEQ/L (3.4-4.9) Chloride Level 100 mEQ/L (98-107) Carbon Dioxide Level 27 mEQ/L (20-30) Anion Gap 12 (5-15) Blood Urea Nitrogen 34 mg/dL (7-23) H Creatinine 2.3 mg/dL (0.7-1.2) H Estimat Glomerular Filtration Rate 31.0 mL/min (>60) Glucose Level 110 mg/dL (74-106) H Calcium Level 8.9 mg/dL (8.6-10.2) Random Vancomycin Level 10.7 ug/mL Assessment Post-op Diagnosis suppurative fasciitis posterior right shoulder Plan Additional Comments continue as before ZAIN DE LA CRUZ Jul 31, 2017 13:18
--- NOTE | 2017-07-31 14:45 | Pulmonology Progress Note ---
Assessment/Plan Problems: (1) Abscess of right shoulder (2) Poorly controlled diabetes mellitus (3) Gram-positive cocci bacteremia Assessment/Plan check cultures wound care debridement symptomatic treatment Subjective ROS Limited/Unobtainable: No Constitutional: Reports: no symptoms HEENT: Repors: no symptoms Respiratory: Reports: no symptoms Allergies: Coded Allergies: No Known Allergies (Unverified , 04/19/16) Objective Last 24 Hour Vital Signs Date Time Temp Pulse Resp B/P (MAP) Pulse Ox O2 Delivery O2 Flow Rate FiO2 07/31/17 12:43 146/84 07/31/17 12:00 97.0 72 18 133/94 94 Room Air 07/31/17 09:02 148/84 07/31/17 08:35 84 18 Room Air 07/31/17 08:00 97.2 75 20 148/84 98 Room Air 07/31/17 04:00 97.6 71 19 120/77 97 Room Air 07/31/17 00:39 97.8 69 20 126/79 98 Room Air 07/30/17 23:12 123/89 07/30/17 20:00 97.3 74 20 123/89 98 Room Air 07/30/17 19:57 86 18 Room Air 07/30/17 17:26 130/65 07/30/17 16:00 98.5 72 20 130/85 Room Air Intake and Output 07/31/17 08/01/17 19:00 07:00 Intake Total 1450 ml Output Total 1000 ml Balance 450 ml Intake Oral 650 ml IV Total 800 ml Output Urine Total 1000 ml Objective General Appearance: WD/WN HEENT: normocephalic, mucous membranes moist Respiratory/Chest: chest wall non-tender, normal breath sounds Cardiovascular: normal peripheral pulses, normal rate Abdomen: normal bowel sounds, no organomegaly Laboratory Tests 07/31/17 05:40: White Blood Count 9.3, Red Blood Count 3.85L, Hemoglobin 11.9L, Hematocrit 36.3L , Mean Corpuscular Volume 94, Mean Corpuscular Hemoglobin 30.9, Mean Corpuscular Hemoglobin Concent 32.8, Red Cell Distribution Width 12.5, Platelet Count 348, Mean Platelet Volume 7.3, Neutrophils (%) (Auto) 63.8, Lymphocytes (% ) (Auto) 26.2, Monocytes (%) (Auto) 6.6, Eosinophils (%) (Auto) 2.4, Basophils ( %) (Auto) 1.0, Sodium Level 139, Potassium Level 4.6, Chloride Level 100, Carbon Dioxide Level 27, Anion Gap 12, Blood Urea Nitrogen 34H, Creatinine 2.3H , Estimat Glomerular Filtration Rate 31.0, Glucose Level 110H, Calcium Level 8.9 , Random Vancomycin Level 10.7 Current Medications Medications (Trade) Dose Ordered Sig/Leah Route PRN Reason Start Time Stop Time Status Last Admin Dose Admin Acetaminophen (Tylenol) 650 mg Q4H PRN ORAL fever 07/25/17 16:15 08/24/17 16:14 Acetaminophen (Tylenol) 650 mg Q4H PRN RECTAL Mild Pain (Pain Scale 1-3) 07/27/17 15:45 08/24/17 20:29 Clonidine HCl (Catapres) 0.1 mg QID ORAL 07/29/17 09:00 08/27/17 20:59 07/31/17 12:43 Dextrose (Dextrose 50%) STAT PRN IV Hypoglycemia 07/26/17 08:45 08/25/17 08:44 Heparin Sodium (Porcine) (Heparin 5000 units/ml) 5,000 units EVERY 12 HOURS SUBQ 07/25/17 21:00 08/24/17 20:59 07/31/17 09:03 Insulin Aspart (NovoLOG) BEFORE MEALS AND HS SUBQ 07/25/17 17:00 08/24/17 16:59 07/31/17 12:45 Insulin Aspart (NovoLOG) 12 units NOVOTIAC SUBQ 07/27/17 11:50 08/26/17 11:49 07/31/17 12:46 Insulin Detemir (Levemir) 15 units BID SUBQ 07/27/17 18:00 08/26/17 17:59 07/31/17 09:05 Morphine Sulfate (Morphine Sulfate) 2 mg Q4H PRN IVP Moderate Pain (Pain Scale 4-6) 07/27/17 14:15 08/03/17 10:29 Morphine Sulfate (Morphine Sulfate) 4 mg Q4H PRN IVP pain score 7-10 07/27/17 13:45 08/03/17 13:44 Nitroglycerin (Ntg) 0.4 mg Q5M PRN SL Prn Chest Pain 07/25/17 16:15 08/24/17 16:14 Ondansetron HCl (Zofran) 4 mg Q6H PRN IVP Nausea & Vomiting 07/25/17 16:15 08/24/17 16:14 Piperacillin Sod/ Tazobactam Sod 3.375 gm/Sodium Chloride 110 ml @ 27.5 mls/hr EVERY 8 HOURS IVPB 07/27/17 18:00 08/03/17 17:59 07/31/17 06:21 Polyethylene Glycol (Miralax) 17 gm DAILYPRN PRN ORAL Constipation 07/25/17 16:15 08/24/17 16:14 Povidone Iodine (Betadine Caridad) 1 applic DAILY TOPIC 07/29/17 09:00 08/25/17 15:59 07/31/17 09:02 Sodium Chloride 1,000 ml @ 100 mls/hr Q10H IV 07/29/17 12:45 08/28/17 12:44 07/31/17 06:21 Temazepam (Restoril) 15 mg HSPRN PRN ORAL Insomnia 07/25/17 16:15 08/01/17 16:14 Vancomycin HCl (Vanco rx to dose) 1 ea DAILY PRN MISC PER RX PROTOCOL 07/25/17 16:15 08/24/17 16:14 Vancomycin HCl 1 gm/Dextrose 275 ml @ 183.708 mls/hr Q24H IVPB 07/31/17 12:00 08/05/17 11:59 07/31/17 12:51 SOPHIA LESLIE Jul 31, 2017 14:45
--- NOTE | 2017-07-31 15:38 | Infectious Diseases Prog Note ---
Assessment/Plan Problems: (1) Abscess of right shoulder Assessment & Plan: S/P I&D for source control , will continue zosyn for now to cover for necrotizing fasciitis and skin abscess due to MSSA , continue local wound care and management as per surgery . (2) Gram-positive cocci bacteremia Assessment & Plan: due to shoulder abscess AND necrotizing fascitis , had source control with I&D, surgery is following , now on zosyn only , 2 D echo didn't show any valve vegetations , repeated blood culture to confirm clearance is negative on 07/26 , continue zosyn only for now which cover MSSA bacteremia and skin necrotizing fascitis and abscess. monitor random vancomycin level , will need four weeks of iv antibiotics therapy for MSSA bacteremia . (3) Poorly controlled diabetes mellitus Assessment & Plan: recommend tight glycemic control to keep blood glucose between 80-120 (4) AUGUSTO (acute kidney injury) Assessment & Plan: was given vancomycin again today by pulmonogist, which i stopped before due to renal failure, will stop vancomycin completely , since his creatinine is still high , continue iv fluids for hydration, avoid nephrotoxic meds , monitor renal function, nephrology is following Subjective Constitutional: Reports: no symptoms HEENT: Reports: no symptoms Respiratory: Reports: no symptoms Breasts: Reports: no symptoms Cardiovascular: Reports: no symptoms Gastrointestinal/Abdominal: Reports: no symptoms Genitourinary: Reports: no symptoms Neurologic: Reports: no symptoms Psychiatric: Reports: no symptoms Skin: Reports: other - RIGHT POSTERIOR CHOULDER SURGICAL WOUND , WITH YELLOWISH EXUDATE Endocrine: Reports: no symptoms Hematologic: Reports: no symptoms Musculoskeletal: Reports: no symptoms Allergies: Coded Allergies: No Known Allergies (Unverified , 04/19/16) Objective Vital Signs Last 24 Hour Vital Signs Date Time Temp Pulse Resp B/P (MAP) Pulse Ox O2 Delivery O2 Flow Rate FiO2 07/31/17 12:43 146/84 07/31/17 12:00 97.0 72 18 133/94 94 Room Air 07/31/17 09:02 148/84 07/31/17 08:35 84 18 Room Air 07/31/17 08:00 97.2 75 20 148/84 98 Room Air 07/31/17 04:00 97.6 71 19 120/77 97 Room Air 07/31/17 00:39 97.8 69 20 126/79 98 Room Air 07/30/17 23:12 123/89 07/30/17 20:00 97.3 74 20 123/89 98 Room Air 07/30/17 19:57 86 18 Room Air 07/30/17 17:26 130/65 07/30/17 16:00 98.5 72 20 130/85 Room Air Height (Feet): 5 Height (Inches): 5.00 Weight (Pounds): 190 General Appearance: WD/WN, no acute distress HEENT: normocephalic, atraumatic, anicteric, mucous membranes moist Respiratory/Chest: chest wall non-tender, lungs clear, normal breath sounds, no respiratory distress, no accessory muscle use Cardiovascular: normal peripheral pulses, normal rate, regular rhythm, no gallop/murmur, no JVD Abdomen: normal bowel sounds, soft, non tender, no organomegaly, non distended , no mass, no scars Extremities: no cyanosis, no clubbing Skin: no rash, no lesions, no ulcers Neurologic/Psychiatric: alert, oriented x 3, responsive Lymphatic: no neck adenopathy, no groin adenopathy Laboratory Tests Test 07/31/17 05:40 White Blood Count 9.3 K/UL (4.8-10.8) Red Blood Count 3.85 M/UL (4.70-6.10) L Hemoglobin 11.9 G/DL (14.2-18.0) L Hematocrit 36.3 % (42.0-52.0) L Mean Corpuscular Volume 94 FL (80-99) Mean Corpuscular Hemoglobin 30.9 PG (27.0-31.0) Mean Corpuscular Hemoglobin Concent 32.8 G/DL (32.0-36.0) Red Cell Distribution Width 12.5 % (11.6-14.8) Platelet Count 348 K/UL (150-450) Mean Platelet Volume 7.3 FL (6.5-10.1) Neutrophils (%) (Auto) 63.8 % (45.0-75.0) Lymphocytes (%) (Auto) 26.2 % (20.0-45.0) Monocytes (%) (Auto) 6.6 % (1.0-10.0) Eosinophils (%) (Auto) 2.4 % (0.0-3.0) Basophils (%) (Auto) 1.0 % (0.0-2.0) Sodium Level 139 mEQ/L (135-145) Potassium Level 4.6 mEQ/L (3.4-4.9) Chloride Level 100 mEQ/L (98-107) Carbon Dioxide Level 27 mEQ/L (20-30) Anion Gap 12 (5-15) Blood Urea Nitrogen 34 mg/dL (7-23) H Creatinine 2.3 mg/dL (0.7-1.2) H Estimat Glomerular Filtration Rate 31.0 mL/min (>60) Glucose Level 110 mg/dL (74-106) H Calcium Level 8.9 mg/dL (8.6-10.2) Random Vancomycin Level 10.7 ug/mL Current Medications Medications (Trade) Dose Ordered Sig/Leah Route PRN Reason Start Time Stop Time Status Last Admin Dose Admin Acetaminophen (Tylenol) 650 mg Q4H PRN ORAL fever 07/25/17 16:15 08/24/17 16:14 Acetaminophen (Tylenol) 650 mg Q4H PRN RECTAL Mild Pain (Pain Scale 1-3) 07/27/17 15:45 08/24/17 20:29 Clonidine HCl (Catapres) 0.1 mg QID ORAL 07/29/17 09:00 08/27/17 20:59 07/31/17 12:43 Dextrose (Dextrose 50%) STAT PRN IV Hypoglycemia 07/26/17 08:45 08/25/17 08:44 Heparin Sodium (Porcine) (Heparin 5000 units/ml) 5,000 units EVERY 12 HOURS SUBQ 07/25/17 21:00 08/24/17 20:59 07/31/17 09:03 Insulin Aspart (NovoLOG) BEFORE MEALS AND HS SUBQ 07/25/17 17:00 08/24/17 16:59 07/31/17 12:45 Insulin Aspart (NovoLOG) 12 units NOVOTIAC SUBQ 07/27/17 11:50 08/26/17 11:49 07/31/17 12:46 Insulin Detemir (Levemir) 15 units BID SUBQ 07/27/17 18:00 08/26/17 17:59 07/31/17 09:05 Morphine Sulfate (Morphine Sulfate) 2 mg Q4H PRN IVP Moderate Pain (Pain Scale 4-6) 07/27/17 14:15 08/03/17 10:29 Morphine Sulfate (Morphine Sulfate) 4 mg Q4H PRN IVP pain score 7-10 07/27/17 13:45 08/03/17 13:44 Nitroglycerin (Ntg) 0.4 mg Q5M PRN SL Prn Chest Pain 07/25/17 16:15 08/24/17 16:14 Ondansetron HCl (Zofran) 4 mg Q6H PRN IVP Nausea & Vomiting 07/25/17 16:15 08/24/17 16:14 Piperacillin Sod/ Tazobactam Sod 3.375 gm/Sodium Chloride 110 ml @ 27.5 mls/hr EVERY 8 HOURS IVPB 07/27/17 18:00 08/03/17 17:59 07/31/17 14:57 Polyethylene Glycol (Miralax) 17 gm DAILYPRN PRN ORAL Constipation 07/25/17 16:15 08/24/17 16:14 Povidone Iodine (Betadine Caridad) 1 applic DAILY TOPIC 07/29/17 09:00 08/25/17 15:59 07/31/17 09:02 Sodium Chloride 1,000 ml @ 100 mls/hr Q10H IV 07/29/17 12:45 08/28/17 12:44 07/31/17 06:21 Temazepam (Restoril) 15 mg HSPRN PRN ORAL Insomnia 07/25/17 16:15 08/01/17 16:14 Vancomycin HCl (Vanco rx to dose) 1 ea DAILY PRN MISC PER RX PROTOCOL 07/25/17 16:15 08/24/17 16:14 Vancomycin HCl 1 gm/Dextrose 275 ml @ 183.708 mls/hr Q24H IVPB 07/31/17 12:00 08/05/17 11:59 07/31/17 12:51 Fernando Clayton M.D. Jul 31, 2017 15:38
[2017-07-31 16:00] VITALS: BP 137/100
[2017-07-31 20:05] VITALS: BP 132/86
--- NOTE | 2017-07-31 20:10 | Nephrology Progress Note ---
Assessment/Plan Assessment 1.Hyponatremia (corrected na is 134) 2,uncontrolled DM 3,[place] 4.Right shoulder abscess 5.morbid obesity Plan to continue ivf monitoring renal function mix all ivpb with NS.9 replace electrolyte as need it avoid NSAID Subjective Constitutional: Reports: no symptoms HEENT: Reports: no symptoms Genitourinary: Reports: no symptoms Neurologic/Psychiatric: Reports: no symptoms Subjective no complaints Objective Objective Last 24 Hour Vital Signs Date Time Temp Pulse Resp B/P (MAP) Pulse Ox O2 Delivery O2 Flow Rate FiO2 07/31/17 20:05 97.6 77 19 132/86 100 Room Air 07/31/17 17:47 137/100 07/31/17 16:00 97.8 75 18 137/100 97 Room Air 07/31/17 12:43 146/84 07/31/17 12:00 97.0 72 18 133/94 94 Room Air 07/31/17 09:02 148/84 07/31/17 08:35 84 18 Room Air 07/31/17 08:00 97.2 75 20 148/84 98 Room Air 07/31/17 04:00 97.6 71 19 120/77 97 Room Air 07/31/17 00:39 97.8 69 20 126/79 98 Room Air 07/30/17 23:12 123/89 Intake and Output 07/31/17 08/01/17 19:00 07:00 Intake Total 2560 ml Output Total 1900 ml Balance 660 ml Intake Oral 1000 ml IV Total 1560 ml Output Urine Total 1900 ml # Voids 1 Laboratory Tests 07/31/17 05:40: White Blood Count 9.3, Red Blood Count 3.85L, Hemoglobin 11.9L, Hematocrit 36.3L , Mean Corpuscular Volume 94, Mean Corpuscular Hemoglobin 30.9, Mean Corpuscular Hemoglobin Concent 32.8, Red Cell Distribution Width 12.5, Platelet Count 348, Mean Platelet Volume 7.3, Neutrophils (%) (Auto) 63.8, Lymphocytes (% ) (Auto) 26.2, Monocytes (%) (Auto) 6.6, Eosinophils (%) (Auto) 2.4, Basophils ( %) (Auto) 1.0, Sodium Level 139, Potassium Level 4.6, Chloride Level 100, Carbon Dioxide Level 27, Anion Gap 12, Blood Urea Nitrogen 34H, Creatinine 2.3H , Estimat Glomerular Filtration Rate 31.0, Glucose Level 110H, Calcium Level 8.9 , Random Vancomycin Level 10.7 Height (Feet): 5 Height (Inches): 5.00 Weight (Pounds): 190 Objective Head and Neck: No JVP. No LAD. No thyromegaly. Extraocular movement intact. Pupils are reactive to light and accommodation. LUNGS: Clear to auscultation. CARDIAC: Regular rate and rhythm. S1 and S2. No murmur. No rub. ABDOMEN: Obese, nontender, and nondistended. Extremities: A 1 to 2+ edema. Right shoulder, he has a 20 x 20 cm round lesion with the yellowish, foul smelling drainage. It is very tender to touch and has had some degree of fluctuation. BHARGAVI SANZ Jul 31, 2017 20:09
[2017-08-01 00:41] VITALS: BP 129/79
[2017-08-01 04:23] VITALS: BP 138/86
[2017-08-01] MEDS: Piperacillin/Tazobactam 3.375 GM in NS 110 ML IVPB SCH ×3 (05:17→21:28)
[2017-08-01] MEDS: NovoLOG Insulin Flexpen SUBQ SCH ×7 (06:26→21:00)
--- NOTE | 2017-08-01 07:20 | General Progress Note ---
Assessment/Plan Problem List: (1) Non-compliance ICD Codes: Z91.19 - Patient's noncompliance with other medical treatment and regimen SNOMED: 7874388 (2) Poorly controlled diabetes mellitus ICD Codes: E11.65 - Type 2 diabetes mellitus with hyperglycemia SNOMED: 995584336 (3) Abscess of right shoulder ICD Codes: L02.413 - Cutaneous abscess of right upper limb SNOMED: 38543232 (4) Elevated lactic acid level ICD Codes: E87.2 - Acidosis SNOMED: 4867345 Assessment/Plan reduce Levemir to 12 units bid reduce Novolog to 8 units ac tid + SSI Subjective Allergies: Coded Allergies: No Known Allergies (Unverified , 04/19/16) Subjective events noted - interval noted reviewed Objective Last 24 Hour Vital Signs Date Time Temp Pulse Resp B/P (MAP) Pulse Ox O2 Delivery O2 Flow Rate FiO2 08/01/17 04:23 97.6 71 18 138/86 97 Room Air 08/01/17 00:41 97.9 69 20 129/79 98 Room Air 07/31/17 22:03 69 18 Room Air 07/31/17 21:43 132/86 07/31/17 20:05 97.6 77 19 132/86 100 Room Air 07/31/17 17:47 137/100 07/31/17 16:00 97.8 75 18 137/100 97 Room Air 07/31/17 12:43 146/84 07/31/17 12:00 97.0 72 18 133/94 94 Room Air 07/31/17 09:02 148/84 07/31/17 08:35 84 18 Room Air 07/31/17 08:00 97.2 75 20 148/84 98 Room Air Height (Feet): 5 Height (Inches): 5.00 Weight (Pounds): 190 General Appearance: no apparent distress Neck: normal alignment Cardiovascular: normal rate Respiratory/Chest: lungs clear Abdomen: normal bowel sounds Objective Current Medications Medications (Trade) Dose Ordered Sig/Leah Route PRN Reason Start Time Stop Time Status Last Admin Dose Admin Acetaminophen (Tylenol) 650 mg Q4H PRN ORAL fever 07/25/17 16:15 08/24/17 16:14 Acetaminophen (Tylenol) 650 mg Q4H PRN RECTAL Mild Pain (Pain Scale 1-3) 07/27/17 15:45 08/24/17 20:29 Clonidine HCl (Catapres) 0.1 mg QID ORAL 07/29/17 09:00 08/27/17 20:59 07/31/17 21:43 Dextrose (Dextrose 50%) STAT PRN IV Hypoglycemia 07/26/17 08:45 08/25/17 08:44 Heparin Sodium (Porcine) (Heparin 5000 units/ml) 5,000 units EVERY 12 HOURS SUBQ 07/25/17 21:00 08/24/17 20:59 07/31/17 21:48 Insulin Aspart (NovoLOG) BEFORE MEALS AND HS SUBQ 07/25/17 17:00 08/24/17 16:59 07/31/17 17:52 Insulin Aspart (NovoLOG) 12 units NOVOTIAC SUBQ 07/27/17 11:50 08/26/17 11:49 07/31/17 17:51 Insulin Detemir (Levemir) 15 units BID SUBQ 07/27/17 18:00 08/26/17 17:59 07/31/17 17:49 Morphine Sulfate (Morphine Sulfate) 2 mg Q4H PRN IVP Moderate Pain (Pain Scale 4-6) 07/27/17 14:15 08/03/17 10:29 Morphine Sulfate (Morphine Sulfate) 4 mg Q4H PRN IVP pain score 7-10 07/27/17 13:45 08/03/17 13:44 Nitroglycerin (Ntg) 0.4 mg Q5M PRN SL Prn Chest Pain 07/25/17 16:15 08/24/17 16:14 Ondansetron HCl (Zofran) 4 mg Q6H PRN IVP Nausea & Vomiting 07/25/17 16:15 08/24/17 16:14 Piperacillin Sod/ Tazobactam Sod 3.375 gm/Sodium Chloride 110 ml @ 27.5 mls/hr EVERY 8 HOURS IVPB 07/27/17 18:00 08/03/17 17:59 08/01/17 05:17 Polyethylene Glycol (Miralax) 17 gm DAILYPRN PRN ORAL Constipation 07/25/17 16:15 08/24/17 16:14 Povidone Iodine (Betadine Caridad) 1 applic DAILY TOPIC 07/29/17 09:00 08/25/17 15:59 07/31/17 09:02 Sodium Chloride 1,000 ml @ 75 mls/hr [id number] IV 07/31/17 15:45 08/02/17 15:44 08/01/17 05:17 Temazepam (Restoril) 15 mg HSPRN PRN ORAL Insomnia 07/25/17 16:15 08/01/17 16:14 Item Value Date Time Bedside Blood Glucose 102 mg/dl 08/01/17 0630 Bedside Blood Glucose 100 mg/dl 07/31/17 2149 Bedside Blood Glucose 132 mg/dl H 07/31/17 1752 Bedside Blood Glucose 203 mg/dl H 07/31/17 1246 Bedside Blood Glucose 104 mg/dl 07/31/17 0905 ANN DUARTE Aug 01, 2017 07:20
[2017-08-01 08:00] VITALS: BP 124/83
[2017-08-01] MEDS: Betadine 4oz Bottle TOPIC SCH (08:43)
[2017-08-01] MEDS: Heparin 5000 units/ml inj SUBQ SCH ×2 (08:45→21:26)
[2017-08-01] MEDS: Levemir Flexpen SUBQ SCH ×2 (09:42→17:51)
[2017-08-01] MEDS ORDERED: NS 275ml ONE (09:55)
[2017-08-01] MEDS ORDERED: Tubing IV Secondary IV ONE (09:55)
[2017-08-01 12:00] VITALS: BP 137/80
--- NOTE | 2017-08-01 13:31 | Infectious Diseases Prog Note ---
Assessment/Plan Problems: (1) Abscess of right shoulder Assessment & Plan: S/P I&D for source control , will continue zosyn for now to cover for necrotizing fasciitis and skin abscess due to MSSA , continue local wound care and management as per surgery . (2) Gram-positive cocci bacteremia Assessment & Plan: due to shoulder abscess AND necrotizing fascitis , had source control with I&D, surgery is following , now on zosyn only , 2 D echo didn't show any valve vegetations , repeated blood culture to confirm clearance is negative on 07/26 , continue zosyn only for now which cover MSSA bacteremia and skin necrotizing fascitis and abscess. monitor random vancomycin level , will need four weeks of iv antibiotics therapy for MSSA bacteremia . EOT 08/23/17 (3) Poorly controlled diabetes mellitus Assessment & Plan: recommend tight glycemic control to keep blood glucose between 80-120 (4) AUGUSTO (acute kidney injury) Assessment & Plan: was given vancomycin again yesterday by kiln puller, which i stopped before due to renal failure, will keep off vancomycin completely , since his creatinine is still high , continue iv fluids for hydration, avoid nephrotoxic meds , monitor renal function, nephrology is following Subjective Constitutional: Reports: no symptoms HEENT: Reports: no symptoms Respiratory: Reports: no symptoms Breasts: Reports: no symptoms Cardiovascular: Reports: no symptoms Gastrointestinal/Abdominal: Reports: no symptoms Skin: Reports: other - wound with mild tenderness Endocrine: Reports: no symptoms Allergies: Coded Allergies: No Known Allergies (Unverified , 04/19/16) Objective Vital Signs Last 24 Hour Vital Signs Date Time Temp Pulse Resp B/P (MAP) Pulse Ox O2 Delivery O2 Flow Rate FiO2 08/01/17 08:42 124/83 08/01/17 08:00 97.0 77 20 124/83 96 Room Air 08/01/17 07:20 72 18 Room Air 08/01/17 04:23 97.6 71 18 138/86 97 Room Air 08/01/17 00:41 97.9 69 20 129/79 98 Room Air 07/31/17 22:03 69 18 Room Air 07/31/17 21:43 132/86 07/31/17 20:05 97.6 77 19 132/86 100 Room Air 07/31/17 17:47 137/100 07/31/17 16:00 97.8 75 18 137/100 97 Room Air Height (Feet): 5 Height (Inches): 5.00 Weight (Pounds): 190 General Appearance: WD/WN, no acute distress HEENT: normocephalic, atraumatic, anicteric, mucous membranes moist Respiratory/Chest: chest wall non-tender, lungs clear, normal breath sounds, no respiratory distress, no accessory muscle use Cardiovascular: normal peripheral pulses, normal rate, regular rhythm, no JVD Abdomen: normal bowel sounds, soft, non tender, no organomegaly, non distended , no mass, no scars Extremities: no cyanosis, no clubbing Skin: no rash, no lesions, other - right posterior surgical wound S/P deep debriedment with yellowish exudate Current Medications Medications (Trade) Dose Ordered Sig/Leah Route PRN Reason Start Time Stop Time Status Last Admin Dose Admin Acetaminophen (Tylenol) 650 mg Q4H PRN ORAL fever 07/25/17 16:15 08/24/17 16:14 Acetaminophen (Tylenol) 650 mg Q4H PRN RECTAL Mild Pain (Pain Scale 1-3) 07/27/17 15:45 08/24/17 20:29 Clonidine HCl (Catapres) 0.1 mg QID ORAL 07/29/17 09:00 08/27/17 20:59 08/01/17 08:42 Dextrose (Dextrose 50%) STAT PRN IV Hypoglycemia 07/26/17 08:45 08/25/17 08:44 Heparin Sodium (Porcine) (Heparin 5000 units/ml) 5,000 units EVERY 12 HOURS SUBQ 07/25/17 21:00 08/24/17 20:59 08/01/17 08:45 Insulin Aspart (NovoLOG) BEFORE MEALS AND HS SUBQ 07/25/17 17:00 08/24/17 16:59 08/01/17 12:14 Insulin Aspart (NovoLOG) 8 units NOVOTIAC SUBQ 08/01/17 11:50 08/31/17 11:49 08/01/17 12:13 Insulin Detemir (Levemir) 12 units BID SUBQ 08/01/17 09:00 08/31/17 08:59 08/01/17 09:42 Morphine Sulfate (Morphine Sulfate) 2 mg Q4H PRN IVP Moderate Pain (Pain Scale 4-6) 07/27/17 14:15 08/03/17 10:29 Morphine Sulfate (Morphine Sulfate) 4 mg Q4H PRN IVP pain score 7-10 07/27/17 13:45 08/03/17 13:44 Nitroglycerin (Ntg) 0.4 mg Q5M PRN SL Prn Chest Pain 07/25/17 16:15 08/24/17 16:14 Ondansetron HCl (Zofran) 4 mg Q6H PRN IVP Nausea & Vomiting 07/25/17 16:15 08/24/17 16:14 Piperacillin Sod/ Tazobactam Sod 3.375 gm/Sodium Chloride 110 ml @ 27.5 mls/hr EVERY 8 HOURS IVPB 07/27/17 18:00 08/03/17 17:59 08/01/17 05:17 Polyethylene Glycol (Miralax) 17 gm DAILYPRN PRN ORAL Constipation 07/25/17 16:15 08/24/17 16:14 Povidone Iodine (Betadine Caridad) 1 applic DAILY TOPIC 07/29/17 09:00 08/25/17 15:59 08/01/17 08:43 Sodium Chloride 1,000 ml @ 75 mls/hr [id number] IV 07/31/17 15:45 08/02/17 15:44 08/01/17 05:17 Temazepam (Restoril) 15 mg HSPRN PRN ORAL Insomnia 07/25/17 16:15 08/01/17 16:14 Fernando Clayton M.D. Aug 01, 2017 13:31
[2017-08-01 16:00] VITALS: BP 143/88
[2017-08-01 20:00] VITALS: BP 116/80
[2017-08-02] VITALS: BP 127/80
[2017-08-02 04:00] VITALS: BP 118/83
[2017-08-02] MEDS: Piperacillin/Tazobactam 3.375 GM in NS 110 ML IVPB SCH ×3 (06:12→21:42)
[2017-08-02] MEDS: NovoLOG Insulin Flexpen SUBQ SCH ×7 (06:19→21:41)
[2017-08-02 08:00] VITALS: BP 118/81
[2017-08-02] MEDS: Heparin 5000 units/ml inj SUBQ SCH ×2 (09:21→21:43)
[2017-08-02] MEDS: Levemir Flexpen SUBQ SCH ×2 (09:23→17:59)
[2017-08-02] MEDS: Betadine 4oz Bottle TOPIC SCH (09:27)
--- NOTE | 2017-08-02 11:54 | General Progress Note ---
Assessment/Plan Problem List: (1) Abscess of back ICD Codes: L02.212 - Cutaneous abscess of back [any part, except buttock] SNOMED: 884239475 (2) Abscess of right shoulder ICD Codes: L02.413 - Cutaneous abscess of right upper limb SNOMED: 48655986 (3) Poorly controlled diabetes mellitus ICD Codes: E11.65 - Type 2 diabetes mellitus with hyperglycemia SNOMED: 006615737 Status: stable, progressing, tolerating diet Assessment/Plan ot pt diet wound care abx pain control cbc bmp am dc plan Subjective Constitutional: Reports: weakness Allergies: Coded Allergies: No Known Allergies (Unverified , 04/19/16) All Systems: reviewed and negative except above Subjective calm in bed Objective Last 24 Hour Vital Signs Date Time Temp Pulse Resp B/P (MAP) Pulse Ox O2 Delivery O2 Flow Rate FiO2 08/02/17 09:20 127/80 08/02/17 08:18 69 18 Room Air 08/02/17 08:00 98.0 73 17 118/81 97 Room Air 08/02/17 04:00 97.6 58 20 118/83 98 Room Air 08/02/17 00:00 97.4 61 18 127/80 97 Room Air 08/02/17 00:00 97.4 61 16 127/80 97 Room Air 08/01/17 21:23 127/83 08/01/17 20:00 98.1 70 18 116/80 99 Room Air 08/01/17 19:58 73 18 Room Air 08/01/17 17:49 143/88 08/01/17 16:00 97.5 74 18 143/88 96 Room Air 08/01/17 14:01 137/80 08/01/17 12:00 97.7 72 20 137/80 96 Room Air Intake and Output 08/02/17 08/03/17 19:00 07:00 Intake Total 350 ml Output Total 1000 ml Balance -650 ml Intake Oral 350 ml Output Urine Total 1000 ml Height (Feet): 5 Height (Inches): 5.00 Weight (Pounds): 190 General Appearance: alert EENT: normal ENT inspection Neck: normal alignment Cardiovascular: normal peripheral pulses, normal rate, regular rhythm Respiratory/Chest: chest wall non-tender, lungs clear, normal breath sounds Abdomen: normal bowel sounds, non tender, soft Extremities: normal inspection Edema: no edema noted Arm (L), no edema noted Arm (R), no edema noted Leg (L), no edema noted Leg (R), no edema noted Pedal (L), no edema noted Pedal (R), no edema noted Generalized Neurologic: responsive, motor weakness Skin: normal pigmentation, warm/dry Objective wound dressing sl stained back of right scapula BOB HILL Aug 02, 2017 11:54
[2017-08-02 12:00] VITALS: BP 156/93
--- NOTE | 2017-08-02 14:15 | General Surgery Progress Note ---
General Surgery-Progress Note Subjective Procedure Performed I & D posterior right shoulder with extensive debridement Symptoms: improved Objective Last 24 Hour Vital Signs Date Time Temp Pulse Resp B/P (MAP) Pulse Ox O2 Delivery O2 Flow Rate FiO2 08/02/17 13:17 156/93 08/02/17 12:00 97.0 64 20 156/93 98 Room Air 08/02/17 09:20 127/80 08/02/17 08:18 69 18 Room Air 08/02/17 08:00 98.0 73 17 118/81 97 Room Air 08/02/17 04:00 97.6 58 20 118/83 98 Room Air 08/02/17 00:00 97.4 61 18 127/80 97 Room Air 08/02/17 00:00 97.4 61 16 127/80 97 Room Air 08/01/17 21:23 127/83 08/01/17 20:00 98.1 70 18 116/80 99 Room Air 08/01/17 19:58 73 18 Room Air 08/01/17 17:49 143/88 08/01/17 16:00 97.5 74 18 143/88 96 Room Air I&O Intake and Output 08/02/17 08/03/17 19:00 07:00 Intake Total 650 ml Output Total 1600 ml Balance -950 ml Intake Oral 650 ml Output Urine Total 1600 ml Wound: clean, other - no drainage Laboratory Tests Test 08/02/17 13:50 Sodium Level Pending Potassium Level Pending Chloride Level Pending Carbon Dioxide Level Pending Blood Urea Nitrogen Pending Creatinine Pending Estimat Glomerular Filtration Rate Pending Glucose Level Pending Calcium Level Pending Assessment Post-op Diagnosis suppurative fasciitis posterior right shoulder Plan Additional Comments can be discharged very soon with arrangement for DM and wound care ZAIN DE LA CRUZ Aug 02, 2017 14:15
[2017-08-02 14:17] LABS: ANION GAP 7 (5-15); CALCIUM 8.3 MG/DL (8.5-10.1); CARBON DIOXIDE 25 MMOL/L (21-32); CHLORIDE 99 MMOL/L (98-107); CREATININE 2.4 MG/DL (0.55-1.30); GLOMERULAR FILTRATION RATE 29.6 mL/min (>60); POTASSIUM 4.3 MMOL/L (3.5-5.1); SODIUM 131 MMOL/L (136-145)
--- NOTE | 2017-08-02 14:25 | Nephrology Progress Note ---
Assessment/Plan Assessment 1.AUGUSTO now stabilizing 2,uncontrolled DM 3,Hyponatremia 4.Right shoulder abscess 5.morbid obesity Plan to continue ivf monitoring renal function mix all ivpb with NS.9 replace electrolyte as need it avoid NSAID Subjective Constitutional: Reports: no symptoms HEENT: Reports: no symptoms Genitourinary: Reports: no symptoms Neurologic/Psychiatric: Reports: no symptoms Subjective no complaints Objective Objective Last 24 Hour Vital Signs Date Time Temp Pulse Resp B/P (MAP) Pulse Ox O2 Delivery O2 Flow Rate FiO2 08/02/17 13:17 156/93 08/02/17 12:00 97.0 64 20 156/93 98 Room Air 08/02/17 09:20 127/80 08/02/17 08:18 69 18 Room Air 08/02/17 08:00 98.0 73 17 118/81 97 Room Air 08/02/17 04:00 97.6 58 20 118/83 98 Room Air 08/02/17 00:00 97.4 61 18 127/80 97 Room Air 08/02/17 00:00 97.4 61 16 127/80 97 Room Air 08/01/17 21:23 127/83 08/01/17 20:00 98.1 70 18 116/80 99 Room Air 08/01/17 19:58 73 18 Room Air 08/01/17 17:49 143/88 08/01/17 16:00 97.5 74 18 143/88 96 Room Air Intake and Output 08/02/17 08/03/17 19:00 07:00 Intake Total 650 ml Output Total 1600 ml Balance -950 ml Intake Oral 650 ml Output Urine Total 1600 ml Laboratory Tests 08/02/17 13:50: Sodium Level 131L, Potassium Level 4.3, Chloride Level 99, Carbon Dioxide Level 25, Anion Gap 7, Blood Urea Nitrogen 27H, Creatinine 2.4H, Estimat Glomerular Filtration Rate 29.6, Glucose Level 156H, Calcium Level 8.3L Height (Feet): 5 Height (Inches): 5.00 Weight (Pounds): 190 Objective Head and Neck: No JVP. No LAD. No thyromegaly. Extraocular movement intact. Pupils are reactive to light and accommodation. LUNGS: Clear to auscultation. CARDIAC: Regular rate and rhythm. S1 and S2. No murmur. No rub. ABDOMEN: Obese, nontender, and nondistended. Extremities: A 1 to 2+ edema. Right shoulder, he has a 20 x 20 cm round lesion with the yellowish, foul smelling drainage. It is very tender to touch and has had some degree of fluctuation. BHARGAVI SANZ Aug 02, 2017 14:25
[2017-08-02 16:00] VITALS: BP 120/83
--- NOTE | 2017-08-02 16:01 | Infectious Diseases Prog Note ---
Assessment/Plan Problems: (1) Abscess of right shoulder Assessment & Plan: S/P I&D for source control , will continue zosyn for now to cover for necrotizing fasciitis and skin abscess due to MSSA , continue local wound care and management as per surgery . (2) Gram-positive cocci bacteremia Assessment & Plan: due to shoulder abscess AND necrotizing fascitis , had source control with I&D, surgery is following , now on zosyn only , 2 D echo didn't show any valve vegetations , repeated blood culture to confirm clearance is negative on 07/26 , continue zosyn only for now which cover MSSA bacteremia and skin necrotizing fascitis and abscess. monitor random vancomycin level , will need four weeks of iv antibiotics therapy for MSSA bacteremia . EOT 08/23/17 (3) Poorly controlled diabetes mellitus Assessment & Plan: recommend tight glycemic control to keep blood glucose between 80-120 (4) AUGUSTO (acute kidney injury) Assessment & Plan: was given vancomycin again by yard conductor, which i stopped before due to renal failure, will keep off vancomycin completely , since his creatinine is still high , continue iv fluids for hydration, avoid nephrotoxic meds , monitor renal function, nephrology is following Subjective Constitutional: Reports: no symptoms HEENT: Reports: no symptoms Respiratory: Reports: no symptoms Breasts: Reports: no symptoms Cardiovascular: Reports: no symptoms Gastrointestinal/Abdominal: Reports: no symptoms Genitourinary: Reports: no symptoms Neurologic: Reports: no symptoms Psychiatric: Reports: no symptoms Skin: Reports: ulcer Endocrine: Reports: no symptoms Hematologic: Reports: no symptoms Musculoskeletal: Reports: no symptoms Allergies: Coded Allergies: No Known Allergies (Unverified , 04/19/16) Objective Vital Signs Last 24 Hour Vital Signs Date Time Temp Pulse Resp B/P (MAP) Pulse Ox O2 Delivery O2 Flow Rate FiO2 08/02/17 13:17 156/93 08/02/17 12:00 97.0 64 20 156/93 98 Room Air 08/02/17 09:20 127/80 08/02/17 08:18 69 18 Room Air 08/02/17 08:00 98.0 73 17 118/81 97 Room Air 08/02/17 04:00 97.6 58 20 118/83 98 Room Air 08/02/17 00:00 97.4 61 18 127/80 97 Room Air 08/02/17 00:00 97.4 61 16 127/80 97 Room Air 08/01/17 21:23 127/83 08/01/17 20:00 98.1 70 18 116/80 99 Room Air 08/01/17 19:58 73 18 Room Air 08/01/17 17:49 143/88 08/01/17 16:00 97.5 74 18 143/88 96 Room Air Height (Feet): 5 Height (Inches): 5.00 Weight (Pounds): 190 General Appearance: WD/WN, no acute distress HEENT: normocephalic, atraumatic, anicteric, mucous membranes moist Respiratory/Chest: chest wall non-tender, lungs clear, normal breath sounds, no respiratory distress, no accessory muscle use Cardiovascular: normal peripheral pulses, normal rate, regular rhythm, no gallop/murmur, no JVD Abdomen: normal bowel sounds, soft, non tender, no organomegaly, non distended , no mass, no scars Extremities: no cyanosis, no clubbing Skin: no rash, no lesions, other - large posterior shoulder surgical wound Neurologic/Psychiatric: alert, oriented x 3 Laboratory Tests Test 08/02/17 13:50 Sodium Level 131 MMOL/L (136-145) L Potassium Level 4.3 MMOL/L (3.5-5.1) Chloride Level 99 MMOL/L (98-107) Carbon Dioxide Level 25 MMOL/L (21-32) Anion Gap 7 (5-15) Blood Urea Nitrogen 27 mg/dL (7-18) H Creatinine 2.4 MG/DL (0.55-1.30) H Estimat Glomerular Filtration Rate 29.6 mL/min (>60) Glucose Level 156 MG/DL (74-106) H Calcium Level 8.3 MG/DL (8.5-10.1) L Current Medications Medications (Trade) Dose Ordered Sig/Leah Route PRN Reason Start Time Stop Time Status Last Admin Dose Admin Acetaminophen (Tylenol) 650 mg Q4H PRN ORAL fever 07/25/17 16:15 08/24/17 16:14 Acetaminophen (Tylenol) 650 mg Q4H PRN RECTAL Mild Pain (Pain Scale 1-3) 07/27/17 15:45 08/24/17 20:29 Clonidine HCl (Catapres) 0.1 mg QID ORAL 07/29/17 09:00 08/27/17 20:59 08/02/17 13:17 Dextrose (Dextrose 50%) STAT PRN IV Hypoglycemia 07/26/17 08:45 08/25/17 08:44 Heparin Sodium (Porcine) (Heparin 5000 units/ml) 5,000 units EVERY 12 HOURS SUBQ 07/25/17 21:00 08/24/17 20:59 08/02/17 09:21 Insulin Aspart (NovoLOG) BEFORE MEALS AND HS SUBQ 07/25/17 17:00 08/24/17 16:59 08/02/17 11:48 Insulin Aspart (NovoLOG) 8 units NOVOTIAC SUBQ 08/01/17 11:50 08/31/17 11:49 08/02/17 11:50 Insulin Detemir (Levemir) 12 units BID SUBQ 08/01/17 09:00 08/31/17 08:59 08/02/17 09:23 Morphine Sulfate (Morphine Sulfate) 2 mg Q4H PRN IVP Moderate Pain (Pain Scale 4-6) 07/27/17 14:15 08/03/17 10:29 Morphine Sulfate (Morphine Sulfate) 4 mg Q4H PRN IVP pain score 7-10 07/27/17 13:45 08/03/17 13:44 Nitroglycerin (Ntg) 0.4 mg Q5M PRN SL Prn Chest Pain 07/25/17 16:15 08/24/17 16:14 Ondansetron HCl (Zofran) 4 mg Q6H PRN IVP Nausea & Vomiting 07/25/17 16:15 08/24/17 16:14 Piperacillin Sod/ Tazobactam Sod 3.375 gm/Sodium Chloride 110 ml @ 27.5 mls/hr EVERY 8 HOURS IVPB 07/27/17 18:00 08/07/17 17:59 08/02/17 13:18 Polyethylene Glycol (Miralax) 17 gm DAILYPRN PRN ORAL Constipation 07/25/17 16:15 08/24/17 16:14 Povidone Iodine (Betadine Caridad) 1 applic DAILY TOPIC 07/29/17 09:00 08/25/17 15:59 08/02/17 09:27 Fernando Clayton M.D. Aug 02, 2017 16:00
--- NOTE | 2017-08-02 18:48 | General Progress Note ---
Assessment/Plan Problem List: (1) Non-compliance ICD Codes: Z91.19 - Patient's noncompliance with other medical treatment and regimen SNOMED: 3384107 (2) Poorly controlled diabetes mellitus ICD Codes: E11.65 - Type 2 diabetes mellitus with hyperglycemia SNOMED: 479970900 (3) Abscess of right shoulder ICD Codes: L02.413 - Cutaneous abscess of right upper limb SNOMED: 82254621 (4) Elevated lactic acid level ICD Codes: E87.2 - Acidosis SNOMED: 2126597 Assessment/Plan reduce Levemir to 10 units bid reduce Novolog to 6 units ac tid + SSI Subjective Allergies: Coded Allergies: No Known Allergies (Unverified , 04/19/16) All Systems: reviewed and negative except above Subjective events noted - interval noted reviewed Objective Last 24 Hour Vital Signs Date Time Temp Pulse Resp B/P (MAP) Pulse Ox O2 Delivery O2 Flow Rate FiO2 08/02/17 17:58 120/83 08/02/17 16:00 97.7 66 20 120/83 96 Room Air 08/02/17 13:17 156/93 08/02/17 12:00 97.0 64 20 156/93 98 Room Air 08/02/17 09:20 127/80 08/02/17 08:18 69 18 Room Air 08/02/17 08:00 98.0 73 17 118/81 97 Room Air 08/02/17 04:00 97.6 58 20 118/83 98 Room Air 08/02/17 00:00 97.4 61 18 127/80 97 Room Air 08/02/17 00:00 97.4 61 16 127/80 97 Room Air 08/01/17 21:23 127/83 08/01/17 20:00 98.1 70 18 116/80 99 Room Air 08/01/17 19:58 73 18 Room Air Intake and Output 08/02/17 08/03/17 19:00 07:00 Intake Total 1000 ml Output Total 2000 ml Balance -1000 ml Intake Oral 1000 ml Output Urine Total 2000 ml Laboratory Tests 08/02/17 13:50: Sodium Level 131L, Potassium Level 4.3, Chloride Level 99, Carbon Dioxide Level 25, Anion Gap 7, Blood Urea Nitrogen 27H, Creatinine 2.4H, Estimat Glomerular Filtration Rate 29.6, Glucose Level 156H, Calcium Level 8.3L Height (Feet): 5 Height (Inches): 5.00 Weight (Pounds): 190 General Appearance: no apparent distress Neck: normal alignment Cardiovascular: normal peripheral pulses Respiratory/Chest: lungs clear Abdomen: normal bowel sounds Pelvis: normal external exam Objective Current Medications Medications (Trade) Dose Ordered Sig/Leah Route PRN Reason Start Time Stop Time Status Last Admin Dose Admin Acetaminophen (Tylenol) 650 mg Q4H PRN ORAL fever 07/25/17 16:15 08/24/17 16:14 Acetaminophen (Tylenol) 650 mg Q4H PRN RECTAL Mild Pain (Pain Scale 1-3) 07/27/17 15:45 08/24/17 20:29 Clonidine HCl (Catapres) 0.1 mg QID ORAL 07/29/17 09:00 08/27/17 20:59 08/02/17 17:58 Dextrose (Dextrose 50%) STAT PRN IV Hypoglycemia 07/26/17 08:45 08/25/17 08:44 Heparin Sodium (Porcine) (Heparin 5000 units/ml) 5,000 units EVERY 12 HOURS SUBQ 07/25/17 21:00 08/24/17 20:59 08/02/17 09:21 Insulin Aspart (NovoLOG) BEFORE MEALS AND HS SUBQ 07/25/17 17:00 08/24/17 16:59 08/02/17 17:05 Insulin Aspart (NovoLOG) 8 units NOVOTIAC SUBQ 08/01/17 11:50 08/31/17 11:49 08/02/17 17:06 Insulin Detemir (Levemir) 12 units BID SUBQ 08/01/17 09:00 08/31/17 08:59 08/02/17 17:59 Morphine Sulfate (Morphine Sulfate) 2 mg Q4H PRN IVP Moderate Pain (Pain Scale 4-6) 07/27/17 14:15 08/03/17 10:29 Morphine Sulfate (Morphine Sulfate) 4 mg Q4H PRN IVP pain score 7-10 07/27/17 13:45 08/03/17 13:44 Nitroglycerin (Ntg) 0.4 mg Q5M PRN SL Prn Chest Pain 07/25/17 16:15 08/24/17 16:14 Ondansetron HCl (Zofran) 4 mg Q6H PRN IVP Nausea & Vomiting 07/25/17 16:15 08/24/17 16:14 Piperacillin Sod/ Tazobactam Sod 3.375 gm/Sodium Chloride 110 ml @ 27.5 mls/hr EVERY 8 HOURS IVPB 07/27/17 18:00 08/07/17 17:59 08/02/17 13:18 Polyethylene Glycol (Miralax) 17 gm DAILYPRN PRN ORAL Constipation 07/25/17 16:15 08/24/17 16:14 Povidone Iodine (Betadine Caridad) 1 applic DAILY TOPIC 07/29/17 09:00 08/25/17 15:59 08/02/17 09:27 Item Value Date Time Bedside Blood Glucose 135 mg/dl H 08/02/17 1759 Bedside Blood Glucose 111 mg/dl 08/02/17 1150 Bedside Blood Glucose 143 mg/dl H 08/02/17 0923 Bedside Blood Glucose 86 mg/dl 08/02/17 0619 ANN DUARTE Aug 02, 2017 18:48
[2017-08-02 20:41] VITALS: BP 139/81
--- NOTE | 2017-08-02 22:49 | Pulmonology Progress Note ---
Assessment/Plan Problems: (1) Abscess of right shoulder (2) Poorly controlled diabetes mellitus (3) Gram-positive cocci bacteremia Assessment/Plan check cultures wound care debridement symptomatic treatment pain management adjust antbx as soon as cultures are finished all laboratories seen medications evaluated Subjective ROS Limited/Unobtainable: No Constitutional: Reports: fever, chills, fatigue, anorexia Gastrointestinal/Abdominal: Reports: nausea Skin: Reports: rash, ulcer Musculoskeletal: Reports: pain, swelling, stiffness Allergies: Coded Allergies: No Known Allergies (Unverified , 04/19/16) Objective Last 24 Hour Vital Signs Date Time Temp Pulse Resp B/P (MAP) Pulse Ox O2 Delivery O2 Flow Rate FiO2 08/02/17 21:42 139/81 08/02/17 20:41 97.4 65 20 139/81 98 Room Air 08/02/17 17:58 120/83 08/02/17 16:00 97.7 66 20 120/83 96 Room Air 08/02/17 13:17 156/93 08/02/17 12:00 97.0 64 20 156/93 98 Room Air 08/02/17 09:20 127/80 08/02/17 08:18 69 18 Room Air 08/02/17 08:00 98.0 73 17 118/81 97 Room Air 08/02/17 04:00 97.6 58 20 118/83 98 Room Air 08/02/17 00:00 97.4 61 18 127/80 97 Room Air 08/02/17 00:00 97.4 61 16 127/80 97 Room Air Intake and Output 08/02/17 08/03/17 19:00 07:00 Intake Total 1000 ml Output Total 2000 ml Balance -1000 ml Intake Oral 1000 ml Output Urine Total 2000 ml Objective General Appearance: WD/WN HEENT: normocephalic, mucous membranes moist Respiratory/Chest: chest wall non-tender, normal breath sounds Cardiovascular: normal peripheral pulses, normal rate Abdomen: normal bowel sounds, no organomegaly Extremities: other - severe limitation in any movement of right shoulder secondary to pain secondary to large boil on right shoulder Skin: rash, lesions, ulcers Neurologic/Psychiatric: dyeing machine tender II-XII grossly normal, no motor/sensory deficits Laboratory Tests 08/02/17 13:50: Sodium Level 131L, Potassium Level 4.3, Chloride Level 99, Carbon Dioxide Level 25, Anion Gap 7, Blood Urea Nitrogen 27H, Creatinine 2.4H, Estimat Glomerular Filtration Rate 29.6, Glucose Level 156H, Calcium Level 8.3L Current Medications Medications (Trade) Dose Ordered Sig/Leah Route PRN Reason Start Time Stop Time Status Last Admin Dose Admin Acetaminophen (Tylenol) 650 mg Q4H PRN ORAL fever 07/25/17 16:15 08/24/17 16:14 Acetaminophen (Tylenol) 650 mg Q4H PRN RECTAL Mild Pain (Pain Scale 1-3) 07/27/17 15:45 08/24/17 20:29 Clonidine HCl (Catapres) 0.1 mg QID ORAL 07/29/17 09:00 08/27/17 20:59 08/02/17 21:42 Dextrose (Dextrose 50%) STAT PRN IV Hypoglycemia 07/26/17 08:45 08/25/17 08:44 Heparin Sodium (Porcine) (Heparin 5000 units/ml) 5,000 units EVERY 12 HOURS SUBQ 07/25/17 21:00 08/24/17 20:59 08/02/17 21:43 Insulin Aspart (NovoLOG) BEFORE MEALS AND HS SUBQ 07/25/17 17:00 08/24/17 16:59 08/02/17 17:05 Insulin Aspart (NovoLOG) 6 units NOVOTIAC SUBQ 08/03/17 06:30 09/02/17 06:29 Insulin Detemir (Levemir) 10 units BID SUBQ 08/03/17 09:00 09/02/17 08:59 Morphine Sulfate (Morphine Sulfate) 2 mg Q4H PRN IVP Moderate Pain (Pain Scale 4-6) 07/27/17 14:15 08/03/17 10:29 Morphine Sulfate (Morphine Sulfate) 4 mg Q4H PRN IVP pain score 7-10 07/27/17 13:45 08/03/17 13:44 Nitroglycerin (Ntg) 0.4 mg Q5M PRN SL Prn Chest Pain 07/25/17 16:15 08/24/17 16:14 Ondansetron HCl (Zofran) 4 mg Q6H PRN IVP Nausea & Vomiting 07/25/17 16:15 08/24/17 16:14 Piperacillin Sod/ Tazobactam Sod 3.375 gm/Sodium Chloride 110 ml @ 27.5 mls/hr EVERY 8 HOURS IVPB 07/27/17 18:00 08/07/17 17:59 08/02/17 21:42 Polyethylene Glycol (Miralax) 17 gm DAILYPRN PRN ORAL Constipation 07/25/17 16:15 08/24/17 16:14 Povidone Iodine (Betadine Caridad) 1 applic DAILY TOPIC 07/29/17 09:00 08/25/17 15:59 08/02/17 09:27 SOPHIA LESLIE Aug 02, 2017 22:49
[2017-08-03 00:50] VITALS: BP 135/78
[2017-08-03 04:00] VITALS: BP 115/81
--- NOTE | 2017-08-03 05:51 | General Progress Note ---
Assessment/Plan Problem List: (1) Non-compliance ICD Codes: Z91.19 - Patient's noncompliance with other medical treatment and regimen SNOMED: 9633914 (2) Poorly controlled diabetes mellitus ICD Codes: E11.65 - Type 2 diabetes mellitus with hyperglycemia SNOMED: 679565957 (3) Abscess of right shoulder ICD Codes: L02.413 - Cutaneous abscess of right upper limb SNOMED: 03310083 (4) Elevated lactic acid level ICD Codes: E87.2 - Acidosis SNOMED: 0290354 Assessment/Plan continue Levemir 10 units bid continue Novolog 6 units ac tid + SSI Subjective Allergies: Coded Allergies: No Known Allergies (Unverified , 04/19/16) All Systems: reviewed and negative except above Subjective events noted - interval noted reviewed Objective Last 24 Hour Vital Signs Date Time Temp Pulse Resp B/P (MAP) Pulse Ox O2 Delivery O2 Flow Rate FiO2 08/03/17 04:00 98.0 58 20 115/81 96 Room Air 08/03/17 00:50 97.6 69 20 135/78 98 Room Air 08/02/17 21:42 139/81 08/02/17 20:41 97.4 65 20 139/81 98 Room Air 08/02/17 19:10 71 18 Room Air 08/02/17 17:58 120/83 08/02/17 16:00 97.7 66 20 120/83 96 Room Air 08/02/17 13:17 156/93 08/02/17 12:00 97.0 64 20 156/93 98 Room Air 08/02/17 09:20 127/80 08/02/17 08:18 69 18 Room Air 08/02/17 08:00 98.0 73 17 118/81 97 Room Air Laboratory Tests 08/02/17 13:50: Sodium Level 131L, Potassium Level 4.3, Chloride Level 99, Carbon Dioxide Level 25, Anion Gap 7, Blood Urea Nitrogen 27H, Creatinine 2.4H, Estimat Glomerular Filtration Rate 29.6, Glucose Level 156H, Calcium Level 8.3L Height (Feet): 5 Height (Inches): 5.00 Weight (Pounds): 190 General Appearance: no apparent distress Neck: normal alignment Cardiovascular: normal rate Respiratory/Chest: lungs clear Abdomen: normal bowel sounds Objective Current Medications Medications (Trade) Dose Ordered Sig/Leah Route PRN Reason Start Time Stop Time Status Last Admin Dose Admin Acetaminophen (Tylenol) 650 mg Q4H PRN ORAL fever 07/25/17 16:15 08/24/17 16:14 Acetaminophen (Tylenol) 650 mg Q4H PRN RECTAL Mild Pain (Pain Scale 1-3) 07/27/17 15:45 08/24/17 20:29 Clonidine HCl (Catapres) 0.1 mg QID ORAL 07/29/17 09:00 08/27/17 20:59 08/02/17 21:42 Dextrose (Dextrose 50%) STAT PRN IV Hypoglycemia 07/26/17 08:45 08/25/17 08:44 Heparin Sodium (Porcine) (Heparin 5000 units/ml) 5,000 units EVERY 12 HOURS SUBQ 07/25/17 21:00 08/24/17 20:59 08/02/17 21:43 Insulin Aspart (NovoLOG) BEFORE MEALS AND HS SUBQ 07/25/17 17:00 08/24/17 16:59 08/02/17 17:05 Insulin Aspart (NovoLOG) 6 units NOVOTIAC SUBQ 08/03/17 06:30 09/02/17 06:29 Insulin Detemir (Levemir) 10 units BID SUBQ 08/03/17 09:00 09/02/17 08:59 Morphine Sulfate (Morphine Sulfate) 2 mg Q4H PRN IVP Moderate Pain (Pain Scale 4-6) 07/27/17 14:15 08/03/17 10:29 Morphine Sulfate (Morphine Sulfate) 4 mg Q4H PRN IVP pain score 7-10 07/27/17 13:45 08/03/17 13:44 Nitroglycerin (Ntg) 0.4 mg Q5M PRN SL Prn Chest Pain 07/25/17 16:15 08/24/17 16:14 Ondansetron HCl (Zofran) 4 mg Q6H PRN IVP Nausea & Vomiting 07/25/17 16:15 08/24/17 16:14 Piperacillin Sod/ Tazobactam Sod 3.375 gm/Sodium Chloride 110 ml @ 27.5 mls/hr EVERY 8 HOURS IVPB 07/27/17 18:00 08/07/17 17:59 08/02/17 21:42 Polyethylene Glycol (Miralax) 17 gm DAILYPRN PRN ORAL Constipation 07/25/17 16:15 08/24/17 16:14 Povidone Iodine (Betadine Caridad) 1 applic DAILY TOPIC 07/29/17 09:00 08/25/17 15:59 08/02/17 09:27 Item Value Date Time Bedside Blood Glucose 104 mg/dl 08/02/17 2141 Bedside Blood Glucose 135 mg/dl H 08/02/17 1759 Bedside Blood Glucose 111 mg/dl 08/02/17 1150 ANN DUARTE Aug 03, 2017 05:51
[2017-08-03] MEDS: Piperacillin/Tazobactam 3.375 GM in NS 110 ML IVPB SCH ×3 (06:26→21:13)
[2017-08-03] MEDS: NovoLOG Insulin Flexpen SUBQ SCH ×7 (06:28→21:12)
[2017-08-03 08:00] VITALS: BP 125/81
[2017-08-03 08:31] LABS: BASOPHILS % (AUTO) 0.8 % (0.0-2.0); EOSINOPHILS % (AUTO) 2.1 % (0.0-3.0); LYMPHOCYTES % (AUTO) 30.4 % (20.0-45.0); MEAN CORPUSCULAR HEMOGLOBIN 30.7 PG (27.0-31.0); MEAN CORPUSCULAR HGB CONC 32.4 G/DL (32.0-36.0); MEAN CORPUSCULAR VOLUME 95 FL (80-99); MEAN PLATELET VOLUME 7.2 FL (6.5-10.1); MONOCYTES % (AUTO) 7.2 % (1.0-10.0); NEUTROPHILS % (AUTO) 59.6 % (45.0-75.0); PLATELET COUNT 470 K/UL (150-450); RED BLOOD COUNT 3.83 M/UL (4.70-6.10); RED CELL DISTRIBUTION WIDTH 12.3 % (11.6-14.8); WHITE BLOOD COUNT 10.5 K/UL (4.8-10.8)
[2017-08-03] MEDS: Betadine 4oz Bottle TOPIC SCH (09:17)
[2017-08-03] MEDS: Heparin 5000 units/ml inj SUBQ SCH ×2 (09:19→21:14)
[2017-08-03 09:21] LABS: ANION GAP 9 (5-15); CALCIUM 8.8 MG/DL (8.5-10.1); CARBON DIOXIDE 25 MMOL/L (21-32); CHLORIDE 100 MMOL/L (98-107); CREATININE 2.7 MG/DL (0.55-1.30); GLOMERULAR FILTRATION RATE 25.8 mL/min (>60); POTASSIUM 4.4 MMOL/L (3.5-5.1); SODIUM 134 MMOL/L (136-145)
[2017-08-03] MEDS: Levemir Flexpen SUBQ SCH ×2 (10:05→17:59)
--- NOTE | 2017-08-03 11:19 | Nephrology Progress Note ---
Assessment/Plan Assessment 1.AUGUSTO most likely AIN 2,uncontrolled DM 3,Hyponatremia 4.Right shoulder abscess 5.morbid obesity Plan to continue ivf change iv antibiotic based on renal functon monitoring renal function mix all ivpb with NS.9 replace electrolyte as need it avoid NSAID Subjective Constitutional: Reports: no symptoms HEENT: Reports: no symptoms Genitourinary: Reports: no symptoms Neurologic/Psychiatric: Reports: no symptoms Subjective no complaints Objective Objective Last 24 Hour Vital Signs Date Time Temp Pulse Resp B/P (MAP) Pulse Ox O2 Delivery O2 Flow Rate FiO2 08/03/17 09:18 125/81 08/03/17 08:00 98.2 75 20 125/81 98 Room Air 08/03/17 04:00 98.0 58 20 115/81 96 Room Air 08/03/17 00:50 97.6 69 20 135/78 98 Room Air 08/02/17 21:42 139/81 08/02/17 20:41 97.4 65 20 139/81 98 Room Air 08/02/17 19:10 71 18 Room Air 08/02/17 17:58 120/83 08/02/17 16:00 97.7 66 20 120/83 96 Room Air 08/02/17 13:17 156/93 08/02/17 12:00 97.0 64 20 156/93 98 Room Air Intake and Output 08/03/17 08/04/17 19:00 07:00 Output Total 650 ml Balance -650 ml Output Urine Total 650 ml Laboratory Tests 08/02/17 13:50: Sodium Level 131L, Potassium Level 4.3, Chloride Level 99, Carbon Dioxide Level 25, Anion Gap 7, Blood Urea Nitrogen 27H, Creatinine 2.4H, Estimat Glomerular Filtration Rate 29.6, Glucose Level 156H, Calcium Level 8.3L 08/03/17 07:43: Sodium Level 134L, Potassium Level 4.4, Chloride Level 100, Carbon Dioxide Level 25, Anion Gap 9, Blood Urea Nitrogen 27H, Creatinine 2.7H, Estimat Glomerular Filtration Rate 25.8, Glucose Level 126H, Calcium Level 8.8, White Blood Count 10.5, Red Blood Count 3.83L, Hemoglobin 11.8L, Hematocrit 36.3L, Mean Corpuscular Volume 95, Mean Corpuscular Hemoglobin 30.7, Mean Corpuscular Hemoglobin Concent 32.4, Red Cell Distribution Width 12.3, Platelet Count 470H, Mean Platelet Volume 7.2, Neutrophils (%) (Auto) 59.6, Lymphocytes (%) (Auto) 30.4, Monocytes (%) (Auto) 7.2, Eosinophils (%) (Auto) 2.1, Basophils (%) (Auto ) 0.8 Height (Feet): 5 Height (Inches): 5.00 Weight (Pounds): 190 Objective Head and Neck: No JVP. No LAD. No thyromegaly. Extraocular movement intact. Pupils are reactive to light and accommodation. LUNGS: Clear to auscultation. CARDIAC: Regular rate and rhythm. S1 and S2. No murmur. No rub. ABDOMEN: Obese, nontender, and nondistended. Extremities: A 1 to 2+ edema. Right shoulder, he has a 20 x 20 cm round lesion with the yellowish, foul smelling drainage. It is very tender to touch and has had some degree of fluctuation. BHARGAVI SANZ Aug 03, 2017 11:19
[2017-08-03 12:00] VITALS: BP 136/86
--- NOTE | 2017-08-03 14:55 | General Progress Note ---
Assessment/Plan Problem List: (1) Abscess of back ICD Codes: L02.212 - Cutaneous abscess of back [any part, except buttock] SNOMED: 985889048 (2) Abscess of right shoulder ICD Codes: L02.413 - Cutaneous abscess of right upper limb SNOMED: 63800135 (3) Poorly controlled diabetes mellitus ICD Codes: E11.65 - Type 2 diabetes mellitus with hyperglycemia SNOMED: 593494072 Status: stable, progressing, tolerating diet Assessment/Plan ot pt diet wound care abx pain control cbc bmp am dc plan Subjective Constitutional: Reports: weakness Allergies: Coded Allergies: No Known Allergies (Unverified , 04/19/16) All Systems: reviewed and negative except above Subjective calm in bed Objective Last 24 Hour Vital Signs Date Time Temp Pulse Resp B/P (MAP) Pulse Ox O2 Delivery O2 Flow Rate FiO2 08/03/17 13:03 136/86 08/03/17 12:00 97.6 63 19 136/86 99 Room Air 08/03/17 09:18 125/81 08/03/17 08:00 98.2 75 20 125/81 98 Room Air 08/03/17 04:00 98.0 58 20 115/81 96 Room Air 08/03/17 00:50 97.6 69 20 135/78 98 Room Air 08/02/17 21:42 139/81 08/02/17 20:41 97.4 65 20 139/81 98 Room Air 08/02/17 19:10 71 18 Room Air 08/02/17 17:58 120/83 08/02/17 16:00 97.7 66 20 120/83 96 Room Air Intake and Output 08/03/17 08/04/17 19:00 07:00 Intake Total 642.5 ml Output Total 650 ml Balance -7.5 ml Intake Oral 560 ml IV Total 82.5 ml Output Urine Total 650 ml Laboratory Tests 08/03/17 07:43: White Blood Count 10.5, Red Blood Count 3.83L, Hemoglobin 11.8L, Hematocrit 36.3L, Mean Corpuscular Volume 95, Mean Corpuscular Hemoglobin 30.7, Mean Corpuscular Hemoglobin Concent 32.4, Red Cell Distribution Width 12.3, Platelet Count 470H, Mean Platelet Volume 7.2, Neutrophils (%) (Auto) 59.6, Lymphocytes ( %) (Auto) 30.4, Monocytes (%) (Auto) 7.2, Eosinophils (%) (Auto) 2.1, Basophils (%) (Auto) 0.8, Sodium Level 134L, Potassium Level 4.4, Chloride Level 100, Carbon Dioxide Level 25, Anion Gap 9, Blood Urea Nitrogen 27H, Creatinine 2.7H, Estimat Glomerular Filtration Rate 25.8, Glucose Level 126H, Calcium Level 8.8 Height (Feet): 5 Height (Inches): 5.00 Weight (Pounds): 190 General Appearance: alert EENT: normal ENT inspection Neck: normal alignment Cardiovascular: normal peripheral pulses, normal rate, regular rhythm Respiratory/Chest: chest wall non-tender, lungs clear, normal breath sounds Abdomen: normal bowel sounds, non tender, soft Extremities: normal inspection Edema: no edema noted Arm (L), no edema noted Arm (R), no edema noted Leg (L), no edema noted Leg (R), no edema noted Pedal (L), no edema noted Pedal (R), no edema noted Generalized Neurologic: responsive, motor weakness Skin: normal pigmentation, warm/dry Objective wound dressing sl stained back of right scapula BOB HILL Aug 03, 2017 14:55
--- NOTE | 2017-08-03 15:04 | General Surgery Progress Note ---
General Surgery-Progress Note Subjective Procedure Performed I & D posterior right shoulder with extensive debridement Objective Last 24 Hour Vital Signs Date Time Temp Pulse Resp B/P (MAP) Pulse Ox O2 Delivery O2 Flow Rate FiO2 08/03/17 13:03 136/86 08/03/17 12:00 97.6 63 19 136/86 99 Room Air 08/03/17 09:18 125/81 08/03/17 08:00 98.2 75 20 125/81 98 Room Air 08/03/17 04:00 98.0 58 20 115/81 96 Room Air 08/03/17 00:50 97.6 69 20 135/78 98 Room Air 08/02/17 21:42 139/81 08/02/17 20:41 97.4 65 20 139/81 98 Room Air 08/02/17 19:10 71 18 Room Air 08/02/17 17:58 120/83 08/02/17 16:00 97.7 66 20 120/83 96 Room Air I&O Intake and Output 08/03/17 08/04/17 19:00 07:00 Intake Total 642.5 ml Output Total 650 ml Balance -7.5 ml Intake Oral 560 ml IV Total 82.5 ml Output Urine Total 650 ml Wound: clean, other - no change Laboratory Tests Test 08/03/17 07:43 White Blood Count 10.5 K/UL (4.8-10.8) Red Blood Count 3.83 M/UL (4.70-6.10) L Hemoglobin 11.8 G/DL (14.2-18.0) L Hematocrit 36.3 % (42.0-52.0) L Mean Corpuscular Volume 95 FL (80-99) Mean Corpuscular Hemoglobin 30.7 PG (27.0-31.0) Mean Corpuscular Hemoglobin Concent 32.4 G/DL (32.0-36.0) Red Cell Distribution Width 12.3 % (11.6-14.8) Platelet Count 470 K/UL (150-450) H Mean Platelet Volume 7.2 FL (6.5-10.1) Neutrophils (%) (Auto) 59.6 % (45.0-75.0) Lymphocytes (%) (Auto) 30.4 % (20.0-45.0) Monocytes (%) (Auto) 7.2 % (1.0-10.0) Eosinophils (%) (Auto) 2.1 % (0.0-3.0) Basophils (%) (Auto) 0.8 % (0.0-2.0) Sodium Level 134 MMOL/L (136-145) L Potassium Level 4.4 MMOL/L (3.5-5.1) Chloride Level 100 MMOL/L (98-107) Carbon Dioxide Level 25 MMOL/L (21-32) Anion Gap 9 (5-15) Blood Urea Nitrogen 27 mg/dL (7-18) H Creatinine 2.7 MG/DL (0.55-1.30) H Estimat Glomerular Filtration Rate 25.8 mL/min (>60) Glucose Level 126 MG/DL (74-106) H Calcium Level 8.8 MG/DL (8.5-10.1) Assessment Post-op Diagnosis suppurative fasciitis posterior right shoulder Plan Additional Comments continue as before ZAIN DE LA CRUZ Aug 03, 2017 15:04
--- NOTE | 2017-08-03 15:37 | Infectious Diseases Prog Note ---
Assessment/Plan Problems: (1) Abscess of right shoulder Assessment & Plan: S/P I&D for source control , continue zosyn for now to cover for necrotizing fasciitis and skin abscess due to MSSA , and bacteremia , continue local wound care and management as per surgery . (2) Gram-positive cocci bacteremia Assessment & Plan: due to shoulder abscess AND necrotizing fascitis , had source control with I&D, surgery is following , now on zosyn only , 2 D echo didn't show any valve vegetations , repeated blood culture to confirm clearance is negative on 07/26 , continue zosyn only for now which cover MSSA bacteremia and skin necrotizing fascitis and abscess. monitor random vancomycin level , will need four weeks of iv antibiotics therapy for MSSA bacteremia . EOT 08/23/17 (3) Poorly controlled diabetes mellitus Assessment & Plan: recommend tight glycemic control to keep blood glucose between 80-120 (4) AUGUSTO (acute kidney injury) Assessment & Plan: was given vancomycin again by check scaler, which i stopped before due to renal failure, will keep off vancomycin completely , since his creatinine is still high , continue iv fluids for hydration, avoid nephrotoxic meds , monitor renal function, nephrology is following Subjective Constitutional: Reports: no symptoms HEENT: Reports: no symptoms Respiratory: Reports: no symptoms Breasts: Reports: no symptoms Cardiovascular: Reports: no symptoms Gastrointestinal/Abdominal: Reports: no symptoms Skin: Reports: ulcer Endocrine: Reports: no symptoms Hematologic: Reports: no symptoms Allergies: Coded Allergies: No Known Allergies (Unverified , 04/19/16) Objective Vital Signs Last 24 Hour Vital Signs Date Time Temp Pulse Resp B/P (MAP) Pulse Ox O2 Delivery O2 Flow Rate FiO2 08/03/17 13:03 136/86 08/03/17 12:00 97.6 63 19 136/86 99 Room Air 08/03/17 09:18 125/81 08/03/17 08:00 98.2 75 20 125/81 98 Room Air 08/03/17 04:00 98.0 58 20 115/81 96 Room Air 08/03/17 00:50 97.6 69 20 135/78 98 Room Air 08/02/17 21:42 139/81 08/02/17 20:41 97.4 65 20 139/81 98 Room Air 08/02/17 19:10 71 18 Room Air 08/02/17 17:58 120/83 08/02/17 16:00 97.7 66 20 120/83 96 Room Air Height (Feet): 5 Height (Inches): 5.00 Weight (Pounds): 190 General Appearance: WD/WN, no acute distress HEENT: normocephalic, atraumatic, anicteric Respiratory/Chest: chest wall non-tender, lungs clear, normal breath sounds, no respiratory distress Cardiovascular: normal peripheral pulses, normal rate, regular rhythm, no gallop/murmur, no JVD Abdomen: normal bowel sounds, soft, non tender, no organomegaly, non distended , no mass Extremities: no cyanosis, no clubbing Skin: no rash, no lesions, ulcers - shanthi posterior shoulder surgical wound with dark necrotic tissue Neurologic/Psychiatric: alert, oriented x 3 Laboratory Tests Test 08/03/17 07:43 White Blood Count 10.5 K/UL (4.8-10.8) Red Blood Count 3.83 M/UL (4.70-6.10) L Hemoglobin 11.8 G/DL (14.2-18.0) L Hematocrit 36.3 % (42.0-52.0) L Mean Corpuscular Volume 95 FL (80-99) Mean Corpuscular Hemoglobin 30.7 PG (27.0-31.0) Mean Corpuscular Hemoglobin Concent 32.4 G/DL (32.0-36.0) Red Cell Distribution Width 12.3 % (11.6-14.8) Platelet Count 470 K/UL (150-450) H Mean Platelet Volume 7.2 FL (6.5-10.1) Neutrophils (%) (Auto) 59.6 % (45.0-75.0) Lymphocytes (%) (Auto) 30.4 % (20.0-45.0) Monocytes (%) (Auto) 7.2 % (1.0-10.0) Eosinophils (%) (Auto) 2.1 % (0.0-3.0) Basophils (%) (Auto) 0.8 % (0.0-2.0) Sodium Level 134 MMOL/L (136-145) L Potassium Level 4.4 MMOL/L (3.5-5.1) Chloride Level 100 MMOL/L (98-107) Carbon Dioxide Level 25 MMOL/L (21-32) Anion Gap 9 (5-15) Blood Urea Nitrogen 27 mg/dL (7-18) H Creatinine 2.7 MG/DL (0.55-1.30) H Estimat Glomerular Filtration Rate 25.8 mL/min (>60) Glucose Level 126 MG/DL (74-106) H Calcium Level 8.8 MG/DL (8.5-10.1) Current Medications Medications (Trade) Dose Ordered Sig/Leah Route PRN Reason Start Time Stop Time Status Last Admin Dose Admin Acetaminophen (Tylenol) 650 mg Q4H PRN ORAL fever 07/25/17 16:15 08/24/17 16:14 Acetaminophen (Tylenol) 650 mg Q4H PRN RECTAL Mild Pain (Pain Scale 1-3) 07/27/17 15:45 08/24/17 20:29 Clonidine HCl (Catapres) 0.1 mg QID ORAL 07/29/17 09:00 08/27/17 20:59 08/03/17 13:03 Dextrose (Dextrose 50%) STAT PRN IV Hypoglycemia 07/26/17 08:45 08/25/17 08:44 Heparin Sodium (Porcine) (Heparin 5000 units/ml) 5,000 units EVERY 12 HOURS SUBQ 07/25/17 21:00 08/24/17 20:59 08/03/17 09:19 Insulin Aspart (NovoLOG) BEFORE MEALS AND HS SUBQ 07/25/17 17:00 08/24/17 16:59 08/03/17 13:05 Insulin Aspart (NovoLOG) 6 units NOVOTIAC SUBQ 08/03/17 06:30 09/02/17 06:29 08/03/17 13:05 Insulin Detemir (Levemir) 10 units BID SUBQ 08/03/17 09:00 09/02/17 08:59 08/03/17 10:05 Nitroglycerin (Ntg) 0.4 mg Q5M PRN SL Prn Chest Pain 07/25/17 16:15 08/24/17 16:14 Ondansetron HCl (Zofran) 4 mg Q6H PRN IVP Nausea & Vomiting 07/25/17 16:15 08/24/17 16:14 Piperacillin Sod/ Tazobactam Sod 3.375 gm/Sodium Chloride 110 ml @ 27.5 mls/hr EVERY 8 HOURS IVPB 07/27/17 18:00 08/07/17 17:59 08/03/17 13:46 Polyethylene Glycol (Miralax) 17 gm DAILYPRN PRN ORAL Constipation 07/25/17 16:15 08/24/17 16:14 Povidone Iodine (Betadine Caridad) 1 applic DAILY TOPIC 07/29/17 09:00 08/25/17 15:59 08/03/17 09:17 Fernando Clayton M.D. Aug 03, 2017 15:37
[2017-08-03 16:00] VITALS: BP 117/76
--- NOTE | 2017-08-03 18:03 | Pulmonology Progress Note ---
Assessment/Plan Problems: (1) Abscess of right shoulder (2) Poorly controlled diabetes mellitus (3) Gram-positive cocci bacteremia Assessment/Plan wound care s/p debridement symptomatic treatment dc planning Subjective ROS Limited/Unobtainable: No Constitutional: Reports: no symptoms HEENT: Repors: no symptoms Respiratory: Reports: no symptoms Allergies: Coded Allergies: No Known Allergies (Unverified , 04/19/16) Objective Last 24 Hour Vital Signs Date Time Temp Pulse Resp B/P (MAP) Pulse Ox O2 Delivery O2 Flow Rate FiO2 08/03/17 16:00 97.7 64 19 117/76 97 Room Air 08/03/17 13:03 136/86 08/03/17 12:00 97.6 63 19 136/86 99 Room Air 08/03/17 09:18 125/81 08/03/17 08:00 98.2 75 20 125/81 98 Room Air 08/03/17 04:00 98.0 58 20 115/81 96 Room Air 08/03/17 00:50 97.6 69 20 135/78 98 Room Air 08/02/17 21:42 139/81 08/02/17 20:41 97.4 65 20 139/81 98 Room Air 08/02/17 19:10 71 18 Room Air Intake and Output 08/03/17 08/04/17 19:00 07:00 Intake Total 725.0 ml Output Total 650 ml Balance 75.0 ml Intake Oral 560 ml IV Total 165.0 ml Output Urine Total 650 ml Objective General Appearance: WD/WN HEENT: normocephalic, mucous membranes moist Respiratory/Chest: chest wall non-tender, normal breath sounds Cardiovascular: normal peripheral pulses, normal rate Abdomen: normal bowel sounds, no organomegaly Laboratory Tests 08/03/17 07:43: White Blood Count 10.5, Red Blood Count 3.83L, Hemoglobin 11.8L, Hematocrit 36.3L, Mean Corpuscular Volume 95, Mean Corpuscular Hemoglobin 30.7, Mean Corpuscular Hemoglobin Concent 32.4, Red Cell Distribution Width 12.3, Platelet Count 470H, Mean Platelet Volume 7.2, Neutrophils (%) (Auto) 59.6, Lymphocytes ( %) (Auto) 30.4, Monocytes (%) (Auto) 7.2, Eosinophils (%) (Auto) 2.1, Basophils (%) (Auto) 0.8, Sodium Level 134L, Potassium Level 4.4, Chloride Level 100, Carbon Dioxide Level 25, Anion Gap 9, Blood Urea Nitrogen 27H, Creatinine 2.7H, Estimat Glomerular Filtration Rate 25.8, Glucose Level 126H, Calcium Level 8.8 08/03/17 15:15: Random Vancomycin Level 5.3 Current Medications Medications (Trade) Dose Ordered Sig/Leah Route PRN Reason Start Time Stop Time Status Last Admin Dose Admin Acetaminophen (Tylenol) 650 mg Q4H PRN ORAL fever 07/25/17 16:15 08/24/17 16:14 Acetaminophen (Tylenol) 650 mg Q4H PRN RECTAL Mild Pain (Pain Scale 1-3) 07/27/17 15:45 08/24/17 20:29 Clonidine HCl (Catapres) 0.1 mg QID ORAL 07/29/17 09:00 08/27/17 20:59 08/03/17 13:03 Dextrose (Dextrose 50%) STAT PRN IV Hypoglycemia 07/26/17 08:45 08/25/17 08:44 Heparin Sodium (Porcine) (Heparin 5000 units/ml) 5,000 units EVERY 12 HOURS SUBQ 07/25/17 21:00 08/24/17 20:59 08/03/17 09:19 Insulin Aspart (NovoLOG) BEFORE MEALS AND HS SUBQ 07/25/17 17:00 08/24/17 16:59 08/03/17 13:05 Insulin Aspart (NovoLOG) 6 units NOVOTIAC SUBQ 08/03/17 06:30 09/02/17 06:29 08/03/17 13:05 Insulin Detemir (Levemir) 10 units BID SUBQ 08/03/17 09:00 09/02/17 08:59 08/03/17 10:05 Nitroglycerin (Ntg) 0.4 mg Q5M PRN SL Prn Chest Pain 07/25/17 16:15 08/24/17 16:14 Ondansetron HCl (Zofran) 4 mg Q6H PRN IVP Nausea & Vomiting 07/25/17 16:15 08/24/17 16:14 Piperacillin Sod/ Tazobactam Sod 3.375 gm/Sodium Chloride 110 ml @ 27.5 mls/hr EVERY 8 HOURS IVPB 07/27/17 18:00 08/07/17 17:59 08/03/17 13:46 Polyethylene Glycol (Miralax) 17 gm DAILYPRN PRN ORAL Constipation 07/25/17 16:15 08/24/17 16:14 Povidone Iodine (Betadine Caridad) 1 applic DAILY TOPIC 07/29/17 09:00 08/25/17 15:59 08/03/17 09:17 SOPHIA LESLIE Aug 03, 2017 18:03
[2017-08-03 20:00] VITALS: BP 150/90
[2017-08-04 00:58] VITALS: BP 110/74
[2017-08-04 04:37] VITALS: BP 125/69
[2017-08-04] MEDS: Piperacillin/Tazobactam 3.375 GM in NS 110 ML IVPB SCH ×3 (05:32→22:02)
[2017-08-04] MEDS: NovoLOG Insulin Flexpen SUBQ SCH ×7 (06:30→21:44)
[2017-08-04 07:08] LABS: BASOPHILS % (AUTO) 0.9 % (0.0-2.0); EOSINOPHILS % (AUTO) 2.8 % (0.0-3.0); LYMPHOCYTES % (AUTO) 36.9 % (20.0-45.0); MEAN CORPUSCULAR HEMOGLOBIN 31.2 PG (27.0-31.0); MEAN CORPUSCULAR HGB CONC 33.3 G/DL (32.0-36.0); MEAN CORPUSCULAR VOLUME 94 FL (80-99); MEAN PLATELET VOLUME 6.9 FL (6.5-10.1); MONOCYTES % (AUTO) 7.4 % (1.0-10.0); NEUTROPHILS % (AUTO) 52.1 % (45.0-75.0); PLATELET COUNT 423 K/UL (150-450); RED BLOOD COUNT 3.46 M/UL (4.70-6.10); RED CELL DISTRIBUTION WIDTH 12.4 % (11.6-14.8); WHITE BLOOD COUNT 8.3 K/UL (4.8-10.8)
[2017-08-04 08:03] VITALS: BP 116/73
[2017-08-04] MEDS: Betadine 4oz Bottle TOPIC SCH (08:06)
[2017-08-04] MEDS: Heparin 5000 units/ml inj SUBQ SCH ×2 (08:07→21:43)
[2017-08-04] MEDS: Levemir Flexpen SUBQ SCH ×2 (08:13→17:47)
[2017-08-04 09:16] LABS: ANION GAP 6 (5-15); CALCIUM 8.9 MG/DL (8.5-10.1); CARBON DIOXIDE 28 MMOL/L (21-32); CHLORIDE 99 MMOL/L (98-107); CREATININE 2.7 MG/DL (0.55-1.30); GLOMERULAR FILTRATION RATE 25.8 mL/min (>60); POTASSIUM 4.3 MMOL/L (3.5-5.1); SODIUM 133 MMOL/L (136-145)
[2017-08-04 12:00] VITALS: BP 130/74
--- NOTE | 2017-08-04 14:51 | Nephrology Progress Note ---
Assessment/Plan Assessment 1.[place]UST[place] most likely AIN 2,uncontrolled DM 3,Hyponatremia 4.Right shoulder abscess 5.morbid obesity Plan renal function is stable start iv change iv antibiotic based on renal function monitoring renal function mix all ivpb with NS.9 replace electrolyte as need it avoid NSAID Subjective Constitutional: Reports: no symptoms HEENT: Reports: no symptoms Genitourinary: Reports: no symptoms Neurologic/Psychiatric: Reports: no symptoms Subjective no complaints Objective Objective Last 24 Hour Vital Signs Date Time Temp Pulse Resp B/P (MAP) Pulse Ox O2 Delivery O2 Flow Rate FiO2 08/04/17 14:38 130/74 08/04/17 12:00 97.4 60 16 130/74 97 Room Air 08/04/17 08:06 116/73 08/04/17 08:03 97.2 69 20 116/73 96 Room Air 08/04/17 04:37 98.1 87 20 125/69 98 Room Air 08/04/17 00:58 97.5 60 20 110/74 97 Room Air 08/03/17 21:07 150/90 08/03/17 20:00 97.7 62 19 150/90 99 Room Air 08/03/17 17:58 117/76 08/03/17 16:00 97.7 64 19 117/76 97 Room Air Intake and Output 08/04/17 08/05/17 19:00 07:00 Intake Total 82.5 ml Balance 82.5 ml IV Total 82.5 ml # Bowel Movements 1 Laboratory Tests 08/03/17 15:15: Random Vancomycin Level 5.3 08/04/17 04:45: White Blood Count 8.3, Red Blood Count 3.46L, Hemoglobin 10.8L, Hematocrit 32.5L , Mean Corpuscular Volume 94, Mean Corpuscular Hemoglobin 31.2H, Mean Corpuscular Hemoglobin Concent 33.3, Red Cell Distribution Width 12.4, Platelet Count 423, Mean Platelet Volume 6.9, Neutrophils (%) (Auto) 52.1, Lymphocytes (% ) (Auto) 36.9, Monocytes (%) (Auto) 7.4, Eosinophils (%) (Auto) 2.8, Basophils ( %) (Auto) 0.9, Sodium Level 133L, Potassium Level 4.3, Chloride Level 99, Carbon Dioxide Level 28, Anion Gap 6, Blood Urea Nitrogen 29H, Creatinine 2.7H, Estimat Glomerular Filtration Rate 25.8, Glucose Level 87, Calcium Level 8.9 Height (Feet): 5 Height (Inches): 5.00 Weight (Pounds): 190 Objective Head and Neck: No JVP. No LAD. No thyromegaly. Extraocular movement intact. Pupils are reactive to light and accommodation. LUNGS: Clear to auscultation. CARDIAC: Regular rate and rhythm. S1 and S2. No murmur. No rub. ABDOMEN: Obese, nontender, and nondistended. Extremities: A 1 to 2+ edema. Right shoulder, he has a 20 x 20 cm round lesion with the yellowish, foul smelling drainage. It is very tender to touch and has had some degree of fluctuation. BHARGAVI SANZ Aug 04, 2017 14:51
--- NOTE | 2017-08-04 14:55 | General Progress Note ---
Assessment/Plan Problem List: (1) Abscess of back ICD Codes: L02.212 - Cutaneous abscess of back [any part, except buttock] SNOMED: 836281880 (2) Abscess of right shoulder ICD Codes: L02.413 - Cutaneous abscess of right upper limb SNOMED: 27430450 (3) Poorly controlled diabetes mellitus ICD Codes: E11.65 - Type 2 diabetes mellitus with hyperglycemia SNOMED: 440229369 Status: stable, progressing, tolerating diet Assessment/Plan ot pt diet wound care abx pain control cbc bmp am dc plan Subjective Constitutional: Reports: weakness Allergies: Coded Allergies: No Known Allergies (Unverified , 04/19/16) All Systems: reviewed and negative except above Subjective calm in bed Objective Last 24 Hour Vital Signs Date Time Temp Pulse Resp B/P (MAP) Pulse Ox O2 Delivery O2 Flow Rate FiO2 08/04/17 14:38 130/74 08/04/17 12:00 97.4 60 16 130/74 97 Room Air 08/04/17 08:06 116/73 08/04/17 08:03 97.2 69 20 116/73 96 Room Air 08/04/17 04:37 98.1 87 20 125/69 98 Room Air 08/04/17 00:58 97.5 60 20 110/74 97 Room Air 08/03/17 21:07 150/90 08/03/17 20:00 97.7 62 19 150/90 99 Room Air 08/03/17 17:58 117/76 08/03/17 16:00 97.7 64 19 117/76 97 Room Air Intake and Output 08/04/17 08/05/17 19:00 07:00 Intake Total 82.5 ml Balance 82.5 ml IV Total 82.5 ml # Bowel Movements 1 Laboratory Tests 08/03/17 15:15: Random Vancomycin Level 5.3 08/04/17 04:45: White Blood Count 8.3, Red Blood Count 3.46L, Hemoglobin 10.8L, Hematocrit 32.5L , Mean Corpuscular Volume 94, Mean Corpuscular Hemoglobin 31.2H, Mean Corpuscular Hemoglobin Concent 33.3, Red Cell Distribution Width 12.4, Platelet Count 423, Mean Platelet Volume 6.9, Neutrophils (%) (Auto) 52.1, Lymphocytes (% ) (Auto) 36.9, Monocytes (%) (Auto) 7.4, Eosinophils (%) (Auto) 2.8, Basophils ( %) (Auto) 0.9, Sodium Level 133L, Potassium Level 4.3, Chloride Level 99, Carbon Dioxide Level 28, Anion Gap 6, Blood Urea Nitrogen 29H, Creatinine 2.7H, Estimat Glomerular Filtration Rate 25.8, Glucose Level 87, Calcium Level 8.9 Height (Feet): 5 Height (Inches): 5.00 Weight (Pounds): 190 General Appearance: alert EENT: normal ENT inspection Neck: normal alignment Cardiovascular: normal peripheral pulses, normal rate, regular rhythm Respiratory/Chest: chest wall non-tender, lungs clear, normal breath sounds Abdomen: normal bowel sounds, non tender, soft Extremities: normal inspection Edema: no edema noted Arm (L), no edema noted Arm (R), no edema noted Leg (L), no edema noted Leg (R), no edema noted Pedal (L), no edema noted Pedal (R), no edema noted Generalized Neurologic: responsive, motor weakness Skin: normal pigmentation, warm/dry Objective wound dressing sl stained back of right scapula BOB HILL Aug 04, 2017 14:55
[2017-08-04 16:00] VITALS: BP 123/75
--- NOTE | 2017-08-04 17:27 | Infectious Diseases Prog Note ---
Assessment/Plan Problems: (1) Abscess of right shoulder Assessment & Plan: S/P I&D for source control , continue zosyn for now to cover for necrotizing fasciitis and skin abscess due to MSSA , and bacteremia , continue local wound care and management as per surgery . (2) Gram-positive cocci bacteremia Assessment & Plan: due to shoulder abscess AND necrotizing fascitis , had source control with I&D, surgery is following , now on zosyn only , 2 D echo didn't show any valve vegetations , repeated blood culture to confirm clearance is negative on 07/26 , continue zosyn only for now which cover MSSA bacteremia and skin necrotizing fascitis and abscess. monitor random vancomycin level , will need four weeks of iv antibiotics therapy for MSSA bacteremia . EOT 08/23/17 (3) Poorly controlled diabetes mellitus Assessment & Plan: recommend tight glycemic control to keep blood glucose between 80-120 (4) AUGUSTO (acute kidney injury) Assessment & Plan: keep off vancomycin completely , since his creatinine is still high , continue iv fluids for hydration, avoid nephrotoxic meds , monitor renal function, nephrology is following Subjective Constitutional: Reports: no symptoms HEENT: Reports: no symptoms Respiratory: Reports: no symptoms Breasts: Reports: no symptoms Cardiovascular: Reports: no symptoms Gastrointestinal/Abdominal: Reports: no symptoms Genitourinary: Reports: no symptoms Neurologic: Reports: no symptoms Psychiatric: Reports: no symptoms Skin: Reports: no symptoms Endocrine: Reports: no symptoms Hematologic: Reports: no symptoms Musculoskeletal: Reports: no symptoms Allergies: Coded Allergies: No Known Allergies (Unverified , 04/19/16) Objective Vital Signs Last 24 Hour Vital Signs Date Time Temp Pulse Resp B/P (MAP) Pulse Ox O2 Delivery O2 Flow Rate FiO2 08/04/17 16:00 97.9 61 16 123/75 97 Room Air 08/04/17 14:38 130/74 08/04/17 12:00 97.4 60 16 130/74 97 Room Air 08/04/17 08:06 116/73 08/04/17 08:03 97.2 69 20 116/73 96 Room Air 08/04/17 04:37 98.1 87 20 125/69 98 Room Air 08/04/17 00:58 97.5 60 20 110/74 97 Room Air 08/03/17 21:07 150/90 08/03/17 20:00 97.7 62 19 150/90 99 Room Air 08/03/17 17:58 117/76 Height (Feet): 5 Height (Inches): 5.00 Weight (Pounds): 190 General Appearance: WD/WN, no acute distress HEENT: normocephalic, atraumatic, anicteric, mucous membranes moist Respiratory/Chest: chest wall non-tender, lungs clear, normal breath sounds Cardiovascular: normal peripheral pulses, normal rate, regular rhythm Abdomen: normal bowel sounds, soft, non tender, no organomegaly, non distended , no mass, no scars Extremities: no cyanosis, no clubbing Skin: no rash, no lesions, other - right shoulder surgical wound with mild black necrotic tissue Neurologic/Psychiatric: alert, oriented x 3 Lymphatic: no groin adenopathy Laboratory Tests Test 08/04/17 04:45 White Blood Count 8.3 K/UL (4.8-10.8) Red Blood Count 3.46 M/UL (4.70-6.10) L Hemoglobin 10.8 G/DL (14.2-18.0) L Hematocrit 32.5 % (42.0-52.0) L Mean Corpuscular Volume 94 FL (80-99) Mean Corpuscular Hemoglobin 31.2 PG (27.0-31.0) H Mean Corpuscular Hemoglobin Concent 33.3 G/DL (32.0-36.0) Red Cell Distribution Width 12.4 % (11.6-14.8) Platelet Count 423 K/UL (150-450) Mean Platelet Volume 6.9 FL (6.5-10.1) Neutrophils (%) (Auto) 52.1 % (45.0-75.0) Lymphocytes (%) (Auto) 36.9 % (20.0-45.0) Monocytes (%) (Auto) 7.4 % (1.0-10.0) Eosinophils (%) (Auto) 2.8 % (0.0-3.0) Basophils (%) (Auto) 0.9 % (0.0-2.0) Sodium Level 133 MMOL/L (136-145) L Potassium Level 4.3 MMOL/L (3.5-5.1) Chloride Level 99 MMOL/L (98-107) Carbon Dioxide Level 28 MMOL/L (21-32) Anion Gap 6 (5-15) Blood Urea Nitrogen 29 mg/dL (7-18) H Creatinine 2.7 MG/DL (0.55-1.30) H Estimat Glomerular Filtration Rate 25.8 mL/min (>60) Glucose Level 87 MG/DL (74-106) Calcium Level 8.9 MG/DL (8.5-10.1) Current Medications Medications (Trade) Dose Ordered Sig/Leah Route PRN Reason Start Time Stop Time Status Last Admin Dose Admin Acetaminophen (Tylenol) 650 mg Q4H PRN ORAL fever 07/25/17 16:15 08/24/17 16:14 Acetaminophen (Tylenol) 650 mg Q4H PRN RECTAL Mild Pain (Pain Scale 1-3) 07/27/17 15:45 08/24/17 20:29 Clonidine HCl (Catapres) 0.1 mg QID ORAL 07/29/17 09:00 08/27/17 20:59 08/04/17 14:38 Dextrose (Dextrose 50%) STAT PRN IV Hypoglycemia 07/26/17 08:45 08/25/17 08:44 Heparin Sodium (Porcine) (Heparin 5000 units/ml) 5,000 units EVERY 12 HOURS SUBQ 07/25/17 21:00 08/24/17 20:59 08/04/17 08:07 Insulin Aspart (NovoLOG) BEFORE MEALS AND HS SUBQ 07/25/17 17:00 08/24/17 16:59 08/04/17 14:37 Insulin Aspart (NovoLOG) 6 units NOVOTIAC SUBQ 08/03/17 06:30 09/02/17 06:29 08/04/17 14:38 Insulin Detemir (Levemir) 10 units BID SUBQ 08/03/17 09:00 09/02/17 08:59 08/04/17 08:13 Nitroglycerin (Ntg) 0.4 mg Q5M PRN SL Prn Chest Pain 07/25/17 16:15 08/24/17 16:14 Ondansetron HCl (Zofran) 4 mg Q6H PRN IVP Nausea & Vomiting 07/25/17 16:15 08/24/17 16:14 Piperacillin Sod/ Tazobactam Sod 3.375 gm/Sodium Chloride 110 ml @ 27.5 mls/hr EVERY 8 HOURS IVPB 10/3/17 18:00 08/23/17 17:59 08/04/17 14:40 Polyethylene Glycol (Miralax) 17 gm DAILYPRN PRN ORAL Constipation 07/25/17 16:15 08/24/17 16:14 Povidone Iodine (Betadine Caridad) 1 applic DAILY TOPIC 07/29/17 09:00 08/25/17 15:59 08/04/17 08:06 Fernando Clayton M.D. Aug 04, 2017 17:27
[2017-08-04 20:00] VITALS: BP 120/80
[2017-08-05 00:51] VITALS: BP 132/77
[2017-08-05 04:00] VITALS: BP 126/84
[2017-08-05 06:30] LABS: BASOPHILS % (AUTO) 1.2 % (0.0-2.0); EOSINOPHILS % (AUTO) 3.1 % (0.0-3.0); MEAN CORPUSCULAR HEMOGLOBIN 30.9 PG (27.0-31.0); MEAN CORPUSCULAR VOLUME 94 FL (80-99); MONOCYTES % (AUTO) 7.6 % (1.0-10.0); NEUTROPHILS % (AUTO) 52.1 % (45.0-75.0); PLATELET COUNT 428 K/UL (150-450); RED BLOOD COUNT 3.24 M/UL (4.70-6.10); RED CELL DISTRIBUTION WIDTH 12.4 % (11.6-14.8); WHITE BLOOD COUNT 7.4 K/UL (4.8-10.8)
[2017-08-05] MEDS: Piperacillin/Tazobactam 3.375 GM in NS 110 ML IVPB SCH ×3 (06:30→21:22)
[2017-08-05] MEDS: NovoLOG Insulin Flexpen SUBQ SCH ×7 (06:30→21:00)
--- NOTE | 2017-08-05 07:49 | Nephrology Progress Note ---
Assessment/Plan Assessment 1.[place]USTO most likely AIN 2,uncontrolled DM 3,Hyponatremia 4.Right shoulder abscess 5.morbid obesity Plan renal function is stable start IVF change iv antibiotic based on renal function monitoring renal function mix all ivpb with NS.9 replace electrolyte as need it avoid NSAID ok to d/c home fallow up as out patient for monitoring renal function Subjective Constitutional: Reports: no symptoms HEENT: Reports: no symptoms Genitourinary: Reports: no symptoms Neurologic/Psychiatric: Reports: no symptoms Subjective no complaints Objective Objective Last 24 Hour Vital Signs Date Time Temp Pulse Resp B/P (MAP) Pulse Ox O2 Delivery O2 Flow Rate FiO2 08/05/17 04:00 97.9 60 20 126/84 98 Room Air 08/05/17 00:51 97.6 70 20 132/77 99 Room Air 08/04/17 21:44 120/80 08/04/17 20:00 97.5 61 19 120/80 98 Room Air 08/04/17 17:45 123/75 08/04/17 16:00 97.9 61 16 123/75 97 Room Air 08/04/17 14:38 130/74 08/04/17 12:00 97.4 60 16 130/74 97 Room Air 08/04/17 08:06 116/73 08/04/17 08:03 97.2 69 20 116/73 96 Room Air Laboratory Tests 08/05/17 05:30: White Blood Count 7.4, Red Blood Count 3.24L, Hemoglobin 10.0L, Hematocrit 30.4L , Mean Corpuscular Volume 94, Mean Corpuscular Hemoglobin 30.9, Mean Corpuscular Hemoglobin Concent 33.0, Red Cell Distribution Width 12.4, Platelet Count 428, Mean Platelet Volume 7.0, Neutrophils (%) (Auto) 52.1, Lymphocytes (% ) (Auto) 36.0, Monocytes (%) (Auto) 7.6, Eosinophils (%) (Auto) 3.1H, Basophils (%) (Auto) 1.2, Sodium Level [Pending], Potassium Level [Pending], Chloride Level [Pending], Carbon Dioxide Level [Pending], Blood Urea Nitrogen [Pending], Creatinine [Pending], Estimat Glomerular Filtration Rate [Pending], Glucose Level [Pending], Calcium Level [Pending] Height (Feet): 5 Height (Inches): 5.00 Weight (Pounds): 190 Objective Head and Neck: No JVP. No LAD. No thyromegaly. Extraocular movement intact. Pupils are reactive to light and accommodation. LUNGS: Clear to auscultation. CARDIAC: Regular rate and rhythm. S1 and S2. No murmur. No rub. ABDOMEN: Obese, nontender, and nondistended. Extremities: A 1 to 2+ edema. Right shoulder, he has a 20 x 20 cm round lesion with the yellowish, foul smelling drainage. It is very tender to touch and has had some degree of fluctuation. BHARGAVI SANZ Aug 05, 2017 07:49
[2017-08-05 07:53] LABS: ANION GAP 7 (5-15); CALCIUM 9.1 MG/DL (8.5-10.1); CARBON DIOXIDE 24 MMOL/L (21-32); CHLORIDE 102 MMOL/L (98-107); CREATININE 2.6 MG/DL (0.55-1.30); GLOMERULAR FILTRATION RATE 26.9 mL/min (>60); POTASSIUM 4.4 MMOL/L (3.5-5.1); SODIUM 133 MMOL/L (136-145)
[2017-08-05 08:00] VITALS: BP 127/81
[2017-08-05] MEDS: Heparin 5000 units/ml inj SUBQ SCH ×2 (08:52→21:20)
[2017-08-05] MEDS: Levemir Flexpen SUBQ SCH ×2 (08:53→18:18)
[2017-08-05] MEDS: Betadine 4oz Bottle TOPIC SCH (08:54)
--- NOTE | 2017-08-05 11:04 | Pulmonology Progress Note ---
Assessment/Plan Assessment/Plan ASSESSMENT R shoulder abscess bacteremia with Staph aureus s/p I&D and extensive debridement posterior R shoulder DM OOC ARF, likely AIN (per nephro) Morbid obesity PLAN OF CARE Abx ID follows initial blood cx + Staph aureus, repeated blood cx negative Wound care surgery follows pain management bowel regimen ECHO with pEF 70-75%, no evidence of vegetation Venous Duplex BLE negative CT chest initially noted IVF nephro follows Monitor renal parameters, lytes, avoid nephrotoxic, especially NSAIDs off Vanco creat still high replace lytes as needed DVT prophylaxis BS management with long acting and short acting insulin and SSI prn dc plan per ID need four weeks of iv antibiotics therapy for MSSA bacteremia . EOT ? PICC line prior case discussed and evaluated by supervising physician Subjective Allergies: Coded Allergies: No Known Allergies (Unverified , 04/19/16) Subjective denies pain afebrile, no leucocytosis creat still high Objective Last 24 Hour Vital Signs Date Time Temp Pulse Resp B/P (MAP) Pulse Ox O2 Delivery O2 Flow Rate FiO2 08/05/17 08:46 127/81 08/05/17 08:00 97.6 57 19 127/81 97 Room Air 08/05/17 04:00 97.9 60 20 126/84 98 Room Air 08/05/17 00:51 97.6 70 20 132/77 99 Room Air 08/04/17 21:44 120/80 08/04/17 20:00 97.5 61 19 120/80 98 Room Air 08/04/17 17:45 123/75 08/04/17 16:00 97.9 61 16 123/75 97 Room Air 08/04/17 14:38 130/74 08/04/17 12:00 97.4 60 16 130/74 97 Room Air Intake and Output 08/05/17 08/06/17 19:00 07:00 # Bowel Movements 1 General Appearance: WD/WN, no acute distress HEENT: normocephalic, atraumatic, anicteric, mucous membranes moist, PERRL Respiratory/Chest: chest wall non-tender, lungs clear, no respiratory distress , chest wall tender Cardiovascular: normal peripheral pulses, normal rate, regular rhythm, no JVD Abdomen: normal bowel sounds, soft, non tender, non distended Skin: other - left shoulder posterior area with bulky dressing, intact, with dry serosanguinous drainage Neurologic/Psychiatric: alert, oriented x 3, responsive - Serbian speaking Musculoskeletal: normal muscle bulk Laboratory Tests 08/05/17 05:30: White Blood Count 7.4, Red Blood Count 3.24L, Hemoglobin 10.0L, Hematocrit 30.4L , Mean Corpuscular Volume 94, Mean Corpuscular Hemoglobin 30.9, Mean Corpuscular Hemoglobin Concent 33.0, Red Cell Distribution Width 12.4, Platelet Count 428, Mean Platelet Volume 7.0, Neutrophils (%) (Auto) 52.1, Lymphocytes (% ) (Auto) 36.0, Monocytes (%) (Auto) 7.6, Eosinophils (%) (Auto) 3.1H, Basophils (%) (Auto) 1.2, Sodium Level 133L, Potassium Level 4.4, Chloride Level 102, Carbon Dioxide Level 24, Anion Gap 7, Blood Urea Nitrogen 30H, Creatinine 2.6H, Estimat Glomerular Filtration Rate 26.9, Glucose Level 106, Calcium Level 9.1 Current Medications Medications (Trade) Dose Ordered Sig/Leah Route PRN Reason Start Time Stop Time Status Last Admin Dose Admin Acetaminophen (Tylenol) 650 mg Q4H PRN ORAL fever 07/25/17 16:15 08/24/17 16:14 Acetaminophen (Tylenol) 650 mg Q4H PRN RECTAL Mild Pain (Pain Scale 1-3) 07/27/17 15:45 08/24/17 20:29 Clonidine HCl (Catapres) 0.1 mg QID ORAL 07/29/17 09:00 08/27/17 20:59 08/05/17 08:46 Dextrose (Dextrose 50%) STAT PRN IV Hypoglycemia 07/26/17 08:45 08/25/17 08:44 Heparin Sodium (Porcine) (Heparin 5000 units/ml) 5,000 units EVERY 12 HOURS SUBQ 07/25/17 21:00 08/24/17 20:59 08/05/17 08:52 Insulin Aspart (NovoLOG) BEFORE MEALS AND HS SUBQ 07/25/17 17:00 08/24/17 16:59 08/04/17 21:44 Insulin Aspart (NovoLOG) 6 units NOVOTIAC SUBQ 08/03/17 06:30 09/02/17 06:29 08/04/17 17:48 Insulin Detemir (Levemir) 10 units BID SUBQ 08/03/17 09:00 09/02/17 08:59 08/05/17 08:53 Nitroglycerin (Ntg) 0.4 mg Q5M PRN SL Prn Chest Pain 07/25/17 16:15 08/24/17 16:14 Ondansetron HCl (Zofran) 4 mg Q6H PRN IVP Nausea & Vomiting 07/25/17 16:15 08/24/17 16:14 Piperacillin Sod/ Tazobactam Sod 3.375 gm/Sodium Chloride 110 ml @ 27.5 mls/hr EVERY 8 HOURS IVPB 07/27/17 18:00 08/23/17 17:59 08/05/17 06:30 Polyethylene Glycol (Miralax) 17 gm DAILYPRN PRN ORAL Constipation 07/25/17 16:15 08/24/17 16:14 Povidone Iodine (Betadine Caridad) 1 applic DAILY TOPIC 07/29/17 09:00 08/25/17 15:59 08/05/17 08:54 Nilay Rudolphmoses)Marnie NP Aug 05, 2017 11:04
[2017-08-05 12:00] VITALS: BP 130/79
--- NOTE | 2017-08-05 14:23 | General Progress Note ---
Assessment/Plan Problem List: (1) Abscess of back ICD Codes: L02.212 - Cutaneous abscess of back [any part, except buttock] SNOMED: 884539626 (2) Abscess of right shoulder ICD Codes: L02.413 - Cutaneous abscess of right upper limb SNOMED: 10558126 (3) Poorly controlled diabetes mellitus ICD Codes: E11.65 - Type 2 diabetes mellitus with hyperglycemia SNOMED: 636166210 Status: stable, progressing, tolerating diet Assessment/Plan ot pt diet wound care abx pain control cbc bmp am dc plan Subjective Constitutional: Reports: weakness Allergies: Coded Allergies: No Known Allergies (Unverified , 04/19/16) All Systems: reviewed and negative except above Subjective calm in bed Objective Last 24 Hour Vital Signs Date Time Temp Pulse Resp B/P (MAP) Pulse Ox O2 Delivery O2 Flow Rate FiO2 08/05/17 13:14 130/79 08/05/17 12:00 97.3 62 19 130/79 97 Room Air 08/05/17 08:46 127/81 08/05/17 08:00 97.6 57 19 127/81 97 Room Air 08/05/17 04:00 97.9 60 20 126/84 98 Room Air 08/05/17 00:51 97.6 70 20 132/77 99 Room Air 08/04/17 21:44 120/80 08/04/17 20:00 97.5 61 19 120/80 98 Room Air 08/04/17 17:45 123/75 08/04/17 16:00 97.9 61 16 123/75 97 Room Air 08/04/17 14:38 130/74 Intake and Output 08/05/17 08/06/17 19:00 07:00 Intake Total 400 ml Output Total 1600 ml Balance -1200 ml Intake Oral 400 ml Output Urine Total 1600 ml # Voids 2 # Bowel Movements 1 Laboratory Tests 08/05/17 05:30: White Blood Count 7.4, Red Blood Count 3.24L, Hemoglobin 10.0L, Hematocrit 30.4L , Mean Corpuscular Volume 94, Mean Corpuscular Hemoglobin 30.9, Mean Corpuscular Hemoglobin Concent 33.0, Red Cell Distribution Width 12.4, Platelet Count 428, Mean Platelet Volume 7.0, Neutrophils (%) (Auto) 52.1, Lymphocytes (% ) (Auto) 36.0, Monocytes (%) (Auto) 7.6, Eosinophils (%) (Auto) 3.1H, Basophils (%) (Auto) 1.2, Sodium Level 133L, Potassium Level 4.4, Chloride Level 102, Carbon Dioxide Level 24, Anion Gap 7, Blood Urea Nitrogen 30H, Creatinine 2.6H, Estimat Glomerular Filtration Rate 26.9, Glucose Level 106, Calcium Level 9.1 Height (Feet): 5 Height (Inches): 5.00 Weight (Pounds): 190 General Appearance: lethargic EENT: normal ENT inspection Neck: normal alignment Cardiovascular: normal peripheral pulses, normal rate, regular rhythm Respiratory/Chest: chest wall non-tender, lungs clear, normal breath sounds Abdomen: normal bowel sounds, non tender, soft Extremities: normal inspection Edema: no edema noted Arm (L), no edema noted Arm (R), no edema noted Leg (L), no edema noted Leg (R), no edema noted Pedal (L), no edema noted Pedal (R), no edema noted Generalized Neurologic: responsive, motor weakness Skin: normal pigmentation, warm/dry Objective wound dressing sl stained back of right scapula BOB HILL Aug 05, 2017 14:23
--- NOTE | 2017-08-05 14:25 | General Surgery Progress Note ---
General Surgery-Progress Note Subjective Procedure Performed I & D posterior right shoulder with extensive debridement Symptoms: improved Objective Last 24 Hour Vital Signs Date Time Temp Pulse Resp B/P (MAP) Pulse Ox O2 Delivery O2 Flow Rate FiO2 08/05/17 13:14 130/79 08/05/17 12:00 97.3 62 19 130/79 97 Room Air 08/05/17 08:46 127/81 08/05/17 08:00 97.6 57 19 127/81 97 Room Air 08/05/17 04:00 97.9 60 20 126/84 98 Room Air 08/05/17 00:51 97.6 70 20 132/77 99 Room Air 08/04/17 21:44 120/80 08/04/17 20:00 97.5 61 19 120/80 98 Room Air 08/04/17 17:45 123/75 08/04/17 16:00 97.9 61 16 123/75 97 Room Air 08/04/17 14:38 130/74 I&O Intake and Output 08/05/17 08/06/17 19:00 07:00 Intake Total 400 ml Output Total 1600 ml Balance -1200 ml Intake Oral 400 ml Output Urine Total 1600 ml # Voids 2 # Bowel Movements 1 Wound: other - open no drainage slight necrotic tissue no erythema Laboratory Tests Test 08/05/17 05:30 White Blood Count 7.4 K/UL (4.8-10.8) Red Blood Count 3.24 M/UL (4.70-6.10) L Hemoglobin 10.0 G/DL (14.2-18.0) L Hematocrit 30.4 % (42.0-52.0) L Mean Corpuscular Volume 94 FL (80-99) Mean Corpuscular Hemoglobin 30.9 PG (27.0-31.0) Mean Corpuscular Hemoglobin Concent 33.0 G/DL (32.0-36.0) Red Cell Distribution Width 12.4 % (11.6-14.8) Platelet Count 428 K/UL (150-450) Mean Platelet Volume 7.0 FL (6.5-10.1) Neutrophils (%) (Auto) 52.1 % (45.0-75.0) Lymphocytes (%) (Auto) 36.0 % (20.0-45.0) Monocytes (%) (Auto) 7.6 % (1.0-10.0) Eosinophils (%) (Auto) 3.1 % (0.0-3.0) H Basophils (%) (Auto) 1.2 % (0.0-2.0) Sodium Level 133 MMOL/L (136-145) L Potassium Level 4.4 MMOL/L (3.5-5.1) Chloride Level 102 MMOL/L (98-107) Carbon Dioxide Level 24 MMOL/L (21-32) Anion Gap 7 (5-15) Blood Urea Nitrogen 30 mg/dL (7-18) H Creatinine 2.6 MG/DL (0.55-1.30) H Estimat Glomerular Filtration Rate 26.9 mL/min (>60) Glucose Level 106 MG/DL (74-106) Calcium Level 9.1 MG/DL (8.5-10.1) Assessment Post-op Diagnosis suppurative fasciitis posterior right shoulder Plan Additional Comments Per PCP ZAIN DE LA CRUZ Aug 05, 2017 14:25
--- NOTE | 2017-08-05 15:18 | Infectious Diseases Prog Note ---
Assessment/Plan Problems: (1) Abscess of right shoulder Assessment & Plan: S/P I&D for source control , on zosyn for now to cover for necrotizing fasciitis and skin abscess due to MSSA , and bacteremia , continue local wound care and management as per surgery. will need four weeks of IV antibiotics (2) Gram-positive cocci bacteremia Assessment & Plan: due to shoulder abscess AND necrotizing fascitis , had source control with I&D, surgery is following , now on zosyn only , 2 D echo didn't show any valve vegetations , repeated blood culture to confirm clearance is negative on 07/26 , continue zosyn only for now which cover MSSA bacteremia and skin necrotizing fascitis and abscess. monitor random vancomycin level , will need four weeks of iv antibiotics therapy for MSSA bacteremia . EOT 08/23/17 (3) Poorly controlled diabetes mellitus Assessment & Plan: recommend tight glycemic control to keep blood glucose between 80-120 (4) AUGUSTO (acute kidney injury) Assessment & Plan: improving , keep off vancomycin completely , since his creatinine is still high , continue iv fluids for hydration, avoid nephrotoxic meds , monitor renal function, nephrology is following Subjective Constitutional: Reports: no symptoms HEENT: Reports: no symptoms Respiratory: Reports: no symptoms Breasts: Reports: no symptoms Cardiovascular: Reports: no symptoms Gastrointestinal/Abdominal: Reports: no symptoms Genitourinary: Reports: no symptoms Neurologic: Reports: no symptoms Psychiatric: Reports: no symptoms Skin: Reports: other - right posterior shoulder surgical wound Endocrine: Reports: no symptoms Hematologic: Reports: no symptoms Allergies: Coded Allergies: No Known Allergies (Unverified , 04/19/16) Objective Vital Signs Last 24 Hour Vital Signs Date Time Temp Pulse Resp B/P (MAP) Pulse Ox O2 Delivery O2 Flow Rate FiO2 08/05/17 13:14 130/79 08/05/17 12:00 97.3 62 19 130/79 97 Room Air 08/05/17 08:46 127/81 08/05/17 08:00 97.6 57 19 127/81 97 Room Air 08/05/17 04:00 97.9 60 20 126/84 98 Room Air 08/05/17 00:51 97.6 70 20 132/77 99 Room Air 08/04/17 21:44 120/80 08/04/17 20:00 97.5 61 19 120/80 98 Room Air 08/04/17 17:45 123/75 08/04/17 16:00 97.9 61 16 123/75 97 Room Air Height (Feet): 5 Height (Inches): 5.00 Weight (Pounds): 190 General Appearance: WD/WN, no acute distress HEENT: normocephalic, atraumatic, anicteric, mucous membranes moist Respiratory/Chest: chest wall non-tender, lungs clear, normal breath sounds, no respiratory distress, no accessory muscle use Cardiovascular: normal peripheral pulses, normal rate, regular rhythm, no gallop/murmur, no JVD Abdomen: normal bowel sounds, soft, non tender, no organomegaly, non distended , no mass, no scars Extremities: no cyanosis, no clubbing Skin: no rash, no lesions, other - right posterior shoulder surgical wound with mild necrosis and yellowish exudate Neurologic/Psychiatric: alert, oriented x 3 Laboratory Tests Test 08/05/17 05:30 White Blood Count 7.4 K/UL (4.8-10.8) Red Blood Count 3.24 M/UL (4.70-6.10) L Hemoglobin 10.0 G/DL (14.2-18.0) L Hematocrit 30.4 % (42.0-52.0) L Mean Corpuscular Volume 94 FL (80-99) Mean Corpuscular Hemoglobin 30.9 PG (27.0-31.0) Mean Corpuscular Hemoglobin Concent 33.0 G/DL (32.0-36.0) Red Cell Distribution Width 12.4 % (11.6-14.8) Platelet Count 428 K/UL (150-450) Mean Platelet Volume 7.0 FL (6.5-10.1) Neutrophils (%) (Auto) 52.1 % (45.0-75.0) Lymphocytes (%) (Auto) 36.0 % (20.0-45.0) Monocytes (%) (Auto) 7.6 % (1.0-10.0) Eosinophils (%) (Auto) 3.1 % (0.0-3.0) H Basophils (%) (Auto) 1.2 % (0.0-2.0) Sodium Level 133 MMOL/L (136-145) L Potassium Level 4.4 MMOL/L (3.5-5.1) Chloride Level 102 MMOL/L (98-107) Carbon Dioxide Level 24 MMOL/L (21-32) Anion Gap 7 (5-15) Blood Urea Nitrogen 30 mg/dL (7-18) H Creatinine 2.6 MG/DL (0.55-1.30) H Estimat Glomerular Filtration Rate 26.9 mL/min (>60) Glucose Level 106 MG/DL (74-106) Calcium Level 9.1 MG/DL (8.5-10.1) Current Medications Medications (Trade) Dose Ordered Sig/Leah Route PRN Reason Start Time Stop Time Status Last Admin Dose Admin Acetaminophen (Tylenol) 650 mg Q4H PRN ORAL fever 07/25/17 16:15 08/24/17 16:14 Acetaminophen (Tylenol) 650 mg Q4H PRN RECTAL Mild Pain (Pain Scale 1-3) 07/27/17 15:45 08/24/17 20:29 Clonidine HCl (Catapres) 0.1 mg QID ORAL 07/29/17 09:00 08/27/17 20:59 08/05/17 13:14 Dextrose (Dextrose 50%) STAT PRN IV Hypoglycemia 07/26/17 08:45 08/25/17 08:44 Heparin Sodium (Porcine) (Heparin 5000 units/ml) 5,000 units EVERY 12 HOURS SUBQ 07/25/17 21:00 08/24/17 20:59 08/05/17 08:52 Insulin Aspart (NovoLOG) BEFORE MEALS AND HS SUBQ 07/25/17 17:00 08/24/17 16:59 08/05/17 11:59 Insulin Aspart (NovoLOG) 6 units NOVOTIAC SUBQ 08/03/17 06:30 09/02/17 06:29 08/05/17 12:00 Insulin Detemir (Levemir) 10 units BID SUBQ 08/03/17 09:00 09/02/17 08:59 08/05/17 08:53 Nitroglycerin (Ntg) 0.4 mg Q5M PRN SL Prn Chest Pain 07/25/17 16:15 08/24/17 16:14 Ondansetron HCl (Zofran) 4 mg Q6H PRN IVP Nausea & Vomiting 07/25/17 16:15 08/24/17 16:14 Piperacillin Sod/ Tazobactam Sod 3.375 gm/Sodium Chloride 110 ml @ 27.5 mls/hr EVERY 8 HOURS IVPB 07/27/17 18:00 08/23/17 17:59 08/05/17 13:15 Polyethylene Glycol (Miralax) 17 gm DAILYPRN PRN ORAL Constipation 07/25/17 16:15 08/24/17 16:14 Povidone Iodine (Betadine Caridad) 1 applic DAILY TOPIC 07/29/17 09:00 08/25/17 15:59 08/05/17 08:54 Fernando Clayton M.D. Aug 05, 2017 15:18
[2017-08-05 16:00] VITALS: BP 124/86
[2017-08-05 20:26] VITALS: BP 124/84
[2017-08-06] VITALS: BP 115/78
[2017-08-06 04:00] VITALS: BP 122/88
[2017-08-06] MEDS: Piperacillin/Tazobactam 3.375 GM in NS 110 ML IVPB SCH ×3 (05:07→22:28)
[2017-08-06] MEDS: NovoLOG Insulin Flexpen SUBQ SCH ×7 (06:26→22:26)
--- NOTE | 2017-08-06 07:16 | Nephrology Progress Note ---
Assessment/Plan Assessment 1.AUGUSTO most likely AIN 2,uncontrolled DM 3,Hyponatremia 4.Right shoulder abscess 5.morbid obesity Plan renal function is stable start IVF change iv antibiotic based on renal function monitoring renal function mix all ivpb with NS.9 replace electrolyte as need it avoid NSAID ok to d/c home fallow up as out patient for monitoring renal function Subjective Subjective no complaints Objective Objective Last 24 Hour Vital Signs Date Time Temp Pulse Resp B/P (MAP) Pulse Ox O2 Delivery O2 Flow Rate FiO2 08/06/17 04:00 97.4 53 17 122/88 98 Room Air 08/06/17 00:00 97.9 56 19 115/78 97 Room Air 08/05/17 21:19 124/84 08/05/17 20:26 97.9 55 18 124/84 98 Room Air 08/05/17 17:11 124/86 08/05/17 16:00 97.5 58 19 124/86 98 Room Air 08/05/17 13:14 130/79 08/05/17 12:00 97.3 62 19 130/79 97 Room Air 08/05/17 08:46 127/81 08/05/17 08:00 97.6 57 19 127/81 97 Room Air Height (Feet): 5 Height (Inches): 5.00 Weight (Pounds): 190 Objective Head and Neck: No JVP. No LAD. No thyromegaly. Extraocular movement intact. Pupils are reactive to light and accommodation. LUNGS: Clear to auscultation. CARDIAC: Regular rate and rhythm. S1 and S2. No murmur. No rub. ABDOMEN: Obese, nontender, and nondistended. Extremities: A 1 to 2+ edema. Right shoulder, he has a 20 x 20 cm round lesion with the yellowish, foul smelling drainage. It is very tender to touch and has had some degree of fluctuation. BHARGAVI SANZ Aug 06, 2017 07:16
--- NOTE | 2017-08-06 07:35 | Pulmonology Progress Note ---
Assessment/Plan Assessment/Plan ASSESSMENT R shoulder abscess bacteremia with Staph aureus s/p I&D and extensive debridement posterior R shoulder DM OOC ARF, likely AIN (per nephro) Morbid obesity PLAN OF CARE Abx ID follows initial blood cx + Staph aureus, repeated blood cx negative Wound care surgery follows pain management bowel regimen ECHO with pEF 70-75%, no evidence of vegetation Venous Duplex BLE negative CT chest initially noted IVF nephro follows Monitor renal parameters, lytes, avoid nephrotoxic, especially NSAIDs off Vanco creat still high labs pending for this am replace lytes as needed DVT prophylaxis BS management with long acting and short acting insulin and SSI prn dc plan per ID need four weeks of iv antibiotics therapy for MSSA bacteremia . EOT ? PICC line prior case discussed and evaluated by supervising physician Subjective Allergies: Coded Allergies: No Known Allergies (Unverified , 04/19/16) Subjective denies pain afebrile, no leucocytosis Objective Last 24 Hour Vital Signs Date Time Temp Pulse Resp B/P (MAP) Pulse Ox O2 Delivery O2 Flow Rate FiO2 08/06/17 04:00 97.4 53 17 122/88 98 Room Air 08/06/17 00:00 97.9 56 19 115/78 97 Room Air 08/05/17 21:19 124/84 08/05/17 20:26 97.9 55 18 124/84 98 Room Air 08/05/17 17:11 124/86 08/05/17 16:00 97.5 58 19 124/86 98 Room Air 08/05/17 13:14 130/79 08/05/17 12:00 97.3 62 19 130/79 97 Room Air 08/05/17 08:46 127/81 08/05/17 08:00 97.6 57 19 127/81 97 Room Air Objective General Appearance: WD/WN, no acute distress awake, alert, oriented Polish speaking male HEENT: normocephalic, atraumatic, anicteric, mucous membranes moist, PERRL Respiratory/Chest: chest wall non-tender, lungs clear, no respiratory distress , chest wall tender Cardiovascular: normal peripheral pulses, normal rate, regular rhythm, no JVD Abdomen: normal bowel sounds, soft, non tender, non distended Skin: other - left shoulder posterior area with bulky dressing, intact, with dry serosanguineous drainage Neurologic/Psychiatric: alert, oriented x 3, responsive -=, Polish speaking Musculoskeletal: normal muscle bulk Current Medications Medications (Trade) Dose Ordered Sig/Leah Route PRN Reason Start Time Stop Time Status Last Admin Dose Admin Acetaminophen (Tylenol) 650 mg Q4H PRN ORAL fever 07/25/17 16:15 08/24/17 16:14 Acetaminophen (Tylenol) 650 mg Q4H PRN RECTAL Mild Pain (Pain Scale 1-3) 07/27/17 15:45 08/24/17 20:29 Clonidine HCl (Catapres) 0.1 mg QID ORAL 07/29/17 09:00 08/27/17 20:59 08/05/17 21:19 Dextrose (Dextrose 50%) STAT PRN IV Hypoglycemia 07/26/17 08:45 08/25/17 08:44 Heparin Sodium (Porcine) (Heparin 5000 units/ml) 5,000 units EVERY 12 HOURS SUBQ 07/25/17 21:00 08/24/17 20:59 08/05/17 21:20 Insulin Aspart (NovoLOG) BEFORE MEALS AND HS SUBQ 07/25/17 17:00 08/24/17 16:59 08/05/17 17:07 Insulin Aspart (NovoLOG) 6 units NOVOTIAC SUBQ 08/03/17 06:30 09/02/17 06:29 08/05/17 17:07 Insulin Detemir (Levemir) 10 units BID SUBQ 08/03/17 09:00 09/02/17 08:59 08/05/17 18:18 Nitroglycerin (Ntg) 0.4 mg Q5M PRN SL Prn Chest Pain 07/25/17 16:15 08/24/17 16:14 Ondansetron HCl (Zofran) 4 mg Q6H PRN IVP Nausea & Vomiting 07/25/17 16:15 08/24/17 16:14 Piperacillin Sod/ Tazobactam Sod 3.375 gm/Sodium Chloride 110 ml @ 27.5 mls/hr EVERY 8 HOURS IVPB 07/27/17 18:00 08/23/17 17:59 08/06/17 05:07 Polyethylene Glycol (Miralax) 17 gm DAILYPRN PRN ORAL Constipation 07/25/17 16:15 08/24/17 16:14 Povidone Iodine (Betadine Caridad) 1 applic DAILY TOPIC 07/29/17 09:00 08/25/17 15:59 08/05/17 08:54 [place] ([facility])Marnie NP Aug 06, 2017 07:35
[2017-08-06 08:00] VITALS: BP 130/77
[2017-08-06] MEDS: Heparin 5000 units/ml inj SUBQ SCH ×2 (08:38→22:24)
[2017-08-06] MEDS: Levemir Flexpen SUBQ SCH ×2 (08:39→18:42)
[2017-08-06] MEDS: Betadine 4oz Bottle TOPIC SCH (08:39)
[2017-08-06 10:52] LABS: EOSINOPHILS % (AUTO) 2.2 % (0.0-3.0); LYMPHOCYTES % (AUTO) 30.4 % (20.0-45.0); MEAN CORPUSCULAR HEMOGLOBIN 30.4 PG (27.0-31.0); MEAN CORPUSCULAR HGB CONC 32.3 G/DL (32.0-36.0); MEAN CORPUSCULAR VOLUME 94 FL (80-99); MEAN PLATELET VOLUME 7.1 FL (6.5-10.1); MONOCYTES % (AUTO) 6.8 % (1.0-10.0); NEUTROPHILS % (AUTO) 59.6 % (45.0-75.0); PLATELET COUNT 445 K/UL (150-450); RED BLOOD COUNT 3.67 M/UL (4.70-6.10); RED CELL DISTRIBUTION WIDTH 12.8 % (11.6-14.8); WHITE BLOOD COUNT 8.5 K/UL (4.8-10.8)
[2017-08-06 11:06] LABS: ANION GAP 9 (5-15); CALCIUM 9.2 MG/DL (8.5-10.1); CARBON DIOXIDE 26 MMOL/L (21-32); CHLORIDE 100 MMOL/L (98-107); CREATININE 2.4 MG/DL (0.55-1.30); GLOMERULAR FILTRATION RATE 29.6 mL/min (>60); POTASSIUM 4.3 MMOL/L (3.5-5.1); SODIUM 135 MMOL/L (136-145)
[2017-08-06 12:00] VITALS: BP 123/75
--- NOTE | 2017-08-06 13:58 | General Progress Note ---
Assessment/Plan Problem List: (1) Abscess of back ICD Codes: L02.212 - Cutaneous abscess of back [any part, except buttock] SNOMED: 433833050 (2) Abscess of right shoulder ICD Codes: L02.413 - Cutaneous abscess of right upper limb SNOMED: 35924759 (3) Poorly controlled diabetes mellitus ICD Codes: E11.65 - Type 2 diabetes mellitus with hyperglycemia SNOMED: 971309297 Status: stable, progressing, tolerating diet Assessment/Plan ot pt diet wound care abx pain control cbc bmp am dc plan Subjective Constitutional: Reports: weakness Allergies: Coded Allergies: No Known Allergies (Unverified , 04/19/16) All Systems: reviewed and negative except above Subjective calm in bed Objective Last 24 Hour Vital Signs Date Time Temp Pulse Resp B/P (MAP) Pulse Ox O2 Delivery O2 Flow Rate FiO2 08/06/17 12:16 123/75 08/06/17 12:00 97.9 57 20 123/75 98 Room Air 08/06/17 08:32 130/77 08/06/17 08:00 97.8 59 20 130/77 96 Room Air 08/06/17 04:00 97.4 53 17 122/88 98 Room Air 08/06/17 00:00 97.9 56 19 115/78 97 Room Air 08/05/17 21:19 124/84 08/05/17 20:26 97.9 55 18 124/84 98 Room Air 08/05/17 17:11 124/86 08/05/17 16:00 97.5 58 19 124/86 98 Room Air Intake and Output 08/06/17 08/07/17 19:00 07:00 Intake Total 350 ml Output Total 750 ml Balance -400 ml Intake Oral 350 ml Output Urine Total 750 ml # Voids 2 # Bowel Movements 1 Laboratory Tests 08/06/17 10:15: White Blood Count 8.5, Red Blood Count 3.67L, Hemoglobin 11.1L, Hematocrit 34.5L , Mean Corpuscular Volume 94, Mean Corpuscular Hemoglobin 30.4, Mean Corpuscular Hemoglobin Concent 32.3, Red Cell Distribution Width 12.8, Platelet Count 445, Mean Platelet Volume 7.1, Neutrophils (%) (Auto) 59.6, Lymphocytes (% ) (Auto) 30.4, Monocytes (%) (Auto) 6.8, Eosinophils (%) (Auto) 2.2, Basophils ( %) (Auto) 1.0, Sodium Level 135L, Potassium Level 4.3, Chloride Level 100, Carbon Dioxide Level 26, Anion Gap 9, Blood Urea Nitrogen 24H, Creatinine 2.4H, Estimat Glomerular Filtration Rate 29.6, Glucose Level 155H, Calcium Level 9.2 Height (Feet): 5 Height (Inches): 5.00 Weight (Pounds): 190 General Appearance: alert EENT: normal ENT inspection Neck: normal alignment Cardiovascular: normal peripheral pulses, normal rate, regular rhythm Respiratory/Chest: chest wall non-tender, lungs clear, normal breath sounds Abdomen: normal bowel sounds, non tender, soft Extremities: normal inspection Edema: no edema noted Arm (L), no edema noted Arm (R), no edema noted Leg (L), no edema noted Leg (R), no edema noted Pedal (L), no edema noted Pedal (R), no edema noted Generalized Neurologic: responsive, motor weakness Skin: normal pigmentation, warm/dry Objective wound dressing sl stained back of right scapula BOB HILL Aug 06, 2017 13:58
[2017-08-06 16:00] VITALS: BP 136/83
--- NOTE | 2017-08-06 18:21 | Infectious Diseases Prog Note ---
Assessment/Plan Problems: (1) Abscess of right shoulder Assessment & Plan: S/P I&D for source control , on zosyn for now to cover for necrotizing fasciitis and skin abscess due to MSSA , and bacteremia , continue local wound care and management as per surgery. will need four weeks of IV antibiotics (2) Gram-positive cocci bacteremia Assessment & Plan: due to shoulder abscess AND necrotizing fascitis , had source control with I&D, surgery is following , now on zosyn only , 2 D echo didn't show any valve vegetations , repeated blood culture to confirm clearance is negative on 07/26 , continue zosyn only for now which cover MSSA bacteremia and skin necrotizing fascitis and abscess. monitor random vancomycin level , will need four weeks of iv antibiotics therapy for MSSA bacteremia . EOT 08/23/17 (3) Poorly controlled diabetes mellitus Assessment & Plan: recommend tight glycemic control to keep blood glucose between 80-120 (4) AUGUSTO (acute kidney injury) Assessment & Plan: improving , keep off vancomycin completely , since his creatinine is still high , continue iv fluids for hydration, avoid nephrotoxic meds , monitor renal function, nephrology is following Subjective Constitutional: Reports: no symptoms HEENT: Reports: no symptoms Respiratory: Reports: no symptoms Breasts: Reports: no symptoms Cardiovascular: Reports: no symptoms Gastrointestinal/Abdominal: Reports: no symptoms Genitourinary: Reports: no symptoms Neurologic: Reports: no symptoms Psychiatric: Reports: no symptoms Skin: Reports: no symptoms Endocrine: Reports: no symptoms Hematologic: Reports: no symptoms Musculoskeletal: Reports: no symptoms Allergies: Coded Allergies: No Known Allergies (Unverified , 04/19/16) Objective Vital Signs Last 24 Hour Vital Signs Date Time Temp Pulse Resp B/P (MAP) Pulse Ox O2 Delivery O2 Flow Rate FiO2 08/06/17 17:35 136/83 08/06/17 16:00 98.4 61 20 136/83 99 Room Air 08/06/17 12:16 123/75 08/06/17 12:00 97.9 57 20 123/75 98 Room Air 08/06/17 08:32 130/77 08/06/17 08:00 97.8 59 20 130/77 96 Room Air 08/06/17 04:00 97.4 53 17 122/88 98 Room Air 08/06/17 00:00 97.9 56 19 115/78 97 Room Air 08/05/17 21:19 124/84 08/05/17 20:26 97.9 55 18 124/84 98 Room Air Height (Feet): 5 Height (Inches): 5.00 Weight (Pounds): 190 General Appearance: WD/WN, no acute distress HEENT: normocephalic, atraumatic, anicteric, mucous membranes moist, EOMI, pharynx normal, supple, no JVD Respiratory/Chest: chest wall non-tender, lungs clear, normal breath sounds, no respiratory distress, no accessory muscle use, decreased breath sounds, crackles/rales Cardiovascular: normal peripheral pulses, normal rate, regular rhythm, no gallop/murmur, no JVD Abdomen: normal bowel sounds, soft, non tender, no organomegaly, non distended , no scars Genitourinary: normal external genitalia Extremities: no cyanosis, no clubbing Skin: no rash, no lesions, ulcers Lymphatic: no neck adenopathy, no groin adenopathy Laboratory Tests Test 08/06/17 10:15 White Blood Count 8.5 K/UL (4.8-10.8) Red Blood Count 3.67 M/UL (4.70-6.10) L Hemoglobin 11.1 G/DL (14.2-18.0) L Hematocrit 34.5 % (42.0-52.0) L Mean Corpuscular Volume 94 FL (80-99) Mean Corpuscular Hemoglobin 30.4 PG (27.0-31.0) Mean Corpuscular Hemoglobin Concent 32.3 G/DL (32.0-36.0) Red Cell Distribution Width 12.8 % (11.6-14.8) Platelet Count 445 K/UL (150-450) Mean Platelet Volume 7.1 FL (6.5-10.1) Neutrophils (%) (Auto) 59.6 % (45.0-75.0) Lymphocytes (%) (Auto) 30.4 % (20.0-45.0) Monocytes (%) (Auto) 6.8 % (1.0-10.0) Eosinophils (%) (Auto) 2.2 % (0.0-3.0) Basophils (%) (Auto) 1.0 % (0.0-2.0) Sodium Level 135 MMOL/L (136-145) L Potassium Level 4.3 MMOL/L (3.5-5.1) Chloride Level 100 MMOL/L (98-107) Carbon Dioxide Level 26 MMOL/L (21-32) Anion Gap 9 (5-15) Blood Urea Nitrogen 24 mg/dL (7-18) H Creatinine 2.4 MG/DL (0.55-1.30) H Estimat Glomerular Filtration Rate 29.6 mL/min (>60) Glucose Level 155 MG/DL (74-106) H Calcium Level 9.2 MG/DL (8.5-10.1) Current Medications Medications (Trade) Dose Ordered Sig/Leah Route PRN Reason Start Time Stop Time Status Last Admin Dose Admin Acetaminophen (Tylenol) 650 mg Q4H PRN ORAL fever 07/25/17 16:15 08/24/17 16:14 Acetaminophen (Tylenol) 650 mg Q4H PRN RECTAL Mild Pain (Pain Scale 1-3) 07/27/17 15:45 08/24/17 20:29 Clonidine HCl (Catapres) 0.1 mg QID ORAL 07/29/17 09:00 08/27/17 20:59 08/06/17 17:35 Dextrose (Dextrose 50%) STAT PRN IV Hypoglycemia 07/26/17 08:45 08/25/17 08:44 Heparin Sodium (Porcine) (Heparin 5000 units/ml) 5,000 units EVERY 12 HOURS SUBQ 07/25/17 21:00 08/24/17 20:59 08/06/17 08:38 Insulin Aspart (NovoLOG) BEFORE MEALS AND HS SUBQ 07/25/17 17:00 08/24/17 16:59 08/06/17 17:33 Insulin Aspart (NovoLOG) 6 units NOVOTIAC SUBQ 08/03/17 06:30 09/02/17 06:29 08/06/17 17:34 Insulin Detemir (Levemir) 10 units BID SUBQ 08/03/17 09:00 09/02/17 08:59 08/06/17 08:39 Nitroglycerin (Ntg) 0.4 mg Q5M PRN SL Prn Chest Pain 07/25/17 16:15 08/24/17 16:14 Ondansetron HCl (Zofran) 4 mg Q6H PRN IVP Nausea & Vomiting 10/1/17 16:15 08/24/17 16:14 Piperacillin Sod/ Tazobactam Sod 3.375 gm/Sodium Chloride 110 ml @ 27.5 mls/hr EVERY 8 HOURS IVPB 07/27/17 18:00 08/23/17 17:59 08/06/17 15:18 Polyethylene Glycol (Miralax) 17 gm DAILYPRN PRN ORAL Constipation 07/25/17 16:15 08/24/17 16:14 Povidone Iodine (Betadine Caridad) 1 applic DAILY TOPIC 07/29/17 09:00 08/25/17 15:59 08/06/17 08:39 Fernando Clayton M.D. Aug 06, 2017 18:21
[2017-08-06 20:00] VITALS: BP 134/81
[2017-08-07] VITALS: BP 124/80
[2017-08-07 04:00] VITALS: BP 158/92
[2017-08-07] MEDS: Piperacillin/Tazobactam 3.375 GM in NS 110 ML IVPB SCH ×3 (05:46→20:56)
[2017-08-07] MEDS: NovoLOG Insulin Flexpen SUBQ SCH ×7 (06:28→21:12)
[2017-08-07 08:07] VITALS: BP 135/75
[2017-08-07] MEDS: Heparin 5000 units/ml inj SUBQ SCH ×2 (09:00→21:06)
[2017-08-07] MEDS: Betadine 4oz Bottle TOPIC SCH (09:01)
[2017-08-07] MEDS: Levemir Flexpen SUBQ SCH ×2 (09:01→17:44)
[2017-08-07 09:42] LABS: EOSINOPHILS % (AUTO) 3.1 % (0.0-3.0); LYMPHOCYTES % (AUTO) 29.6 % (20.0-45.0); MEAN CORPUSCULAR HEMOGLOBIN 30.6 PG (27.0-31.0); MEAN CORPUSCULAR HGB CONC 32.4 G/DL (32.0-36.0); MEAN CORPUSCULAR VOLUME 94 FL (80-99); MEAN PLATELET VOLUME 7.2 FL (6.5-10.1); NEUTROPHILS % (AUTO) 60.4 % (45.0-75.0); PLATELET COUNT 461 K/UL (150-450); RED BLOOD COUNT 3.63 M/UL (4.70-6.10); RED CELL DISTRIBUTION WIDTH 12.7 % (11.6-14.8); WHITE BLOOD COUNT 8.3 K/UL (4.8-10.8)
[2017-08-07 10:33] LABS: ANION GAP 3 (5-15); CALCIUM 9.2 MG/DL (8.5-10.1); CARBON DIOXIDE 29 MMOL/L (21-32); CHLORIDE 97 MMOL/L (98-107); CREATININE 2.7 MG/DL (0.55-1.30); GLOMERULAR FILTRATION RATE 25.8 mL/min (>60); POTASSIUM 4.7 MMOL/L (3.5-5.1); SODIUM 129 MMOL/L (136-145)
--- NOTE | 2017-08-07 10:37 | General Progress Note ---
Assessment/Plan Problem List: (1) Abscess of back ICD Codes: L02.212 - Cutaneous abscess of back [any part, except buttock] SNOMED: 888728526 (2) Abscess of right shoulder ICD Codes: L02.413 - Cutaneous abscess of right upper limb SNOMED: 24167983 (3) Poorly controlled diabetes mellitus ICD Codes: E11.65 - Type 2 diabetes mellitus with hyperglycemia SNOMED: 324419838 Status: stable, progressing, tolerating diet Assessment/Plan ot pt diet wound care abx pain control cbc bmp am dc plan Subjective Constitutional: Reports: weakness Allergies: Coded Allergies: No Known Allergies (Unverified , 04/19/16) All Systems: reviewed and negative except above Subjective calm in bed Objective Last 24 Hour Vital Signs Date Time Temp Pulse Resp B/P (MAP) Pulse Ox O2 Delivery O2 Flow Rate FiO2 08/07/17 08:59 135/75 08/07/17 08:07 98.3 61 20 135/75 97 Room Air 08/07/17 04:00 97.5 50 18 158/92 100 Room Air 08/07/17 00:00 97.6 54 19 124/80 99 Room Air 08/06/17 22:30 134/81 08/06/17 20:00 98.0 55 20 134/81 98 Room Air 08/06/17 17:35 136/83 08/06/17 16:00 98.4 61 20 136/83 99 Room Air 08/06/17 12:16 123/75 08/06/17 12:00 97.9 57 20 123/75 98 Room Air Intake and Output 08/07/17 08/08/17 19:00 07:00 Intake Total 340 ml Output Total 700 ml Balance -360 ml Intake Oral 340 ml Output Urine Total 700 ml # Voids 1 Laboratory Tests 08/07/17 09:17: White Blood Count 8.3, Red Blood Count 3.63L, Hemoglobin 11.1L, Hematocrit 34.3L , Mean Corpuscular Volume 94, Mean Corpuscular Hemoglobin 30.6, Mean Corpuscular Hemoglobin Concent 32.4, Red Cell Distribution Width 12.7, Platelet Count 461H, Mean Platelet Volume 7.2, Neutrophils (%) (Auto) 60.4, Lymphocytes ( %) (Auto) 29.6, Monocytes (%) (Auto) 6.0, Eosinophils (%) (Auto) 3.1H, Basophils (%) (Auto) 1.0, Sodium Level 129L, Potassium Level 4.7, Chloride Level 97L, Carbon Dioxide Level 29, Anion Gap 3L, Blood Urea Nitrogen 24H, Creatinine 2.7H, Estimat Glomerular Filtration Rate 25.8, Glucose Level 199H, Calcium Level 9.2 Height (Feet): 5 Height (Inches): 5.00 Weight (Pounds): 190 General Appearance: lethargic EENT: normal ENT inspection Neck: normal alignment Cardiovascular: normal peripheral pulses, normal rate, regular rhythm Respiratory/Chest: chest wall non-tender, lungs clear, normal breath sounds Abdomen: normal bowel sounds, non tender, soft Extremities: normal inspection Edema: no edema noted Arm (L), no edema noted Arm (R), no edema noted Leg (L), no edema noted Leg (R), no edema noted Pedal (L), no edema noted Pedal (R), no edema noted Generalized Neurologic: responsive, motor weakness Skin: normal pigmentation, warm/dry Objective wound dressing sl stained back of right scapula BOB HILL Aug 07, 2017 10:37
[2017-08-07 11:47] VITALS: BP 129/78
--- NOTE | 2017-08-07 15:11 | Infectious Diseases Prog Note ---
Assessment/Plan Problems: (1) Abscess of right shoulder Assessment & Plan: S/P I&D for source control , on zosyn to cover for necrotizing fasciitis and skin abscess due to MSSA , and bacteremia , continue local wound care and debridement as per surgery. will need four weeks of IV antibiotics, EOT 08/27/17 (2) Gram-positive cocci bacteremia Assessment & Plan: WITH MSSA, due to shoulder abscess AND necrotizing fascitis , had source control with I&D, now on zosyn only , 2 D echo didn't show any valve vegetations , repeated blood culture to confirm clearance is negative on 07/26 , continue zosyn only for now which cover MSSA bacteremia and skin necrotizing fascitis and abscess. will need four weeks of iv antibiotics therapy for MSSA bacteremia and necrotizing fascitis . EOT 08/27/17 (3) Poorly controlled diabetes mellitus Assessment & Plan: recommend tight glycemic control to keep blood glucose between 80-120 (4) AUGUSTO (acute kidney injury) Assessment & Plan: keep off vancomycin completely , since his creatinine is still high , continue iv fluids for hydration, avoid nephrotoxic meds , monitor renal function, nephrology is following Subjective Constitutional: Reports: no symptoms HEENT: Reports: no symptoms Respiratory: Reports: no symptoms Breasts: Reports: no symptoms Cardiovascular: Reports: no symptoms Gastrointestinal/Abdominal: Reports: no symptoms Genitourinary: Reports: no symptoms Neurologic: Reports: no symptoms Psychiatric: Reports: no symptoms Skin: Reports: no symptoms Endocrine: Reports: no symptoms Hematologic: Reports: no symptoms Musculoskeletal: Reports: no symptoms Allergies: Coded Allergies: No Known Allergies (Unverified , 04/19/16) Objective Vital Signs Last 24 Hour Vital Signs Date Time Temp Pulse Resp B/P (MAP) Pulse Ox O2 Delivery O2 Flow Rate FiO2 08/07/17 12:30 129/78 08/07/17 11:47 98.1 61 20 129/78 98 Room Air 08/07/17 08:59 135/75 08/07/17 08:07 98.3 61 20 135/75 97 Room Air 08/07/17 04:00 97.5 50 18 158/92 100 Room Air 08/07/17 00:00 97.6 54 19 124/80 99 Room Air 08/06/17 22:30 134/81 08/06/17 20:00 98.0 55 20 134/81 98 Room Air 08/06/17 17:35 136/83 08/06/17 16:00 98.4 61 20 136/83 99 Room Air Height (Feet): 5 Height (Inches): 5.00 Weight (Pounds): 190 General Appearance: WD/WN, no acute distress HEENT: normocephalic, atraumatic, anicteric, mucous membranes moist Respiratory/Chest: chest wall non-tender, lungs clear, normal breath sounds, no respiratory distress, no accessory muscle use Cardiovascular: normal peripheral pulses, normal rate, regular rhythm, no gallop/murmur, no JVD Abdomen: normal bowel sounds, soft, non tender, no organomegaly, non distended , no mass, no scars Extremities: no cyanosis, no clubbing Skin: no rash, no lesions, other - right posterior shoulder surgical wound with right side black necrotic tissue and left side yellowish exudate Neurologic/Psychiatric: alert, oriented x 3, responsive Lymphatic: no neck adenopathy, no groin adenopathy Musculoskeletal: normal muscle bulk Laboratory Tests Test 08/07/17 09:17 White Blood Count 8.3 K/UL (4.8-10.8) Red Blood Count 3.63 M/UL (4.70-6.10) L Hemoglobin 11.1 G/DL (14.2-18.0) L Hematocrit 34.3 % (42.0-52.0) L Mean Corpuscular Volume 94 FL (80-99) Mean Corpuscular Hemoglobin 30.6 PG (27.0-31.0) Mean Corpuscular Hemoglobin Concent 32.4 G/DL (32.0-36.0) Red Cell Distribution Width 12.7 % (11.6-14.8) Platelet Count 461 K/UL (150-450) H Mean Platelet Volume 7.2 FL (6.5-10.1) Neutrophils (%) (Auto) 60.4 % (45.0-75.0) Lymphocytes (%) (Auto) 29.6 % (20.0-45.0) Monocytes (%) (Auto) 6.0 % (1.0-10.0) Eosinophils (%) (Auto) 3.1 % (0.0-3.0) H Basophils (%) (Auto) 1.0 % (0.0-2.0) Sodium Level 129 MMOL/L (136-145) L Potassium Level 4.7 MMOL/L (3.5-5.1) Chloride Level 97 MMOL/L (98-107) L Carbon Dioxide Level 29 MMOL/L (21-32) Anion Gap 3 (5-15) L Blood Urea Nitrogen 24 mg/dL (7-18) H Creatinine 2.7 MG/DL (0.55-1.30) H Estimat Glomerular Filtration Rate 25.8 mL/min (>60) Glucose Level 199 MG/DL (74-106) H Calcium Level 9.2 MG/DL (8.5-10.1) Current Medications Medications (Trade) Dose Ordered Sig/Leah Route PRN Reason Start Time Stop Time Status Last Admin Dose Admin Acetaminophen (Tylenol) 650 mg Q4H PRN ORAL fever 07/25/17 16:15 08/24/17 16:14 Acetaminophen (Tylenol) 650 mg Q4H PRN RECTAL Mild Pain (Pain Scale 1-3) 07/27/17 15:45 08/24/17 20:29 Clonidine HCl (Catapres) 0.1 mg QID ORAL 07/29/17 09:00 08/27/17 20:59 08/07/17 12:30 Dextrose (Dextrose 50%) STAT PRN IV Hypoglycemia 07/26/17 08:45 08/25/17 08:44 Heparin Sodium (Porcine) (Heparin 5000 units/ml) 5,000 units EVERY 12 HOURS SUBQ 07/25/17 21:00 08/24/17 20:59 08/07/17 09:00 Insulin Aspart (NovoLOG) BEFORE MEALS AND HS SUBQ 07/25/17 17:00 08/24/17 16:59 08/07/17 12:30 Insulin Aspart (NovoLOG) 6 units NOVOTIAC SUBQ 08/03/17 06:30 09/02/17 06:29 08/07/17 12:28 Insulin Detemir (Levemir) 10 units BID SUBQ 08/03/17 09:00 09/02/17 08:59 08/07/17 09:01 Nitroglycerin (Ntg) 0.4 mg Q5M PRN SL Prn Chest Pain 07/25/17 16:15 08/24/17 16:14 Ondansetron HCl (Zofran) 4 mg Q6H PRN IVP Nausea & Vomiting 07/25/17 16:15 08/24/17 16:14 Piperacillin Sod/ Tazobactam Sod 3.375 gm/Sodium Chloride 110 ml @ 27.5 mls/hr EVERY 8 HOURS IVPB 07/27/17 18:00 08/23/17 17:59 08/07/17 14:39 Polyethylene Glycol (Miralax) 17 gm DAILYPRN PRN ORAL Constipation 07/25/17 16:15 08/24/17 16:14 Povidone Iodine (Betadine Caridad) 1 applic DAILY TOPIC 07/29/17 09:00 08/25/17 15:59 08/07/17 09:01 Fernando Clayton M.D. Aug 07, 2017 15:10
--- NOTE | 2017-08-07 15:28 | Pulmonology Progress Note ---
Assessment/Plan Assessment/Plan ASSESSMENT R shoulder abscess bacteremia with Staph aureus s/p I&D and extensive debridement posterior R shoulder DM OOC ARF, likely AIN (per nephro) Morbid obesity PLAN OF CARE Abx ID follows initial blood cx + Staph aureus, repeated blood cx negative Wound care surgery follows pain management bowel regimen ECHO with pEF 70-75%, no evidence of vegetation Venous Duplex BLE negative CT chest initially noted IVF nephro follows Monitor renal parameters, lytes, avoid nephrotoxic, especially NSAIDs off Vanco creat still high labs pending for this am replace lytes as needed DVT prophylaxis BS management with long acting and short acting insulin and SSI prn dc plan per ID: will need four weeks of iv antibiotics therapy for MSSA bacteremia . EOT 08/23/17 ? PICC line prior - per ID discretion case discussed and evaluated by supervising physician Subjective Allergies: Coded Allergies: No Known Allergies (Unverified , 04/19/16) Subjective denies pain no signs of distress afebrile, no leucocytosis Objective Last 24 Hour Vital Signs Date Time Temp Pulse Resp B/P (MAP) Pulse Ox O2 Delivery O2 Flow Rate FiO2 08/07/17 12:30 129/78 08/07/17 11:47 98.1 61 20 129/78 98 Room Air 08/07/17 08:59 135/75 08/07/17 08:07 98.3 61 20 135/75 97 Room Air 08/07/17 04:00 97.5 50 18 158/92 100 Room Air 08/07/17 00:00 97.6 54 19 124/80 99 Room Air 08/06/17 22:30 134/81 08/06/17 20:00 98.0 55 20 134/81 98 Room Air 08/06/17 17:35 136/83 08/06/17 16:00 98.4 61 20 136/83 99 Room Air Intake and Output 08/07/17 08/08/17 19:00 07:00 Intake Total 760 ml Output Total 1000 ml Balance -240 ml Intake Oral 760 ml Output Urine Total 1000 ml # Voids 3 # Bowel Movements 1 Objective General Appearance: WD/WN, no acute distress awake, alert, oriented Jordanian speaking male HEENT: normocephalic, atraumatic, anicteric, mucous membranes moist, PERRL Respiratory/Chest: chest wall non-tender, lungs clear, no respiratory distress , chest wall tender Cardiovascular: normal peripheral pulses, normal rate, regular rhythm, no JVD Abdomen: normal bowel sounds, soft, non tender, non distended Skin: other - left shoulder posterior area with bulky dressing, intact, with dry serosanguineous drainage Neurologic/Psychiatric: alert, oriented x 3, responsive -=, Jordanian speaking Musculoskeletal: normal muscle bulk Laboratory Tests 08/07/17 09:17: White Blood Count 8.3, Red Blood Count 3.63L, Hemoglobin 11.1L, Hematocrit 34.3L , Mean Corpuscular Volume 94, Mean Corpuscular Hemoglobin 30.6, Mean Corpuscular Hemoglobin Concent 32.4, Red Cell Distribution Width 12.7, Platelet Count 461H, Mean Platelet Volume 7.2, Neutrophils (%) (Auto) 60.4, Lymphocytes ( %) (Auto) 29.6, Monocytes (%) (Auto) 6.0, Eosinophils (%) (Auto) 3.1H, Basophils (%) (Auto) 1.0, Sodium Level 129L, Potassium Level 4.7, Chloride Level 97L, Carbon Dioxide Level 29, Anion Gap 3L, Blood Urea Nitrogen 24H, Creatinine 2.7H, Estimat Glomerular Filtration Rate 25.8, Glucose Level 199H, Calcium Level 9.2 Current Medications Medications (Trade) Dose Ordered Sig/Leah Route PRN Reason Start Time Stop Time Status Last Admin Dose Admin Acetaminophen (Tylenol) 650 mg Q4H PRN ORAL fever 07/25/17 16:15 08/24/17 16:14 Acetaminophen (Tylenol) 650 mg Q4H PRN RECTAL Mild Pain (Pain Scale 1-3) 07/27/17 15:45 08/24/17 20:29 Clonidine HCl (Catapres) 0.1 mg QID ORAL 07/29/17 09:00 08/27/17 20:59 08/07/17 12:30 Dextrose (Dextrose 50%) STAT PRN IV Hypoglycemia 07/26/17 08:45 08/25/17 08:44 Heparin Sodium (Porcine) (Heparin 5000 units/ml) 5,000 units EVERY 12 HOURS SUBQ 07/25/17 21:00 08/24/17 20:59 08/07/17 09:00 Insulin Aspart (NovoLOG) BEFORE MEALS AND HS SUBQ 07/25/17 17:00 08/24/17 16:59 08/07/17 12:30 Insulin Aspart (NovoLOG) 6 units NOVOTIAC SUBQ 08/03/17 06:30 09/02/17 06:29 08/07/17 12:28 Insulin Detemir (Levemir) 10 units BID SUBQ 08/03/17 09:00 09/02/17 08:59 08/07/17 09:01 Nitroglycerin (Ntg) 0.4 mg Q5M PRN SL Prn Chest Pain 07/25/17 16:15 08/24/17 16:14 Ondansetron HCl (Zofran) 4 mg Q6H PRN IVP Nausea & Vomiting 07/25/17 16:15 08/24/17 16:14 Piperacillin Sod/ Tazobactam Sod 3.375 gm/Sodium Chloride 110 ml @ 27.5 mls/hr EVERY 8 HOURS IVPB 07/27/17 18:00 08/23/17 17:59 08/07/17 14:39 Polyethylene Glycol (Miralax) 17 gm DAILYPRN PRN ORAL Constipation 07/25/17 16:15 08/24/17 16:14 Povidone Iodine (Betadine Caridad) 1 applic DAILY TOPIC 07/29/17 09:00 08/25/17 15:59 08/07/17 09:01 Nilay ZepedaMargaretville Memorial HospitalMarnie Adames NP Aug 07, 2017 15:28
[2017-08-07 15:47] VITALS: BP 115/77
[2017-08-07 20:13] VITALS: BP 137/88
[2017-08-08] VITALS (7 sets, daily range): BP systolic 113–151; BP diastolic 70–91
[2017-08-08] MEDS: Piperacillin/Tazobactam 3.375 GM in NS 110 ML IVPB SCH ×3 (06:27→22:38)
[2017-08-08] MEDS: NovoLOG Insulin Flexpen SUBQ SCH ×7 (06:28→22:41)
[2017-08-08] MEDS: Levemir Flexpen SUBQ SCH ×2 (08:10→18:31)
[2017-08-08] MEDS: Betadine 4oz Bottle TOPIC SCH (08:11)
[2017-08-08] MEDS: Heparin 5000 units/ml inj SUBQ SCH ×2 (08:11→21:00)
--- NOTE | 2017-08-08 10:32 | General Progress Note ---
Assessment/Plan Problem List: (1) Abscess of back ICD Codes: L02.212 - Cutaneous abscess of back [any part, except buttock] SNOMED: 058568821 (2) Abscess of right shoulder ICD Codes: L02.413 - Cutaneous abscess of right upper limb SNOMED: 06434408 (3) Poorly controlled diabetes mellitus ICD Codes: E11.65 - Type 2 diabetes mellitus with hyperglycemia SNOMED: 689096173 Status: stable, progressing, tolerating diet Assessment/Plan ot pt diet wound care abx pain control cbc bmp am dc plan Subjective Constitutional: Reports: weakness Allergies: Coded Allergies: No Known Allergies (Unverified , 04/19/16) All Systems: reviewed and negative except above Subjective calm in bed Objective Last 24 Hour Vital Signs Date Time Temp Pulse Resp B/P (MAP) Pulse Ox O2 Delivery O2 Flow Rate FiO2 08/08/17 08:08 151/70 08/08/17 08:00 98.9 72 20 151/70 96 Room Air 08/08/17 04:00 97.2 57 20 132/79 99 Room Air 08/08/17 00:00 97.5 58 20 118/76 99 Room Air 08/07/17 20:55 137/88 08/07/17 20:13 97.8 53 20 137/88 95 Room Air 08/07/17 17:41 115/77 08/07/17 15:47 97.9 58 20 115/77 100 Room Air 08/07/17 12:30 129/78 08/07/17 11:47 98.1 61 20 129/78 98 Room Air Height (Feet): 5 Height (Inches): 5.00 Weight (Pounds): 190 General Appearance: alert EENT: normal ENT inspection Neck: normal alignment Cardiovascular: normal peripheral pulses, normal rate, regular rhythm Respiratory/Chest: chest wall non-tender, lungs clear, normal breath sounds Abdomen: normal bowel sounds, non tender, soft Extremities: normal inspection Edema: no edema noted Arm (L), no edema noted Arm (R), no edema noted Leg (L), no edema noted Leg (R), no edema noted Pedal (L), no edema noted Pedal (R), no edema noted Generalized Neurologic: responsive, motor weakness Skin: normal pigmentation, warm/dry Objective wound dressing sl stained back of right scapula BOB HILL Aug 08, 2017 10:32
[2017-08-08] MEDS ORDERED: NS 275ml ONE (10:54)
[2017-08-08] MEDS ORDERED: Tubing IV Secondary IV ONE (10:54)
[2017-08-08 11:22] LABS: ANION GAP 8 (5-15); CARBON DIOXIDE 23 MMOL/L (21-32); CHLORIDE 102 MMOL/L (98-107); CREATININE 2.2 MG/DL (0.55-1.30); GLOMERULAR FILTRATION RATE 32.7 mL/min (>60); POTASSIUM 4.8 MMOL/L (3.5-5.1); SODIUM 133 MMOL/L (136-145)
[2017-08-08 14:04] LABS: BASOPHILS % (AUTO) 1.2 % (0.0-2.0); EOSINOPHILS % (AUTO) 2.6 % (0.0-3.0); LYMPHOCYTES % (AUTO) 36.3 % (20.0-45.0); MEAN CORPUSCULAR HEMOGLOBIN 30.7 PG (27.0-31.0); MEAN CORPUSCULAR HGB CONC 32.6 G/DL (32.0-36.0); MEAN CORPUSCULAR VOLUME 94 FL (80-99); MEAN PLATELET VOLUME 7.2 FL (6.5-10.1); PLATELET COUNT 484 K/UL (150-450); RED BLOOD COUNT 3.69 M/UL (4.70-6.10); RED CELL DISTRIBUTION WIDTH 12.8 % (11.6-14.8); WHITE BLOOD COUNT 7.3 K/UL (4.8-10.8)
--- NOTE | 2017-08-08 14:07 | Pulmonology Progress Note ---
Assessment/Plan Assessment/Plan ASSESSMENT R shoulder abscess bacteremia with Staph aureus s/p I&D and extensive debridement posterior R shoulder DM OOC ARF, likely ATN (per nephro) Morbid obesity PLAN OF CARE Abx ID follows initial blood cx + Staph aureus, repeated blood cx negative Wound care surgery follows pain management bowel regimen ECHO with pEF 70-75%, no evidence of vegetation Venous Duplex BLE negative CT chest initially noted IVF nephro follows Monitor renal parameters, lytes, avoid nephrotoxic, especially NSAIDs off Vanco creat slowly trending down -2.2 today labs pending for this am replace lytes as needed DVT prophylaxis BS management with long acting and short acting insulin and SSI prn ? dc plan per ID: will need total four weeks of iv antibiotics therapy for MSSA bacteremia . EOT 08/23/17 ? PICC line prior - per ID discretion case discussed and evaluated by supervising physician Subjective Allergies: Coded Allergies: No Known Allergies (Unverified , 04/19/16) Subjective afebrile, no leucocytosis denies pain no signs of distress Objective Last 24 Hour Vital Signs Date Time Temp Pulse Resp B/P (MAP) Pulse Ox O2 Delivery O2 Flow Rate FiO2 08/08/17 13:30 113/78 08/08/17 12:00 96.6 66 20 113/78 96 Room Air 08/08/17 08:08 151/70 08/08/17 08:00 98.9 72 20 151/70 96 Room Air 08/08/17 04:00 97.2 57 20 132/79 99 Room Air 08/08/17 00:00 97.5 58 20 118/76 99 Room Air 08/07/17 20:55 137/88 08/07/17 20:13 97.8 53 20 137/88 95 Room Air 08/07/17 17:41 115/77 08/07/17 15:47 97.9 58 20 115/77 100 Room Air Objective General Appearance: WD/WN, no acute distress awake, alert, oriented Cook Islander speaking male HEENT: normocephalic, atraumatic, anicteric, mucous membranes moist, PERRL Respiratory/Chest: chest wall non-tender, lungs clear, no respiratory distress , chest wall tender Cardiovascular: normal peripheral pulses, normal rate, regular rhythm, no JVD Abdomen: normal bowel sounds, soft, non tender, non distended Skin: other - left shoulder posterior area with bulky dressing, intact, with dry serosanguineous drainage Neurologic/Psychiatric: alert, oriented x 3, responsive -=, [place] Islander speaking Musculoskeletal: normal muscle bulk Laboratory Tests 08/08/17 10:00: Sodium Level 133L, Potassium Level 4.8, Chloride Level 102, Carbon Dioxide Level 23, Anion Gap 8, Blood Urea Nitrogen 24H, Creatinine 2.2H, Estimat Glomerular Filtration Rate 32.7, Glucose Level 155H, Calcium Level 9.0 08/08/17 13:20: White Blood Count 7.3, Red Blood Count 3.69L, Hemoglobin 11.3L, Hematocrit 34.7L , Mean Corpuscular Volume 94, Mean Corpuscular Hemoglobin 30.7, Mean Corpuscular Hemoglobin Concent 32.6, Red Cell Distribution Width 12.8, Platelet Count 484H, Mean Platelet Volume 7.2, Neutrophils (%) (Auto) 55.0, Lymphocytes ( %) (Auto) 36.3, Monocytes (%) (Auto) 5.0, Eosinophils (%) (Auto) 2.6, Basophils (%) (Auto) 1.2 Current Medications Medications (Trade) Dose Ordered Sig/Leah Route PRN Reason Start Time Stop Time Status Last Admin Dose Admin Acetaminophen (Tylenol) 650 mg Q4H PRN ORAL fever 07/25/17 16:15 08/24/17 16:14 Acetaminophen (Tylenol) 650 mg Q4H PRN RECTAL Mild Pain (Pain Scale 1-3) 07/27/17 15:45 08/24/17 20:29 Clonidine HCl (Catapres) 0.1 mg QID ORAL 07/29/17 09:00 08/27/17 20:59 08/08/17 13:30 Dextrose (Dextrose 50%) STAT PRN IV Hypoglycemia 07/26/17 08:45 08/25/17 08:44 Heparin Sodium (Porcine) (Heparin 5000 units/ml) 5,000 units EVERY 12 HOURS SUBQ 07/25/17 21:00 08/24/17 20:59 08/08/17 08:11 Insulin Aspart (NovoLOG) BEFORE MEALS AND HS SUBQ 07/25/17 17:00 08/24/17 16:59 08/08/17 12:03 Insulin Aspart (NovoLOG) 6 units NOVOTIAC SUBQ 08/03/17 06:30 09/02/17 06:29 08/08/17 12:04 Insulin Detemir (Levemir) 10 units BID SUBQ 08/03/17 09:00 09/02/17 08:59 08/08/17 08:10 Nitroglycerin (Ntg) 0.4 mg Q5M PRN SL Prn Chest Pain 07/25/17 16:15 08/24/17 16:14 Ondansetron HCl (Zofran) 4 mg Q6H PRN IVP Nausea & Vomiting 07/25/17 16:15 08/24/17 16:14 Piperacillin Sod/ Tazobactam Sod 3.375 gm/Sodium Chloride 110 ml @ 27.5 mls/hr EVERY 8 HOURS IVPB 07/27/17 18:00 08/23/17 17:59 08/08/17 13:31 Polyethylene Glycol (Miralax) 17 gm DAILYPRN PRN ORAL Constipation 07/25/17 16:15 08/24/17 16:14 Povidone Iodine (Betadine Caridad) 1 applic DAILY TOPIC 07/29/17 09:00 08/25/17 15:59 08/08/17 08:11 Nilay (Savita)Marnie NP Aug 08, 2017 14:07
--- NOTE | 2017-08-08 15:25 | Nephrology Progress Note ---
Assessment/Plan Assessment 1.[place]UST[place] most likely AIN 2,uncontrolled DM 3,Hyponatremia improving 4.Right shoulder abscess 5.morbid obesity Plan renal function is stable continue IVF change iv antibiotic based on renal function monitoring renal function mix all ivpb with NS.9 replace electrolyte as need it avoid NSAID ok to d/c home fallow up as out patient for monitoring renal function Subjective Constitutional: Reports: no symptoms HEENT: Reports: no symptoms Genitourinary: Reports: no symptoms Neurologic/Psychiatric: Reports: no symptoms Subjective no complaints Objective Objective Last 24 Hour Vital Signs Date Time Temp Pulse Resp B/P (MAP) Pulse Ox O2 Delivery O2 Flow Rate FiO2 08/08/17 13:30 113/78 08/08/17 12:00 96.6 66 20 113/78 96 Room Air 08/08/17 08:08 151/70 08/08/17 08:00 98.9 72 20 151/70 96 Room Air 08/08/17 04:00 97.2 57 20 132/79 99 Room Air 08/08/17 00:00 97.5 58 20 118/76 99 Room Air 08/07/17 20:55 137/88 08/07/17 20:13 97.8 53 20 137/88 95 Room Air 08/07/17 17:41 115/77 08/07/17 15:47 97.9 58 20 115/77 100 Room Air Laboratory Tests 08/08/17 10:00: Sodium Level 133L, Potassium Level 4.8, Chloride Level 102, Carbon Dioxide Level 23, Anion Gap 8, Blood Urea Nitrogen 24H, Creatinine 2.2H, Estimat Glomerular Filtration Rate 32.7, Glucose Level 155H, Calcium Level 9.0 08/08/17 13:20: White Blood Count 7.3, Red Blood Count 3.69L, Hemoglobin 11.3L, Hematocrit 34.7L , Mean Corpuscular Volume 94, Mean Corpuscular Hemoglobin 30.7, Mean Corpuscular Hemoglobin Concent 32.6, Red Cell Distribution Width 12.8, Platelet Count 484H, Mean Platelet Volume 7.2, Neutrophils (%) (Auto) 55.0, Lymphocytes ( %) (Auto) 36.3, Monocytes (%) (Auto) 5.0, Eosinophils (%) (Auto) 2.6, Basophils (%) (Auto) 1.2 Height (Feet): 5 Height (Inches): 5.00 Weight (Pounds): 190 Objective Head and Neck: No JVP. No LAD. No thyromegaly. Extraocular movement intact. Pupils are reactive to light and accommodation. LUNGS: Clear to auscultation. CARDIAC: Regular rate and rhythm. S1 and S2. No murmur. No rub. ABDOMEN: Obese, nontender, and nondistended. Extremities: A 1 to 2+ edema. Right shoulder, he has a 20 x 20 cm round lesion with the yellowish, foul smelling drainage. It is very tender to touch and has had some degree of fluctuation. BHARGAVI SANZ Aug 08, 2017 15:25
--- NOTE | 2017-08-08 18:55 | Infectious Diseases Prog Note ---
Assessment/Plan Problems: (1) Abscess of right shoulder Assessment & Plan: S/P I&D for source control , on zosyn to cover for necrotizing fasciitis and skin abscess due to MSSA , and bacteremia , continue local wound care and debridement as per surgery. will need four weeks of IV antibiotics, EOT 08/27/17 (2) Gram-positive cocci bacteremia Assessment & Plan: WITH MSSA, due to shoulder abscess AND necrotizing fascitis , had source control with I&D, now on zosyn only , 2 D echo didn't show any valve vegetations , repeated blood culture to confirm clearance is negative on 07/26 , continue zosyn only for now which cover MSSA bacteremia and skin necrotizing fascitis and abscess. will need four weeks of iv antibiotics therapy for MSSA bacteremia and necrotizing fascitis . EOT 08/27/17 (3) Poorly controlled diabetes mellitus Assessment & Plan: recommend tight glycemic control to keep blood glucose between 80-120 (4) AUGUSTO (acute kidney injury) Assessment & Plan: keep off vancomycin completely , since his creatinine is still high , continue iv fluids for hydration, avoid nephrotoxic meds , monitor renal function, nephrology is following Subjective Constitutional: Reports: no symptoms HEENT: Reports: no symptoms Respiratory: Reports: no symptoms Breasts: Reports: no symptoms Cardiovascular: Reports: no symptoms Gastrointestinal/Abdominal: Reports: no symptoms Genitourinary: Reports: no symptoms Neurologic: Reports: no symptoms Psychiatric: Reports: no symptoms Skin: Reports: no symptoms Allergies: Coded Allergies: No Known Allergies (Unverified , 04/19/16) Objective Vital Signs Last 24 Hour Vital Signs Date Time Temp Pulse Resp B/P (MAP) Pulse Ox O2 Delivery O2 Flow Rate FiO2 08/08/17 18:29 133/91 08/08/17 16:00 97.4 55 20 133/91 97 Room Air 08/08/17 13:30 113/78 08/08/17 12:00 96.6 66 20 113/78 96 Room Air 08/08/17 08:08 151/70 08/08/17 08:00 98.9 72 20 151/70 96 Room Air 08/08/17 04:00 97.2 57 20 132/79 99 Room Air 08/08/17 00:00 97.5 58 20 118/76 99 Room Air 08/07/17 20:55 137/88 08/07/17 20:13 97.8 53 20 137/88 95 Room Air Height (Feet): 5 Height (Inches): 5.00 Weight (Pounds): 190 General Appearance: WD/WN, no acute distress HEENT: normocephalic, atraumatic, anicteric, mucous membranes moist Respiratory/Chest: chest wall non-tender, lungs clear, normal breath sounds Cardiovascular: normal peripheral pulses, normal rate, regular rhythm Abdomen: normal bowel sounds, soft, non tender, no organomegaly, non distended , no mass, no scars Genitourinary: normal external genitalia Extremities: no cyanosis, no clubbing Skin: no rash, no lesions, ulcers - right posterior surgical wound with mild necrosis and yellowish exudate Laboratory Tests Test 08/08/17 10:00 08/08/17 13:20 Sodium Level 133 MMOL/L (136-145) L Potassium Level 4.8 MMOL/L (3.5-5.1) Chloride Level 102 MMOL/L (98-107) Carbon Dioxide Level 23 MMOL/L (21-32) Anion Gap 8 (5-15) Blood Urea Nitrogen 24 mg/dL (7-18) H Creatinine 2.2 MG/DL (0.55-1.30) H Estimat Glomerular Filtration Rate 32.7 mL/min (>60) Glucose Level 155 MG/DL (74-106) H Calcium Level 9.0 MG/DL (8.5-10.1) White Blood Count 7.3 K/UL (4.8-10.8) Red Blood Count 3.69 M/UL (4.70-6.10) L Hemoglobin 11.3 G/DL (14.2-18.0) L Hematocrit 34.7 % (42.0-52.0) L Mean Corpuscular Volume 94 FL (80-99) Mean Corpuscular Hemoglobin 30.7 PG (27.0-31.0) Mean Corpuscular Hemoglobin Concent 32.6 G/DL (32.0-36.0) Red Cell Distribution Width 12.8 % (11.6-14.8) Platelet Count 484 K/UL (150-450) H Mean Platelet Volume 7.2 FL (6.5-10.1) Neutrophils (%) (Auto) 55.0 % (45.0-75.0) Lymphocytes (%) (Auto) 36.3 % (20.0-45.0) Monocytes (%) (Auto) 5.0 % (1.0-10.0) Eosinophils (%) (Auto) 2.6 % (0.0-3.0) Basophils (%) (Auto) 1.2 % (0.0-2.0) Current Medications Medications (Trade) Dose Ordered Sig/Leah Route PRN Reason Start Time Stop Time Status Last Admin Dose Admin Acetaminophen (Tylenol) 650 mg Q4H PRN ORAL fever 07/25/17 16:15 08/24/17 16:14 Acetaminophen (Tylenol) 650 mg Q4H PRN RECTAL Mild Pain (Pain Scale 1-3) 07/27/17 15:45 08/24/17 20:29 Clonidine HCl (Catapres) 0.1 mg QID ORAL 07/29/17 09:00 08/27/17 20:59 08/08/17 18:29 Dextrose (Dextrose 50%) STAT PRN IV Hypoglycemia 07/26/17 08:45 08/25/17 08:44 Heparin Sodium (Porcine) (Heparin 5000 units/ml) 5,000 units EVERY 12 HOURS SUBQ 07/25/17 21:00 08/24/17 20:59 08/08/17 08:11 Insulin Aspart (NovoLOG) BEFORE MEALS AND HS SUBQ 07/25/17 17:00 08/24/17 16:59 08/08/17 16:39 Insulin Aspart (NovoLOG) 6 units NOVOTIAC SUBQ 08/03/17 06:30 09/02/17 06:29 08/08/17 16:40 Insulin Detemir (Levemir) 10 units BID SUBQ 08/03/17 09:00 09/02/17 08:59 08/08/17 18:31 Nitroglycerin (Ntg) 0.4 mg Q5M PRN SL Prn Chest Pain 07/25/17 16:15 08/24/17 16:14 Ondansetron HCl (Zofran) 4 mg Q6H PRN IVP Nausea & Vomiting 07/25/17 16:15 08/24/17 16:14 Piperacillin Sod/ Tazobactam Sod 3.375 gm/Sodium Chloride 110 ml @ 27.5 mls/hr EVERY 8 HOURS IVPB 07/27/17 18:00 08/23/17 17:59 08/08/17 13:31 Polyethylene Glycol (Miralax) 17 gm DAILYPRN PRN ORAL Constipation 07/25/17 16:15 08/24/17 16:14 Povidone Iodine (Betadine Caridad) 1 applic DAILY TOPIC 07/29/17 09:00 08/25/17 15:59 08/08/17 08:11 Fernando Clayton M.D. Aug 08, 2017 18:55
[2017-08-09] MEDS: NovoLOG Insulin Flexpen SUBQ SCH ×7 (06:30→21:25)
[2017-08-09] MEDS: Piperacillin/Tazobactam 3.375 GM in NS 110 ML IVPB SCH ×3 (06:39→21:28)
[2017-08-09 07:36] LABS: ANION GAP 5 (5-15); CALCIUM 9.1 MG/DL (8.5-10.1); CARBON DIOXIDE 28 MMOL/L (21-32); CHLORIDE 101 MMOL/L (98-107); CREATININE 2.4 MG/DL (0.55-1.30); GLOMERULAR FILTRATION RATE 29.6 mL/min (>60); SODIUM 134 MMOL/L (136-145)
[2017-08-09 07:37] LABS: BASOPHILS % (AUTO) 1.8 % (0.0-2.0); EOSINOPHILS % (AUTO) 3.8 % (0.0-3.0); LYMPHOCYTES % (AUTO) 44.7 % (20.0-45.0); MEAN CORPUSCULAR HEMOGLOBIN 31.9 PG (27.0-31.0); MEAN CORPUSCULAR HGB CONC 34.2 G/DL (32.0-36.0); MEAN CORPUSCULAR VOLUME 93 FL (80-99); MEAN PLATELET VOLUME 7.6 FL (6.5-10.1); MONOCYTES % (AUTO) 6.3 % (1.0-10.0); NEUTROPHILS % (AUTO) 43.5 % (45.0-75.0); PLATELET COUNT 433 K/UL (150-450); RED BLOOD COUNT 3.37 M/UL (4.70-6.10); RED CELL DISTRIBUTION WIDTH 12.6 % (11.6-14.8); WHITE BLOOD COUNT 6.5 K/UL (4.8-10.8)
[2017-08-09 08:00] VITALS: BP 124/81
--- NOTE | 2017-08-09 08:15 | Geriatric Medicine Prog Note ---
SUBJECTIVE: The patient is more comfortable today. OBJECTIVE: VITAL SIGNS: Blood pressure 120/80, pulse 70, respiratory rate 24, and temperature 98.0 RESPIRATORY: Decreased breath sounds. CARDIOVASCULAR: Regular. LABORATORY DATA: Glucose is 122. ASSESSMENT: Diabetes mellitus, improved. PLAN: To continue Levemir insulin 15 units q.12 hours. Evaristo Vora M.D. DR: NEELIMA JOB#: [id number] CC: LISA
--- NOTE | 2017-08-09 08:32 | Geriatric Medicine Prog Note ---
DATE: 08/07/2017 ENDOCRINE PROGRESS NOTE SUBJECTIVE: The patient remains comfortable today. OBJECTIVE: VITAL SIGNS: Blood pressure 132/80, p80,R20,T68.6. RESPIRATORY: Clear. CVS: Regular. LABORATORY DATA: Glucose 168. ASSESSMENT: Diabetes mellitus, improved. PLAN: Continue sliding scale NovoLog q.i.d. before meals and at bedtime. Evaristo Vora M.D. DR: NEELIMA JOB#: [id number] CC: LISA
[2017-08-09] MEDS: Betadine 4oz Bottle TOPIC SCH (09:13)
[2017-08-09] MEDS: Heparin 5000 units/ml inj SUBQ SCH ×2 (09:15→21:26)
[2017-08-09] MEDS: Levemir Flexpen SUBQ SCH ×2 (09:16→18:02)
--- NOTE | 2017-08-09 11:59 | General Progress Note ---
Assessment/Plan Problem List: (1) Abscess of back ICD Codes: L02.212 - Cutaneous abscess of back [any part, except buttock] SNOMED: 779175432 (2) Abscess of right shoulder ICD Codes: L02.413 - Cutaneous abscess of right upper limb SNOMED: 64059375 (3) Poorly controlled diabetes mellitus ICD Codes: E11.65 - Type 2 diabetes mellitus with hyperglycemia SNOMED: 650126117 Status: stable, progressing, tolerating diet Assessment/Plan ot pt diet wound care abx pain control cbc bmp am dc plan Subjective Constitutional: Reports: weakness Allergies: Coded Allergies: No Known Allergies (Unverified , 04/19/16) All Systems: reviewed and negative except above Subjective calm in bed Objective Last 24 Hour Vital Signs Date Time Temp Pulse Resp B/P (MAP) Pulse Ox O2 Delivery O2 Flow Rate FiO2 08/09/17 09:14 124/81 08/09/17 08:00 97.5 75 17 124/81 97 Room Air 08/08/17 22:44 141/51 08/08/17 21:44 97.7 58 20 141/81 99 Room Air 08/08/17 21:41 97.7 58 20 141/81 99 Room Air 08/08/17 18:29 133/91 08/08/17 16:00 97.4 55 20 133/91 97 Room Air 08/08/17 13:30 113/78 08/08/17 12:00 96.6 66 20 113/78 96 Room Air Intake and Output 08/09/17 08/10/17 19:00 07:00 Intake Total 400 ml Balance 400 ml Intake Oral 400 ml # Voids 1 # Bowel Movements 1 Laboratory Tests 08/08/17 13:20: White Blood Count 7.3, Red Blood Count 3.69L, Hemoglobin 11.3L, Hematocrit 34.7L , Mean Corpuscular Volume 94, Mean Corpuscular Hemoglobin 30.7, Mean Corpuscular Hemoglobin Concent 32.6, Red Cell Distribution Width 12.8, Platelet Count 484H, Mean Platelet Volume 7.2, Neutrophils (%) (Auto) 55.0, Lymphocytes ( %) (Auto) 36.3, Monocytes (%) (Auto) 5.0, Eosinophils (%) (Auto) 2.6, Basophils (%) (Auto) 1.2 08/09/17 05:15: White Blood Count 6.5, Red Blood Count 3.37L, Hemoglobin 10.8L, Hematocrit 31.5L , Mean Corpuscular Volume 93, Mean Corpuscular Hemoglobin 31.9H, Mean Corpuscular Hemoglobin Concent 34.2, Red Cell Distribution Width 12.6, Platelet Count 433, Mean Platelet Volume 7.6, Neutrophils (%) (Auto) 43.5L, Lymphocytes ( %) (Auto) 44.7, Monocytes (%) (Auto) 6.3, Eosinophils (%) (Auto) 3.8H, Basophils (%) (Auto) 1.8, Sodium Level 134L, Potassium Level 4.0, Chloride Level 101, Carbon Dioxide Level 28, Anion Gap 5, Blood Urea Nitrogen 25H, Creatinine 2.4H, Estimat Glomerular Filtration Rate 29.6, Glucose Level 109H, Calcium Level 9.1 Height (Feet): 5 Height (Inches): 5.00 Weight (Pounds): 190 General Appearance: alert EENT: normal ENT inspection Neck: normal alignment Cardiovascular: normal peripheral pulses, normal rate, regular rhythm Respiratory/Chest: chest wall non-tender, lungs clear, normal breath sounds Abdomen: normal bowel sounds, non tender, soft Extremities: normal inspection Edema: no edema noted Arm (L), no edema noted Arm (R), no edema noted Leg (L), no edema noted Leg (R), no edema noted Pedal (L), no edema noted Pedal (R), no edema noted Generalized Neurologic: responsive, motor weakness Skin: normal pigmentation, warm/dry Objective wound dressing sl stained back of right scapula BOB HILL Aug 09, 2017 11:59
[2017-08-09 12:00] VITALS: BP 142/85
[2017-08-09 16:00] VITALS: BP 147/79
--- NOTE | 2017-08-09 16:46 | Nephrology Progress Note ---
Assessment/Plan Assessment 1.[place] most likely AIN 2,uncontrolled DM 3,Hyponatremia improving 4.Right shoulder abscess 5.morbid obesity Plan renal function is stable continue IVF change iv antibiotic based on renal function monitoring renal function mix all ivpb with NS.9 replace electrolyte as need it avoid NSAID ok to d/c home fallow up as out patient for monitoring renal function Subjective Constitutional: Reports: no symptoms HEENT: Reports: no symptoms Genitourinary: Reports: no symptoms Neurologic/Psychiatric: Reports: no symptoms Subjective no complaints feeling ok Objective Objective Last 24 Hour Vital Signs Date Time Temp Pulse Resp B/P (MAP) Pulse Ox O2 Delivery O2 Flow Rate FiO2 08/09/17 12:04 142/85 08/09/17 12:00 97.8 63 18 142/85 98 Room Air 08/09/17 09:14 124/81 08/09/17 08:00 97.5 75 17 124/81 97 Room Air 08/08/17 22:44 141/51 08/08/17 21:44 97.7 58 20 141/81 99 Room Air 08/08/17 21:41 97.7 58 20 141/81 99 Room Air 08/08/17 18:29 133/91 Intake and Output 08/09/17 08/10/17 19:00 07:00 Intake Total 400 ml Balance 400 ml Intake Oral 400 ml # Voids 1 # Bowel Movements 1 Laboratory Tests 08/09/17 05:15: White Blood Count 6.5, Red Blood Count 3.37L, Hemoglobin 10.8L, Hematocrit 31.5L , Mean Corpuscular Volume 93, Mean Corpuscular Hemoglobin 31.9H, Mean Corpuscular Hemoglobin Concent 34.2, Red Cell Distribution Width 12.6, Platelet Count 433, Mean Platelet Volume 7.6, Neutrophils (%) (Auto) 43.5L, Lymphocytes ( %) (Auto) 44.7, Monocytes (%) (Auto) 6.3, Eosinophils (%) (Auto) 3.8H, Basophils (%) (Auto) 1.8, Sodium Level 134L, Potassium Level 4.0, Chloride Level 101, Carbon Dioxide Level 28, Anion Gap 5, Blood Urea Nitrogen 25H, Creatinine 2.4H, Estimat Glomerular Filtration Rate 29.6, Glucose Level 109H, Calcium Level 9.1 Height (Feet): 5 Height (Inches): 5.00 Weight (Pounds): 190 Objective Head and Neck: No JVP. No LAD. No thyromegaly. Extraocular movement intact. Pupils are reactive to light and accommodation. LUNGS: Clear to auscultation. CARDIAC: Regular rate and rhythm. S1 and S2. No murmur. No rub. ABDOMEN: Obese, nontender, and nondistended. Extremities: A 1 to 2+ edema. Right shoulder, he has a 20 x 20 cm round lesion with the yellowish, foul smelling drainage. It is very tender to touch and has had some degree of fluctuation. BHARGAVI SANZ Aug 09, 2017 16:45
[2017-08-09 17:58] VITALS: BP 155/90
[2017-08-09 20:00] VITALS: BP 153/96
--- NOTE | 2017-08-09 23:22 | Infectious Diseases Prog Note ---
Assessment/Plan Problems: (1) MSSA (methicillin susceptible Staphylococcus aureus) septicemia Assessment & Plan: In the setting of right shoulder abscess. Now status-post I&D. F/u BCx cleared. On Zosyn till 08/27/2017. (2) Diabetes mellitus (3) AUGUSTO (acute kidney injury) Assessment & Plan: Now CKD. In the setting of sepsis. (4) Abscess of right shoulder Assessment & Plan: Due to MSSA. Had necrotizing fascitis. Status post I&D. On Zosyn. Subjective Allergies: Coded Allergies: No Known Allergies (Unverified , 04/19/16) Objective Vital Signs Last 24 Hour Vital Signs Date Time Temp Pulse Resp B/P (MAP) Pulse Ox O2 Delivery O2 Flow Rate FiO2 08/09/17 21:16 152/96 08/09/17 18:00 155/90 08/09/17 17:58 75 155/90 08/09/17 16:00 98.5 74 147/79 08/09/17 12:04 142/85 08/09/17 12:00 97.8 63 18 142/85 98 Room Air 08/09/17 09:14 124/81 08/09/17 08:00 97.5 75 17 124/81 97 Room Air Height (Feet): 5 Height (Inches): 5.00 Weight (Pounds): 190 Laboratory Tests Test 08/09/17 05:15 White Blood Count 6.5 K/UL (4.8-10.8) Red Blood Count 3.37 M/UL (4.70-6.10) L Hemoglobin 10.8 G/DL (14.2-18.0) L Hematocrit 31.5 % (42.0-52.0) L Mean Corpuscular Volume 93 FL (80-99) Mean Corpuscular Hemoglobin 31.9 PG (27.0-31.0) H Mean Corpuscular Hemoglobin Concent 34.2 G/DL (32.0-36.0) Red Cell Distribution Width 12.6 % (11.6-14.8) Platelet Count 433 K/UL (150-450) Mean Platelet Volume 7.6 FL (6.5-10.1) Neutrophils (%) (Auto) 43.5 % (45.0-75.0) L Lymphocytes (%) (Auto) 44.7 % (20.0-45.0) Monocytes (%) (Auto) 6.3 % (1.0-10.0) Eosinophils (%) (Auto) 3.8 % (0.0-3.0) H Basophils (%) (Auto) 1.8 % (0.0-2.0) Sodium Level 134 MMOL/L (136-145) L Potassium Level 4.0 MMOL/L (3.5-5.1) Chloride Level 101 MMOL/L (98-107) Carbon Dioxide Level 28 MMOL/L (21-32) Anion Gap 5 (5-15) Blood Urea Nitrogen 25 mg/dL (7-18) H Creatinine 2.4 MG/DL (0.55-1.30) H Estimat Glomerular Filtration Rate 29.6 mL/min (>60) Glucose Level 109 MG/DL (74-106) H Calcium Level 9.1 MG/DL (8.5-10.1) Current Medications Medications (Trade) Dose Ordered Sig/Leah Route PRN Reason Start Time Stop Time Status Last Admin Dose Admin Acetaminophen (Tylenol) 650 mg Q4H PRN ORAL fever 07/25/17 16:15 08/24/17 16:14 Acetaminophen (Tylenol) 650 mg Q4H PRN RECTAL Mild Pain (Pain Scale 1-3) 07/27/17 15:45 08/24/17 20:29 Clonidine HCl (Catapres) 0.1 mg QID ORAL 07/29/17 09:00 08/27/17 20:59 08/09/17 21:16 Dextrose (Dextrose 50%) STAT PRN IV Hypoglycemia 07/26/17 08:45 08/25/17 08:44 Heparin Sodium (Porcine) (Heparin 5000 units/ml) 5,000 units EVERY 12 HOURS SUBQ 07/25/17 21:00 08/24/17 20:59 08/09/17 21:26 Insulin Aspart (NovoLOG) BEFORE MEALS AND HS SUBQ 07/25/17 17:00 08/24/17 16:59 08/09/17 21:25 Insulin Aspart (NovoLOG) 6 units NOVOTIAC SUBQ 08/03/17 06:30 09/02/17 06:29 08/09/17 18:00 Insulin Detemir (Levemir) 10 units BID SUBQ 08/03/17 09:00 09/02/17 08:59 08/09/17 18:02 Nitroglycerin (Ntg) 0.4 mg Q5M PRN SL Prn Chest Pain 07/25/17 16:15 08/24/17 16:14 Ondansetron HCl (Zofran) 4 mg Q6H PRN IVP Nausea & Vomiting 07/25/17 16:15 08/24/17 16:14 Piperacillin Sod/ Tazobactam Sod 3.375 gm/Sodium Chloride 110 ml @ 27.5 mls/hr EVERY 8 HOURS IVPB 07/27/17 18:00 08/27/17 23:59 08/09/17 21:28 Polyethylene Glycol (Miralax) 17 gm DAILYPRN PRN ORAL Constipation 07/25/17 16:15 08/24/17 16:14 Povidone Iodine (Betadine Caridad) 1 applic DAILY TOPIC 07/29/17 09:00 08/25/17 15:59 08/09/17 09:13 CALLIE ESCAMILLA Aug 09, 2017 23:22
[2017-08-10] VITALS: BP 119/74
[2017-08-10 04:00] VITALS: BP 124/77
[2017-08-10] MEDS: NovoLOG Insulin Flexpen SUBQ SCH ×8 (06:13→20:37)
[2017-08-10] MEDS: Piperacillin/Tazobactam 3.375 GM in NS 110 ML IVPB SCH ×3 (06:14→20:29)
[2017-08-10 07:18] LABS: BASOPHILS % (AUTO) 2.1 % (0.0-2.0); EOSINOPHILS % (AUTO) 3.8 % (0.0-3.0); LYMPHOCYTES % (AUTO) 42.9 % (20.0-45.0); MEAN CORPUSCULAR HEMOGLOBIN 31.9 PG (27.0-31.0); MEAN CORPUSCULAR HGB CONC 34.1 G/DL (32.0-36.0); MEAN CORPUSCULAR VOLUME 94 FL (80-99); MONOCYTES % (AUTO) 6.5 % (1.0-10.0); NEUTROPHILS % (AUTO) 44.7 % (45.0-75.0); PLATELET COUNT 403 K/UL (150-450); RED BLOOD COUNT 3.44 M/UL (4.70-6.10); RED CELL DISTRIBUTION WIDTH 12.8 % (11.6-14.8); WHITE BLOOD COUNT 5.9 K/UL (4.8-10.8)
[2017-08-10 07:32] LABS: ANION GAP 8 mmol/L (5-15); CALCIUM 9.2 MG/DL (8.5-10.1); CARBON DIOXIDE 26 MMOL/L (21-32); CHLORIDE 102 MMOL/L (98-107); CREATININE 2.4 MG/DL (0.55-1.30); GLOMERULAR FILTRATION RATE 29.6 mL/min (>60); SODIUM 136 MMOL/L (136-145)
[2017-08-10 08:00] VITALS: BP 133/91
[2017-08-10] MEDS: Heparin 5000 units/ml inj SUBQ SCH ×2 (08:29→20:26)
[2017-08-10] MEDS: Levemir Flexpen SUBQ SCH ×2 (08:30→17:14)
--- NOTE | 2017-08-10 09:02 | Nephrology Progress Note ---
Assessment/Plan Assessment 1.[place] most likely AIN now stable 2,uncontrolled DM 3,Hyponatremia improving 4.Right shoulder abscess 5.morbid obesity Plan renal function is stable change iv antibiotic based on renal function monitoring renal function mix all ivpb with NS.9 replace electrolyte as need it avoid NSAID ok to d/c home fallow up as out patient for monitoring renal function Subjective Constitutional: Reports: no symptoms HEENT: Reports: no symptoms Genitourinary: Reports: no symptoms Neurologic/Psychiatric: Reports: no symptoms Subjective no complaints feeling ok Objective Objective Last 24 Hour Vital Signs Date Time Temp Pulse Resp B/P (MAP) Pulse Ox O2 Delivery O2 Flow Rate FiO2 08/10/17 08:28 133/91 08/10/17 08:00 97.6 75 20 133/91 99 Room Air 08/10/17 04:00 97.3 52 18 124/77 98 08/10/17 00:00 97.3 53 18 119/74 97 08/09/17 21:16 152/96 08/09/17 20:00 97.1 56 18 153/96 100 08/09/17 18:00 155/90 08/09/17 17:58 75 155/90 08/09/17 16:00 98.5 74 147/79 08/09/17 12:04 142/85 08/09/17 12:00 97.8 63 18 142/85 98 Room Air 08/09/17 09:14 124/81 Intake and Output 08/10/17 08/11/17 19:00 07:00 Output Total 700 ml Balance -700 ml Output Urine Total 700 ml Laboratory Tests 08/10/17 05:25: White Blood Count 5.9, Red Blood Count 3.44L, Hemoglobin 11.0L, Hematocrit 32.1L , Mean Corpuscular Volume 94, Mean Corpuscular Hemoglobin 31.9H, Mean Corpuscular Hemoglobin Concent 34.1, Red Cell Distribution Width 12.8, Platelet Count 403, Mean Platelet Volume 8.0, Neutrophils (%) (Auto) 44.7L, Lymphocytes ( %) (Auto) 42.9, Monocytes (%) (Auto) 6.5, Eosinophils (%) (Auto) 3.8H, Basophils (%) (Auto) 2.1H, Sodium Level 136, Potassium Level 4.0, Chloride Level 102, Carbon Dioxide Level 26, Anion Gap 8, Blood Urea Nitrogen 27H, Creatinine 2.4H, Estimat Glomerular Filtration Rate 29.6, Glucose Level 102, Calcium Level 9.2 Height (Feet): 5 Height (Inches): 5.00 Weight (Pounds): 190 Objective Head and Neck: No JVP. No LAD. No thyromegaly. Extraocular movement intact. Pupils are reactive to light and accommodation. LUNGS: Clear to auscultation. CARDIAC: Regular rate and rhythm. S1 and S2. No murmur. No rub. ABDOMEN: Obese, nontender, and nondistended. Extremities: A 1 to 2+ edema. Right shoulder, he has a 20 x 20 cm round lesion with the yellowish, foul smelling drainage. It is very tender to touch and has had some degree of fluctuation. BHARGAVI SANZ Aug 10, 2017 09:02
[2017-08-10 11:48] VITALS: BP 131/89
[2017-08-10] MEDS: Betadine 4oz Bottle TOPIC SCH (13:02)
--- NOTE | 2017-08-10 13:17 | General Progress Note ---
Assessment/Plan Problem List: (1) Abscess of back ICD Codes: L02.212 - Cutaneous abscess of back [any part, except buttock] SNOMED: 951698498 (2) Abscess of right shoulder ICD Codes: L02.413 - Cutaneous abscess of right upper limb SNOMED: 52278456 (3) Poorly controlled diabetes mellitus ICD Codes: E11.65 - Type 2 diabetes mellitus with hyperglycemia SNOMED: 810900934 Status: stable, progressing, tolerating diet Assessment/Plan ot pt diet wound care abx pain control cbc bmp am dc plan Subjective Constitutional: Reports: weakness Allergies: Coded Allergies: No Known Allergies (Unverified , 04/19/16) All Systems: reviewed and negative except above Subjective calm in bed Objective Last 24 Hour Vital Signs Date Time Temp Pulse Resp B/P (MAP) Pulse Ox O2 Delivery O2 Flow Rate FiO2 08/10/17 13:05 131/89 08/10/17 11:48 97.2 71 18 131/89 99 Room Air 08/10/17 08:28 133/91 08/10/17 08:00 97.6 75 20 133/91 99 Room Air 08/10/17 04:00 97.3 52 18 124/77 98 08/10/17 00:00 97.3 53 18 119/74 97 08/09/17 21:16 152/96 08/09/17 20:00 97.1 56 18 153/96 100 08/09/17 18:00 155/90 08/09/17 17:58 75 155/90 08/09/17 16:00 98.5 74 147/79 Intake and Output 08/10/17 08/11/17 19:00 07:00 Intake Total 110.0 ml Output Total 700 ml Balance -590.0 ml IV Total 110.0 ml Output Urine Total 700 ml Laboratory Tests 08/10/17 05:25: White Blood Count 5.9, Red Blood Count 3.44L, Hemoglobin 11.0L, Hematocrit 32.1L , Mean Corpuscular Volume 94, Mean Corpuscular Hemoglobin 31.9H, Mean Corpuscular Hemoglobin Concent 34.1, Red Cell Distribution Width 12.8, Platelet Count 403, Mean Platelet Volume 8.0, Neutrophils (%) (Auto) 44.7L, Lymphocytes ( %) (Auto) 42.9, Monocytes (%) (Auto) 6.5, Eosinophils (%) (Auto) 3.8H, Basophils (%) (Auto) 2.1H, Sodium Level 136, Potassium Level 4.0, Chloride Level 102, Carbon Dioxide Level 26, Anion Gap 8, Blood Urea Nitrogen 27H, Creatinine 2.4H, Estimat Glomerular Filtration Rate 29.6, Glucose Level 102, Calcium Level 9.2 Height (Feet): 5 Height (Inches): 5.00 Weight (Pounds): 190 General Appearance: alert EENT: normal ENT inspection Neck: normal alignment Cardiovascular: normal peripheral pulses, normal rate, regular rhythm Respiratory/Chest: chest wall non-tender, lungs clear, normal breath sounds Abdomen: normal bowel sounds, non tender, soft Extremities: normal inspection Edema: no edema noted Arm (L), no edema noted Arm (R), no edema noted Leg (L), no edema noted Leg (R), no edema noted Pedal (L), no edema noted Pedal (R), no edema noted Generalized Neurologic: responsive, motor weakness Skin: normal pigmentation, warm/dry Objective wound dressing sl stained back of right scapula BOB HILL Aug 10, 2017 13:17
[2017-08-10 15:49] VITALS: BP 111/73
[2017-08-10 20:06] VITALS: BP 106/61
[2017-08-11] VITALS (7 sets, daily range): BP systolic 120–146; BP diastolic 70–91
[2017-08-11] MEDS: Piperacillin/Tazobactam 3.375 GM in NS 110 ML IVPB SCH ×3 (05:16→22:00)
[2017-08-11] MEDS: NovoLOG Insulin Flexpen SUBQ SCH ×6 (05:17→21:42)
[2017-08-11 06:53] LABS: BASOPHILS % (AUTO) 1.4 % (0.0-2.0); LYMPHOCYTES % (AUTO) 45.4 % (20.0-45.0); MEAN CORPUSCULAR HEMOGLOBIN 31.7 PG (27.0-31.0); MEAN CORPUSCULAR VOLUME 93 FL (80-99); MEAN PLATELET VOLUME 8.2 FL (6.5-10.1); MONOCYTES % (AUTO) 6.7 % (1.0-10.0); NEUTROPHILS % (AUTO) 42.6 % (45.0-75.0); PLATELET COUNT 407 K/UL (150-450); RED BLOOD COUNT 3.53 M/UL (4.70-6.10); RED CELL DISTRIBUTION WIDTH 13.3 % (11.6-14.8)
[2017-08-11] MEDS: Betadine 4oz Bottle TOPIC SCH (09:24)
[2017-08-11] MEDS: Heparin 5000 units/ml inj SUBQ SCH ×2 (09:27→21:42)
[2017-08-11] MEDS: Levemir Flexpen SUBQ SCH ×2 (09:28→17:34)
[2017-08-11 09:35] LABS: ANION GAP 11 mmol/L (5-15); CALCIUM 9.4 MG/DL (8.5-10.1); CARBON DIOXIDE 24 MMOL/L (21-32); CHLORIDE 102 MMOL/L (98-107); CREATININE 2.3 MG/DL (0.55-1.30); POTASSIUM 4.1 MMOL/L (3.5-5.1); SODIUM 137 MMOL/L (136-145)
--- NOTE | 2017-08-11 13:35 | Nephrology Progress Note ---
Assessment/Plan Assessment 1.[place] most likely AIN now stable 2,uncontrolled DM 3,Hyponatremia improving 4.Right shoulder abscess 5.morbid obesity Plan renal function is stable change iv antibiotic based on renal function monitoring renal function mix all ivpb with NS.9 replace electrolyte as need it avoid NSAID ok to d/c home fallow up as out patient for monitoring renal function Subjective Constitutional: Reports: no symptoms HEENT: Reports: no symptoms Genitourinary: Reports: no symptoms Neurologic/Psychiatric: Reports: no symptoms Subjective no complaints feeling ok Objective Objective Last 24 Hour Vital Signs Date Time Temp Pulse Resp B/P (MAP) Pulse Ox O2 Delivery O2 Flow Rate FiO2 08/11/17 13:16 134/88 08/11/17 12:00 98.4 54 20 134/88 98 Room Air 08/11/17 09:24 146/91 08/11/17 08:00 98.7 59 18 146/91 97 Room Air 08/11/17 05:27 97.4 57 18 120/82 94 Room Air 08/11/17 04:00 97.4 57 18 120/82 94 Room Air 08/11/17 00:00 97.2 60 19 120/70 96 Room Air 08/10/17 20:25 101/62 08/10/17 20:06 97.6 54 18 106/61 95 Room Air 08/10/17 17:11 111/73 08/10/17 15:49 97.7 56 18 111/73 99 Room Air Laboratory Tests 08/11/17 05:45: White Blood Count 6.0, Red Blood Count 3.53L, Hemoglobin 11.2L, Hematocrit 32.9L , Mean Corpuscular Volume 93, Mean Corpuscular Hemoglobin 31.7H, Mean Corpuscular Hemoglobin Concent 34.0, Red Cell Distribution Width 13.3, Platelet Count 407, Mean Platelet Volume 8.2, Neutrophils (%) (Auto) 42.6L, Lymphocytes ( %) (Auto) 45.4H, Monocytes (%) (Auto) 6.7, Eosinophils (%) (Auto) 4.0H, Basophils (%) (Auto) 1.4, Sodium Level 137, Potassium Level 4.1, Chloride Level 102, Carbon Dioxide Level 24, Anion Gap 11, Blood Urea Nitrogen 27H, Creatinine 2.3H, Estimat Glomerular Filtration Rate 31.0, Glucose Level 105, Calcium Level 9.4 Height (Feet): 5 Height (Inches): 5.00 Weight (Pounds): 190 Objective Head and Neck: No JVP. No LAD. No thyromegaly. Extraocular movement intact. Pupils are reactive to light and accommodation. LUNGS: Clear to auscultation. CARDIAC: Regular rate and rhythm. S1 and S2. No murmur. No rub. ABDOMEN: Obese, nontender, and nondistended. Extremities: A 1 to 2+ edema. Right shoulder, he has a 20 x 20 cm round lesion with the yellowish, foul smelling drainage. It is very tender to touch and has had some degree of fluctuation. BHARGAVI SANZ Aug 11, 2017 13:35
--- NOTE | 2017-08-11 14:46 | General Progress Note ---
Assessment/Plan Problem List: (1) Abscess of back ICD Codes: L02.212 - Cutaneous abscess of back [any part, except buttock] SNOMED: 764363246 (2) Abscess of right shoulder ICD Codes: L02.413 - Cutaneous abscess of right upper limb SNOMED: 47713418 (3) Poorly controlled diabetes mellitus ICD Codes: E11.65 - Type 2 diabetes mellitus with hyperglycemia SNOMED: 903544810 Status: stable, progressing, tolerating diet Assessment/Plan ot pt diet wound care abx pain control cbc bmp am dc plan Subjective Constitutional: Reports: weakness Allergies: Coded Allergies: No Known Allergies (Unverified , 04/19/16) All Systems: reviewed and negative except above Subjective calm in bed Objective Last 24 Hour Vital Signs Date Time Temp Pulse Resp B/P (MAP) Pulse Ox O2 Delivery O2 Flow Rate FiO2 08/11/17 13:16 134/88 08/11/17 12:00 98.4 54 20 134/88 98 Room Air 08/11/17 09:24 146/91 08/11/17 08:00 98.7 59 18 146/91 97 Room Air 08/11/17 05:27 97.4 57 18 120/82 94 Room Air 08/11/17 04:00 97.4 57 18 120/82 94 Room Air 08/11/17 00:00 97.2 60 19 120/70 96 Room Air 08/10/17 20:25 101/62 08/10/17 20:06 97.6 54 18 106/61 95 Room Air 08/10/17 17:11 111/73 08/10/17 15:49 97.7 56 18 111/73 99 Room Air Laboratory Tests 08/11/17 05:45: White Blood Count 6.0, Red Blood Count 3.53L, Hemoglobin 11.2L, Hematocrit 32.9L , Mean Corpuscular Volume 93, Mean Corpuscular Hemoglobin 31.7H, Mean Corpuscular Hemoglobin Concent 34.0, Red Cell Distribution Width 13.3, Platelet Count 407, Mean Platelet Volume 8.2, Neutrophils (%) (Auto) 42.6L, Lymphocytes ( %) (Auto) 45.4H, Monocytes (%) (Auto) 6.7, Eosinophils (%) (Auto) 4.0H, Basophils (%) (Auto) 1.4, Sodium Level 137, Potassium Level 4.1, Chloride Level 102, Carbon Dioxide Level 24, Anion Gap 11, Blood Urea Nitrogen 27H, Creatinine 2.3H, Estimat Glomerular Filtration Rate 31.0, Glucose Level 105, Calcium Level 9.4 Height (Feet): 5 Height (Inches): 5.00 Weight (Pounds): 190 General Appearance: alert EENT: normal ENT inspection Neck: normal alignment Cardiovascular: normal peripheral pulses, normal rate, regular rhythm Respiratory/Chest: chest wall non-tender, lungs clear, normal breath sounds Abdomen: normal bowel sounds, non tender, soft Extremities: normal inspection Edema: no edema noted Arm (L), no edema noted Arm (R), no edema noted Leg (L), no edema noted Leg (R), no edema noted Pedal (L), no edema noted Pedal (R), no edema noted Generalized Neurologic: responsive, motor weakness Skin: normal pigmentation, warm/dry Objective wound dressing sl stained back of right scapula BOB HILL Aug 11, 2017 14:46
--- NOTE | 2017-08-11 18:56 | General Progress Note ---
Assessment/Plan Problem List: (1) Non-compliance ICD Codes: Z91.19 - Patient's noncompliance with other medical treatment and regimen SNOMED: 3454847 (2) Poorly controlled diabetes mellitus ICD Codes: E11.65 - Type 2 diabetes mellitus with hyperglycemia SNOMED: 574389451 (3) Abscess of right shoulder ICD Codes: L02.413 - Cutaneous abscess of right upper limb SNOMED: 26554617 (4) Elevated lactic acid level ICD Codes: E87.2 - Acidosis SNOMED: 3840269 Assessment/Plan glucose is well controlled on current insulin regimen continue Levemir 10 units bid continue Novolog 6 units ac tid + SSI clear for DC home for endocrine stand point Rx for all diabetes meds and supply left in chart Subjective Allergies: Coded Allergies: No Known Allergies (Unverified , 04/19/16) All Systems: reviewed and negative except above Subjective events noted - interval noted reviewed doing fine - no complaints Objective Last 24 Hour Vital Signs Date Time Temp Pulse Resp B/P (MAP) Pulse Ox O2 Delivery O2 Flow Rate FiO2 08/11/17 17:26 134/88 08/11/17 16:00 97.7 76 18 129/84 99 Room Air 08/11/17 13:16 134/88 08/11/17 12:00 98.4 54 20 134/88 98 Room Air 08/11/17 09:24 146/91 08/11/17 08:00 98.7 59 18 146/91 97 Room Air 08/11/17 05:27 97.4 57 18 120/82 94 Room Air 08/11/17 04:00 97.4 57 18 120/82 94 Room Air 08/11/17 00:00 97.2 60 19 120/70 96 Room Air 08/10/17 20:25 101/62 08/10/17 20:06 97.6 54 18 106/61 95 Room Air Laboratory Tests 08/11/17 05:45: White Blood Count 6.0, Red Blood Count 3.53L, Hemoglobin 11.2L, Hematocrit 32.9L , Mean Corpuscular Volume 93, Mean Corpuscular Hemoglobin 31.7H, Mean Corpuscular Hemoglobin Concent 34.0, Red Cell Distribution Width 13.3, Platelet Count 407, Mean Platelet Volume 8.2, Neutrophils (%) (Auto) 42.6L, Lymphocytes ( %) (Auto) 45.4H, Monocytes (%) (Auto) 6.7, Eosinophils (%) (Auto) 4.0H, Basophils (%) (Auto) 1.4, Sodium Level 137, Potassium Level 4.1, Chloride Level 102, Carbon Dioxide Level 24, Anion Gap 11, Blood Urea Nitrogen 27H, Creatinine 2.3H, Estimat Glomerular Filtration Rate 31.0, Glucose Level 105, Calcium Level 9.4 Height (Feet): 5 Height (Inches): 5.00 Weight (Pounds): 190 General Appearance: no apparent distress EENT: PERRL/EOMI Neck: normal alignment Cardiovascular: normal rate Respiratory/Chest: lungs clear Abdomen: normal bowel sounds Pelvis: normal external exam Edema: no edema noted Arm (L), no edema noted Arm (R), no edema noted Leg (L), no edema noted Leg (R), no edema noted Pedal (L), no edema noted Pedal (R), no edema noted Generalized Objective Current Medications Medications (Trade) Dose Ordered Sig/Leah Route PRN Reason Start Time Stop Time Status Last Admin Dose Admin Acetaminophen (Tylenol) 650 mg Q4H PRN ORAL fever 07/25/17 16:15 08/24/17 16:14 Acetaminophen (Tylenol) 650 mg Q4H PRN RECTAL Mild Pain (Pain Scale 1-3) 07/27/17 15:45 08/24/17 20:29 Clonidine HCl (Catapres) 0.1 mg QID ORAL 07/29/17 09:00 08/27/17 20:59 08/11/17 17:26 Dextrose (Dextrose 50%) STAT PRN IV Hypoglycemia 07/26/17 08:45 08/25/17 08:44 Heparin Sodium (Porcine) (Heparin 5000 units/ml) 5,000 units EVERY 12 HOURS SUBQ 07/25/17 21:00 08/24/17 20:59 08/11/17 09:27 Insulin Aspart (NovoLOG) BEFORE MEALS AND HS SUBQ 07/25/17 17:00 08/24/17 16:59 08/11/17 17:32 Insulin Aspart (NovoLOG) 6 units NOVOTIAC SUBQ 08/03/17 06:30 09/02/17 06:29 08/11/17 13:19 Insulin Detemir (Levemir) 10 units BID SUBQ 08/03/17 09:00 09/02/17 08:59 08/11/17 17:34 Nitroglycerin (Ntg) 0.4 mg Q5M PRN SL Prn Chest Pain 07/25/17 16:15 08/24/17 16:14 Ondansetron HCl (Zofran) 4 mg Q6H PRN IVP Nausea & Vomiting 07/25/17 16:15 08/24/17 16:14 Piperacillin Sod/ Tazobactam Sod 3.375 gm/Sodium Chloride 110 ml @ 27.5 mls/hr EVERY 8 HOURS IVPB 07/27/17 18:00 08/27/17 23:59 08/11/17 13:34 Polyethylene Glycol (Miralax) 17 gm DAILYPRN PRN ORAL Constipation 07/25/17 16:15 08/24/17 16:14 Povidone Iodine (Betadine Caridad) 1 applic DAILY TOPIC 07/29/17 09:00 08/25/17 15:59 08/11/17 09:24 Item Value Date Time Bedside Blood Glucose 135 mg/dl H 08/11/17 1734 Bedside Blood Glucose 156 mg/dl H 08/11/17 1319 Bedside Blood Glucose 102 mg/dl 08/11/17 0928 Bedside Blood Glucose 102 mg/dl 08/11/17 0630 Bedside Blood Glucose 112 mg/dl 08/10/17 2100 Bedside Blood Glucose 130 mg/dl H 08/10/17 1716 ANN DUARTE Aug 11, 2017 18:56
--- NOTE | 2017-08-11 23:12 | Infectious Diseases Prog Note ---
Assessment/Plan Problems: (1) MSSA (methicillin susceptible Staphylococcus aureus) septicemia Assessment & Plan: In the setting of right shoulder abscess. Now status-post I&D. F/u BCx cleared. On Zosyn till 08/27/2017. (2) Diabetes mellitus (3) AUGUSTO (acute kidney injury) Assessment & Plan: Now CKD. In the setting of sepsis. (4) Abscess of right shoulder Assessment & Plan: Due to MSSA. Had necrotizing fascitis. Status post I&D. On Zosyn. Subjective Allergies: Coded Allergies: No Known Allergies (Unverified , 04/19/16) Objective Vital Signs Last 24 Hour Vital Signs Date Time Temp Pulse Resp B/P (MAP) Pulse Ox O2 Delivery O2 Flow Rate FiO2 08/11/17 21:35 120/78 08/11/17 17:26 134/88 08/11/17 16:00 97.7 76 18 129/84 99 Room Air 08/11/17 13:16 134/88 08/11/17 12:00 98.4 54 20 134/88 98 Room Air 08/11/17 09:24 146/91 08/11/17 08:00 98.7 59 18 146/91 97 Room Air 08/11/17 05:27 97.4 57 18 120/82 94 Room Air 08/11/17 04:00 97.4 57 18 120/82 94 Room Air 08/11/17 00:00 97.2 60 19 120/70 96 Room Air Height (Feet): 5 Height (Inches): 5.00 Weight (Pounds): 190 Laboratory Tests Test 08/11/17 05:45 White Blood Count 6.0 K/UL (4.8-10.8) Red Blood Count 3.53 M/UL (4.70-6.10) L Hemoglobin 11.2 G/DL (14.2-18.0) L Hematocrit 32.9 % (42.0-52.0) L Mean Corpuscular Volume 93 FL (80-99) Mean Corpuscular Hemoglobin 31.7 PG (27.0-31.0) H Mean Corpuscular Hemoglobin Concent 34.0 G/DL (32.0-36.0) Red Cell Distribution Width 13.3 % (11.6-14.8) Platelet Count 407 K/UL (150-450) Mean Platelet Volume 8.2 FL (6.5-10.1) Neutrophils (%) (Auto) 42.6 % (45.0-75.0) L Lymphocytes (%) (Auto) 45.4 % (20.0-45.0) H Monocytes (%) (Auto) 6.7 % (1.0-10.0) Eosinophils (%) (Auto) 4.0 % (0.0-3.0) H Basophils (%) (Auto) 1.4 % (0.0-2.0) Sodium Level 137 MMOL/L (136-145) Potassium Level 4.1 MMOL/L (3.5-5.1) Chloride Level 102 MMOL/L (98-107) Carbon Dioxide Level 24 MMOL/L (21-32) Anion Gap 11 mmol/L (5-15) Blood Urea Nitrogen 27 mg/dL (7-18) H Creatinine 2.3 MG/DL (0.55-1.30) H Estimat Glomerular Filtration Rate 31.0 mL/min (>60) Glucose Level 105 MG/DL (74-106) Calcium Level 9.4 MG/DL (8.5-10.1) Current Medications Medications (Trade) Dose Ordered Sig/Leah Route PRN Reason Start Time Stop Time Status Last Admin Dose Admin Acetaminophen (Tylenol) 650 mg Q4H PRN ORAL fever 07/25/17 16:15 08/24/17 16:14 Acetaminophen (Tylenol) 650 mg Q4H PRN RECTAL Mild Pain (Pain Scale 1-3) 07/27/17 15:45 08/24/17 20:29 Clonidine HCl (Catapres) 0.1 mg QID ORAL 07/29/17 09:00 08/27/17 20:59 08/11/17 21:35 Dextrose (Dextrose 50%) STAT PRN IV Hypoglycemia 07/26/17 08:45 08/25/17 08:44 Heparin Sodium (Porcine) (Heparin 5000 units/ml) 5,000 units EVERY 12 HOURS SUBQ 07/25/17 21:00 08/24/17 20:59 08/11/17 21:42 Insulin Aspart (NovoLOG) BEFORE MEALS AND HS SUBQ 07/25/17 17:00 08/24/17 16:59 08/11/17 21:42 Insulin Aspart (NovoLOG) 6 units NOVOTIAC SUBQ 08/03/17 06:30 09/02/17 06:29 08/11/17 13:19 Insulin Detemir (Levemir) 10 units BID SUBQ 08/03/17 09:00 09/02/17 08:59 08/11/17 17:34 Nitroglycerin (Ntg) 0.4 mg Q5M PRN SL Prn Chest Pain 07/25/17 16:15 08/24/17 16:14 Ondansetron HCl (Zofran) 4 mg Q6H PRN IVP Nausea & Vomiting 07/25/17 16:15 08/24/17 16:14 Piperacillin Sod/ Tazobactam Sod 3.375 gm/Sodium Chloride 110 ml @ 27.5 mls/hr EVERY 8 HOURS IVPB 07/27/17 18:00 08/27/17 23:59 08/11/17 22:00 Polyethylene Glycol (Miralax) 17 gm DAILYPRN PRN ORAL Constipation 07/25/17 16:15 08/24/17 16:14 Povidone Iodine (Betadine Caridad) 1 applic DAILY TOPIC 07/29/17 09:00 08/25/17 15:59 08/11/17 09:24 CALLIE ESCAMILLA Aug 11, 2017 23:12
[2017-08-12] VITALS (7 sets, daily range): BP systolic 107–143; BP diastolic 72–91
[2017-08-12] MEDS: NovoLOG Insulin Flexpen SUBQ SCH ×8 (06:30→21:50)
[2017-08-12] MEDS: Piperacillin/Tazobactam 3.375 GM in NS 110 ML IVPB SCH ×3 (06:35→21:47)
--- NOTE | 2017-08-12 08:11 | Nephrology Progress Note ---
Assessment/Plan Assessment 1.[place] most likely AIN now stable 2,uncontrolled DM 3,Hyponatremia improving 4.Right shoulder abscess 5.morbid obesity Plan renal function is stable monitoring renal function mix all ivpb with NS.9 replace electrolyte as need it avoid NSAID ok to d/c home fallow up as out patient for monitoring renal function Subjective HEENT: Reports: no symptoms Genitourinary: Reports: no symptoms Neurologic/Psychiatric: Reports: no symptoms Subjective no complaints feeling ok Objective Objective Last 24 Hour Vital Signs Date Time Temp Pulse Resp B/P (MAP) Pulse Ox O2 Delivery O2 Flow Rate FiO2 08/12/17 04:00 98.0 60 18 107/72 98 Room Air 08/12/17 00:27 97.3 55 16 120/74 97 Room Air 08/11/17 21:35 120/78 08/11/17 20:00 97.4 59 18 120/78 100 Room Air 08/11/17 17:26 134/88 08/11/17 16:00 97.7 76 18 129/84 99 Room Air 08/11/17 13:16 134/88 08/11/17 12:00 98.4 54 20 134/88 98 Room Air 08/11/17 09:24 146/91 Height (Feet): 5 Height (Inches): 5.00 Weight (Pounds): 190 Objective Head and Neck: No JVP. No LAD. No thyromegaly. Extraocular movement intact. Pupils are reactive to light and accommodation. LUNGS: Clear to auscultation. CARDIAC: Regular rate and rhythm. S1 and S2. No murmur. No rub. ABDOMEN: Obese, nontender, and nondistended. Extremities: A 1 to 2+ edema. Right shoulder, he has a 20 x 20 cm round lesion with the yellowish, foul smelling drainage. It is very tender to touch and has had some degree of fluctuation. BHARGAVI SANZ Aug 12, 2017 08:11
[2017-08-12] MEDS: Levemir Flexpen SUBQ SCH ×2 (08:54→17:18)
[2017-08-12] MEDS: Heparin 5000 units/ml inj SUBQ SCH ×2 (08:55→21:48)
[2017-08-12] MEDS: Betadine 4oz Bottle TOPIC SCH ×2 (08:56→22:45)
[2017-08-12 09:12] LABS: BASOPHILS % (AUTO) 2.3 % (0.0-2.0); EOSINOPHILS % (AUTO) 5.2 % (0.0-3.0); LYMPHOCYTES % (AUTO) 46.5 % (20.0-45.0); MEAN CORPUSCULAR HGB CONC 33.1 G/DL (32.0-36.0); MEAN CORPUSCULAR VOLUME 94 FL (80-99); MEAN PLATELET VOLUME 8.2 FL (6.5-10.1); MONOCYTES % (AUTO) 5.4 % (1.0-10.0); NEUTROPHILS % (AUTO) 40.7 % (45.0-75.0); PLATELET COUNT 388 K/UL (150-450); RED BLOOD COUNT 3.65 M/UL (4.70-6.10); RED CELL DISTRIBUTION WIDTH 13.1 % (11.6-14.8); WHITE BLOOD COUNT 5.4 K/UL (4.8-10.8)
[2017-08-12 09:24] LABS: ANION GAP 8 mmol/L (5-15); CALCIUM 9.3 MG/DL (8.5-10.1); CARBON DIOXIDE 28 MMOL/L (21-32); CHLORIDE 101 MMOL/L (98-107); CREATININE 2.2 MG/DL (0.55-1.30); GLOMERULAR FILTRATION RATE 32.7 mL/min (>60); POTASSIUM 4.4 MMOL/L (3.5-5.1); SODIUM 137 MMOL/L (136-145)
--- NOTE | 2017-08-12 15:16 | General Progress Note ---
Assessment/Plan Problem List: (1) Abscess of back ICD Codes: L02.212 - Cutaneous abscess of back [any part, except buttock] SNOMED: 661983235 (2) Abscess of right shoulder ICD Codes: L02.413 - Cutaneous abscess of right upper limb SNOMED: 76172747 (3) Poorly controlled diabetes mellitus ICD Codes: E11.65 - Type 2 diabetes mellitus with hyperglycemia SNOMED: 645282864 Status: stable, progressing, tolerating diet Assessment/Plan ot pt diet wound care abx pain control cbc bmp am dc plan Subjective Constitutional: Reports: weakness Allergies: Coded Allergies: No Known Allergies (Unverified , 04/19/16) All Systems: reviewed and negative except above Subjective calm in bed Objective Last 24 Hour Vital Signs Date Time Temp Pulse Resp B/P (MAP) Pulse Ox O2 Delivery O2 Flow Rate FiO2 08/12/17 12:52 137/88 08/12/17 12:38 97.5 60 18 137/88 98 Room Air 08/12/17 09:00 97.5 93 18 140/91 98 Room Air 08/12/17 08:53 140/91 08/12/17 04:00 98.0 60 18 107/72 98 Room Air 08/12/17 00:27 97.3 55 16 120/74 97 Room Air 08/11/17 21:35 120/78 08/11/17 20:00 97.4 59 18 120/78 100 Room Air 08/11/17 17:26 134/88 08/11/17 16:00 97.7 76 18 129/84 99 Room Air Laboratory Tests 08/12/17 08:50: White Blood Count 5.4, Red Blood Count 3.65L, Hemoglobin 11.3L, Hematocrit 34.1L , Mean Corpuscular Volume 94, Mean Corpuscular Hemoglobin 31.0, Mean Corpuscular Hemoglobin Concent 33.1, Red Cell Distribution Width 13.1, Platelet Count 388, Mean Platelet Volume 8.2, Neutrophils (%) (Auto) 40.7L, Lymphocytes ( %) (Auto) 46.5H, Monocytes (%) (Auto) 5.4, Eosinophils (%) (Auto) 5.2H, Basophils (%) (Auto) 2.3H, Sodium Level 137, Potassium Level 4.4, Chloride Level 101, Carbon Dioxide Level 28, Anion Gap 8, Blood Urea Nitrogen 27H, Creatinine 2.2H, Estimat Glomerular Filtration Rate 32.7, Glucose Level 157H, Calcium Level 9.3 Height (Feet): 5 Height (Inches): 5.00 Weight (Pounds): 190 General Appearance: alert EENT: normal ENT inspection Neck: normal alignment Cardiovascular: normal peripheral pulses, normal rate, regular rhythm Respiratory/Chest: chest wall non-tender, lungs clear, normal breath sounds Abdomen: normal bowel sounds, non tender, soft Extremities: normal inspection Edema: no edema noted Arm (L), no edema noted Arm (R), no edema noted Leg (L), no edema noted Leg (R), no edema noted Pedal (L), no edema noted Pedal (R), no edema noted Generalized Neurologic: responsive, motor weakness Skin: normal pigmentation, warm/dry Objective wound dressing sl stained back of right scapula BOB HILL Aug 12, 2017 15:16
[2017-08-13 04:29] VITALS: BP 131/71
[2017-08-13] MEDS: Piperacillin/Tazobactam 3.375 GM in NS 110 ML IVPB SCH ×2 (06:08→14:17)
[2017-08-13] MEDS: NovoLOG Insulin Flexpen SUBQ SCH ×7 (06:30→20:29)
[2017-08-13 07:58] LABS: BASOPHILS % (AUTO) 1.9 % (0.0-2.0); LYMPHOCYTES % (AUTO) 51.2 % (20.0-45.0); MEAN CORPUSCULAR HEMOGLOBIN 30.9 PG (27.0-31.0); MEAN CORPUSCULAR HGB CONC 33.2 G/DL (32.0-36.0); MEAN CORPUSCULAR VOLUME 93 FL (80-99); MONOCYTES % (AUTO) 6.4 % (1.0-10.0); NEUTROPHILS % (AUTO) 34.5 % (45.0-75.0); PLATELET COUNT 355 K/UL (150-450); RED BLOOD COUNT 3.53 M/UL (4.70-6.10); RED CELL DISTRIBUTION WIDTH 12.8 % (11.6-14.8); WHITE BLOOD COUNT 5.5 K/UL (4.8-10.8)
[2017-08-13 08:00] VITALS: BP 118/84
[2017-08-13 08:19] LABS: ANION GAP 8 mmol/L (5-15); CALCIUM 9.1 MG/DL (8.5-10.1); CARBON DIOXIDE 27 MMOL/L (21-32); CHLORIDE 103 MMOL/L (98-107); CREATININE 2.2 MG/DL (0.55-1.30); GLOMERULAR FILTRATION RATE 32.7 mL/min (>60); POTASSIUM 4.1 MMOL/L (3.5-5.1); SODIUM 138 MMOL/L (136-145)
[2017-08-13] MEDS: Levemir Flexpen SUBQ SCH ×2 (08:39→18:07)
[2017-08-13] MEDS: Heparin 5000 units/ml inj SUBQ SCH ×2 (08:40→20:30)
--- NOTE | 2017-08-13 11:32 | Nephrology Progress Note ---
Assessment/Plan Assessment 1.[place] most likely AIN now stable 2,uncontrolled DM 3,Hyponatremia improving 4.Right shoulder abscess 5.morbid obesity Plan renal function is stable monitoring renal function mix all ivpb with NS.9 replace electrolyte as need it avoid NSAID ok to d/c home fallow up as out patient for monitoring renal function Subjective HEENT: Reports: no symptoms Genitourinary: Reports: no symptoms Neurologic/Psychiatric: Reports: no symptoms Subjective alert and awake feeling ok Objective Objective Last 24 Hour Vital Signs Date Time Temp Pulse Resp B/P (MAP) Pulse Ox O2 Delivery O2 Flow Rate FiO2 08/13/17 08:35 118/84 08/13/17 08:00 97.3 80 18 118/84 98 Room Air 08/13/17 04:29 97.4 60 16 131/71 99 Room Air 08/12/17 23:26 97.5 62 20 137/78 98 Room Air 08/12/17 21:47 127/89 08/12/17 20:07 97.4 57 18 127/89 97 Room Air 08/12/17 16:46 143/68 08/12/17 16:00 98.1 68 18 143/90 98 Room Air 08/12/17 12:52 137/88 08/12/17 12:38 97.5 60 18 137/88 98 Room Air Laboratory Tests 08/13/17 07:20: White Blood Count 5.5, Red Blood Count 3.53L, Hemoglobin 10.9L, Hematocrit 32.9L , Mean Corpuscular Volume 93, Mean Corpuscular Hemoglobin 30.9, Mean Corpuscular Hemoglobin Concent 33.2, Red Cell Distribution Width 12.8, Platelet Count 355, Mean Platelet Volume 8.0, Neutrophils (%) (Auto) 34.5L, Lymphocytes ( %) (Auto) 51.2H, Monocytes (%) (Auto) 6.4, Eosinophils (%) (Auto) 6.0H, Basophils (%) (Auto) 1.9, Sodium Level 138, Potassium Level 4.1, Chloride Level 103, Carbon Dioxide Level 27, Anion Gap 8, Blood Urea Nitrogen 30H, Creatinine 2.2H, Estimat Glomerular Filtration Rate 32.7, Glucose Level 104, Calcium Level 9.1 Height (Feet): 5 Height (Inches): 5.00 Weight (Pounds): 190 Objective Head and Neck: No JVP. No LAD. No thyromegaly. Extraocular movement intact. Pupils are reactive to light and accommodation. LUNGS: Clear to auscultation. CARDIAC: Regular rate and rhythm. S1 and S2. No murmur. No rub. ABDOMEN: Obese, nontender, and nondistended. Extremities: A 1 to 2+ edema. Right shoulder, he has a 20 x 20 cm round lesion with the yellowish, foul smelling drainage. It is very tender to touch and has had some degree of fluctuation. BHARGAVI SANZ Aug 13, 2017 11:32
[2017-08-13 12:00] VITALS: BP 104/73
--- NOTE | 2017-08-13 13:20 | General Progress Note ---
Assessment/Plan Problem List: (1) Abscess of back ICD Codes: L02.212 - Cutaneous abscess of back [any part, except buttock] SNOMED: 940881989 (2) Abscess of right shoulder ICD Codes: L02.413 - Cutaneous abscess of right upper limb SNOMED: 28914900 (3) Poorly controlled diabetes mellitus ICD Codes: E11.65 - Type 2 diabetes mellitus with hyperglycemia SNOMED: 243863800 Status: stable, progressing, tolerating diet Assessment/Plan ot pt diet wound care abx pain control cbc bmp am dc plan Subjective Constitutional: Reports: weakness Allergies: Coded Allergies: No Known Allergies (Unverified , 04/19/16) All Systems: reviewed and negative except above Subjective calm in bed Objective Last 24 Hour Vital Signs Date Time Temp Pulse Resp B/P (MAP) Pulse Ox O2 Delivery O2 Flow Rate FiO2 08/13/17 12:59 104/73 08/13/17 12:00 97.8 74 18 104/73 98 Room Air 08/13/17 08:35 118/84 08/13/17 08:00 97.3 80 18 118/84 98 Room Air 08/13/17 04:29 97.4 60 16 131/71 99 Room Air 08/12/17 23:26 97.5 62 20 137/78 98 Room Air 08/12/17 21:47 127/89 08/12/17 20:07 97.4 57 18 127/89 97 Room Air 08/12/17 16:46 143/68 08/12/17 16:00 98.1 68 18 143/90 98 Room Air Laboratory Tests 08/13/17 07:20: White Blood Count 5.5, Red Blood Count 3.53L, Hemoglobin 10.9L, Hematocrit 32.9L , Mean Corpuscular Volume 93, Mean Corpuscular Hemoglobin 30.9, Mean Corpuscular Hemoglobin Concent 33.2, Red Cell Distribution Width 12.8, Platelet Count 355, Mean Platelet Volume 8.0, Neutrophils (%) (Auto) 34.5L, Lymphocytes ( %) (Auto) 51.2H, Monocytes (%) (Auto) 6.4, Eosinophils (%) (Auto) 6.0H, Basophils (%) (Auto) 1.9, Sodium Level 138, Potassium Level 4.1, Chloride Level 103, Carbon Dioxide Level 27, Anion Gap 8, Blood Urea Nitrogen 30H, Creatinine 2.2H, Estimat Glomerular Filtration Rate 32.7, Glucose Level 104, Calcium Level 9.1 Height (Feet): 5 Height (Inches): 5.00 Weight (Pounds): 190 General Appearance: alert EENT: normal ENT inspection Neck: normal alignment Cardiovascular: normal peripheral pulses, normal rate, regular rhythm Respiratory/Chest: chest wall non-tender, lungs clear, normal breath sounds Abdomen: normal bowel sounds, non tender, soft Extremities: normal inspection Edema: no edema noted Arm (L), no edema noted Arm (R), no edema noted Leg (L), no edema noted Leg (R), no edema noted Pedal (L), no edema noted Pedal (R), no edema noted Generalized Neurologic: responsive, motor weakness Skin: normal pigmentation, warm/dry Objective wound dressing sl stained back of right scapula BOB HILL Aug 13, 2017 13:20
[2017-08-13 16:00] VITALS: BP 133/80
[2017-08-13 20:00] VITALS: BP 125/64
--- NOTE | 2017-08-13 22:40 | Infectious Diseases Prog Note ---
Assessment/Plan Problems: (1) MSSA (methicillin susceptible Staphylococcus aureus) septicemia Assessment & Plan: In the setting of right shoulder abscess. Now status-post I&D. F/u BCx cleared. On Zosyn till 08/27/2017. (2) Diabetes mellitus (3) [place] (acute kidney injury) Assessment & Plan: Now CKD. In the setting of sepsis. (4) Abscess of right shoulder Assessment & Plan: Due to MSSA. Had necrotizing fascitis. Status post I&D. On Zosyn. Subjective Allergies: Coded Allergies: No Known Allergies (Unverified , 04/19/16) Objective Vital Signs Last 24 Hour Vital Signs Date Time Temp Pulse Resp B/P (MAP) Pulse Ox O2 Delivery O2 Flow Rate FiO2 08/13/17 20:00 97.5 61 19 125/64 97 Room Air 08/13/17 18:06 126/86 08/13/17 16:00 97.5 53 18 133/80 98 Room Air 08/13/17 12:59 104/73 08/13/17 12:00 97.8 74 18 104/73 98 Room Air 08/13/17 08:35 118/84 08/13/17 08:00 97.3 80 18 118/84 98 Room Air 08/13/17 04:29 97.4 60 16 131/71 99 Room Air 08/12/17 23:26 97.5 62 20 137/78 98 Room Air Height (Feet): 5 Height (Inches): 5.00 Weight (Pounds): 190 Laboratory Tests Test 08/13/17 07:20 White Blood Count 5.5 K/UL (4.8-10.8) Red Blood Count 3.53 M/UL (4.70-6.10) L Hemoglobin 10.9 G/DL (14.2-18.0) L Hematocrit 32.9 % (42.0-52.0) L Mean Corpuscular Volume 93 FL (80-99) Mean Corpuscular Hemoglobin 30.9 PG (27.0-31.0) Mean Corpuscular Hemoglobin Concent 33.2 G/DL (32.0-36.0) Red Cell Distribution Width 12.8 % (11.6-14.8) Platelet Count 355 K/UL (150-450) Mean Platelet Volume 8.0 FL (6.5-10.1) Neutrophils (%) (Auto) 34.5 % (45.0-75.0) L Lymphocytes (%) (Auto) 51.2 % (20.0-45.0) H Monocytes (%) (Auto) 6.4 % (1.0-10.0) Eosinophils (%) (Auto) 6.0 % (0.0-3.0) H Basophils (%) (Auto) 1.9 % (0.0-2.0) Sodium Level 138 MMOL/L (136-145) Potassium Level 4.1 MMOL/L (3.5-5.1) Chloride Level 103 MMOL/L (98-107) Carbon Dioxide Level 27 MMOL/L (21-32) Anion Gap 8 mmol/L (5-15) Blood Urea Nitrogen 30 mg/dL (7-18) H Creatinine 2.2 MG/DL (0.55-1.30) H Estimat Glomerular Filtration Rate 32.7 mL/min (>60) Glucose Level 104 MG/DL (74-106) Calcium Level 9.1 MG/DL (8.5-10.1) Current Medications Medications (Trade) Dose Ordered Sig/Leah Route PRN Reason Start Time Stop Time Status Last Admin Dose Admin Acetaminophen (Tylenol) 650 mg Q4H PRN ORAL fever 07/25/17 16:15 08/24/17 16:14 Acetaminophen (Tylenol) 650 mg Q4H PRN RECTAL Mild Pain (Pain Scale 1-3) 07/27/17 15:45 08/24/17 20:29 Clonidine HCl (Catapres) 0.1 mg Q6HR ORAL 08/14/17 00:00 08/28/17 08:59 Dextrose (Dextrose 50%) STAT PRN IV Hypoglycemia 07/26/17 08:45 08/25/17 08:44 Heparin Sodium (Porcine) (Heparin 5000 units/ml) 5,000 units EVERY 12 HOURS SUBQ 07/25/17 21:00 08/24/17 20:59 08/13/17 20:30 Insulin Aspart (NovoLOG) BEFORE MEALS AND HS SUBQ 07/25/17 17:00 08/24/17 16:59 08/13/17 20:29 Insulin Aspart (NovoLOG) 6 units NOVOTIAC SUBQ 08/03/17 06:30 09/02/17 06:29 08/13/17 11:49 Insulin Detemir (Levemir) 10 units BID SUBQ 08/03/17 09:00 09/02/17 08:59 08/13/17 18:07 Nitroglycerin (Ntg) 0.4 mg Q5M PRN SL Prn Chest Pain 07/25/17 16:15 08/24/17 16:14 Ondansetron HCl (Zofran) 4 mg Q6H PRN IVP Nausea & Vomiting 07/25/17 16:15 08/24/17 16:14 Piperacillin/ Tazobactam/ Dextrose 50 ml @ 12.5 mls/hr Q8HR IVPB 08/13/17 22:00 08/27/17 23:59 Polyethylene Glycol (Miralax) 17 gm DAILYPRN PRN ORAL Constipation 07/25/17 16:15 08/24/17 16:14 Povidone Iodine (Betadine Caridad) 1 applic DAILY TOPIC 07/29/17 09:00 08/25/17 15:59 08/12/17 22:45 CALLIE ESCAMILLA Aug 13, 2017 22:40
[2017-08-13] MEDS: Zosyn 3.375gm/50ml Premix 50 ML IVPB SCH (23:16)
[2017-08-14] VITALS: BP 118/80
[2017-08-14 04:00] VITALS: BP 118/73
[2017-08-14] MEDS: Zosyn 3.375gm/50ml Premix 50 ML IVPB SCH ×3 (06:08→21:18)
[2017-08-14] MEDS: NovoLOG Insulin Flexpen SUBQ SCH ×7 (06:09→20:41)
--- NOTE | 2017-08-14 07:08 | General Progress Note ---
Assessment/Plan Problem List: (1) Non-compliance ICD Codes: Z91.19 - Patient's noncompliance with other medical treatment and regimen SNOMED: 8642233 (2) Poorly controlled diabetes mellitus ICD Codes: E11.65 - Type 2 diabetes mellitus with hyperglycemia SNOMED: 731898564 (3) Abscess of right shoulder ICD Codes: L02.413 - Cutaneous abscess of right upper limb SNOMED: 80526080 (4) Elevated lactic acid level ICD Codes: E87.2 - Acidosis SNOMED: 7169697 Assessment/Plan glucose is well controlled on current insulin regimen continue Levemir 10 units bid continue Novolog 6 units ac tid + SSI clear for DC home for endocrine stand point Rx for all diabetes meds and supply left in chart Subjective Allergies: Coded Allergies: No Known Allergies (Unverified , 04/19/16) All Systems: reviewed and negative except above Subjective events noted - interval noted reviewed Objective Last 24 Hour Vital Signs Date Time Temp Pulse Resp B/P (MAP) Pulse Ox O2 Delivery O2 Flow Rate FiO2 08/14/17 06:08 135/95 08/14/17 04:00 97.3 59 19 118/73 99 Room Air 08/14/17 00:13 118/80 08/14/17 00:00 97.4 55 19 118/80 98 Room Air 08/13/17 20:00 97.5 61 19 125/64 97 Room Air 08/13/17 18:06 126/86 08/13/17 16:00 97.5 53 18 133/80 98 Room Air 08/13/17 12:59 104/73 08/13/17 12:00 97.8 74 18 104/73 98 Room Air 08/13/17 08:35 118/84 08/13/17 08:00 97.3 80 18 118/84 98 Room Air Laboratory Tests 08/13/17 07:20: White Blood Count 5.5, Red Blood Count 3.53L, Hemoglobin 10.9L, Hematocrit 32.9L , Mean Corpuscular Volume 93, Mean Corpuscular Hemoglobin 30.9, Mean Corpuscular Hemoglobin Concent 33.2, Red Cell Distribution Width 12.8, Platelet Count 355, Mean Platelet Volume 8.0, Neutrophils (%) (Auto) 34.5L, Lymphocytes ( %) (Auto) 51.2H, Monocytes (%) (Auto) 6.4, Eosinophils (%) (Auto) 6.0H, Basophils (%) (Auto) 1.9, Sodium Level 138, Potassium Level 4.1, Chloride Level 103, Carbon Dioxide Level 27, Anion Gap 8, Blood Urea Nitrogen 30H, Creatinine 2.2H, Estimat Glomerular Filtration Rate 32.7, Glucose Level 104, Calcium Level 9.1 Height (Feet): 5 Height (Inches): 5.00 Weight (Pounds): 190 General Appearance: no apparent distress Neck: normal alignment Cardiovascular: normal rate Respiratory/Chest: lungs clear Abdomen: normal bowel sounds Objective Current Medications Medications (Trade) Dose Ordered Sig/Leah Route PRN Reason Start Time Stop Time Status Last Admin Dose Admin Acetaminophen (Tylenol) 650 mg Q4H PRN ORAL fever 07/25/17 16:15 08/24/17 16:14 Acetaminophen (Tylenol) 650 mg Q4H PRN RECTAL Mild Pain (Pain Scale 1-3) 07/27/17 15:45 08/24/17 20:29 Clonidine HCl (Catapres) 0.1 mg Q6HR ORAL 08/14/17 00:00 08/28/17 08:59 08/14/17 06:08 Dextrose (Dextrose 50%) STAT PRN IV Hypoglycemia 07/26/17 08:45 08/25/17 08:44 Heparin Sodium (Porcine) (Heparin 5000 units/ml) 5,000 units EVERY 12 HOURS SUBQ 07/25/17 21:00 08/24/17 20:59 08/13/17 20:30 Insulin Aspart (NovoLOG) BEFORE MEALS AND HS SUBQ 07/25/17 17:00 08/24/17 16:59 08/13/17 20:29 Insulin Aspart (NovoLOG) 6 units NOVOTIAC SUBQ 08/03/17 06:30 09/02/17 06:29 08/13/17 11:49 Insulin Detemir (Levemir) 10 units BID SUBQ 08/03/17 09:00 09/02/17 08:59 08/13/17 18:07 Nitroglycerin (Ntg) 0.4 mg Q5M PRN SL Prn Chest Pain 07/25/17 16:15 08/24/17 16:14 Ondansetron HCl (Zofran) 4 mg Q6H PRN IVP Nausea & Vomiting 07/25/17 16:15 08/24/17 16:14 Piperacillin/ Tazobactam/ Dextrose 50 ml @ 12.5 mls/hr Q8HR IVPB 08/13/17 22:00 08/27/17 23:59 08/14/17 06:08 Polyethylene Glycol (Miralax) 17 gm DAILYPRN PRN ORAL Constipation 07/25/17 16:15 08/24/17 16:14 Povidone Iodine (Betadine Caridad) 1 applic DAILY TOPIC 07/29/17 09:00 08/25/17 15:59 08/12/17 22:45 Item Value Date Time Bedside Blood Glucose 89 mg/dl 08/14/17 0609 Bedside Blood Glucose 166 mg/dl H 08/13/17 2100 Bedside Blood Glucose 169 mg/dl H 08/13/17 1807 Bedside Blood Glucose 128 mg/dl H 08/13/17 1157 ANN DUARTE Aug 14, 2017 07:08
[2017-08-14 07:58] LABS: MEAN CORPUSCULAR HEMOGLOBIN 30.7 PG (27.0-31.0); MEAN CORPUSCULAR HGB CONC 32.9 G/DL (32.0-36.0); MEAN CORPUSCULAR VOLUME 93 FL (80-99); MEAN PLATELET VOLUME 8.7 FL (6.5-10.1); PLATELET COUNT 366 K/UL (150-450); RED BLOOD COUNT 3.94 M/UL (4.70-6.10); RED CELL DISTRIBUTION WIDTH 13.1 % (11.6-14.8); WHITE BLOOD COUNT 7.1 K/UL (4.8-10.8)
[2017-08-14 08:10] VITALS: BP 108/72
[2017-08-14 08:40] LABS: ANION GAP 8 mmol/L (5-15); CALCIUM 9.5 MG/DL (8.5-10.1); CARBON DIOXIDE 28 MMOL/L (21-32); CHLORIDE 101 MMOL/L (98-107); CREATININE 2.1 MG/DL (0.55-1.30); GLOMERULAR FILTRATION RATE 34.5 mL/min (>60); SODIUM 137 MMOL/L (136-145)
[2017-08-14] MEDS: Betadine 4oz Bottle TOPIC SCH (08:53)
[2017-08-14] MEDS: Levemir Flexpen SUBQ SCH ×2 (08:54→17:31)
[2017-08-14] MEDS: Heparin 5000 units/ml inj SUBQ SCH ×2 (08:55→20:40)
[2017-08-14 10:19] LABS: BAND NEUTROPHILS % (MANUAL) 0 % (0-8); BASOPHILS % (MANUAL) 2 % (0-2); EOSINOPHILS % (MANUAL) 6 % (0-3); LYMPHOCYTES % (MANUAL) 52 % (20-45); NEUTROPHILS % (MANUAL) 32 % (45-75); PLATELET ESTIMATE ADEQUATE; PLATELET MORPHOLOGY NORMAL; TOTAL CELLS COUNTED 100
--- NOTE | 2017-08-14 11:28 | General Progress Note ---
Assessment/Plan Problem List: (1) Abscess of back ICD Codes: L02.212 - Cutaneous abscess of back [any part, except buttock] SNOMED: 398943936 (2) Abscess of right shoulder ICD Codes: L02.413 - Cutaneous abscess of right upper limb SNOMED: 53593842 (3) Poorly controlled diabetes mellitus ICD Codes: E11.65 - Type 2 diabetes mellitus with hyperglycemia SNOMED: 145298742 Status: stable, progressing, tolerating diet Assessment/Plan ot pt diet wound care abx pain control cbc bmp am dc plan Subjective Constitutional: Reports: weakness Allergies: Coded Allergies: No Known Allergies (Unverified , 04/19/16) All Systems: reviewed and negative except above Subjective calm in bed Objective Last 24 Hour Vital Signs Date Time Temp Pulse Resp B/P (MAP) Pulse Ox O2 Delivery O2 Flow Rate FiO2 08/14/17 08:10 97.8 86 20 108/72 99 Room Air 08/14/17 06:08 135/95 08/14/17 04:00 97.3 59 19 118/73 99 Room Air 08/14/17 00:13 118/80 08/14/17 00:00 97.4 55 19 118/80 98 Room Air 08/13/17 20:00 97.5 61 19 125/64 97 Room Air 08/13/17 18:06 126/86 08/13/17 16:00 97.5 53 18 133/80 98 Room Air 08/13/17 12:59 104/73 08/13/17 12:00 97.8 74 18 104/73 98 Room Air Laboratory Tests 08/14/17 07:00: White Blood Count 7.1, Red Blood Count 3.94L, Hemoglobin 12.1L, Hematocrit 36.8L , Mean Corpuscular Volume 93, Mean Corpuscular Hemoglobin 30.7, Mean Corpuscular Hemoglobin Concent 32.9, Red Cell Distribution Width 13.1, Platelet Count 366, Mean Platelet Volume 8.7, Neutrophils (%) (Auto) , Lymphocytes (%) ( Auto) , Monocytes (%) (Auto) , Eosinophils (%) (Auto) , Basophils (%) (Auto) , Differential Total Cells Counted 100, Neutrophils % (Manual) 32L, Lymphocytes % (Manual) 52H, Monocytes % (Manual) 8, Eosinophils % (Manual) 6H, Basophils % ( Manual) 2, Band Neutrophils 0, Platelet Estimate Adequate, Platelet Morphology Normal, Sodium Level 137, Potassium Level 4.0, Chloride Level 101, Carbon Dioxide Level 28, Anion Gap 8, Blood Urea Nitrogen 27H, Creatinine 2.1H, Estimat Glomerular Filtration Rate 34.5, Glucose Level 91, Calcium Level 9.5 Height (Feet): 5 Height (Inches): 5.00 Weight (Pounds): 190 General Appearance: alert EENT: normal ENT inspection Neck: normal alignment Cardiovascular: normal peripheral pulses, normal rate, regular rhythm Respiratory/Chest: chest wall non-tender, lungs clear, normal breath sounds Abdomen: normal bowel sounds, non tender, soft Extremities: normal inspection Edema: no edema noted Arm (L), no edema noted Arm (R), no edema noted Leg (L), no edema noted Leg (R), no edema noted Pedal (L), no edema noted Pedal (R), no edema noted Generalized Neurologic: responsive, motor weakness Skin: normal pigmentation, warm/dry Objective wound dressing sl stained back of right scapula BOB HILL Aug 14, 2017 11:28
[2017-08-14 12:05] VITALS: BP 131/85
[2017-08-14 16:00] VITALS: BP 140/93
[2017-08-14 20:12] VITALS: BP 119/76
--- NOTE | 2017-08-14 20:37 | Nephrology Progress Note ---
Assessment/Plan Assessment 1.[place] most likely AIN now stable 2,uncontrolled DM 3,Hyponatremia improving 4.Right shoulder abscess 5.morbid obesity Plan renal function is stable monitoring renal function mix all ivpb with NS.9 replace electrolyte as need it avoid NSAID ok to d/c home fallow up as out patient for monitoring renal function Subjective Constitutional: Reports: no symptoms HEENT: Reports: no symptoms Genitourinary: Reports: no symptoms Neurologic/Psychiatric: Reports: no symptoms Subjective alert and awake feeling ok Objective Objective Last 24 Hour Vital Signs Date Time Temp Pulse Resp B/P (MAP) Pulse Ox O2 Delivery O2 Flow Rate FiO2 08/14/17 20:12 97.5 55 19 119/76 98 Room Air 08/14/17 17:28 140/84 08/14/17 16:00 97.8 52 18 140/93 99 Room Air 08/14/17 12:06 131/85 08/14/17 12:05 97.5 65 20 131/85 99 Room Air 08/14/17 08:10 97.8 86 20 108/72 99 Room Air 08/14/17 06:08 135/95 08/14/17 04:00 97.3 59 19 118/73 99 Room Air 08/14/17 00:13 118/80 08/14/17 00:00 97.4 55 19 118/80 98 Room Air Intake and Output 08/14/17 08/15/17 19:00 07:00 Intake Total 850.0 ml Output Total 900 ml Balance -50.0 ml Intake Oral 800 ml IV Total 50.0 ml Output Urine Total 900 ml # Voids 3 Laboratory Tests 08/14/17 07:00: White Blood Count 7.1, Red Blood Count 3.94L, Hemoglobin 12.1L, Hematocrit 36.8L , Mean Corpuscular Volume 93, Mean Corpuscular Hemoglobin 30.7, Mean Corpuscular Hemoglobin Concent 32.9, Red Cell Distribution Width 13.1, Platelet Count 366, Mean Platelet Volume 8.7, Neutrophils (%) (Auto) , Lymphocytes (%) ( Auto) , Monocytes (%) (Auto) , Eosinophils (%) (Auto) , Basophils (%) (Auto) , Differential Total Cells Counted 100, Neutrophils % (Manual) 32L, Lymphocytes % (Manual) 52H, Monocytes % (Manual) 8, Eosinophils % (Manual) 6H, Basophils % ( Manual) 2, Band Neutrophils 0, Platelet Estimate Adequate, Platelet Morphology Normal, Sodium Level 137, Potassium Level 4.0, Chloride Level 101, Carbon Dioxide Level 28, Anion Gap 8, Blood Urea Nitrogen 27H, Creatinine 2.1H, Estimat Glomerular Filtration Rate 34.5, Glucose Level 91, Calcium Level 9.5 Height (Feet): 5 Height (Inches): 5.00 Weight (Pounds): 190 Objective Head and Neck: No JVP. No LAD. No thyromegaly. Extraocular movement intact. Pupils are reactive to light and accommodation. LUNGS: Clear to auscultation. CARDIAC: Regular rate and rhythm. S1 and S2. No murmur. No rub. ABDOMEN: Obese, nontender, and nondistended. Extremities: A 1 to 2+ edema. Right shoulder, he has a 20 x 20 cm round lesion with the yellowish, foul smelling drainage. It is very tender to touch and has had some degree of fluctuation. BHARGAVI SANZ Aug 14, 2017 20:37
--- NOTE | 2017-08-14 23:09 | Infectious Diseases Prog Note ---
Assessment/Plan Problems: (1) MSSA (methicillin susceptible Staphylococcus aureus) septicemia Assessment & Plan: In the setting of right shoulder abscess. Now status-post I&D. F/u BCx cleared. On Zosyn till 08/27/2017. (2) Diabetes mellitus (3) AUGUSTO (acute kidney injury) Assessment & Plan: Now CKD. In the setting of sepsis. (4) Abscess of right shoulder Assessment & Plan: Due to MSSA. Had necrotizing fascitis. Status post I&D. On Zosyn. Subjective Allergies: Coded Allergies: No Known Allergies (Unverified , 04/19/16) Objective Vital Signs Last 24 Hour Vital Signs Date Time Temp Pulse Resp B/P (MAP) Pulse Ox O2 Delivery O2 Flow Rate FiO2 08/14/17 20:12 97.5 55 19 119/76 98 Room Air 08/14/17 17:28 140/84 08/14/17 16:00 97.8 52 18 140/93 99 Room Air 08/14/17 12:06 131/85 08/14/17 12:05 97.5 65 20 131/85 99 Room Air 08/14/17 08:10 97.8 86 20 108/72 99 Room Air 08/14/17 06:08 135/95 08/14/17 04:00 97.3 59 19 118/73 99 Room Air 08/14/17 00:13 118/80 08/14/17 00:00 97.4 55 19 118/80 98 Room Air Height (Feet): 5 Height (Inches): 5.00 Weight (Pounds): 190 Laboratory Tests Test 08/14/17 07:00 White Blood Count 7.1 K/UL (4.8-10.8) Red Blood Count 3.94 M/UL (4.70-6.10) L Hemoglobin 12.1 G/DL (14.2-18.0) L Hematocrit 36.8 % (42.0-52.0) L Mean Corpuscular Volume 93 FL (80-99) Mean Corpuscular Hemoglobin 30.7 PG (27.0-31.0) Mean Corpuscular Hemoglobin Concent 32.9 G/DL (32.0-36.0) Red Cell Distribution Width 13.1 % (11.6-14.8) Platelet Count 366 K/UL (150-450) Mean Platelet Volume 8.7 FL (6.5-10.1) Neutrophils (%) (Auto) % (45.0-75.0) Lymphocytes (%) (Auto) % (20.0-45.0) Monocytes (%) (Auto) % (1.0-10.0) Eosinophils (%) (Auto) % (0.0-3.0) Basophils (%) (Auto) % (0.0-2.0) Differential Total Cells Counted 100 Neutrophils % (Manual) 32 % (45-75) L Lymphocytes % (Manual) 52 % (20-45) H Monocytes % (Manual) 8 % (1-10) Eosinophils % (Manual) 6 % (0-3) H Basophils % (Manual) 2 % (0-2) Band Neutrophils 0 % (0-8) Platelet Estimate Adequate Platelet Morphology Normal Sodium Level 137 MMOL/L (136-145) Potassium Level 4.0 MMOL/L (3.5-5.1) Chloride Level 101 MMOL/L (98-107) Carbon Dioxide Level 28 MMOL/L (21-32) Anion Gap 8 mmol/L (5-15) Blood Urea Nitrogen 27 mg/dL (7-18) H Creatinine 2.1 MG/DL (0.55-1.30) H Estimat Glomerular Filtration Rate 34.5 mL/min (>60) Glucose Level 91 MG/DL (74-106) Calcium Level 9.5 MG/DL (8.5-10.1) Current Medications Medications (Trade) Dose Ordered Sig/Leah Route PRN Reason Start Time Stop Time Status Last Admin Dose Admin Acetaminophen (Tylenol) 650 mg Q4H PRN ORAL fever 07/25/17 16:15 08/24/17 16:14 Acetaminophen (Tylenol) 650 mg Q4H PRN RECTAL Mild Pain (Pain Scale 1-3) 07/27/17 15:45 08/24/17 20:29 Clonidine HCl (Catapres) 0.1 mg Q6HR ORAL 08/14/17 00:00 08/28/17 08:59 08/14/17 17:28 Dextrose (Dextrose 50%) STAT PRN IV Hypoglycemia 07/26/17 08:45 08/25/17 08:44 Heparin Sodium (Porcine) (Heparin 5000 units/ml) 5,000 units EVERY 12 HOURS SUBQ 07/25/17 21:00 08/24/17 20:59 08/14/17 20:40 Insulin Aspart (NovoLOG) BEFORE MEALS AND HS SUBQ 07/25/17 17:00 08/24/17 16:59 08/14/17 20:41 Insulin Aspart (NovoLOG) 6 units NOVOTIAC SUBQ 08/03/17 06:30 09/02/17 06:29 08/14/17 16:52 Insulin Detemir (Levemir) 10 units BID SUBQ 08/03/17 09:00 09/02/17 08:59 08/14/17 17:31 Nitroglycerin (Ntg) 0.4 mg Q5M PRN SL Prn Chest Pain 07/25/17 16:15 08/24/17 16:14 Ondansetron HCl (Zofran) 4 mg Q6H PRN IVP Nausea & Vomiting 07/25/17 16:15 08/24/17 16:14 Piperacillin/ Tazobactam/ Dextrose 50 ml @ 12.5 mls/hr Q8HR IVPB 08/13/17 22:00 08/27/17 23:59 08/14/17 21:18 Polyethylene Glycol (Miralax) 17 gm DAILYPRN PRN ORAL Constipation 07/25/17 16:15 08/24/17 16:14 Povidone Iodine (Betadine Caridad) 1 applic DAILY TOPIC 07/29/17 09:00 08/25/17 15:59 08/14/17 08:53 CALLIE ESCAMILLA Aug 14, 2017 23:09
[2017-08-15 00:20] VITALS: BP 117/80
[2017-08-15 04:27] VITALS: BP 120/80
[2017-08-15] MEDS: Zosyn 3.375gm/50ml Premix 50 ML IVPB SCH ×3 (06:15→21:01)
[2017-08-15] MEDS: NovoLOG Insulin Flexpen SUBQ SCH ×7 (06:15→21:05)
[2017-08-15 07:53] LABS: BASOPHILS % (AUTO) 2.1 % (0.0-2.0); EOSINOPHILS % (AUTO) 8.9 % (0.0-3.0); LYMPHOCYTES % (AUTO) 53.8 % (20.0-45.0); MEAN CORPUSCULAR HEMOGLOBIN 30.9 PG (27.0-31.0); MEAN CORPUSCULAR HGB CONC 33.3 G/DL (32.0-36.0); MEAN CORPUSCULAR VOLUME 93 FL (80-99); MEAN PLATELET VOLUME 8.8 FL (6.5-10.1); MONOCYTES % (AUTO) 5.7 % (1.0-10.0); NEUTROPHILS % (AUTO) 29.5 % (45.0-75.0); PLATELET COUNT 290 K/UL (150-450); RED BLOOD COUNT 3.64 M/UL (4.70-6.10); RED CELL DISTRIBUTION WIDTH 13.3 % (11.6-14.8); WHITE BLOOD COUNT 5.3 K/UL (4.8-10.8)
[2017-08-15 08:00] VITALS: BP 112/77
[2017-08-15 08:07] LABS: ANION GAP 9 mmol/L (5-15); CALCIUM 9.2 MG/DL (8.5-10.1); CARBON DIOXIDE 26 MMOL/L (21-32); CHLORIDE 103 MMOL/L (98-107); CREATININE 2.1 MG/DL (0.55-1.30); GLOMERULAR FILTRATION RATE 34.5 mL/min (>60); POTASSIUM 4.3 MMOL/L (3.5-5.1); SODIUM 138 MMOL/L (136-145)
[2017-08-15] MEDS: Levemir Flexpen SUBQ SCH ×2 (08:40→17:32)
[2017-08-15] MEDS: Heparin 5000 units/ml inj SUBQ SCH ×2 (08:42→21:04)
[2017-08-15] MEDS: Betadine 4oz Bottle TOPIC SCH (08:43)
--- NOTE | 2017-08-15 09:47 | General Progress Note ---
Assessment/Plan Problem List: (1) Abscess of back ICD Codes: L02.212 - Cutaneous abscess of back [any part, except buttock] SNOMED: 075707606 (2) Abscess of right shoulder ICD Codes: L02.413 - Cutaneous abscess of right upper limb SNOMED: 03038541 (3) Poorly controlled diabetes mellitus ICD Codes: E11.65 - Type 2 diabetes mellitus with hyperglycemia SNOMED: 703540047 Status: stable, progressing, tolerating diet Assessment/Plan ot pt diet wound care abx pain control cbc bmp am dc plan Subjective Constitutional: Reports: weakness Allergies: Coded Allergies: No Known Allergies (Unverified , 04/19/16) All Systems: reviewed and negative except above Subjective calm in bed Objective Last 24 Hour Vital Signs Date Time Temp Pulse Resp B/P (MAP) Pulse Ox O2 Delivery O2 Flow Rate FiO2 08/15/17 08:00 97.9 70 20 112/77 97 Room Air 08/15/17 06:15 139/89 08/15/17 04:27 98.1 75 18 120/80 95 Room Air 08/15/17 00:20 97.3 76 19 117/80 97 Room Air 08/15/17 00:12 117/80 08/14/17 20:12 97.5 55 19 119/76 98 Room Air 08/14/17 17:28 140/84 08/14/17 16:00 97.8 52 18 140/93 99 Room Air 08/14/17 12:06 131/85 08/14/17 12:05 97.5 65 20 131/85 99 Room Air Laboratory Tests 08/15/17 06:30: White Blood Count 5.3, Red Blood Count 3.64L, Hemoglobin 11.2L, Hematocrit 33.8L , Mean Corpuscular Volume 93, Mean Corpuscular Hemoglobin 30.9, Mean Corpuscular Hemoglobin Concent 33.3, Red Cell Distribution Width 13.3, Platelet Count 290, Mean Platelet Volume 8.8, Neutrophils (%) (Auto) 29.5L, Lymphocytes ( %) (Auto) 53.8H, Monocytes (%) (Auto) 5.7, Eosinophils (%) (Auto) 8.9H, Basophils (%) (Auto) 2.1H, Sodium Level 138, Potassium Level 4.3, Chloride Level 103, Carbon Dioxide Level 26, Anion Gap 9, Blood Urea Nitrogen 27H, Creatinine 2.1H, Estimat Glomerular Filtration Rate 34.5, Glucose Level 103, Calcium Level 9.2 Height (Feet): 5 Height (Inches): 5.00 Weight (Pounds): 190 General Appearance: lethargic EENT: normal ENT inspection Neck: normal alignment Cardiovascular: normal peripheral pulses, normal rate, regular rhythm Respiratory/Chest: chest wall non-tender, lungs clear, normal breath sounds Abdomen: normal bowel sounds, non tender, soft Extremities: normal inspection Edema: no edema noted Arm (L), no edema noted Arm (R), no edema noted Leg (L), no edema noted Leg (R), no edema noted Pedal (L), no edema noted Pedal (R), no edema noted Generalized Neurologic: responsive, motor weakness Skin: normal pigmentation, warm/dry Objective wound dressing sl stained back of right scapula BOB HILL Aug 15, 2017 09:47
--- NOTE | 2017-08-15 11:32 | Nephrology Progress Note ---
Assessment/Plan Assessment 1.[place] most likely AIN now stable 2,uncontrolled DM 3,Hyponatremia improving 4.Right shoulder abscess 5.morbid obesity Plan renal function is stable monitoring renal function mix all ivpb with NS.9 replace electrolyte as need it avoid NSAID ok to d/c home fallow up as out patient for monitoring renal function Subjective Constitutional: Reports: no symptoms HEENT: Reports: no symptoms Genitourinary: Reports: no symptoms Neurologic/Psychiatric: Reports: no symptoms Subjective alert and awake feeling ok Objective Objective Last 24 Hour Vital Signs Date Time Temp Pulse Resp B/P (MAP) Pulse Ox O2 Delivery O2 Flow Rate FiO2 08/15/17 08:00 97.9 70 20 112/77 97 Room Air 08/15/17 06:15 139/89 08/15/17 04:27 98.1 75 18 120/80 95 Room Air 08/15/17 00:20 97.3 76 19 117/80 97 Room Air 08/15/17 00:12 117/80 08/14/17 20:12 97.5 55 19 119/76 98 Room Air 08/14/17 17:28 140/84 08/14/17 16:00 97.8 52 18 140/93 99 Room Air 08/14/17 12:06 131/85 08/14/17 12:05 97.5 65 20 131/85 99 Room Air Laboratory Tests 08/15/17 06:30: White Blood Count 5.3, Red Blood Count 3.64L, Hemoglobin 11.2L, Hematocrit 33.8L , Mean Corpuscular Volume 93, Mean Corpuscular Hemoglobin 30.9, Mean Corpuscular Hemoglobin Concent 33.3, Red Cell Distribution Width 13.3, Platelet Count 290, Mean Platelet Volume 8.8, Neutrophils (%) (Auto) 29.5L, Lymphocytes ( %) (Auto) 53.8H, Monocytes (%) (Auto) 5.7, Eosinophils (%) (Auto) 8.9H, Basophils (%) (Auto) 2.1H, Sodium Level 138, Potassium Level 4.3, Chloride Level 103, Carbon Dioxide Level 26, Anion Gap 9, Blood Urea Nitrogen 27H, Creatinine 2.1H, Estimat Glomerular Filtration Rate 34.5, Glucose Level 103, Calcium Level 9.2 Height (Feet): 5 Height (Inches): 5.00 Weight (Pounds): 190 Objective Head and Neck: No JVP. No LAD. No thyromegaly. Extraocular movement intact. Pupils are reactive to light and accommodation. LUNGS: Clear to auscultation. CARDIAC: Regular rate and rhythm. S1 and S2. No murmur. No rub. ABDOMEN: Obese, nontender, and nondistended. Extremities: A 1 to 2+ edema. Right shoulder, he has a 20 x 20 cm round lesion with the yellowish, foul smelling drainage. It is very tender to touch and has had some degree of fluctuation. BHARGAVI SANZ Aug 15, 2017 11:32
[2017-08-15 12:00] VITALS: BP 132/86
--- NOTE | 2017-08-15 15:57 | General Progress Note ---
Assessment/Plan Problem List: (1) Non-compliance ICD Codes: Z91.19 - Patient's noncompliance with other medical treatment and regimen SNOMED: 2062461 (2) Poorly controlled diabetes mellitus ICD Codes: E11.65 - Type 2 diabetes mellitus with hyperglycemia SNOMED: 081236978 (3) Abscess of right shoulder ICD Codes: L02.413 - Cutaneous abscess of right upper limb SNOMED: 32597772 (4) Elevated lactic acid level ICD Codes: E87.2 - Acidosis SNOMED: 1934679 Assessment/Plan glucose is well controlled on current insulin regimen continue Levemir 10 units bid reduce Novolog 6 to 4 units ac tid + SSI clear for DC home for endocrine stand point Rx for all diabetes meds and supply left in chart Subjective Allergies: Coded Allergies: No Known Allergies (Unverified , 04/19/16) All Systems: reviewed and negative except above Subjective events noted - interval noted reviewed Objective Last 24 Hour Vital Signs Date Time Temp Pulse Resp B/P (MAP) Pulse Ox O2 Delivery O2 Flow Rate FiO2 08/15/17 12:08 132/86 08/15/17 12:00 97.3 60 20 132/86 98 Room Air 08/15/17 08:00 97.9 70 20 112/77 97 Room Air 08/15/17 06:15 139/89 08/15/17 04:27 98.1 75 18 120/80 95 Room Air 08/15/17 00:20 97.3 76 19 117/80 97 Room Air 08/15/17 00:12 117/80 08/14/17 20:12 97.5 55 19 119/76 98 Room Air 08/14/17 17:28 140/84 08/14/17 16:00 97.8 52 18 140/93 99 Room Air Laboratory Tests 08/15/17 06:30: White Blood Count 5.3, Red Blood Count 3.64L, Hemoglobin 11.2L, Hematocrit 33.8L , Mean Corpuscular Volume 93, Mean Corpuscular Hemoglobin 30.9, Mean Corpuscular Hemoglobin Concent 33.3, Red Cell Distribution Width 13.3, Platelet Count 290, Mean Platelet Volume 8.8, Neutrophils (%) (Auto) 29.5L, Lymphocytes ( %) (Auto) 53.8H, Monocytes (%) (Auto) 5.7, Eosinophils (%) (Auto) 8.9H, Basophils (%) (Auto) 2.1H, Sodium Level 138, Potassium Level 4.3, Chloride Level 103, Carbon Dioxide Level 26, Anion Gap 9, Blood Urea Nitrogen 27H, Creatinine 2.1H, Estimat Glomerular Filtration Rate 34.5, Glucose Level 103, Calcium Level 9.2 Height (Feet): 5 Height (Inches): 5.00 Weight (Pounds): 190 General Appearance: no apparent distress Neck: normal alignment Cardiovascular: normal rate Respiratory/Chest: lungs clear Abdomen: normal bowel sounds Pelvis: normal external exam Edema: no edema noted Arm (L), no edema noted Arm (R), no edema noted Leg (L), no edema noted Leg (R), no edema noted Pedal (L), no edema noted Pedal (R), no edema noted Generalized Objective Item Value Date Time Bedside Blood Glucose 122 mg/dl H 08/15/17 1205 Bedside Blood Glucose 105 mg/dl 08/15/17 0840 Bedside Blood Glucose 105 mg/dl 08/15/17 0630 Bedside Blood Glucose 149 mg/dl H 08/14/17 2100 ANN DUARTE Aug 15, 2017 15:57
[2017-08-15 16:00] VITALS: BP 132/86
[2017-08-15 20:07] VITALS: BP 117/83
[2017-08-16 00:11] VITALS: BP 130/81
[2017-08-16 04:17] VITALS: BP 108/79
[2017-08-16] MEDS: Zosyn 3.375gm/50ml Premix 50 ML IVPB SCH ×3 (05:27→21:22)
[2017-08-16] MEDS: Betadine 4oz Bottle TOPIC SCH (05:30)
[2017-08-16] MEDS: NovoLOG Insulin Flexpen SUBQ SCH ×7 (06:30→20:37)
[2017-08-16 08:15] LABS: BASOPHILS % (AUTO) 1.9 % (0.0-2.0); EOSINOPHILS % (AUTO) 10.6 % (0.0-3.0); LYMPHOCYTES % (AUTO) 52.8 % (20.0-45.0); MEAN CORPUSCULAR HEMOGLOBIN 31.3 PG (27.0-31.0); MEAN CORPUSCULAR HGB CONC 33.9 G/DL (32.0-36.0); MEAN CORPUSCULAR VOLUME 93 FL (80-99); MONOCYTES % (AUTO) 5.6 % (1.0-10.0); NEUTROPHILS % (AUTO) 29.1 % (45.0-75.0); PLATELET COUNT 231 K/UL (150-450); RED BLOOD COUNT 3.22 M/UL (4.70-6.10); WHITE BLOOD COUNT 4.3 K/UL (4.8-10.8)
--- NOTE | 2017-08-16 08:22 | General Progress Note ---
Assessment/Plan Problem List: (1) Non-compliance ICD Codes: Z91.19 - Patient's noncompliance with other medical treatment and regimen SNOMED: 0668994 (2) Poorly controlled diabetes mellitus ICD Codes: E11.65 - Type 2 diabetes mellitus with hyperglycemia SNOMED: 011847092 (3) Abscess of right shoulder ICD Codes: L02.413 - Cutaneous abscess of right upper limb SNOMED: 21524896 (4) Elevated lactic acid level ICD Codes: E87.2 - Acidosis SNOMED: 1032966 Assessment/Plan glucose is well controlled on current insulin regimen continue Levemir 10 units bid continue Novolog 4 units ac tid + SSI clear for DC home for endocrine stand point Rx for all diabetes meds and supply left in chart Subjective Allergies: Coded Allergies: No Known Allergies (Unverified , 04/19/16) All Systems: reviewed and negative except above Subjective events noted - interval noted reviewed Objective Last 24 Hour Vital Signs Date Time Temp Pulse Resp B/P (MAP) Pulse Ox O2 Delivery O2 Flow Rate FiO2 08/16/17 05:31 129/83 08/16/17 04:17 97.5 57 17 108/79 97 Room Air 08/16/17 00:11 97.2 55 19 130/81 97 Room Air 08/15/17 23:27 130/81 08/15/17 20:07 98.1 68 17 117/83 97 Room Air 08/15/17 17:29 137/85 08/15/17 16:00 97.8 60 20 132/86 99 Room Air 08/15/17 12:08 132/86 08/15/17 12:00 97.3 60 20 132/86 98 Room Air Laboratory Tests 08/16/17 06:55: White Blood Count 4.3L, Red Blood Count 3.22L, Hemoglobin 10.1L, Hematocrit 29.8L, Mean Corpuscular Volume 93, Mean Corpuscular Hemoglobin 31.3H, Mean Corpuscular Hemoglobin Concent 33.9, Red Cell Distribution Width 13.0, Platelet Count 231, Mean Platelet Volume 9.0, Neutrophils (%) (Auto) 29.1L, Lymphocytes ( %) (Auto) 52.8H, Monocytes (%) (Auto) 5.6, Eosinophils (%) (Auto) 10.6H, Basophils (%) (Auto) 1.9, Sodium Level [Pending], Potassium Level [Pending], Chloride Level [Pending], Carbon Dioxide Level [Pending], Blood Urea Nitrogen [ Pending], Creatinine [Pending], Estimat Glomerular Filtration Rate [Pending], Glucose Level [Pending], Calcium Level [Pending] Height (Feet): 5 Height (Inches): 5.00 Weight (Pounds): 190 General Appearance: no apparent distress EENT: pale conjunctivae Neck: normal alignment Cardiovascular: normal rate Respiratory/Chest: lungs clear Abdomen: normal bowel sounds Pelvis: normal external exam Edema: no edema noted Arm (L), no edema noted Arm (R), no edema noted Leg (L), no edema noted Leg (R), no edema noted Pedal (L), no edema noted Pedal (R), no edema noted Generalized Objective Current Medications Medications (Trade) Dose Ordered Sig/Leah Route PRN Reason Start Time Stop Time Status Last Admin Dose Admin Acetaminophen (Tylenol) 650 mg Q4H PRN ORAL fever 07/25/17 16:15 08/24/17 16:14 Acetaminophen (Tylenol) 650 mg Q4H PRN RECTAL Mild Pain (Pain Scale 1-3) 07/27/17 15:45 08/24/17 20:29 Clonidine HCl (Catapres) 0.1 mg Q6HR ORAL 08/14/17 00:00 08/28/17 08:59 08/16/17 05:31 Dextrose (Dextrose 50%) STAT PRN IV Hypoglycemia 07/26/17 08:45 08/25/17 08:44 Heparin Sodium (Porcine) (Heparin 5000 units/ml) 5,000 units EVERY 12 HOURS SUBQ 07/25/17 21:00 08/24/17 20:59 08/15/17 21:04 Insulin Aspart (NovoLOG) BEFORE MEALS AND HS SUBQ 07/25/17 17:00 08/24/17 16:59 08/15/17 21:05 Insulin Aspart (NovoLOG) 4 units NOVOTIAC SUBQ 08/15/17 16:50 09/14/17 16:49 08/15/17 16:53 Insulin Detemir (Levemir) 10 units BID SUBQ 08/03/17 09:00 09/02/17 08:59 08/15/17 17:32 Nitroglycerin (Ntg) 0.4 mg Q5M PRN SL Prn Chest Pain 07/25/17 16:15 08/24/17 16:14 Ondansetron HCl (Zofran) 4 mg Q6H PRN IVP Nausea & Vomiting 07/25/17 16:15 08/24/17 16:14 Piperacillin/ Tazobactam/ Dextrose 50 ml @ 12.5 mls/hr Q8HR IVPB 08/13/17 22:00 08/27/17 23:59 08/16/17 05:27 Polyethylene Glycol (Miralax) 17 gm DAILYPRN PRN ORAL Constipation 07/25/17 16:15 08/24/17 16:14 Povidone Iodine (Betadine Caridad) 1 applic DAILY TOPIC 07/29/17 09:00 08/25/17 15:59 08/16/17 05:30 Item Value Date Time Bedside Blood Glucose 104 mg/dl 08/16/17 0630 Bedside Blood Glucose 157 mg/dl H 08/15/17 2105 Bedside Blood Glucose 156 mg/dl H 08/15/17 1732 Bedside Blood Glucose 122 mg/dl H 08/15/17 1205 Bedside Blood Glucose 105 mg/dl 08/15/17 0840 ANN DUARTE Aug 16, 2017 08:22
[2017-08-16] MEDS: Levemir Flexpen SUBQ SCH ×2 (08:24→18:40)
[2017-08-16] MEDS: Heparin 5000 units/ml inj SUBQ SCH ×2 (08:25→20:38)
[2017-08-16 08:27] VITALS: BP 138/91
[2017-08-16 08:47] LABS: ANION GAP 7 mmol/L (5-15); CALCIUM 9.1 MG/DL (8.5-10.1); CARBON DIOXIDE 26 MMOL/L (21-32); CHLORIDE 102 MMOL/L (98-107); CREATININE 2.1 MG/DL (0.55-1.30); GLOMERULAR FILTRATION RATE 34.5 mL/min (>60); POTASSIUM 3.8 MMOL/L (3.5-5.1); SODIUM 135 MMOL/L (136-145)
[2017-08-16 12:05] VITALS: BP 137/96
--- NOTE | 2017-08-16 13:06 | Nephrology Progress Note ---
Assessment/Plan Assessment 1.[place] most likely AIN now stable 2,uncontrolled DM 3,Hyponatremia improving 4.Right shoulder abscess 5.morbid obesity Plan renal function is stable monitoring renal function mix all ivpb with NS.9 replace electrolyte as need it avoid NSAID ok to d/c home fallow up as out patient for monitoring renal function Subjective Constitutional: Reports: no symptoms HEENT: Reports: no symptoms Genitourinary: Reports: no symptoms Neurologic/Psychiatric: Reports: no symptoms Subjective alert and awake feeling ok Objective Objective Last 24 Hour Vital Signs Date Time Temp Pulse Resp B/P (MAP) Pulse Ox O2 Delivery O2 Flow Rate FiO2 08/16/17 12:05 98.1 68 16 137/96 97 Room Air 08/16/17 11:38 137/96 08/16/17 08:27 97.2 61 17 138/91 98 Room Air 08/16/17 05:31 129/83 08/16/17 04:17 97.5 57 17 108/79 97 Room Air 08/16/17 00:11 97.2 55 19 130/81 97 Room Air 08/15/17 23:27 130/81 08/15/17 20:07 98.1 68 17 117/83 97 Room Air 08/15/17 17:29 137/85 08/15/17 16:00 97.8 60 20 132/86 99 Room Air Intake and Output 08/16/17 08/17/17 19:00 07:00 Intake Total 25.0 ml Balance 25.0 ml IV Total 25.0 ml Laboratory Tests 08/16/17 06:55: White Blood Count 4.3L, Red Blood Count 3.22L, Hemoglobin 10.1L, Hematocrit 29.8L, Mean Corpuscular Volume 93, Mean Corpuscular Hemoglobin 31.3H, Mean Corpuscular Hemoglobin Concent 33.9, Red Cell Distribution Width 13.0, Platelet Count 231, Mean Platelet Volume 9.0, Neutrophils (%) (Auto) 29.1L, Lymphocytes ( %) (Auto) 52.8H, Monocytes (%) (Auto) 5.6, Eosinophils (%) (Auto) 10.6H, Basophils (%) (Auto) 1.9, Sodium Level 135L, Potassium Level 3.8, Chloride Level 102, Carbon Dioxide Level 26, Anion Gap 7, Blood Urea Nitrogen 26H, Creatinine 2.1H, Estimat Glomerular Filtration Rate 34.5, Glucose Level 95, Calcium Level 9.1 Height (Feet): 5 Height (Inches): 5.00 Weight (Pounds): 190 Objective Head and Neck: No JVP. No LAD. No thyromegaly. Extraocular movement intact. Pupils are reactive to light and accommodation. LUNGS: Clear to auscultation. CARDIAC: Regular rate and rhythm. S1 and S2. No murmur. No rub. ABDOMEN: Obese, nontender, and nondistended. Extremities: A 1 to 2+ edema. Right shoulder, he has a 20 x 20 cm round lesion with the yellowish, foul smelling drainage. It is very tender to touch and has had some degree of fluctuation. BHARGAVI SANZ Aug 16, 2017 13:06
--- NOTE | 2017-08-16 13:28 | General Progress Note ---
Assessment/Plan Problem List: (1) Abscess of back ICD Codes: L02.212 - Cutaneous abscess of back [any part, except buttock] SNOMED: 707382474 (2) Abscess of right shoulder ICD Codes: L02.413 - Cutaneous abscess of right upper limb SNOMED: 79987001 (3) Poorly controlled diabetes mellitus ICD Codes: E11.65 - Type 2 diabetes mellitus with hyperglycemia SNOMED: 161290815 Status: stable, progressing, tolerating diet Assessment/Plan ot pt diet wound care abx pain control cbc bmp am dc plan Subjective Constitutional: Reports: weakness Allergies: Coded Allergies: No Known Allergies (Unverified , 04/19/16) All Systems: reviewed and negative except above Subjective calm in bed Objective Last 24 Hour Vital Signs Date Time Temp Pulse Resp B/P (MAP) Pulse Ox O2 Delivery O2 Flow Rate FiO2 08/16/17 12:05 98.1 68 16 137/96 97 Room Air 08/16/17 11:38 137/96 08/16/17 08:27 97.2 61 17 138/91 98 Room Air 08/16/17 05:31 129/83 08/16/17 04:17 97.5 57 17 108/79 97 Room Air 08/16/17 00:11 97.2 55 19 130/81 97 Room Air 08/15/17 23:27 130/81 08/15/17 20:07 98.1 68 17 117/83 97 Room Air 08/15/17 17:29 137/85 08/15/17 16:00 97.8 60 20 132/86 99 Room Air Intake and Output 08/16/17 08/17/17 19:00 07:00 Intake Total 625.0 ml Balance 625.0 ml Intake Oral 600 ml IV Total 25.0 ml # Voids 3 Laboratory Tests 08/16/17 06:55: White Blood Count 4.3L, Red Blood Count 3.22L, Hemoglobin 10.1L, Hematocrit 29.8L, Mean Corpuscular Volume 93, Mean Corpuscular Hemoglobin 31.3H, Mean Corpuscular Hemoglobin Concent 33.9, Red Cell Distribution Width 13.0, Platelet Count 231, Mean Platelet Volume 9.0, Neutrophils (%) (Auto) 29.1L, Lymphocytes ( %) (Auto) 52.8H, Monocytes (%) (Auto) 5.6, Eosinophils (%) (Auto) 10.6H, Basophils (%) (Auto) 1.9, Sodium Level 135L, Potassium Level 3.8, Chloride Level 102, Carbon Dioxide Level 26, Anion Gap 7, Blood Urea Nitrogen 26H, Creatinine 2.1H, Estimat Glomerular Filtration Rate 34.5, Glucose Level 95, Calcium Level 9.1 Height (Feet): 5 Height (Inches): 5.00 Weight (Pounds): 190 General Appearance: alert EENT: normal ENT inspection Neck: normal alignment Cardiovascular: normal peripheral pulses, normal rate, regular rhythm Respiratory/Chest: chest wall non-tender, lungs clear, normal breath sounds Abdomen: normal bowel sounds, non tender, soft Extremities: normal inspection Edema: no edema noted Arm (L), no edema noted Arm (R), no edema noted Leg (L), no edema noted Leg (R), no edema noted Pedal (L), no edema noted Pedal (R), no edema noted Generalized Neurologic: responsive, motor weakness Skin: normal pigmentation, warm/dry Objective wound dressing sl stained back of right scapula BOB HILL Aug 16, 2017 13:28
[2017-08-16 15:47] VITALS: BP_SYST 135; BP_SYST 137; BP_DIAS 94; BP_DIAS 96
[2017-08-16 20:00] VITALS: BP 150/85
--- NOTE | 2017-08-16 22:11 | Infectious Diseases Prog Note ---
Assessment/Plan Problems: (1) MSSA (methicillin susceptible Staphylococcus aureus) septicemia Assessment & Plan: In the setting of right shoulder abscess. Now status-post I&D. F/u BCx cleared. On Zosyn till 08/27/2017. (2) Diabetes mellitus (3) AUGUSTO (acute kidney injury) Assessment & Plan: Now CKD. In the setting of sepsis. (4) Abscess of right shoulder Assessment & Plan: Due to MSSA. Had necrotizing fascitis. Status post I&D. On Zosyn. Subjective Allergies: Coded Allergies: No Known Allergies (Unverified , 04/19/16) Objective Vital Signs Last 24 Hour Vital Signs Date Time Temp Pulse Resp B/P (MAP) Pulse Ox O2 Delivery O2 Flow Rate FiO2 08/16/17 20:00 97.4 76 17 150/85 97 Room Air 08/16/17 18:39 135/94 08/16/17 15:47 98.3 73 16 135/94 98 Room Air 08/16/17 12:05 98.1 68 16 137/96 97 Room Air 08/16/17 11:38 137/96 08/16/17 08:27 97.2 61 17 138/91 98 Room Air 08/16/17 05:31 129/83 08/16/17 04:17 97.5 57 17 108/79 97 Room Air 08/16/17 00:11 97.2 55 19 130/81 97 Room Air 08/15/17 23:27 130/81 Height (Feet): 5 Height (Inches): 5.00 Weight (Pounds): 190 Laboratory Tests Test 08/16/17 06:55 White Blood Count 4.3 K/UL (4.8-10.8) L Red Blood Count 3.22 M/UL (4.70-6.10) L Hemoglobin 10.1 G/DL (14.2-18.0) L Hematocrit 29.8 % (42.0-52.0) L Mean Corpuscular Volume 93 FL (80-99) Mean Corpuscular Hemoglobin 31.3 PG (27.0-31.0) H Mean Corpuscular Hemoglobin Concent 33.9 G/DL (32.0-36.0) Red Cell Distribution Width 13.0 % (11.6-14.8) Platelet Count 231 K/UL (150-450) Mean Platelet Volume 9.0 FL (6.5-10.1) Neutrophils (%) (Auto) 29.1 % (45.0-75.0) L Lymphocytes (%) (Auto) 52.8 % (20.0-45.0) H Monocytes (%) (Auto) 5.6 % (1.0-10.0) Eosinophils (%) (Auto) 10.6 % (0.0-3.0) H Basophils (%) (Auto) 1.9 % (0.0-2.0) Sodium Level 135 MMOL/L (136-145) L Potassium Level 3.8 MMOL/L (3.5-5.1) Chloride Level 102 MMOL/L (98-107) Carbon Dioxide Level 26 MMOL/L (21-32) Anion Gap 7 mmol/L (5-15) Blood Urea Nitrogen 26 mg/dL (7-18) H Creatinine 2.1 MG/DL (0.55-1.30) H Estimat Glomerular Filtration Rate 34.5 mL/min (>60) Glucose Level 95 MG/DL (74-106) Calcium Level 9.1 MG/DL (8.5-10.1) Current Medications Medications (Trade) Dose Ordered Sig/Leah Route PRN Reason Start Time Stop Time Status Last Admin Dose Admin Acetaminophen (Tylenol) 650 mg Q4H PRN ORAL fever 07/25/17 16:15 08/24/17 16:14 Acetaminophen (Tylenol) 650 mg Q4H PRN RECTAL Mild Pain (Pain Scale 1-3) 07/27/17 15:45 08/24/17 20:29 Clonidine HCl (Catapres) 0.1 mg Q6HR ORAL 08/14/17 00:00 08/28/17 08:59 08/16/17 18:39 Dextrose (Dextrose 50%) STAT PRN IV Hypoglycemia 07/26/17 08:45 08/25/17 08:44 Heparin Sodium (Porcine) (Heparin 5000 units/ml) 5,000 units EVERY 12 HOURS SUBQ 07/25/17 21:00 08/24/17 20:59 08/16/17 20:38 Insulin Aspart (NovoLOG) BEFORE MEALS AND HS SUBQ 07/25/17 17:00 08/24/17 16:59 08/16/17 20:37 Insulin Aspart (NovoLOG) 4 units NOVOTIAC SUBQ 08/15/17 16:50 09/14/17 16:49 08/16/17 18:40 Insulin Detemir (Levemir) 10 units BID SUBQ 08/03/17 09:00 09/02/17 08:59 08/16/17 18:40 Nitroglycerin (Ntg) 0.4 mg Q5M PRN SL Prn Chest Pain 07/25/17 16:15 08/24/17 16:14 Ondansetron HCl (Zofran) 4 mg Q6H PRN IVP Nausea & Vomiting 07/25/17 16:15 08/24/17 16:14 Piperacillin/ Tazobactam/ Dextrose 50 ml @ 12.5 mls/hr Q8HR IVPB 08/13/17 22:00 08/27/17 23:59 08/16/17 21:22 Polyethylene Glycol (Miralax) 17 gm DAILYPRN PRN ORAL Constipation 07/25/17 16:15 08/24/17 16:14 Povidone Iodine (Betadine Caridad) 1 applic DAILY TOPIC 07/29/17 09:00 08/25/17 15:59 08/16/17 05:30 CALLIE ESCAMILLA Aug 16, 2017 22:11
[2017-08-17] VITALS: BP 117/83
[2017-08-17 03:52] VITALS: BP 112/78
[2017-08-17] MEDS: Zosyn 3.375gm/50ml Premix 50 ML IVPB SCH ×3 (06:10→20:59)
[2017-08-17] MEDS: NovoLOG Insulin Flexpen SUBQ SCH ×7 (06:13→21:00)
--- NOTE | 2017-08-17 06:24 | General Progress Note ---
Assessment/Plan Problem List: (1) Non-compliance ICD Codes: Z91.19 - Patient's noncompliance with other medical treatment and regimen SNOMED: 0521645 (2) Poorly controlled diabetes mellitus ICD Codes: E11.65 - Type 2 diabetes mellitus with hyperglycemia SNOMED: 689802133 (3) Abscess of right shoulder ICD Codes: L02.413 - Cutaneous abscess of right upper limb SNOMED: 06072400 (4) Elevated lactic acid level ICD Codes: E87.2 - Acidosis SNOMED: 3054140 Assessment/Plan fasting level on lower side reduce Levemir 10 to 8 units bid continue Novolog 4 units ac tid + SSI clear for DC home for endocrine stand point Rx for all diabetes meds and supply left in chart Subjective Allergies: Coded Allergies: No Known Allergies (Unverified , 04/19/16) All Systems: reviewed and negative except above Subjective events noted - interval noted reviewed Objective Last 24 Hour Vital Signs Date Time Temp Pulse Resp B/P (MAP) Pulse Ox O2 Delivery O2 Flow Rate FiO2 08/17/17 06:11 127/84 08/17/17 03:52 97.7 75 19 112/78 99 Room Air 08/17/17 00:00 97.5 66 16 117/83 98 Room Air 08/16/17 23:50 117/83 08/16/17 20:00 97.4 76 17 150/85 97 Room Air 08/16/17 18:39 135/94 08/16/17 15:47 98.3 73 16 135/94 98 Room Air 08/16/17 12:05 98.1 68 16 137/96 97 Room Air 08/16/17 11:38 137/96 08/16/17 08:27 97.2 61 17 138/91 98 Room Air Laboratory Tests 08/16/17 06:55: White Blood Count 4.3L, Red Blood Count 3.22L, Hemoglobin 10.1L, Hematocrit 29.8L, Mean Corpuscular Volume 93, Mean Corpuscular Hemoglobin 31.3H, Mean Corpuscular Hemoglobin Concent 33.9, Red Cell Distribution Width 13.0, Platelet Count 231, Mean Platelet Volume 9.0, Neutrophils (%) (Auto) 29.1L, Lymphocytes ( %) (Auto) 52.8H, Monocytes (%) (Auto) 5.6, Eosinophils (%) (Auto) 10.6H, Basophils (%) (Auto) 1.9, Sodium Level 135L, Potassium Level 3.8, Chloride Level 102, Carbon Dioxide Level 26, Anion Gap 7, Blood Urea Nitrogen 26H, Creatinine 2.1H, Estimat Glomerular Filtration Rate 34.5, Glucose Level 95, Calcium Level 9.1 Height (Feet): 5 Height (Inches): 5.00 Weight (Pounds): 190 General Appearance: no apparent distress EENT: pale conjunctivae Neck: normal alignment Cardiovascular: normal rate Respiratory/Chest: lungs clear Abdomen: normal bowel sounds Pelvis: normal external exam Edema: no edema noted Arm (L), no edema noted Arm (R), no edema noted Leg (L), no edema noted Leg (R), no edema noted Pedal (L), no edema noted Pedal (R), no edema noted Generalized Objective Current Medications Medications (Trade) Dose Ordered Sig/Leah Route PRN Reason Start Time Stop Time Status Last Admin Dose Admin Acetaminophen (Tylenol) 650 mg Q4H PRN ORAL fever 07/25/17 16:15 08/24/17 16:14 Acetaminophen (Tylenol) 650 mg Q4H PRN RECTAL Mild Pain (Pain Scale 1-3) 07/27/17 15:45 08/24/17 20:29 Clonidine HCl (Catapres) 0.1 mg Q6HR ORAL 08/14/17 00:00 08/28/17 08:59 08/17/17 06:11 Dextrose (Dextrose 50%) STAT PRN IV Hypoglycemia 07/26/17 08:45 08/25/17 08:44 Heparin Sodium (Porcine) (Heparin 5000 units/ml) 5,000 units EVERY 12 HOURS SUBQ 07/25/17 21:00 08/24/17 20:59 08/16/17 20:38 Insulin Aspart (NovoLOG) BEFORE MEALS AND HS SUBQ 07/25/17 17:00 08/24/17 16:59 08/16/17 20:37 Insulin Aspart (NovoLOG) 4 units NOVOTIAC SUBQ 08/15/17 16:50 09/14/17 16:49 08/16/17 18:40 Insulin Detemir (Levemir) 10 units BID SUBQ 08/03/17 09:00 09/02/17 08:59 08/16/17 18:40 Nitroglycerin (Ntg) 0.4 mg Q5M PRN SL Prn Chest Pain 07/25/17 16:15 08/24/17 16:14 Ondansetron HCl (Zofran) 4 mg Q6H PRN IVP Nausea & Vomiting 07/25/17 16:15 08/24/17 16:14 Piperacillin/ Tazobactam/ Dextrose 50 ml @ 12.5 mls/hr Q8HR IVPB 08/13/17 22:00 08/27/17 23:59 08/17/17 06:10 Polyethylene Glycol (Miralax) 17 gm DAILYPRN PRN ORAL Constipation 07/25/17 16:15 08/24/17 16:14 Povidone Iodine (Betadine Caridad) 1 applic DAILY TOPIC 07/29/17 09:00 08/25/17 15:59 08/16/17 05:30 Item Value Date Time Bedside Blood Glucose 89 mg/dl 08/17/17 0614 Bedside Blood Glucose 111 mg/dl 08/16/17 2100 Bedside Blood Glucose 149 mg/dl H 08/16/17 1841 Bedside Blood Glucose 108 mg/dl 08/16/17 1411 Bedside Blood Glucose 104 mg/dl 08/16/17 0824 Bedside Blood Glucose 104 mg/dl 08/16/17 0630 ANN DUARTE Aug 17, 2017 06:24
[2017-08-17 08:00] VITALS: BP 120/71
[2017-08-17] MEDS: Heparin 5000 units/ml inj SUBQ SCH ×2 (08:16→21:00)
[2017-08-17] MEDS: Levemir Flexpen SUBQ SCH ×2 (08:17→17:21)
[2017-08-17] MEDS: Betadine 4oz Bottle TOPIC SCH (08:19)
[2017-08-17 08:33] LABS: BASOPHILS % (AUTO) 1.8 % (0.0-2.0); EOSINOPHILS % (AUTO) 10.9 % (0.0-3.0); LYMPHOCYTES % (AUTO) 50.1 % (20.0-45.0); MEAN CORPUSCULAR HEMOGLOBIN 31.8 PG (27.0-31.0); MEAN CORPUSCULAR HGB CONC 34.3 G/DL (32.0-36.0); MEAN CORPUSCULAR VOLUME 93 FL (80-99); MEAN PLATELET VOLUME 8.8 FL (6.5-10.1); NEUTROPHILS % (AUTO) 31.1 % (45.0-75.0); PLATELET COUNT 202 K/UL (150-450); RED BLOOD COUNT 3.24 M/UL (4.70-6.10); RED CELL DISTRIBUTION WIDTH 13.6 % (11.6-14.8); WHITE BLOOD COUNT 4.7 K/UL (4.8-10.8)
[2017-08-17 08:46] LABS: ANION GAP 9 mmol/L (5-15); CARBON DIOXIDE 26 MMOL/L (21-32); CHLORIDE 100 MMOL/L (98-107); GLOMERULAR FILTRATION RATE 36.5 mL/min (>60); POTASSIUM 4.1 MMOL/L (3.5-5.1); SODIUM 135 MMOL/L (136-145)
[2017-08-17 11:50] VITALS: BP 133/81
--- NOTE | 2017-08-17 13:25 | Nephrology Progress Note ---
Assessment/Plan Assessment 1.[place] most likely AIN now stable 2,uncontrolled DM 3,Hyponatremia improving 4.Right shoulder abscess 5.morbid obesity Plan renal function is stable monitoring renal function mix all ivpb with NS.9 replace electrolyte as need it avoid NSAID ok to d/c home fallow up as out patient for monitoring renal function Subjective Constitutional: Reports: no symptoms HEENT: Reports: no symptoms Genitourinary: Reports: no symptoms Neurologic/Psychiatric: Reports: no symptoms Subjective alert and awake feeling ok Objective Objective Last 24 Hour Vital Signs Date Time Temp Pulse Resp B/P (MAP) Pulse Ox O2 Delivery O2 Flow Rate FiO2 08/17/17 12:35 133/81 08/17/17 11:50 97.3 56 20 133/81 97 Room Air 08/17/17 08:00 98.7 75 20 120/71 97 Room Air 08/17/17 06:11 127/84 08/17/17 03:52 97.7 75 19 112/78 99 Room Air 08/17/17 00:00 97.5 66 16 117/83 98 Room Air 08/16/17 23:50 117/83 08/16/17 20:00 97.4 76 17 150/85 97 Room Air 08/16/17 18:39 135/94 08/16/17 15:47 98.3 73 16 135/94 98 Room Air Intake and Output 08/17/17 08/18/17 19:00 07:00 Intake Total 937.5 ml Output Total 1100 ml Balance -162.5 ml Intake Oral 900 ml IV Total 37.5 ml Output Urine Total 1100 ml # Voids 3 Laboratory Tests 08/17/17 07:54: White Blood Count 4.7L, Red Blood Count 3.24L, Hemoglobin 10.3L, Hematocrit 30.1L, Mean Corpuscular Volume 93, Mean Corpuscular Hemoglobin 31.8H, Mean Corpuscular Hemoglobin Concent 34.3, Red Cell Distribution Width 13.6, Platelet Count 202, Mean Platelet Volume 8.8, Neutrophils (%) (Auto) 31.1L, Lymphocytes ( %) (Auto) 50.1H, Monocytes (%) (Auto) 6.0, Eosinophils (%) (Auto) 10.9H, Basophils (%) (Auto) 1.8, Sodium Level 135L, Potassium Level 4.1, Chloride Level 100, Carbon Dioxide Level 26, Anion Gap 9, Blood Urea Nitrogen 25H, Creatinine 2.0H, Estimat Glomerular Filtration Rate 36.5, Glucose Level 149H, Calcium Level 9.0 Height (Feet): 5 Height (Inches): 5.00 Weight (Pounds): 190 Objective Head and Neck: No JVP. No LAD. No thyromegaly. Extraocular movement intact. Pupils are reactive to light and accommodation. LUNGS: Clear to auscultation. CARDIAC: Regular rate and rhythm. S1 and S2. No murmur. No rub. ABDOMEN: Obese, nontender, and nondistended. Extremities: A 1 to 2+ edema. Right shoulder, he has a 20 x 20 cm round lesion with the yellowish, foul smelling drainage. It is very tender to touch and has had some degree of fluctuation. BHARGAVI SANZ Aug 17, 2017 13:25
--- NOTE | 2017-08-17 14:33 | General Progress Note ---
Assessment/Plan Problem List: (1) Abscess of back ICD Codes: L02.212 - Cutaneous abscess of back [any part, except buttock] SNOMED: 613582648 (2) Abscess of right shoulder ICD Codes: L02.413 - Cutaneous abscess of right upper limb SNOMED: 38880862 (3) Poorly controlled diabetes mellitus ICD Codes: E11.65 - Type 2 diabetes mellitus with hyperglycemia SNOMED: 235460949 Status: stable, progressing, tolerating diet Assessment/Plan ot pt diet wound care abx pain control cbc bmp am dc plan Subjective Constitutional: Reports: weakness Allergies: Coded Allergies: No Known Allergies (Unverified , 04/19/16) All Systems: reviewed and negative except above Subjective calm in bed Objective Last 24 Hour Vital Signs Date Time Temp Pulse Resp B/P (MAP) Pulse Ox O2 Delivery O2 Flow Rate FiO2 08/17/17 12:35 133/81 08/17/17 11:50 97.3 56 20 133/81 97 Room Air 08/17/17 08:00 98.7 75 20 120/71 97 Room Air 08/17/17 06:11 127/84 08/17/17 03:52 97.7 75 19 112/78 99 Room Air 08/17/17 00:00 97.5 66 16 117/83 98 Room Air 08/16/17 23:50 117/83 08/16/17 20:00 97.4 76 17 150/85 97 Room Air 08/16/17 18:39 135/94 08/16/17 15:47 98.3 73 16 135/94 98 Room Air Intake and Output 08/17/17 08/18/17 19:00 07:00 Intake Total 937.5 ml Output Total 1100 ml Balance -162.5 ml Intake Oral 900 ml IV Total 37.5 ml Output Urine Total 1100 ml # Voids 3 # Bowel Movements 2 Laboratory Tests 08/17/17 07:54: White Blood Count 4.7L, Red Blood Count 3.24L, Hemoglobin 10.3L, Hematocrit 30.1L, Mean Corpuscular Volume 93, Mean Corpuscular Hemoglobin 31.8H, Mean Corpuscular Hemoglobin Concent 34.3, Red Cell Distribution Width 13.6, Platelet Count 202, Mean Platelet Volume 8.8, Neutrophils (%) (Auto) 31.1L, Lymphocytes ( %) (Auto) 50.1H, Monocytes (%) (Auto) 6.0, Eosinophils (%) (Auto) 10.9H, Basophils (%) (Auto) 1.8, Sodium Level 135L, Potassium Level 4.1, Chloride Level 100, Carbon Dioxide Level 26, Anion Gap 9, Blood Urea Nitrogen 25H, Creatinine 2.0H, Estimat Glomerular Filtration Rate 36.5, Glucose Level 149H, Calcium Level 9.0 Height (Feet): 5 Height (Inches): 5.00 Weight (Pounds): 190 General Appearance: lethargic EENT: normal ENT inspection Neck: normal alignment Cardiovascular: normal peripheral pulses, normal rate, regular rhythm Respiratory/Chest: chest wall non-tender, lungs clear, normal breath sounds Abdomen: normal bowel sounds, non tender, soft Extremities: normal inspection Edema: no edema noted Arm (L), no edema noted Arm (R), no edema noted Leg (L), no edema noted Leg (R), no edema noted Pedal (L), no edema noted Pedal (R), no edema noted Generalized Neurologic: responsive, motor weakness Skin: normal pigmentation, warm/dry Objective wound dressing sl stained back of right scapula BOB HILL Aug 17, 2017 14:33
[2017-08-17 16:00] VITALS: BP 118/77
--- NOTE | 2017-08-17 16:40 | Infectious Diseases Prog Note ---
Assessment/Plan Problems: (1) MSSA (methicillin susceptible Staphylococcus aureus) septicemia Assessment & Plan: In the setting of right shoulder abscess. Now status-post I&D. F/u BCx cleared. On Zosyn till 08/27/2017. (2) Diabetes mellitus (3) AUGUSTO (acute kidney injury) Assessment & Plan: Now CKD. In the setting of sepsis. (4) Abscess of right shoulder Assessment & Plan: Due to MSSA. Had necrotizing fascitis. Status post I&D. On Zosyn. Subjective Allergies: Coded Allergies: No Known Allergies (Unverified , 04/19/16) Objective Vital Signs Last 24 Hour Vital Signs Date Time Temp Pulse Resp B/P (MAP) Pulse Ox O2 Delivery O2 Flow Rate FiO2 08/17/17 12:35 133/81 08/17/17 11:50 97.3 56 20 133/81 97 Room Air 08/17/17 08:00 98.7 75 20 120/71 97 Room Air 08/17/17 06:11 127/84 08/17/17 03:52 97.7 75 19 112/78 99 Room Air 08/17/17 00:00 97.5 66 16 117/83 98 Room Air 08/16/17 23:50 117/83 08/16/17 20:00 97.4 76 17 150/85 97 Room Air 08/16/17 18:39 135/94 Height (Feet): 5 Height (Inches): 5.00 Weight (Pounds): 190 Laboratory Tests Test 08/17/17 07:54 White Blood Count 4.7 K/UL (4.8-10.8) L Red Blood Count 3.24 M/UL (4.70-6.10) L Hemoglobin 10.3 G/DL (14.2-18.0) L Hematocrit 30.1 % (42.0-52.0) L Mean Corpuscular Volume 93 FL (80-99) Mean Corpuscular Hemoglobin 31.8 PG (27.0-31.0) H Mean Corpuscular Hemoglobin Concent 34.3 G/DL (32.0-36.0) Red Cell Distribution Width 13.6 % (11.6-14.8) Platelet Count 202 K/UL (150-450) Mean Platelet Volume 8.8 FL (6.5-10.1) Neutrophils (%) (Auto) 31.1 % (45.0-75.0) L Lymphocytes (%) (Auto) 50.1 % (20.0-45.0) H Monocytes (%) (Auto) 6.0 % (1.0-10.0) Eosinophils (%) (Auto) 10.9 % (0.0-3.0) H Basophils (%) (Auto) 1.8 % (0.0-2.0) Sodium Level 135 MMOL/L (136-145) L Potassium Level 4.1 MMOL/L (3.5-5.1) Chloride Level 100 MMOL/L (98-107) Carbon Dioxide Level 26 MMOL/L (21-32) Anion Gap 9 mmol/L (5-15) Blood Urea Nitrogen 25 mg/dL (7-18) H Creatinine 2.0 MG/DL (0.55-1.30) H Estimat Glomerular Filtration Rate 36.5 mL/min (>60) Glucose Level 149 MG/DL (74-106) H Calcium Level 9.0 MG/DL (8.5-10.1) Current Medications Medications (Trade) Dose Ordered Sig/Leah Route PRN Reason Start Time Stop Time Status Last Admin Dose Admin Acetaminophen (Tylenol) 650 mg Q4H PRN ORAL fever 07/25/17 16:15 08/24/17 16:14 Acetaminophen (Tylenol) 650 mg Q4H PRN RECTAL Mild Pain (Pain Scale 1-3) 07/27/17 15:45 08/24/17 20:29 Clonidine HCl (Catapres) 0.1 mg Q6HR ORAL 08/14/17 00:00 08/28/17 08:59 08/17/17 12:35 Dextrose (Dextrose 50%) STAT PRN IV Hypoglycemia 07/26/17 08:45 08/25/17 08:44 Heparin Sodium (Porcine) (Heparin 5000 units/ml) 5,000 units EVERY 12 HOURS SUBQ 07/25/17 21:00 08/24/17 20:59 08/17/17 08:16 Insulin Aspart (NovoLOG) BEFORE MEALS AND HS SUBQ 07/25/17 17:00 08/24/17 16:59 08/17/17 12:48 Insulin Aspart (NovoLOG) 4 units NOVOTIAC SUBQ 08/15/17 16:50 09/14/17 16:49 08/17/17 12:47 Insulin Detemir (Levemir) 8 units BID SUBQ 08/17/17 09:00 09/16/17 08:59 08/17/17 08:17 Nitroglycerin (Ntg) 0.4 mg Q5M PRN SL Prn Chest Pain 07/25/17 16:15 08/24/17 16:14 Ondansetron HCl (Zofran) 4 mg Q6H PRN IVP Nausea & Vomiting 07/25/17 16:15 08/24/17 16:14 Piperacillin/ Tazobactam/ Dextrose 50 ml @ 12.5 mls/hr Q8HR IVPB 08/13/17 22:00 08/27/17 23:59 08/17/17 13:42 Polyethylene Glycol (Miralax) 17 gm DAILYPRN PRN ORAL Constipation 07/25/17 16:15 08/24/17 16:14 08/17/17 08:15 Povidone Iodine (Betadine Caridad) 1 applic DAILY TOPIC 07/29/17 09:00 08/25/17 15:59 08/17/17 08:19 CALLIE ESCAMILLA Aug 17, 2017 16:40
[2017-08-17 20:02] VITALS: BP 127/91
[2017-08-18] VITALS (7 sets, daily range): BP systolic 114–139; BP diastolic 66–91
[2017-08-18] MEDS: Zosyn 3.375gm/50ml Premix 50 ML IVPB SCH ×3 (06:00→21:17)
--- NOTE | 2017-08-18 06:09 | General Progress Note ---
Assessment/Plan Problem List: (1) Non-compliance ICD Codes: Z91.19 - Patient's noncompliance with other medical treatment and regimen SNOMED: 2949700 (2) Poorly controlled diabetes mellitus ICD Codes: E11.65 - Type 2 diabetes mellitus with hyperglycemia SNOMED: 909075754 (3) Abscess of right shoulder ICD Codes: L02.413 - Cutaneous abscess of right upper limb SNOMED: 70211495 (4) Elevated lactic acid level ICD Codes: E87.2 - Acidosis SNOMED: 1250819 Assessment/Plan glucose well controlled continue Levemir 8 units bid continue Novolog 4 units ac tid + SSI clear for DC home for endocrine stand point Rx for all diabetes meds and supply left in chart Subjective Allergies: Coded Allergies: No Known Allergies (Unverified , 04/19/16) All Systems: reviewed and negative except above Subjective events noted - interval noted reviewed Objective Last 24 Hour Vital Signs Date Time Temp Pulse Resp B/P (MAP) Pulse Ox O2 Delivery O2 Flow Rate FiO2 08/18/17 00:00 98.5 66 18 127/80 95 Room Air 08/18/17 00:00 127/80 08/17/17 20:02 97.7 70 18 127/91 95 Room Air 08/17/17 17:19 118/77 08/17/17 16:00 98.4 77 20 118/77 99 Room Air 08/17/17 12:35 133/81 08/17/17 11:50 97.3 56 20 133/81 97 Room Air 08/17/17 08:00 98.7 75 20 120/71 97 Room Air 08/17/17 06:11 127/84 Laboratory Tests 08/17/17 07:54: White Blood Count 4.7L, Red Blood Count 3.24L, Hemoglobin 10.3L, Hematocrit 30.1L, Mean Corpuscular Volume 93, Mean Corpuscular Hemoglobin 31.8H, Mean Corpuscular Hemoglobin Concent 34.3, Red Cell Distribution Width 13.6, Platelet Count 202, Mean Platelet Volume 8.8, Neutrophils (%) (Auto) 31.1L, Lymphocytes ( %) (Auto) 50.1H, Monocytes (%) (Auto) 6.0, Eosinophils (%) (Auto) 10.9H, Basophils (%) (Auto) 1.8, Sodium Level 135L, Potassium Level 4.1, Chloride Level 100, Carbon Dioxide Level 26, Anion Gap 9, Blood Urea Nitrogen 25H, Creatinine 2.0H, Estimat Glomerular Filtration Rate 36.5, Glucose Level 149H, Calcium Level 9.0 Height (Feet): 5 Height (Inches): 5.00 Weight (Pounds): 190 General Appearance: no apparent distress Neck: normal alignment Cardiovascular: normal peripheral pulses Respiratory/Chest: chest wall non-tender Abdomen: normal bowel sounds Pelvis: normal external exam Edema: no edema noted Arm (L), no edema noted Arm (R), no edema noted Leg (L), no edema noted Leg (R), no edema noted Pedal (L), no edema noted Pedal (R), no edema noted Generalized Objective Current Medications Medications (Trade) Dose Ordered Sig/Leah Route PRN Reason Start Time Stop Time Status Last Admin Dose Admin Acetaminophen (Tylenol) 650 mg Q4H PRN ORAL fever 07/25/17 16:15 08/24/17 16:14 Acetaminophen (Tylenol) 650 mg Q4H PRN RECTAL Mild Pain (Pain Scale 1-3) 07/27/17 15:45 08/24/17 20:29 Clonidine HCl (Catapres) 0.1 mg Q6HR ORAL 08/14/17 00:00 08/28/17 08:59 08/18/17 00:00 Dextrose (Dextrose 50%) STAT PRN IV Hypoglycemia 07/26/17 08:45 08/25/17 08:44 Heparin Sodium (Porcine) (Heparin 5000 units/ml) 5,000 units EVERY 12 HOURS SUBQ 07/25/17 21:00 08/24/17 20:59 08/17/17 21:00 Insulin Aspart (NovoLOG) BEFORE MEALS AND HS SUBQ 07/25/17 17:00 08/24/17 16:59 08/17/17 17:23 Insulin Aspart (NovoLOG) 4 units NOVOTIAC SUBQ 08/15/17 16:50 09/14/17 16:49 08/17/17 17:22 Insulin Detemir (Levemir) 8 units BID SUBQ 08/17/17 09:00 09/16/17 08:59 08/17/17 17:21 Nitroglycerin (Ntg) 0.4 mg Q5M PRN SL Prn Chest Pain 07/25/17 16:15 10/31/17 16:14 Ondansetron HCl (Zofran) 4 mg Q6H PRN IVP Nausea & Vomiting 07/25/17 16:15 08/24/17 16:14 Piperacillin/ Tazobactam/ Dextrose 50 ml @ 12.5 mls/hr Q8HR IVPB 08/13/17 22:00 08/27/17 23:59 08/17/17 20:59 Polyethylene Glycol (Miralax) 17 gm DAILYPRN PRN ORAL Constipation 07/25/17 16:15 08/24/17 16:14 08/17/17 08:15 Povidone Iodine (Betadine Caridad) 1 applic DAILY TOPIC 07/29/17 09:00 08/25/17 15:59 08/17/17 08:19 Item Value Date Time Bedside Blood Glucose 108 mg/dl 08/17/17 2100 Bedside Blood Glucose 146 mg/dl H 08/17/17 1723 Bedside Blood Glucose 122 mg/dl H 08/17/17 1248 Bedside Blood Glucose 89 mg/dl 08/17/17 0817 ANN DUARTE Aug 18, 2017 06:09
[2017-08-18] MEDS: NovoLOG Insulin Flexpen SUBQ SCH ×7 (06:30→21:16)
[2017-08-18 07:09] LABS: BASOPHILS % (AUTO) 1.6 % (0.0-2.0); EOSINOPHILS % (AUTO) 12.7 % (0.0-3.0); LYMPHOCYTES % (AUTO) 52.8 % (20.0-45.0); MEAN CORPUSCULAR HEMOGLOBIN 30.8 PG (27.0-31.0); MEAN CORPUSCULAR HGB CONC 33.4 G/DL (32.0-36.0); MEAN CORPUSCULAR VOLUME 92 FL (80-99); MEAN PLATELET VOLUME 9.2 FL (6.5-10.1); MONOCYTES % (AUTO) 5.6 % (1.0-10.0); NEUTROPHILS % (AUTO) 27.3 % (45.0-75.0); PLATELET COUNT 216 K/UL (150-450); RED BLOOD COUNT 3.58 M/UL (4.70-6.10); RED CELL DISTRIBUTION WIDTH 13.2 % (11.6-14.8); WHITE BLOOD COUNT 5.7 K/UL (4.8-10.8)
[2017-08-18 07:13] LABS: ANION GAP 9 mmol/L (5-15); CALCIUM 9.4 MG/DL (8.5-10.1); CARBON DIOXIDE 25 MMOL/L (21-32); CHLORIDE 101 MMOL/L (98-107); GLOMERULAR FILTRATION RATE 36.5 mL/min (>60); POTASSIUM 4.2 MMOL/L (3.5-5.1); SODIUM 135 MMOL/L (136-145)
--- NOTE | 2017-08-18 07:58 | General Progress Note ---
Assessment/Plan Problem List: (1) Abscess of back ICD Codes: L02.212 - Cutaneous abscess of back [any part, except buttock] SNOMED: 615491300 (2) Abscess of right shoulder ICD Codes: L02.413 - Cutaneous abscess of right upper limb SNOMED: 47999023 (3) Poorly controlled diabetes mellitus ICD Codes: E11.65 - Type 2 diabetes mellitus with hyperglycemia SNOMED: 724012086 Status: stable, progressing, tolerating diet Assessment/Plan ot pt diet wound care abx pain control cbc bmp am dc plan Subjective Constitutional: Reports: weakness Allergies: Coded Allergies: No Known Allergies (Unverified , 04/19/16) All Systems: reviewed and negative except above Subjective calm in bed Objective Last 24 Hour Vital Signs Date Time Temp Pulse Resp B/P (MAP) Pulse Ox O2 Delivery O2 Flow Rate FiO2 08/18/17 06:00 121/83 08/18/17 04:00 98.0 73 20 121/83 95 Room Air 08/18/17 00:00 98.5 66 18 127/80 95 Room Air 08/18/17 00:00 127/80 08/17/17 20:02 97.7 70 18 127/91 95 Room Air 08/17/17 17:19 118/77 08/17/17 16:00 98.4 77 20 118/77 99 Room Air 08/17/17 12:35 133/81 08/17/17 11:50 97.3 56 20 133/81 97 Room Air 08/17/17 08:00 98.7 75 20 120/71 97 Room Air Laboratory Tests 08/18/17 04:30: White Blood Count 5.7, Red Blood Count 3.58L, Hemoglobin 11.0L, Hematocrit 33.0L , Mean Corpuscular Volume 92, Mean Corpuscular Hemoglobin 30.8, Mean Corpuscular Hemoglobin Concent 33.4, Red Cell Distribution Width 13.2, Platelet Count 216, Mean Platelet Volume 9.2, Neutrophils (%) (Auto) 27.3L, Lymphocytes ( %) (Auto) 52.8H, Monocytes (%) (Auto) 5.6, Eosinophils (%) (Auto) 12.7H, Basophils (%) (Auto) 1.6, Sodium Level 135L, Potassium Level 4.2, Chloride Level 101, Carbon Dioxide Level 25, Anion Gap 9, Blood Urea Nitrogen 24H, Creatinine 2.0H, Estimat Glomerular Filtration Rate 36.5, Glucose Level 102, Calcium Level 9.4 Height (Feet): 5 Height (Inches): 5.00 Weight (Pounds): 190 General Appearance: lethargic EENT: normal ENT inspection Neck: normal alignment Cardiovascular: normal peripheral pulses, normal rate, regular rhythm Respiratory/Chest: chest wall non-tender, lungs clear, normal breath sounds Abdomen: normal bowel sounds, non tender, soft Extremities: normal inspection Edema: no edema noted Arm (L), no edema noted Arm (R), no edema noted Leg (L), no edema noted Leg (R), no edema noted Pedal (L), no edema noted Pedal (R), no edema noted Generalized Neurologic: responsive, motor weakness Skin: normal pigmentation, warm/dry Objective wound dressing sl stained back of right scapula BOB HILL Aug 18, 2017 07:58
--- NOTE | 2017-08-18 08:26 | Nephrology Progress Note ---
Assessment/Plan Assessment 1.[place] most likely AIN now stable 2,uncontrolled DM 3,Hyponatremia improving 4.Right shoulder abscess 5.morbid obesity Plan renal function is stable monitoring renal function mix all ivpb with NS.9 replace electrolyte as need it avoid NSAID ok to d/c home fallow up as out patient for monitoring renal function Subjective Subjective alert and awake feeling ok Objective Objective Last 24 Hour Vital Signs Date Time Temp Pulse Resp B/P (MAP) Pulse Ox O2 Delivery O2 Flow Rate FiO2 08/18/17 08:00 98.8 75 18 114/66 95 Room Air 08/18/17 06:00 121/83 08/18/17 04:00 98.0 73 20 121/83 95 Room Air 08/18/17 00:00 98.5 66 18 127/80 95 Room Air 08/18/17 00:00 127/80 08/17/17 20:02 97.7 70 18 127/91 95 Room Air 08/17/17 17:19 118/77 08/17/17 16:00 98.4 77 20 118/77 99 Room Air 08/17/17 12:35 133/81 08/17/17 11:50 97.3 56 20 133/81 97 Room Air Laboratory Tests 08/18/17 04:30: White Blood Count 5.7, Red Blood Count 3.58L, Hemoglobin 11.0L, Hematocrit 33.0L , Mean Corpuscular Volume 92, Mean Corpuscular Hemoglobin 30.8, Mean Corpuscular Hemoglobin Concent 33.4, Red Cell Distribution Width 13.2, Platelet Count 216, Mean Platelet Volume 9.2, Neutrophils (%) (Auto) 27.3L, Lymphocytes ( %) (Auto) 52.8H, Monocytes (%) (Auto) 5.6, Eosinophils (%) (Auto) 12.7H, Basophils (%) (Auto) 1.6, Sodium Level 135L, Potassium Level 4.2, Chloride Level 101, Carbon Dioxide Level 25, Anion Gap 9, Blood Urea Nitrogen 24H, Creatinine 2.0H, Estimat Glomerular Filtration Rate 36.5, Glucose Level 102, Calcium Level 9.4 Height (Feet): 5 Height (Inches): 5.00 Weight (Pounds): 190 Objective Head and Neck: No JVP. No LAD. No thyromegaly. Extraocular movement intact. Pupils are reactive to light and accommodation. LUNGS: Clear to auscultation. CARDIAC: Regular rate and rhythm. S1 and S2. No murmur. No rub. ABDOMEN: Obese, nontender, and nondistended. Extremities: A 1 to 2+ edema. Right shoulder, he has a 20 x 20 cm round lesion with the yellowish, foul smelling drainage. It is very tender to touch and has had some degree of fluctuation. BHARGAVI SANZ Aug 18, 2017 08:26
[2017-08-18] MEDS: Levemir Flexpen SUBQ SCH ×2 (08:42→18:33)
[2017-08-18] MEDS: Heparin 5000 units/ml inj SUBQ SCH ×2 (08:42→21:16)
[2017-08-18] MEDS: Betadine 4oz Bottle TOPIC SCH (09:00)
--- NOTE | 2017-08-18 20:48 | Infectious Diseases Prog Note ---
Assessment/Plan Problems: (1) MSSA (methicillin susceptible Staphylococcus aureus) septicemia Assessment & Plan: In the setting of right shoulder abscess. Now status-post I&D. F/u BCx cleared. On Zosyn till 08/27/2017. (2) Diabetes mellitus (3) AUGUSTO (acute kidney injury) Assessment & Plan: Now CKD. In the setting of sepsis. (4) Abscess of right shoulder Assessment & Plan: Due to MSSA. Had necrotizing fascitis. Status post I&D. On Zosyn. Subjective Allergies: Coded Allergies: No Known Allergies (Unverified , 04/19/16) Objective Vital Signs Last 24 Hour Vital Signs Date Time Temp Pulse Resp B/P (MAP) Pulse Ox O2 Delivery O2 Flow Rate FiO2 08/18/17 20:00 97.7 65 20 139/88 95 Room Air 08/18/17 16:57 134/91 08/18/17 16:00 97.5 72 20 134/91 98 Room Air 08/18/17 12:08 138/86 08/18/17 12:02 97.5 76 18 138/86 96 Room Air 08/18/17 08:00 98.8 75 18 114/66 95 Room Air 08/18/17 06:00 121/83 08/18/17 04:00 98.0 73 20 121/83 95 Room Air 08/18/17 00:00 98.5 66 18 127/80 95 Room Air 08/18/17 00:00 127/80 Height (Feet): 5 Height (Inches): 5.00 Weight (Pounds): 190 Laboratory Tests Test 08/18/17 04:30 White Blood Count 5.7 K/UL (4.8-10.8) Red Blood Count 3.58 M/UL (4.70-6.10) L Hemoglobin 11.0 G/DL (14.2-18.0) L Hematocrit 33.0 % (42.0-52.0) L Mean Corpuscular Volume 92 FL (80-99) Mean Corpuscular Hemoglobin 30.8 PG (27.0-31.0) Mean Corpuscular Hemoglobin Concent 33.4 G/DL (32.0-36.0) Red Cell Distribution Width 13.2 % (11.6-14.8) Platelet Count 216 K/UL (150-450) Mean Platelet Volume 9.2 FL (6.5-10.1) Neutrophils (%) (Auto) 27.3 % (45.0-75.0) L Lymphocytes (%) (Auto) 52.8 % (20.0-45.0) H Monocytes (%) (Auto) 5.6 % (1.0-10.0) Eosinophils (%) (Auto) 12.7 % (0.0-3.0) H Basophils (%) (Auto) 1.6 % (0.0-2.0) Sodium Level 135 MMOL/L (136-145) L Potassium Level 4.2 MMOL/L (3.5-5.1) Chloride Level 101 MMOL/L (98-107) Carbon Dioxide Level 25 MMOL/L (21-32) Anion Gap 9 mmol/L (5-15) Blood Urea Nitrogen 24 mg/dL (7-18) H Creatinine 2.0 MG/DL (0.55-1.30) H Estimat Glomerular Filtration Rate 36.5 mL/min (>60) Glucose Level 102 MG/DL (74-106) Calcium Level 9.4 MG/DL (8.5-10.1) Current Medications Medications (Trade) Dose Ordered Sig/Leah Route PRN Reason Start Time Stop Time Status Last Admin Dose Admin Acetaminophen (Tylenol) 650 mg Q4H PRN ORAL fever 07/25/17 16:15 08/24/17 16:14 Acetaminophen (Tylenol) 650 mg Q4H PRN RECTAL Mild Pain (Pain Scale 1-3) 07/27/17 15:45 08/24/17 20:29 Clonidine HCl (Catapres) 0.1 mg Q6HR ORAL 08/14/17 00:00 08/28/17 08:59 08/18/17 16:57 Dextrose (Dextrose 50%) STAT PRN IV Hypoglycemia 07/26/17 08:45 08/25/17 08:44 Heparin Sodium (Porcine) (Heparin 5000 units/ml) 5,000 units EVERY 12 HOURS SUBQ 07/25/17 21:00 08/24/17 20:59 08/18/17 08:42 Insulin Aspart (NovoLOG) BEFORE MEALS AND HS SUBQ 07/25/17 17:00 08/24/17 16:59 08/18/17 17:02 Insulin Aspart (NovoLOG) 4 units NOVOTIAC SUBQ 08/15/17 16:50 09/14/17 16:49 08/18/17 17:01 Insulin Detemir (Levemir) 8 units BID SUBQ 08/17/17 09:00 09/16/17 08:59 08/18/17 18:33 Nitroglycerin (Ntg) 0.4 mg Q5M PRN SL Prn Chest Pain 07/25/17 16:15 08/24/17 16:14 Ondansetron HCl (Zofran) 4 mg Q6H PRN IVP Nausea & Vomiting 07/25/17 16:15 08/24/17 16:14 Piperacillin/ Tazobactam/ Dextrose 50 ml @ 12.5 mls/hr Q8HR IVPB 08/13/17 22:00 08/27/17 23:59 08/18/17 13:52 Polyethylene Glycol (Miralax) 17 gm DAILYPRN PRN ORAL Constipation 07/25/17 16:15 08/24/17 16:14 08/17/17 08:15 Povidone Iodine (Betadine Caridad) 1 applic DAILY TOPIC 07/29/17 09:00 08/25/17 15:59 08/17/17 08:19 CALLIE ESCAMILLA Aug 18, 2017 20:48
[2017-08-19 04:00] VITALS: BP 127/81
--- NOTE | 2017-08-19 05:11 | General Progress Note ---
Assessment/Plan Problem List: (1) Non-compliance ICD Codes: Z91.19 - Patient's noncompliance with other medical treatment and regimen SNOMED: 0316957 (2) Poorly controlled diabetes mellitus ICD Codes: E11.65 - Type 2 diabetes mellitus with hyperglycemia SNOMED: 172117624 (3) Abscess of right shoulder ICD Codes: L02.413 - Cutaneous abscess of right upper limb SNOMED: 65269595 (4) Elevated lactic acid level ICD Codes: E87.2 - Acidosis SNOMED: 5149482 Assessment/Plan glucose well controlled continue Levemir 8 units bid continue Novolog 4 units ac tid + SSI clear for DC home for endocrine stand point Rx for all diabetes meds and supply left in chart Subjective Allergies: Coded Allergies: No Known Allergies (Unverified , 04/19/16) All Systems: reviewed and negative except above Subjective events noted - interval noted reviewed Objective Last 24 Hour Vital Signs Date Time Temp Pulse Resp B/P (MAP) Pulse Ox O2 Delivery O2 Flow Rate FiO2 08/19/17 00:16 129/75 08/18/17 23:46 98.2 67 17 129/75 97 Room Air 08/18/17 20:00 97.7 65 20 139/88 95 Room Air 08/18/17 16:57 134/91 08/18/17 16:00 97.5 72 20 134/91 98 Room Air 08/18/17 12:08 138/86 08/18/17 12:02 97.5 76 18 138/86 96 Room Air 08/18/17 08:00 98.8 75 18 114/66 95 Room Air 08/18/17 06:00 121/83 Height (Feet): 5 Height (Inches): 5.00 Weight (Pounds): 190 General Appearance: no apparent distress EENT: pale conjunctivae Neck: normal alignment Cardiovascular: normal rate Respiratory/Chest: lungs clear Abdomen: normal bowel sounds Edema: no edema noted Arm (L), no edema noted Arm (R), no edema noted Leg (L), no edema noted Leg (R), no edema noted Pedal (L), no edema noted Pedal (R), no edema noted Generalized Objective Current Medications Medications (Trade) Dose Ordered Sig/Leah Route PRN Reason Start Time Stop Time Status Last Admin Dose Admin Acetaminophen (Tylenol) 650 mg Q4H PRN ORAL fever 07/25/17 16:15 08/24/17 16:14 Acetaminophen (Tylenol) 650 mg Q4H PRN RECTAL Mild Pain (Pain Scale 1-3) 07/27/17 15:45 08/24/17 20:29 Clonidine HCl (Catapres) 0.1 mg Q6HR ORAL 08/14/17 00:00 08/28/17 08:59 08/19/17 00:16 Dextrose (Dextrose 50%) STAT PRN IV Hypoglycemia 07/26/17 08:45 08/25/17 08:44 Heparin Sodium (Porcine) (Heparin 5000 units/ml) 5,000 units EVERY 12 HOURS SUBQ 07/25/17 21:00 08/24/17 20:59 08/18/17 21:16 Insulin Aspart (NovoLOG) BEFORE MEALS AND HS SUBQ 07/25/17 17:00 08/24/17 16:59 08/18/17 21:16 Insulin Aspart (NovoLOG) 4 units NOVOTIAC SUBQ 08/15/17 16:50 09/14/17 16:49 08/18/17 17:01 Insulin Detemir (Levemir) 8 units BID SUBQ 08/17/17 09:00 09/16/17 08:59 08/18/17 18:33 Nitroglycerin (Ntg) 0.4 mg Q5M PRN SL Prn Chest Pain 07/25/17 16:15 08/24/17 16:14 Ondansetron HCl (Zofran) 4 mg Q6H PRN IVP Nausea & Vomiting 07/25/17 16:15 08/24/17 16:14 Piperacillin/ Tazobactam/ Dextrose 50 ml @ 12.5 mls/hr Q8HR IVPB 08/13/17 22:00 08/27/17 23:59 08/18/17 21:17 Polyethylene Glycol (Miralax) 17 gm DAILYPRN PRN ORAL Constipation 07/25/17 16:15 08/24/17 16:14 08/17/17 08:15 Povidone Iodine (Betadine Caridad) 1 applic DAILY TOPIC 07/29/17 09:00 08/25/17 15:59 08/17/17 08:19 Item Value Date Time Bedside Blood Glucose 134 mg/dl H 08/18/172115 Bedside Blood Glucose 149 mg/dl H 08/18/17 1833 Bedside Blood Glucose 140 mg/dl H 08/18/17 1209 ANN DUARTE Aug 19, 2017 05:11
[2017-08-19] MEDS: Zosyn 3.375gm/50ml Premix 50 ML IVPB SCH ×3 (06:03→21:26)
[2017-08-19] MEDS: NovoLOG Insulin Flexpen SUBQ SCH ×7 (06:13→21:24)
--- NOTE | 2017-08-19 06:57 | General Progress Note ---
Assessment/Plan Problem List: (1) Abscess of back ICD Codes: L02.212 - Cutaneous abscess of back [any part, except buttock] SNOMED: 958776193 (2) Abscess of right shoulder ICD Codes: L02.413 - Cutaneous abscess of right upper limb SNOMED: 22150032 (3) Poorly controlled diabetes mellitus ICD Codes: E11.65 - Type 2 diabetes mellitus with hyperglycemia SNOMED: 640852248 Status: stable, progressing, tolerating diet Assessment/Plan ot pt diet wound care abx pain control cbc bmp am dc plan Subjective Constitutional: Reports: weakness Allergies: Coded Allergies: No Known Allergies (Unverified , 04/19/16) All Systems: reviewed and negative except above Subjective calm in bed Objective Last 24 Hour Vital Signs Date Time Temp Pulse Resp B/P (MAP) Pulse Ox O2 Delivery O2 Flow Rate FiO2 08/19/17 06:04 131/84 08/19/17 04:00 97.3 18 127/81 97 Room Air 08/19/17 00:16 129/75 08/18/17 23:46 98.2 67 17 129/75 97 Room Air 08/18/17 20:00 97.7 65 20 139/88 95 Room Air 08/18/17 16:57 134/91 08/18/17 16:00 97.5 72 20 134/91 98 Room Air 08/18/17 12:08 138/86 08/18/17 12:02 97.5 76 18 138/86 96 Room Air 08/18/17 08:00 98.8 75 18 114/66 95 Room Air Height (Feet): 5 Height (Inches): 5.00 Weight (Pounds): 190 General Appearance: lethargic EENT: normal ENT inspection Neck: normal alignment Cardiovascular: normal peripheral pulses, normal rate, regular rhythm Respiratory/Chest: chest wall non-tender, lungs clear, normal breath sounds Abdomen: normal bowel sounds, non tender, soft Extremities: normal inspection Edema: no edema noted Arm (L), no edema noted Arm (R), no edema noted Leg (L), no edema noted Leg (R), no edema noted Pedal (L), no edema noted Pedal (R), no edema noted Generalized Neurologic: responsive, motor weakness Skin: normal pigmentation, warm/dry Objective wound dressing sl stained back of right scapula BOB HILL Aug 19, 2017 06:57
--- NOTE | 2017-08-19 07:44 | Nephrology Progress Note ---
Assessment/Plan Assessment 1.[place] most likely AIN now stable 2,uncontrolled DM 3,Hyponatremia improving 4.Right shoulder abscess 5.morbid obesity Plan renal function is stable monitoring renal function mix all ivpb with NS.9 replace electrolyte as need it avoid NSAID ok to d/c home fallow up as out patient for monitoring renal function Subjective Subjective alert and awake feeling ok Objective Objective Last 24 Hour Vital Signs Date Time Temp Pulse Resp B/P (MAP) Pulse Ox O2 Delivery O2 Flow Rate FiO2 08/19/17 06:04 131/84 08/19/17 04:00 97.3 18 127/81 97 Room Air 08/19/17 00:16 129/75 08/18/17 23:46 98.2 67 17 129/75 97 Room Air 08/18/17 20:00 97.7 65 20 139/88 95 Room Air 08/18/17 16:57 134/91 08/18/17 16:00 97.5 72 20 134/91 98 Room Air 08/18/17 12:08 138/86 08/18/17 12:02 97.5 76 18 138/86 96 Room Air 08/18/17 08:00 98.8 75 18 114/66 95 Room Air Height (Feet): 5 Height (Inches): 5.00 Weight (Pounds): 190 Objective Head and Neck: No JVP. No LAD. No thyromegaly. Extraocular movement intact. Pupils are reactive to light and accommodation. LUNGS: Clear to auscultation. CARDIAC: Regular rate and rhythm. S1 and S2. No murmur. No rub. ABDOMEN: Obese, nontender, and nondistended. Extremities: A 1 to 2+ edema. Right shoulder, he has a 20 x 20 cm round lesion with the yellowish, foul smelling drainage. It is very tender to touch and has had some degree of fluctuation. BHARGAVI SANZ Aug 19, 2017 07:44
[2017-08-19 08:15] VITALS: BP 142/90
[2017-08-19 08:30] LABS: BASOPHILS % (AUTO) 1.6 % (0.0-2.0); EOSINOPHILS % (AUTO) 14.8 % (0.0-3.0); LYMPHOCYTES % (AUTO) 49.9 % (20.0-45.0); MEAN CORPUSCULAR HEMOGLOBIN 29.5 PG (27.0-31.0); MEAN CORPUSCULAR HGB CONC 31.6 G/DL (32.0-36.0); MEAN CORPUSCULAR VOLUME 93 FL (80-99); MEAN PLATELET VOLUME 8.3 FL (6.5-10.1); NEUTROPHILS % (AUTO) 27.8 % (45.0-75.0); PLATELET COUNT 186 K/UL (150-450); RED BLOOD COUNT 3.57 M/UL (4.70-6.10)
[2017-08-19] MEDS: Betadine 4oz Bottle TOPIC SCH (09:01)
[2017-08-19] MEDS: Heparin 5000 units/ml inj SUBQ SCH ×2 (09:03→21:23)
[2017-08-19] MEDS: Levemir Flexpen SUBQ SCH ×2 (09:04→19:12)
[2017-08-19 09:18] LABS: ANION GAP 10 mmol/L (5-15); CALCIUM 9.2 MG/DL (8.5-10.1); CARBON DIOXIDE 26 MMOL/L (21-32); CHLORIDE 102 MMOL/L (98-107); CREATININE 1.9 MG/DL (0.55-1.30); GLOMERULAR FILTRATION RATE 38.7 mL/min (>60); SODIUM 138 MMOL/L (136-145)
[2017-08-19 12:10] VITALS: BP 142/96
[2017-08-19 16:00] VITALS: BP 132/83
--- NOTE | 2017-08-19 17:08 | Infectious Diseases Prog Note ---
Assessment/Plan Problems: (1) Abscess of right shoulder Assessment & Plan: S/P I&D for source control , on zosyn to cover for necrotizing fasciitis and skin abscess due to MSSA , and bacteremia , continue local wound care as per surgery. will need four weeks of IV antibiotics, EOT (2) Gram-positive cocci bacteremia Assessment & Plan: with MSSA, due to shoulder abscess AND necrotizing fascitis , had source control with I&D, now on zosyn only , 2 D echo didn't show any valve vegetations , repeated blood culture to confirm clearance is negative on 07/26 , continue zosyn only for now which cover MSSA bacteremia and skin necrotizing fascitis and abscess. will need four weeks of iv antibiotics therapy for MSSA bacteremia and necrotizing fascitis . EOT 08/27/17 (3) Poorly controlled diabetes mellitus Assessment & Plan: recommend tight glycemic control to keep blood glucose between 80-120 (4) AUGUSTO (acute kidney injury) Assessment & Plan: keep off vancomycin completely , since his creatinine is still high , avoid nephrotoxic meds , monitor renal function, nephrology is following Subjective Constitutional: Reports: no symptoms HEENT: Reports: no symptoms Respiratory: Reports: no symptoms Breasts: Reports: no symptoms Cardiovascular: Reports: no symptoms Gastrointestinal/Abdominal: Reports: no symptoms Genitourinary: Reports: no symptoms Neurologic: Reports: no symptoms Psychiatric: Reports: no symptoms Skin: Reports: no symptoms Endocrine: Reports: no symptoms Allergies: Coded Allergies: No Known Allergies (Unverified , 04/19/16) Objective Vital Signs Last 24 Hour Vital Signs Date Time Temp Pulse Resp B/P (MAP) Pulse Ox O2 Delivery O2 Flow Rate FiO2 08/19/17 12:27 142/96 08/19/17 12:10 98.4 68 20 142/96 99 Room Air 08/19/17 08:15 97.3 72 20 142/90 98 Room Air 08/19/17 06:04 131/84 08/19/17 04:00 97.3 18 127/81 97 Room Air 08/19/17 00:16 129/75 08/18/17 23:46 98.2 67 17 129/75 97 Room Air 08/18/17 20:00 97.7 65 20 139/88 95 Room Air Height (Feet): 5 Height (Inches): 5.00 Weight (Pounds): 190 General Appearance: WD/WN, no acute distress HEENT: normocephalic, atraumatic, anicteric, mucous membranes moist Respiratory/Chest: chest wall non-tender, lungs clear, normal breath sounds, no respiratory distress, no accessory muscle use Cardiovascular: normal peripheral pulses, normal rate, regular rhythm, no gallop/murmur, no JVD Abdomen: normal bowel sounds, soft, non tender, no organomegaly, non distended , no mass Extremities: no cyanosis, no clubbing Skin: no rash, no lesions, ulcers - large right posterior surgical wound with good granulation tissue at the base, with no necrosis or exudate Neurologic/Psychiatric: alert, oriented x 3 Laboratory Tests Test 08/19/17 07:10 White Blood Count 5.0 K/UL (4.8-10.8) Red Blood Count 3.57 M/UL (4.70-6.10) L Hemoglobin 10.5 G/DL (14.2-18.0) L Hematocrit 33.3 % (42.0-52.0) L Mean Corpuscular Volume 93 FL (80-99) Mean Corpuscular Hemoglobin 29.5 PG (27.0-31.0) Mean Corpuscular Hemoglobin Concent 31.6 G/DL (32.0-36.0) L Red Cell Distribution Width 13.0 % (11.6-14.8) Platelet Count 186 K/UL (150-450) Mean Platelet Volume 8.3 FL (6.5-10.1) Neutrophils (%) (Auto) 27.8 % (45.0-75.0) L Lymphocytes (%) (Auto) 49.9 % (20.0-45.0) H Monocytes (%) (Auto) 6.0 % (1.0-10.0) Eosinophils (%) (Auto) 14.8 % (0.0-3.0) H Basophils (%) (Auto) 1.6 % (0.0-2.0) Sodium Level 138 MMOL/L (136-145) Potassium Level 4.0 MMOL/L (3.5-5.1) Chloride Level 102 MMOL/L (98-107) Carbon Dioxide Level 26 MMOL/L (21-32) Anion Gap 10 mmol/L (5-15) Blood Urea Nitrogen 22 mg/dL (7-18) H Creatinine 1.9 MG/DL (0.55-1.30) H Estimat Glomerular Filtration Rate 38.7 mL/min (>60) Glucose Level 99 MG/DL (74-106) Calcium Level 9.2 MG/DL (8.5-10.1) Current Medications Medications (Trade) Dose Ordered Sig/Leah Route PRN Reason Start Time Stop Time Status Last Admin Dose Admin Acetaminophen (Tylenol) 650 mg Q4H PRN ORAL fever 07/25/17 16:15 08/24/17 16:14 Acetaminophen (Tylenol) 650 mg Q4H PRN RECTAL Mild Pain (Pain Scale 1-3) 07/27/17 15:45 08/24/17 20:29 Clonidine HCl (Catapres) 0.1 mg Q6HR ORAL 08/14/17 00:00 08/28/17 08:59 08/19/17 12:27 Dextrose (Dextrose 50%) STAT PRN IV Hypoglycemia 07/26/17 08:45 08/25/17 08:44 Heparin Sodium (Porcine) (Heparin 5000 units/ml) 5,000 units EVERY 12 HOURS SUBQ 07/25/17 21:00 08/24/17 20:59 08/19/17 09:03 Insulin Aspart (NovoLOG) BEFORE MEALS AND HS SUBQ 07/25/17 17:00 08/24/17 16:59 08/19/17 12:27 Insulin Aspart (NovoLOG) 4 units NOVOTIAC SUBQ 08/15/17 16:50 09/14/17 16:49 08/19/17 12:26 Insulin Detemir (Levemir) 8 units BID SUBQ 08/17/17 09:00 09/16/17 08:59 08/19/17 09:04 Nitroglycerin (Ntg) 0.4 mg Q5M PRN SL Prn Chest Pain 07/25/17 16:15 08/24/17 16:14 Ondansetron HCl (Zofran) 4 mg Q6H PRN IVP Nausea & Vomiting 07/25/17 16:15 08/24/17 16:14 Piperacillin/ Tazobactam/ Dextrose 50 ml @ 12.5 mls/hr Q8HR IVPB 08/13/17 22:00 11/3/17 23:59 08/19/17 15:32 Polyethylene Glycol (Miralax) 17 gm DAILYPRN PRN ORAL Constipation 07/25/17 16:15 08/24/17 16:14 08/17/17 08:15 Povidone Iodine (Betadine Caridad) 1 applic DAILY TOPIC 07/29/17 09:00 08/25/17 15:59 08/19/17 09:01 Fernando Clayton M.D. Aug 19, 2017 17:08
[2017-08-19 20:00] VITALS: BP 131/74
[2017-08-20] VITALS: BP 132/83
[2017-08-20 04:14] VITALS: BP 136/83
--- NOTE | 2017-08-20 05:19 | General Progress Note ---
Assessment/Plan Problem List: (1) Non-compliance ICD Codes: Z91.19 - Patient's noncompliance with other medical treatment and regimen SNOMED: 0313909 (2) Poorly controlled diabetes mellitus ICD Codes: E11.65 - Type 2 diabetes mellitus with hyperglycemia SNOMED: 549546835 (3) Abscess of right shoulder ICD Codes: L02.413 - Cutaneous abscess of right upper limb SNOMED: 13110074 (4) Elevated lactic acid level ICD Codes: E87.2 - Acidosis SNOMED: 1808853 Assessment/Plan glucose well controlled continue Levemir 8 units bid continue Novolog 4 units ac tid + SSI clear for DC home for endocrine stand point Rx for all diabetes meds and supply left in chart Subjective Allergies: Coded Allergies: No Known Allergies (Unverified , 04/19/16) All Systems: reviewed and negative except above Subjective events noted - interval noted reviewed Objective Last 24 Hour Vital Signs Date Time Temp Pulse Resp B/P (MAP) Pulse Ox O2 Delivery O2 Flow Rate FiO2 08/20/17 04:14 97.3 59 20 136/83 97 Room Air 08/20/17 00:27 132/83 08/20/17 00:00 97.2 60 19 132/83 98 Room Air 08/19/17 20:00 98.4 70 20 131/74 97 Room Air 08/19/17 19:09 132/83 08/19/17 16:00 98.1 60 20 132/83 97 Room Air 08/19/17 12:27 142/96 08/19/17 12:10 98.4 68 20 142/96 99 Room Air 08/19/17 08:15 97.3 72 20 142/90 98 Room Air 08/19/17 06:04 131/84 Laboratory Tests 08/19/17 07:10: White Blood Count 5.0, Red Blood Count 3.57L, Hemoglobin 10.5L, Hematocrit 33.3L , Mean Corpuscular Volume 93, Mean Corpuscular Hemoglobin 29.5, Mean Corpuscular Hemoglobin Concent 31.6L, Red Cell Distribution Width 13.0, Platelet Count 186, Mean Platelet Volume 8.3, Neutrophils (%) (Auto) 27.8L, Lymphocytes (%) (Auto) 49.9H, Monocytes (%) (Auto) 6.0, Eosinophils (%) (Auto) 14.8H, Basophils (%) (Auto) 1.6, Sodium Level 138, Potassium Level 4.0, Chloride Level 102, Carbon Dioxide Level 26, Anion Gap 10, Blood Urea Nitrogen 22H, Creatinine 1.9H, Estimat Glomerular Filtration Rate 38.7, Glucose Level 99 , Calcium Level 9.2 Height (Feet): 5 Height (Inches): 5.00 Weight (Pounds): 190 General Appearance: WD/WN Neck: normal alignment Cardiovascular: normal rate Respiratory/Chest: lungs clear Objective Current Medications Medications (Trade) Dose Ordered Sig/Leah Route PRN Reason Start Time Stop Time Status Last Admin Dose Admin Acetaminophen (Tylenol) 650 mg Q4H PRN ORAL fever 07/25/17 16:15 08/24/17 16:14 Acetaminophen (Tylenol) 650 mg Q4H PRN RECTAL Mild Pain (Pain Scale 1-3) 07/27/17 15:45 08/24/17 20:29 Clonidine HCl (Catapres) 0.1 mg Q6HR ORAL 08/14/17 00:00 08/28/17 08:59 08/20/17 00:27 Dextrose (Dextrose 50%) STAT PRN IV Hypoglycemia 07/26/17 08:45 08/25/17 08:44 Heparin Sodium (Porcine) (Heparin 5000 units/ml) 5,000 units EVERY 12 HOURS SUBQ 07/25/17 21:00 08/24/17 20:59 08/19/17 21:23 Insulin Aspart (NovoLOG) BEFORE MEALS AND HS SUBQ 07/25/17 17:00 08/24/17 16:59 08/19/17 21:24 Insulin Aspart (NovoLOG) 4 units NOVOTIAC SUBQ 08/15/17 16:50 09/14/17 16:49 08/19/17 17:38 Insulin Detemir (Levemir) 8 units BID SUBQ 08/17/17 09:00 09/16/17 08:59 08/19/17 19:12 Nitroglycerin (Ntg) 0.4 mg Q5M PRN SL Prn Chest Pain 07/25/17 16:15 08/24/17 16:14 Ondansetron HCl (Zofran) 4 mg Q6H PRN IVP Nausea & Vomiting 07/25/17 16:15 08/24/17 16:14 Piperacillin/ Tazobactam/ Dextrose 50 ml @ 12.5 mls/hr Q8HR IVPB 08/13/17 22:00 08/27/17 23:59 08/19/17 21:26 Polyethylene Glycol (Miralax) 17 gm DAILYPRN PRN ORAL Constipation 07/25/17 16:15 08/24/17 16:14 08/17/17 08:15 Povidone Iodine (Betadine Caridad) 1 applic DAILY TOPIC 07/29/17 09:00 08/25/17 15:59 08/19/17 09:01 Item Value Date Time Bedside Blood Glucose 125 mg/dl H 08/19/17 2124 Bedside Blood Glucose 165 mg/dl H 08/19/17 1738 Bedside Blood Glucose 174 mg/dl H 08/19/17 1227 ANN DUARTE Aug 20, 2017 05:19
[2017-08-20] MEDS: Zosyn 3.375gm/50ml Premix 50 ML IVPB SCH ×3 (06:11→21:16)
[2017-08-20] MEDS: NovoLOG Insulin Flexpen SUBQ SCH ×7 (06:30→21:21)
[2017-08-20 07:53] LABS: BASOPHILS % (AUTO) 1.9 % (0.0-2.0); EOSINOPHILS % (AUTO) 13.6 % (0.0-3.0); LYMPHOCYTES % (AUTO) 54.7 % (20.0-45.0); MEAN CORPUSCULAR HEMOGLOBIN 30.8 PG (27.0-31.0); MEAN CORPUSCULAR HGB CONC 33.4 G/DL (32.0-36.0); MEAN CORPUSCULAR VOLUME 92 FL (80-99); MEAN PLATELET VOLUME 9.8 FL (6.5-10.1); MONOCYTES % (AUTO) 6.2 % (1.0-10.0); NEUTROPHILS % (AUTO) 23.6 % (45.0-75.0); PLATELET COUNT 186 K/UL (150-450); RED BLOOD COUNT 3.71 M/UL (4.70-6.10); RED CELL DISTRIBUTION WIDTH 13.6 % (11.6-14.8); WHITE BLOOD COUNT 5.5 K/UL (4.8-10.8)
[2017-08-20 08:00] VITALS: BP 143/89
[2017-08-20 08:06] LABS: ANION GAP 9 mmol/L (5-15); CALCIUM 9.7 MG/DL (8.5-10.1); CARBON DIOXIDE 27 MMOL/L (21-32); CHLORIDE 99 MMOL/L (98-107); CREATININE 1.9 MG/DL (0.55-1.30); GLOMERULAR FILTRATION RATE 38.7 mL/min (>60); POTASSIUM 4.1 MMOL/L (3.5-5.1); SODIUM 135 MMOL/L (136-145)
[2017-08-20] MEDS: Betadine 4oz Bottle TOPIC SCH (08:32)
[2017-08-20] MEDS: Heparin 5000 units/ml inj SUBQ SCH ×2 (08:34→21:19)
[2017-08-20] MEDS: Levemir Flexpen SUBQ SCH ×2 (08:35→17:35)
[2017-08-20 12:28] VITALS: BP 114/79
--- NOTE | 2017-08-20 12:48 | Nephrology Progress Note ---
Assessment/Plan Assessment 1.AUGUSTO most likely AIN now stable 2,uncontrolled DM 3,Hyponatremia improving 4.Right shoulder abscess 5.morbid obesity Plan renal function is stable monitoring renal function mix all ivpb with NS.9 replace electrolyte as need it avoid NSAID ok to d/c home fallow up as out patient for monitoring renal function Subjective Constitutional: Reports: no symptoms HEENT: Reports: no symptoms Genitourinary: Reports: no symptoms Neurologic/Psychiatric: Reports: no symptoms Subjective alert and awake feeling ok Objective Objective Last 24 Hour Vital Signs Date Time Temp Pulse Resp B/P (MAP) Pulse Ox O2 Delivery O2 Flow Rate FiO2 08/20/17 12:28 97.3 75 18 114/79 99 Room Air 08/20/17 12:26 143/89 08/20/17 08:00 97.9 68 20 143/89 98 Room Air 08/20/17 06:11 136/83 08/20/17 04:14 97.3 59 20 136/83 97 Room Air 08/20/17 00:27 132/83 08/20/17 00:00 97.2 60 19 132/83 98 Room Air 08/19/17 20:00 98.4 70 20 131/74 97 Room Air 08/19/17 19:09 132/83 08/19/17 16:00 98.1 60 20 132/83 97 Room Air Intake and Output 08/20/17 08/21/17 19:00 07:00 Intake Total 720 ml Output Total 1100 ml Balance -380 ml Intake Oral 720 ml Output Urine Total 1100 ml # Bowel Movements 1 Laboratory Tests 08/20/17 05:50: White Blood Count 5.5, Red Blood Count 3.71L, Hemoglobin 11.5L, Hematocrit 34.3L , Mean Corpuscular Volume 92, Mean Corpuscular Hemoglobin 30.8, Mean Corpuscular Hemoglobin Concent 33.4, Red Cell Distribution Width 13.6, Platelet Count 186, Mean Platelet Volume 9.8, Neutrophils (%) (Auto) 23.6L, Lymphocytes ( %) (Auto) 54.7H, Monocytes (%) (Auto) 6.2, Eosinophils (%) (Auto) 13.6H, Basophils (%) (Auto) 1.9, Sodium Level 135L, Potassium Level 4.1, Chloride Level 99, Carbon Dioxide Level 27, Anion Gap 9, Blood Urea Nitrogen 20H, Creatinine 1.9H, Estimat Glomerular Filtration Rate 38.7, Glucose Level 98, Calcium Level 9.7 Height (Feet): 5 Height (Inches): 5.00 Weight (Pounds): 190 Objective Head and Neck: No JVP. No LAD. No thyromegaly. Extraocular movement intact. Pupils are reactive to light and accommodation. LUNGS: Clear to auscultation. CARDIAC: Regular rate and rhythm. S1 and S2. No murmur. No rub. ABDOMEN: Obese, nontender, and nondistended. Extremities: A 1 to 2+ edema. Right shoulder, he has a 20 x 20 cm round lesion with the yellowish, foul smelling drainage. It is very tender to touch and has had some degree of fluctuation. BHARGAVI SANZ Aug 20, 2017 12:48
--- NOTE | 2017-08-20 15:24 | General Progress Note ---
Assessment/Plan Problem List: (1) Abscess of right shoulder ICD Codes: L02.413 - Cutaneous abscess of right upper limb SNOMED: 66907979 (2) Diabetes mellitus ICD Codes: E11.9 - Type 2 diabetes mellitus without complications SNOMED: 56448458 (3) [place]USTO (acute kidney injury) ICD Codes: N17.9 - Acute kidney failure, unspecified SNOMED: 06037381 Status: progressing Assessment/Plan shoulder abscess dm elevated bg sepsis afebrile Subjective Allergies: Coded Allergies: No Known Allergies (Unverified , 04/19/16) Subjective shoulder pain Objective Last 24 Hour Vital Signs Date Time Temp Pulse Resp B/P (MAP) Pulse Ox O2 Delivery O2 Flow Rate FiO2 08/20/17 12:28 97.3 75 18 114/79 99 Room Air 08/20/17 12:26 143/89 08/20/17 08:00 97.9 68 20 143/89 98 Room Air 08/20/17 06:11 136/83 08/20/17 04:14 97.3 59 20 136/83 97 Room Air 08/20/17 00:27 132/83 08/20/17 00:00 97.2 60 19 132/83 98 Room Air 08/19/17 20:00 98.4 70 20 131/74 97 Room Air 08/19/17 19:09 132/83 08/19/17 16:00 98.1 60 20 132/83 97 Room Air Intake and Output 08/20/17 08/21/17 19:00 07:00 Intake Total 720 ml Output Total 1100 ml Balance -380 ml Intake Oral 720 ml Output Urine Total 1100 ml # Bowel Movements 1 Laboratory Tests 08/20/17 05:50: White Blood Count 5.5, Red Blood Count 3.71L, Hemoglobin 11.5L, Hematocrit 34.3L , Mean Corpuscular Volume 92, Mean Corpuscular Hemoglobin 30.8, Mean Corpuscular Hemoglobin Concent 33.4, Red Cell Distribution Width 13.6, Platelet Count 186, Mean Platelet Volume 9.8, Neutrophils (%) (Auto) 23.6L, Lymphocytes ( %) (Auto) 54.7H, Monocytes (%) (Auto) 6.2, Eosinophils (%) (Auto) 13.6H, Basophils (%) (Auto) 1.9, Sodium Level 135L, Potassium Level 4.1, Chloride Level 99, Carbon Dioxide Level 27, Anion Gap 9, Blood Urea Nitrogen 20H, Creatinine 1.9H, Estimat Glomerular Filtration Rate 38.7, Glucose Level 98, Calcium Level 9.7 Height (Feet): 5 Height (Inches): 5.00 Weight (Pounds): 190 EENT: PERRL/EOMI Cardiovascular: normal rate Abdomen: soft Erik Cardona MD Aug 20, 2017 15:24
--- NOTE | 2017-08-20 16:12 | Infectious Diseases Prog Note ---
Assessment/Plan Problems: (1) Abscess of right shoulder Assessment & Plan: S/P I&D for source control , on zosyn to cover for necrotizing fasciitis and skin abscess due to MSSA , and bacteremia , continue local wound care as per surgery. will need four weeks of IV antibiotics, EOT (2) Gram-positive cocci bacteremia Assessment & Plan: with MSSA, due to shoulder abscess AND necrotizing fascitis , had source control with I&D, now on zosyn only , 2 D echo didn't show any valve vegetations , repeated blood culture to confirm clearance is negative on 07/26 , continue zosyn only for now which cover MSSA bacteremia and skin necrotizing fascitis and abscess. will need four weeks of iv antibiotics therapy for MSSA bacteremia and necrotizing fascitis . EOT 08/27/17 (3) Poorly controlled diabetes mellitus Assessment & Plan: recommend tight glycemic control to keep blood glucose between 80-120 (4) [place] (acute kidney injury) Assessment & Plan: keep off vancomycin completely , since his creatinine is still high , avoid nephrotoxic meds , monitor renal function, nephrology is following Subjective Constitutional: Reports: no symptoms HEENT: Reports: no symptoms Respiratory: Reports: no symptoms Breasts: Reports: no symptoms Cardiovascular: Reports: no symptoms Gastrointestinal/Abdominal: Reports: no symptoms Genitourinary: Reports: no symptoms Neurologic: Reports: no symptoms Psychiatric: Reports: no symptoms Skin: Reports: ulcer Endocrine: Reports: no symptoms Hematologic: Reports: no symptoms Allergies: Coded Allergies: No Known Allergies (Unverified , 04/19/16) Objective Vital Signs Last 24 Hour Vital Signs Date Time Temp Pulse Resp B/P (MAP) Pulse Ox O2 Delivery O2 Flow Rate FiO2 08/20/17 12:28 97.3 75 18 114/79 99 Room Air 08/20/17 12:26 143/89 08/20/17 08:00 97.9 68 20 143/89 98 Room Air 08/20/17 06:11 136/83 08/20/17 04:14 97.3 59 20 136/83 97 Room Air 08/20/17 00:27 132/83 08/20/17 00:00 97.2 60 19 132/83 98 Room Air 08/19/17 20:00 98.4 70 20 131/74 97 Room Air 08/19/17 19:09 132/83 Height (Feet): 5 Height (Inches): 5.00 Weight (Pounds): 190 General Appearance: WD/WN, no acute distress HEENT: normocephalic, atraumatic, anicteric, mucous membranes moist Respiratory/Chest: chest wall non-tender, lungs clear, normal breath sounds, no respiratory distress, no accessory muscle use Cardiovascular: normal peripheral pulses, normal rate, regular rhythm, no gallop/murmur, no JVD Abdomen: normal bowel sounds, soft, non tender, no organomegaly, non distended , no mass, no scars Extremities: no cyanosis, no clubbing Skin: no rash, no lesions, no ulcers Neurologic/Psychiatric: alert, oriented x 3 Lymphatic: no neck adenopathy, no groin adenopathy Laboratory Tests Test 08/20/17 05:50 White Blood Count 5.5 K/UL (4.8-10.8) Red Blood Count 3.71 M/UL (4.70-6.10) L Hemoglobin 11.5 G/DL (14.2-18.0) L Hematocrit 34.3 % (42.0-52.0) L Mean Corpuscular Volume 92 FL (80-99) Mean Corpuscular Hemoglobin 30.8 PG (27.0-31.0) Mean Corpuscular Hemoglobin Concent 33.4 G/DL (32.0-36.0) Red Cell Distribution Width 13.6 % (11.6-14.8) Platelet Count 186 K/UL (150-450) Mean Platelet Volume 9.8 FL (6.5-10.1) Neutrophils (%) (Auto) 23.6 % (45.0-75.0) L Lymphocytes (%) (Auto) 54.7 % (20.0-45.0) H Monocytes (%) (Auto) 6.2 % (1.0-10.0) Eosinophils (%) (Auto) 13.6 % (0.0-3.0) H Basophils (%) (Auto) 1.9 % (0.0-2.0) Sodium Level 135 MMOL/L (136-145) L Potassium Level 4.1 MMOL/L (3.5-5.1) Chloride Level 99 MMOL/L (98-107) Carbon Dioxide Level 27 MMOL/L (21-32) Anion Gap 9 mmol/L (5-15) Blood Urea Nitrogen 20 mg/dL (7-18) H Creatinine 1.9 MG/DL (0.55-1.30) H Estimat Glomerular Filtration Rate 38.7 mL/min (>60) Glucose Level 98 MG/DL (74-106) Calcium Level 9.7 MG/DL (8.5-10.1) Current Medications Medications (Trade) Dose Ordered Sig/Leah Route PRN Reason Start Time Stop Time Status Last Admin Dose Admin Acetaminophen (Tylenol) 650 mg Q4H PRN ORAL fever 07/25/17 16:15 08/24/17 16:14 Acetaminophen (Tylenol) 650 mg Q4H PRN RECTAL Mild Pain (Pain Scale 1-3) 07/27/17 15:45 08/24/17 20:29 Clonidine HCl (Catapres) 0.1 mg Q6HR ORAL 08/14/17 00:00 08/28/17 08:59 08/20/17 12:26 Dextrose (Dextrose 50%) STAT PRN IV Hypoglycemia 07/26/17 08:45 08/25/17 08:44 Heparin Sodium (Porcine) (Heparin 5000 units/ml) 5,000 units EVERY 12 HOURS SUBQ 07/25/17 21:00 08/24/17 20:59 08/20/17 08:34 Insulin Aspart (NovoLOG) BEFORE MEALS AND HS SUBQ 07/25/17 17:00 08/24/17 16:59 08/20/17 12:28 Insulin Aspart (NovoLOG) 4 units NOVOTIAC SUBQ 08/15/17 16:50 09/14/17 16:49 08/20/17 12:29 Insulin Detemir (Levemir) 8 units BID SUBQ 08/17/17 09:00 09/16/17 08:59 08/20/17 08:35 Nitroglycerin (Ntg) 0.4 mg Q5M PRN SL Prn Chest Pain 07/25/17 16:15 08/24/17 16:14 Ondansetron HCl (Zofran) 4 mg Q6H PRN IVP Nausea & Vomiting 07/25/17 16:15 08/24/17 16:14 Piperacillin/ Tazobactam/ Dextrose 50 ml @ 12.5 mls/hr Q8HR IVPB 08/13/17 22:00 08/27/17 23:59 08/20/17 15:08 Polyethylene Glycol (Miralax) 17 gm DAILYPRN PRN ORAL Constipation 07/25/17 16:15 08/24/17 16:14 08/17/17 08:15 Povidone Iodine (Betadine Caridad) 1 applic DAILY TOPIC 07/29/17 09:00 08/25/17 15:59 08/20/17 08:32 Fernando Clayton M.D. Aug 20, 2017 16:12
[2017-08-20 16:49] VITALS: BP 144/93
[2017-08-20 20:00] VITALS: BP 119/78
[2017-08-21] VITALS: BP 120/80
[2017-08-21 04:00] VITALS: BP 121/81
[2017-08-21] MEDS: Zosyn 3.375gm/50ml Premix 50 ML IVPB SCH ×3 (05:27→22:02)
[2017-08-21] MEDS: NovoLOG Insulin Flexpen SUBQ SCH ×7 (06:30→20:19)
[2017-08-21 08:28] VITALS: BP 81/63
[2017-08-21] MEDS: Betadine 4oz Bottle TOPIC SCH (09:53)
[2017-08-21] MEDS: Heparin 5000 units/ml inj SUBQ SCH ×2 (09:54→20:20)
[2017-08-21] MEDS: Levemir Flexpen SUBQ SCH ×2 (09:55→18:49)
[2017-08-21 12:30] VITALS: BP 121/68
--- NOTE | 2017-08-21 13:47 | Infectious Diseases Prog Note ---
Assessment/Plan Problems: (1) Abscess of right shoulder Assessment & Plan: S/P I&D for source control , on zosyn to cover for necrotizing fasciitis and skin abscess due to MSSA , and bacteremia , continue local wound care as per surgery. will need four weeks of IV antibiotics, EOT (2) Gram-positive cocci bacteremia Assessment & Plan: with MSSA, due to shoulder abscess AND necrotizing fascitis , had source control with I&D, now on zosyn only , 2 D echo didn't show any valve vegetations , repeated blood culture to confirm clearance is negative on 07/26 , continue zosyn only for now which cover MSSA bacteremia and skin necrotizing fascitis and abscess. will need four weeks of iv antibiotics therapy for MSSA bacteremia and necrotizing fascitis . EOT 08/27/17 (3) Poorly controlled diabetes mellitus Assessment & Plan: recommend tight glycemic control to keep blood glucose between 80-120 (4) [place] (acute kidney injury) Assessment & Plan: keep off vancomycin completely , since his creatinine is still high , avoid nephrotoxic meds , monitor renal function, nephrology is following Subjective Constitutional: Reports: no symptoms HEENT: Reports: no symptoms Respiratory: Reports: no symptoms Breasts: Reports: no symptoms Cardiovascular: Reports: no symptoms Gastrointestinal/Abdominal: Reports: no symptoms Genitourinary: Reports: no symptoms Neurologic: Reports: no symptoms Psychiatric: Reports: no symptoms Skin: Reports: no symptoms Endocrine: Reports: no symptoms Allergies: Coded Allergies: No Known Allergies (Unverified , 04/19/16) Objective Vital Signs Last 24 Hour Vital Signs Date Time Temp Pulse Resp B/P (MAP) Pulse Ox O2 Delivery O2 Flow Rate FiO2 08/21/17 12:40 121/68 08/21/17 12:30 98.1 69 20 121/68 99 Room Air 08/21/17 08:28 98.0 73 20 81/63 95 Room Air 08/21/17 05:27 125/83 08/21/17 04:00 97.7 65 19 121/81 97 Room Air 08/21/17 00:32 120/80 08/21/17 00:00 97.6 64 19 120/80 99 Room Air 08/20/17 20:00 98.1 69 19 119/78 99 Room Air 08/20/17 17:33 144/93 08/20/17 16:49 98.4 92 20 144/93 99 Room Air Height (Feet): 5 Height (Inches): 5.00 Weight (Pounds): 190 General Appearance: WD/WN, no acute distress HEENT: normocephalic, atraumatic, anicteric, mucous membranes moist Respiratory/Chest: chest wall non-tender, lungs clear, normal breath sounds, no respiratory distress, no accessory muscle use Cardiovascular: normal peripheral pulses, normal rate, regular rhythm, no gallop/murmur, no JVD Abdomen: normal bowel sounds, soft, non tender, no organomegaly, non distended , no mass Extremities: no cyanosis, no clubbing Skin: no rash, no lesions, no ulcers Neurologic/Psychiatric: alert, oriented x 3 Current Medications Medications (Trade) Dose Ordered Sig/Leah Route PRN Reason Start Time Stop Time Status Last Admin Dose Admin Acetaminophen (Tylenol) 650 mg Q4H PRN ORAL fever 07/25/17 16:15 08/24/17 16:14 Acetaminophen (Tylenol) 650 mg Q4H PRN RECTAL Mild Pain (Pain Scale 1-3) 07/27/17 15:45 08/24/17 20:29 Clonidine HCl (Catapres) 0.1 mg Q6HR ORAL 08/14/17 00:00 08/28/17 08:59 08/21/17 12:40 Dextrose (Dextrose 50%) STAT PRN IV Hypoglycemia 07/26/17 08:45 08/25/17 08:44 Heparin Sodium (Porcine) (Heparin 5000 units/ml) 5,000 units EVERY 12 HOURS SUBQ 07/25/17 21:00 08/24/17 20:59 08/21/17 09:54 Insulin Aspart (NovoLOG) BEFORE MEALS AND HS SUBQ 07/25/17 17:00 08/24/17 16:59 08/21/17 11:58 Insulin Aspart (NovoLOG) 4 units NOVOTIAC SUBQ 08/15/17 16:50 09/14/17 16:49 08/21/17 11:59 Insulin Detemir (Levemir) 8 units BID SUBQ 08/17/17 09:00 09/16/17 08:59 08/21/17 09:55 Nitroglycerin (Ntg) 0.4 mg Q5M PRN SL Prn Chest Pain 07/25/17 16:15 08/24/17 16:14 Ondansetron HCl (Zofran) 4 mg Q6H PRN IVP Nausea & Vomiting 07/25/17 16:15 08/24/17 16:14 Piperacillin/ Tazobactam/ Dextrose 50 ml @ 12.5 mls/hr Q8HR IVPB 08/13/17 22:00 08/27/17 23:59 08/21/17 05:27 Polyethylene Glycol (Miralax) 17 gm DAILYPRN PRN ORAL Constipation 07/25/17 16:15 08/24/17 16:14 08/17/17 08:15 Povidone Iodine (Betadine Caridad) 1 applic DAILY TOPIC 07/29/17 09:00 08/25/17 15:59 08/21/17 09:53 Fernando Clayton M.D. Aug 21, 2017 13:47
--- NOTE | 2017-08-21 14:54 | Nephrology Progress Note ---
Assessment/Plan Assessment 1.[place] most likely AIN now stable 2,uncontrolled DM 3,Hyponatremia improving 4.Right shoulder abscess 5.morbid obesity Plan renal function is stable monitoring renal function mix all ivpb with NS.9 replace electrolyte as need it avoid NSAID ok to d/c home fallow up as out patient for monitoring renal function Subjective Constitutional: Reports: no symptoms HEENT: Reports: no symptoms Genitourinary: Reports: no symptoms Neurologic/Psychiatric: Reports: no symptoms Subjective alert and awake feeling ok Objective Objective Last 24 Hour Vital Signs Date Time Temp Pulse Resp B/P (MAP) Pulse Ox O2 Delivery O2 Flow Rate FiO2 08/21/17 12:40 121/68 08/21/17 12:30 98.1 69 20 121/68 99 Room Air 08/21/17 08:28 98.0 73 20 81/63 95 Room Air 08/21/17 05:27 125/83 08/21/17 04:00 97.7 65 19 121/81 97 Room Air 08/21/17 00:32 120/80 08/21/17 00:00 97.6 64 19 120/80 99 Room Air 08/20/17 20:00 98.1 69 19 119/78 99 Room Air 08/20/17 17:33 144/93 08/20/17 16:49 98.4 92 20 144/93 99 Room Air Height (Feet): 5 Height (Inches): 5.00 Weight (Pounds): 190 Objective Head and Neck: No JVP. No LAD. No thyromegaly. Extraocular movement intact. Pupils are reactive to light and accommodation. LUNGS: Clear to auscultation. CARDIAC: Regular rate and rhythm. S1 and S2. No murmur. No rub. ABDOMEN: Obese, nontender, and nondistended. Extremities: A 1 to 2+ edema. Right shoulder, he has a 20 x 20 cm round lesion with the yellowish, foul smelling drainage. It is very tender to touch and has had some degree of fluctuation. BHARGAVI SANZ Aug 21, 2017 14:54
[2017-08-21 16:00] VITALS: BP 126/91
[2017-08-21 20:12] VITALS: BP 131/82
--- NOTE | 2017-08-21 20:30 | General Progress Note ---
Assessment/Plan Problem List: (1) Abscess of right shoulder ICD Codes: L02.413 - Cutaneous abscess of right upper limb SNOMED: 01895465 (2) Diabetes mellitus ICD Codes: E11.9 - Type 2 diabetes mellitus without complications SNOMED: 71229125 (3) [place] (acute kidney injury) ICD Codes: N17.9 - Acute kidney failure, unspecified SNOMED: 24659031 Status: progressing Assessment/Plan shoulder abscess dm check bg \afebrile pain is under control reviewed chart and labs Subjective ROS Limited/Unobtainable: Yes Constitutional: Reports: no symptoms Allergies: Coded Allergies: No Known Allergies (Unverified , 04/19/16) Subjective shoulder pain Objective Last 24 Hour Vital Signs Date Time Temp Pulse Resp B/P (MAP) Pulse Ox O2 Delivery O2 Flow Rate FiO2 08/21/17 20:12 97.9 60 21 131/82 98 Room Air 08/21/17 18:48 126/91 08/21/17 16:00 97.9 66 20 126/91 99 Room Air 08/21/17 12:40 121/68 08/21/17 12:30 98.1 69 20 121/68 99 Room Air 08/21/17 08:28 98.0 73 20 81/63 95 Room Air 08/21/17 05:27 125/83 08/21/17 04:00 97.7 65 19 121/81 97 Room Air 08/21/17 00:32 120/80 08/21/17 00:00 97.6 64 19 120/80 99 Room Air Intake and Output 08/21/17 08/22/17 19:00 07:00 Intake Total 600 ml Balance 600 ml Intake Oral 600 ml Height (Feet): 5 Height (Inches): 5.00 Weight (Pounds): 190 Neck: supple Cardiovascular: normal rate Abdomen: soft Erik Cardona MD Aug 21, 2017 20:30
[2017-08-22] VITALS (7 sets, daily range): BP systolic 111–140; BP diastolic 73–90
[2017-08-22] MEDS: Zosyn 3.375gm/50ml Premix 50 ML IVPB SCH ×3 (05:51→22:28)
[2017-08-22] MEDS: NovoLOG Insulin Flexpen SUBQ SCH ×7 (05:56→20:16)
[2017-08-22] MEDS: Heparin 5000 units/ml inj SUBQ SCH ×2 (08:32→20:17)
[2017-08-22] MEDS: Betadine 4oz Bottle TOPIC SCH (08:33)
[2017-08-22] MEDS: Levemir Flexpen SUBQ SCH ×2 (08:33→18:39)
--- NOTE | 2017-08-22 10:59 | Nephrology Progress Note ---
Assessment/Plan Assessment 1.[place] most likely AIN now stable 2,uncontrolled DM 3,Hyponatremia improving 4.Right shoulder abscess 5.morbid obesity Plan renal function is stable monitoring renal function mix all ivpb with NS.9 replace electrolyte as need it avoid NSAID ok to d/c home fallow up as out patient for monitoring renal function Subjective Constitutional: Reports: no symptoms HEENT: Reports: no symptoms Genitourinary: Reports: no symptoms Neurologic/Psychiatric: Reports: no symptoms Subjective alert and awake no complaints Objective Objective Last 24 Hour Vital Signs Date Time Temp Pulse Resp B/P (MAP) Pulse Ox O2 Delivery O2 Flow Rate FiO2 08/22/17 07:50 98.2 69 20 127/84 99 Room Air 08/22/17 05:52 137/89 08/22/17 04:05 97.6 66 19 137/89 97 Room Air 08/22/17 00:08 97.8 58 20 135/79 97 Room Air 08/21/17 23:46 135/79 08/21/17 20:12 97.9 60 21 131/82 98 Room Air 08/21/17 18:48 126/91 08/21/17 16:00 97.9 66 20 126/91 99 Room Air 08/21/17 12:40 121/68 08/21/17 12:30 98.1 69 20 121/68 99 Room Air Intake and Output 08/22/17 08/23/17 19:00 07:00 Intake Total 460 ml Balance 460 ml Intake Oral 460 ml # Voids 1 Height (Feet): 5 Height (Inches): 5.00 Weight (Pounds): 190 Objective Head and Neck: No JVP. No LAD. No thyromegaly. Extraocular movement intact. Pupils are reactive to light and accommodation. LUNGS: Clear to auscultation. CARDIAC: Regular rate and rhythm. S1 and S2. No murmur. No rub. ABDOMEN: Obese, nontender, and nondistended. Extremities: A 1 to 2+ edema. Right shoulder, he has a 20 x 20 cm round lesion with the yellowish, foul smelling drainage. It is very tender to touch and has had some degree of fluctuation. BHARGAVI SANZ Aug 22, 2017 10:59
--- NOTE | 2017-08-22 18:25 | Infectious Diseases Prog Note ---
Assessment/Plan Problems: (1) Abscess of right shoulder Assessment & Plan: S/P I&D for source control , on zosyn to cover for necrotizing fasciitis and skin abscess due to MSSA , and bacteremia , continue local wound care as per surgery. will need four weeks of IV antibiotics, EOT (2) Gram-positive cocci bacteremia Assessment & Plan: with MSSA, due to shoulder abscess AND necrotizing fascitis , had source control with I&D, now on zosyn only , 2 D echo didn't show any valve vegetations , repeated blood culture to confirm clearance is negative on 07/26 , continue zosyn only for now which cover MSSA bacteremia and skin necrotizing fascitis and abscess. will need four weeks of iv antibiotics therapy for MSSA bacteremia and necrotizing fascitis . EOT 08/27/17 (3) Poorly controlled diabetes mellitus Assessment & Plan: recommend tight glycemic control to keep blood glucose between 80-120 (4) [place] (acute kidney injury) Assessment & Plan: keep off vancomycin completely , since his creatinine is still high , avoid nephrotoxic meds , monitor renal function, nephrology is following Subjective Constitutional: Reports: no symptoms HEENT: Reports: no symptoms Respiratory: Reports: no symptoms Breasts: Reports: no symptoms Cardiovascular: Reports: no symptoms Gastrointestinal/Abdominal: Reports: no symptoms Genitourinary: Reports: no symptoms Neurologic: Reports: no symptoms Psychiatric: Reports: no symptoms Skin: Reports: no symptoms Endocrine: Reports: no symptoms Hematologic: Reports: no symptoms Allergies: Coded Allergies: No Known Allergies (Unverified , 04/19/16) Objective Vital Signs Last 24 Hour Vital Signs Date Time Temp Pulse Resp B/P (MAP) Pulse Ox O2 Delivery O2 Flow Rate FiO2 08/22/17 16:06 97.7 56 18 125/73 100 Room Air 08/22/17 12:30 98.0 72 20 138/90 99 Room Air 08/22/17 12:19 138/90 08/22/17 07:50 98.2 69 20 127/84 99 Room Air 08/22/17 05:52 137/89 08/22/17 04:05 97.6 66 19 137/89 97 Room Air 08/22/17 00:08 97.8 58 20 135/79 97 Room Air 08/21/17 23:46 135/79 08/21/17 20:12 97.9 60 21 131/82 98 Room Air 08/21/17 18:48 126/91 Height (Feet): 5 Height (Inches): 5.00 Weight (Pounds): 190 General Appearance: WD/WN, no acute distress HEENT: normocephalic, atraumatic, anicteric, mucous membranes moist, PERRL Respiratory/Chest: chest wall non-tender, lungs clear, normal breath sounds, no respiratory distress, no accessory muscle use Cardiovascular: normal peripheral pulses, normal rate, regular rhythm, no gallop/murmur, no JVD Abdomen: normal bowel sounds, soft, non tender, no organomegaly, non distended , no mass, no scars Extremities: no cyanosis, no clubbing Skin: no rash, no lesions, ulcers Current Medications Medications (Trade) Dose Ordered Sig/Leah Route PRN Reason Start Time Stop Time Status Last Admin Dose Admin Acetaminophen (Tylenol) 650 mg Q4H PRN ORAL fever 07/25/17 16:15 08/24/17 16:14 Acetaminophen (Tylenol) 650 mg Q4H PRN RECTAL Mild Pain (Pain Scale 1-3) 07/27/17 15:45 08/24/17 20:29 Clonidine HCl (Catapres) 0.1 mg Q6HR ORAL 08/14/17 00:00 08/28/17 08:59 08/22/17 12:19 Dextrose (Dextrose 50%) STAT PRN IV Hypoglycemia 07/26/17 08:45 08/25/17 08:44 Heparin Sodium (Porcine) (Heparin 5000 units/ml) 5,000 units EVERY 12 HOURS SUBQ 07/25/17 21:00 08/24/17 20:59 08/22/17 08:32 Insulin Aspart (NovoLOG) BEFORE MEALS AND HS SUBQ 07/25/17 17:00 08/24/17 16:59 08/21/17 20:19 Insulin Aspart (NovoLOG) 4 units NOVOTIAC SUBQ 08/15/17 16:50 09/14/17 16:49 08/22/17 17:03 Insulin Detemir (Levemir) 8 units BID SUBQ 08/17/17 09:00 09/16/17 08:59 08/22/17 08:33 Nitroglycerin (Ntg) 0.4 mg Q5M PRN SL Prn Chest Pain 07/25/17 16:15 08/24/17 16:14 Ondansetron HCl (Zofran) 4 mg Q6H PRN IVP Nausea & Vomiting 07/25/17 16:15 08/24/17 16:14 Piperacillin/ Tazobactam/ Dextrose 50 ml @ 12.5 mls/hr Q8HR IVPB 08/13/17 22:00 08/27/17 23:59 08/22/17 14:28 Polyethylene Glycol (Miralax) 17 gm DAILYPRN PRN ORAL Constipation 07/25/17 16:15 08/24/17 16:14 08/17/17 08:15 Povidone Iodine (Betadine Caridad) 1 applic DAILY TOPIC 07/29/17 09:00 08/25/17 15:59 08/22/17 08:33 Fernando Clayton M.D. Aug 22, 2017 18:25
--- NOTE | 2017-08-22 21:35 | General Progress Note ---
Assessment/Plan Problem List: (1) Abscess of right shoulder ICD Codes: L02.413 - Cutaneous abscess of right upper limb SNOMED: 98922205 (2) Diabetes mellitus ICD Codes: E11.9 - Type 2 diabetes mellitus without complications SNOMED: 62712869 (3) [place] (acute kidney injury) ICD Codes: N17.9 - Acute kidney failure, unspecified SNOMED: 58781396 Status: progressing Assessment/Plan afebrile dm abscess improved abx per id no acute events reviewed chart and labs Subjective ROS Limited/Unobtainable: Yes Allergies: Coded Allergies: No Known Allergies (Unverified , 04/19/16) Subjective shoulder pain Objective Last 24 Hour Vital Signs Date Time Temp Pulse Resp B/P (MAP) Pulse Ox O2 Delivery O2 Flow Rate FiO2 08/22/17 20:00 98.7 65 18 140/90 98 Room Air 08/22/17 18:37 125/73 08/22/17 16:06 97.7 56 18 125/73 100 Room Air 08/22/17 12:30 98.0 72 20 138/90 99 Room Air 08/22/17 12:19 138/90 08/22/17 07:50 98.2 69 20 127/84 99 Room Air 08/22/17 05:52 137/89 08/22/17 04:05 97.6 66 19 137/89 97 Room Air 08/22/17 00:08 97.8 58 20 135/79 97 Room Air 08/21/17 23:46 135/79 Intake and Output 08/22/17 08/23/17 19:00 07:00 Intake Total 1410 ml Balance 1410 ml Intake Oral 1410 ml # Voids 1 Height (Feet): 5 Height (Inches): 5.00 Weight (Pounds): 190 Cardiovascular: normal rate Erik Cardona MD Aug 22, 2017 21:35
[2017-08-23 04:31] VITALS: BP 106/72
[2017-08-23] MEDS: NovoLOG Insulin Flexpen SUBQ SCH ×7 (05:53→20:52)
[2017-08-23] MEDS: Zosyn 3.375gm/50ml Premix 50 ML IVPB SCH ×3 (05:55→22:25)
[2017-08-23 08:00] VITALS: BP 131/84
[2017-08-23] MEDS: Betadine 4oz Bottle TOPIC SCH (08:39)
[2017-08-23] MEDS: Heparin 5000 units/ml inj SUBQ SCH ×2 (08:42→20:51)
[2017-08-23] MEDS: Levemir Flexpen SUBQ SCH ×2 (08:43→18:19)
[2017-08-23 10:27] LABS: ALANINE AMINOTRANSFERASE 47 U/L (12-78); ALBUMIN/GLOBULIN RATIO 0.5 (1.0-2.7); ANION GAP 10 mmol/L (5-15); ASPARTATE AMINO TRANSFERASE 38 U/L (15-37); CALCIUM 9.4 MG/DL (8.5-10.1); CARBON DIOXIDE 25 MMOL/L (21-32); CHLORIDE 99 MMOL/L (98-107); CREATININE 1.7 MG/DL (0.55-1.30); POTASSIUM 4.3 MMOL/L (3.5-5.1); SODIUM 134 MMOL/L (136-145); TOTAL PROTEIN 9.7 G/DL (6.4-8.2)
[2017-08-23 12:00] VITALS: BP 132/88
--- NOTE | 2017-08-23 15:24 | General Progress Note ---
Assessment/Plan Problem List: (1) Abscess of right shoulder ICD Codes: L02.413 - Cutaneous abscess of right upper limb SNOMED: 45100469 (2) Diabetes mellitus ICD Codes: E11.9 - Type 2 diabetes mellitus without complications SNOMED: 98629655 (3) [place] (acute kidney injury) ICD Codes: N17.9 - Acute kidney failure, unspecified SNOMED: 06904639 Status: progressing Assessment/Plan dm abscess of shoulder afebrile reviewed chart and labs Subjective ROS Limited/Unobtainable: Yes Constitutional: Reports: no symptoms Allergies: Coded Allergies: No Known Allergies (Unverified , 04/19/16) Subjective shoulder pain Objective Last 24 Hour Vital Signs Date Time Temp Pulse Resp B/P (MAP) Pulse Ox O2 Delivery O2 Flow Rate FiO2 08/23/17 12:00 97.6 80 20 132/88 99 Room Air 08/23/17 11:57 156/102 08/23/17 08:00 97.9 64 20 131/84 98 Room Air 08/23/17 06:00 106/72 08/23/17 04:31 98.3 60 19 106/72 99 Room Air 08/23/17 00:29 111/75 08/22/17 23:58 98.3 65 20 111/75 98 Room Air 08/22/17 20:00 98.7 65 18 140/90 98 Room Air 08/22/17 18:37 125/73 08/22/17 16:06 97.7 56 18 125/73 100 Room Air Intake and Output 08/23/17 08/24/17 19:00 07:00 Intake Total 900 ml Output Total 800 ml Balance 100 ml Intake Oral 900 ml Output Urine Total 800 ml # Voids 2 Laboratory Tests 08/23/17 04:00: Sodium Level 134L, Potassium Level 4.3, Chloride Level 99, Carbon Dioxide Level 25, Anion Gap 10, Blood Urea Nitrogen 19H, Creatinine 1.7H, Estimat Glomerular Filtration Rate 44.0, Glucose Level 191H, Calcium Level 9.4, Total Bilirubin 0.2 , Aspartate Amino Transf (AST/SGOT) 38H, Alanine Aminotransferase (ALT/SGPT) 47 , Alkaline Phosphatase 48, Total Protein 9.7H, Albumin 3.2L, Globulin 6.5, Albumin/Globulin Ratio 0.5L Height (Feet): 5 Height (Inches): 5.00 Weight (Pounds): 190 Neck: supple Cardiovascular: normal rate Respiratory/Chest: lungs clear Erik Cardona MD Aug 23, 2017 15:24
--- NOTE | 2017-08-23 15:29 | Nephrology Progress Note ---
Assessment/Plan Assessment 1.[place] most likely improving 2,uncontrolled DM 3,Hyponatremia improving 4.Right shoulder abscess 5.morbid obesity Plan renal function is stable monitoring renal function mix all ivpb with NS.9 replace electrolyte as need it avoid NSAID ok to d/c home fallow up as out patient for monitoring renal function Subjective Constitutional: Reports: no symptoms HEENT: Reports: no symptoms Genitourinary: Reports: no symptoms Neurologic/Psychiatric: Reports: no symptoms Subjective alert and awake no complaints NAD Objective Objective Last 24 Hour Vital Signs Date Time Temp Pulse Resp B/P (MAP) Pulse Ox O2 Delivery O2 Flow Rate FiO2 08/23/17 12:00 97.6 80 20 132/88 99 Room Air 08/23/17 11:57 156/102 08/23/17 08:00 97.9 64 20 131/84 98 Room Air 08/23/17 06:00 106/72 08/23/17 04:31 98.3 60 19 106/72 99 Room Air 08/23/17 00:29 111/75 08/22/17 23:58 98.3 65 20 111/75 98 Room Air 08/22/17 20:00 98.7 65 18 140/90 98 Room Air 08/22/17 18:37 125/73 08/22/17 16:06 97.7 56 18 125/73 100 Room Air Intake and Output 08/23/17 08/24/17 19:00 07:00 Intake Total 900 ml Output Total 800 ml Balance 100 ml Intake Oral 900 ml Output Urine Total 800 ml # Voids 2 Laboratory Tests 08/23/17 04:00: Sodium Level 134L, Potassium Level 4.3, Chloride Level 99, Carbon Dioxide Level 25, Anion Gap 10, Blood Urea Nitrogen 19H, Creatinine 1.7H, Estimat Glomerular Filtration Rate 44.0, Glucose Level 191H, Calcium Level 9.4, Total Bilirubin 0.2 , Aspartate Amino Transf (AST/SGOT) 38H, Alanine Aminotransferase (ALT/SGPT) 47 , Alkaline Phosphatase 48, Total Protein 9.7H, Albumin 3.2L, Globulin 6.5, Albumin/Globulin Ratio 0.5L Height (Feet): 5 Height (Inches): 5.00 Weight (Pounds): 190 Objective Head and Neck: No JVP. No LAD. No thyromegaly. Extraocular movement intact. Pupils are reactive to light and accommodation. LUNGS: Clear to auscultation. CARDIAC: Regular rate and rhythm. S1 and S2. No murmur. No rub. ABDOMEN: Obese, nontender, and nondistended. Extremities: A 1 to 2+ edema. Right shoulder, he has a 20 x 20 cm round lesion with the yellowish, foul smelling drainage. It is very tender to touch and has had some degree of fluctuation. BHARGAVI SANZ Aug 23, 2017 15:29
[2017-08-23 16:00] VITALS: BP 132/89
[2017-08-23 20:08] VITALS: BP 122/80
--- NOTE | 2017-08-23 22:41 | Infectious Diseases Prog Note ---
Assessment/Plan Problems: (1) Abscess of right shoulder Assessment & Plan: S/P I&D for source control , on zosyn to cover for necrotizing fasciitis and skin abscess due to MSSA , and bacteremia , continue local wound care as per surgery. will need four weeks of IV antibiotics, EOT (2) Gram-positive cocci bacteremia Assessment & Plan: with MSSA, due to shoulder abscess and necrotizing fascitis , had source control with I&D, now on zosyn only , 2 D echo didn't show any valve vegetations , repeated blood culture to confirm clearance is negative on 07/26 , continue zosyn only for now which cover MSSA bacteremia and skin necrotizing fascitis and abscess. will need four weeks of iv antibiotics therapy for MSSA bacteremia and necrotizing fascitis . EOT 08/27/17 (3) Poorly controlled diabetes mellitus Assessment & Plan: recommend tight glycemic control to keep blood glucose between 80-120 (4) [place] (acute kidney injury) Assessment & Plan: keep off vancomycin completely , since his creatinine is still high , avoid nephrotoxic meds , monitor renal function, nephrology is following Subjective Constitutional: Reports: no symptoms HEENT: Reports: no symptoms Respiratory: Reports: no symptoms Breasts: Reports: no symptoms Cardiovascular: Reports: no symptoms Gastrointestinal/Abdominal: Reports: no symptoms Genitourinary: Reports: no symptoms Neurologic: Reports: no symptoms Psychiatric: Reports: no symptoms Skin: Reports: no symptoms Endocrine: Reports: no symptoms Hematologic: Reports: no symptoms Musculoskeletal: Reports: no symptoms Allergies: Coded Allergies: No Known Allergies (Unverified , 04/19/16) Objective Vital Signs Last 24 Hour Vital Signs Date Time Temp Pulse Resp B/P (MAP) Pulse Ox O2 Delivery O2 Flow Rate FiO2 08/23/17 20:08 97.8 66 18 122/80 98 Room Air 08/23/17 18:17 132/89 08/23/17 16:00 97.7 81 19 132/89 99 Room Air 08/23/17 12:00 97.6 80 20 132/88 99 Room Air 08/23/17 11:57 156/102 08/23/17 08:00 97.9 64 20 131/84 98 Room Air 08/23/17 06:00 106/72 08/23/17 04:31 98.3 60 19 106/72 99 Room Air 08/23/17 00:29 111/75 08/22/17 23:58 98.3 65 20 111/75 98 Room Air Height (Feet): 5 Height (Inches): 5.00 Weight (Pounds): 190 General Appearance: WD/WN, no acute distress HEENT: normocephalic, atraumatic, anicteric, mucous membranes moist Respiratory/Chest: chest wall non-tender, lungs clear, normal breath sounds, no respiratory distress, no accessory muscle use Cardiovascular: normal peripheral pulses, normal rate, regular rhythm, no gallop/murmur, no JVD Abdomen: normal bowel sounds, soft, non tender, no organomegaly, non distended , no mass, no scars Genitourinary: normal external genitalia Extremities: no cyanosis, no clubbing Skin: no rash, no lesions, ulcers Neurologic/Psychiatric: alert, oriented x 3 Laboratory Tests Test 08/23/17 04:00 Sodium Level 134 MMOL/L (136-145) L Potassium Level 4.3 MMOL/L (3.5-5.1) Chloride Level 99 MMOL/L (98-107) Carbon Dioxide Level 25 MMOL/L (21-32) Anion Gap 10 mmol/L (5-15) Blood Urea Nitrogen 19 mg/dL (7-18) H Creatinine 1.7 MG/DL (0.55-1.30) H Estimat Glomerular Filtration Rate 44.0 mL/min (>60) Glucose Level 191 MG/DL (74-106) H Calcium Level 9.4 MG/DL (8.5-10.1) Total Bilirubin 0.2 MG/DL (0.2-1.0) Aspartate Amino Transf (AST/SGOT) 38 U/L (15-37) H Alanine Aminotransferase (ALT/SGPT) 47 U/L (12-78) Alkaline Phosphatase 48 U/L (46-116) Total Protein 9.7 G/DL (6.4-8.2) H Albumin 3.2 G/DL (3.4-5.0) L Globulin 6.5 g/dL Albumin/Globulin Ratio 0.5 (1.0-2.7) L Current Medications Medications (Trade) Dose Ordered Sig/Leah Route PRN Reason Start Time Stop Time Status Last Admin Dose Admin Acetaminophen (Tylenol) 650 mg Q4H PRN ORAL fever 07/25/17 16:15 08/24/17 16:14 Acetaminophen (Tylenol) 650 mg Q4H PRN RECTAL Mild Pain (Pain Scale 1-3) 07/27/17 15:45 08/24/17 20:29 Clonidine HCl (Catapres) 0.1 mg Q6HR ORAL 08/14/17 00:00 08/28/17 08:59 08/23/17 18:17 Dextrose (Dextrose 50%) STAT PRN IV Hypoglycemia 07/26/17 08:45 08/25/17 08:44 Heparin Sodium (Porcine) (Heparin 5000 units/ml) 5,000 units EVERY 12 HOURS SUBQ 07/25/17 21:00 08/24/17 20:59 08/23/17 20:51 Insulin Aspart (NovoLOG) BEFORE MEALS AND HS SUBQ 07/25/17 17:00 08/24/17 16:59 08/23/17 20:52 Insulin Aspart (NovoLOG) 4 units NOVOTIAC SUBQ 08/15/17 16:50 09/14/17 16:49 08/23/17 17:17 Insulin Detemir (Levemir) 8 units BID SUBQ 08/17/17 09:00 09/16/17 08:59 08/23/17 18:19 Nitroglycerin (Ntg) 0.4 mg Q5M PRN SL Prn Chest Pain 07/25/17 16:15 08/24/17 16:14 Ondansetron HCl (Zofran) 4 mg Q6H PRN IVP Nausea & Vomiting 07/25/17 16:15 08/24/17 16:14 Piperacillin/ Tazobactam/ Dextrose 50 ml @ 12.5 mls/hr Q8HR IVPB 08/13/17 22:00 08/27/17 23:59 08/23/17 22:25 Polyethylene Glycol (Miralax) 17 gm DAILYPRN PRN ORAL Constipation 07/25/17 16:15 08/24/17 16:14 08/17/17 08:15 Povidone Iodine (Betadine Caridad) 1 applic DAILY TOPIC 07/29/17 09:00 08/25/17 15:59 08/23/17 08:39 Fernando Clayton M.D. Aug 23, 2017 22:41
[2017-08-24 00:09] VITALS: BP 114/79
[2017-08-24 04:00] VITALS: BP 125/81
[2017-08-24] MEDS: Zosyn 3.375gm/50ml Premix 50 ML IVPB SCH ×3 (06:01→21:04)
[2017-08-24] MEDS: NovoLOG Insulin Flexpen SUBQ SCH ×7 (06:09→21:01)
[2017-08-24 08:00] VITALS: BP 138/84
[2017-08-24] MEDS: Betadine 4oz Bottle TOPIC SCH (08:25)
[2017-08-24] MEDS: Heparin 5000 units/ml inj SUBQ SCH (08:26)
[2017-08-24] MEDS: Levemir Flexpen SUBQ SCH ×2 (08:27→18:12)
--- NOTE | 2017-08-24 10:15 | Nephrology Progress Note ---
Assessment/Plan Assessment 1.[place] most likely improving 2,uncontrolled DM 3,Hyponatremia improving 4.Right shoulder abscess 5.morbid obesity Plan renal function is stable monitoring renal function mix all ivpb with NS.9 replace electrolyte as need it avoid NSAID ok to d/c home fallow up as out patient for monitoring renal function Subjective Subjective alert and awake no complaints NAD Objective Objective Last 24 Hour Vital Signs Date Time Temp Pulse Resp B/P (MAP) Pulse Ox O2 Delivery O2 Flow Rate FiO2 08/24/17 08:00 97.6 85 20 138/84 96 Room Air 08/24/17 06:02 125/81 08/24/17 04:00 97.6 60 18 125/81 98 Room Air 08/24/17 00:10 114/79 08/24/17 00:09 97.5 64 18 114/79 97 Room Air 08/23/17 20:08 97.8 66 18 122/80 98 Room Air 08/23/17 18:17 132/89 08/23/17 16:00 97.7 81 19 132/89 99 Room Air 08/23/17 12:00 97.6 80 20 132/88 99 Room Air 08/23/17 11:57 156/102 Height (Feet): 5 Height (Inches): 5.00 Weight (Pounds): 190 Objective Head and Neck: No JVP. No LAD. No thyromegaly. Extraocular movement intact. Pupils are reactive to light and accommodation. LUNGS: Clear to auscultation. CARDIAC: Regular rate and rhythm. S1 and S2. No murmur. No rub. ABDOMEN: Obese, nontender, and nondistended. Extremities: A 1 to 2+ edema. Right shoulder, he has a 20 x 20 cm round lesion with the yellowish, foul smelling drainage. It is very tender to touch and has had some degree of fluctuation. BHARGAVI SANZ Aug 24, 2017 10:15
[2017-08-24 11:49] VITALS: BP 147/85
--- NOTE | 2017-08-24 14:52 | Infectious Diseases Prog Note ---
Assessment/Plan Problems: (1) Abscess of right shoulder Assessment & Plan: S/P I&D for source control , on zosyn to cover for necrotizing fasciitis and skin abscess due to MSSA , and bacteremia , continue local wound care as per surgery. will need four weeks of IV antibiotics, EOT (2) Gram-positive cocci bacteremia Assessment & Plan: with MSSA, due to shoulder abscess and necrotizing fascitis , had source control with I&D, now on zosyn only , 2 D echo didn't show any valve vegetations , repeated blood culture to confirm clearance is negative on 07/26 , continue zosyn only for now which cover MSSA bacteremia and skin necrotizing fascitis and abscess. will need four weeks of iv antibiotics therapy for MSSA bacteremia and necrotizing fascitis . EOT 08/27/17 (3) Poorly controlled diabetes mellitus Assessment & Plan: recommend tight glycemic control to keep blood glucose between 80-120 (4) AUGUSTO (acute kidney injury) Assessment & Plan: keep off vancomycin completely , avoid nephrotoxic meds , monitor renal function, nephrology is following Subjective Constitutional: Reports: no symptoms HEENT: Reports: no symptoms Respiratory: Reports: no symptoms Breasts: Reports: no symptoms Cardiovascular: Reports: no symptoms Gastrointestinal/Abdominal: Reports: no symptoms Genitourinary: Reports: no symptoms Neurologic: Reports: no symptoms Psychiatric: Reports: no symptoms Skin: Reports: no symptoms Endocrine: Reports: no symptoms Hematologic: Reports: no symptoms Musculoskeletal: Reports: no symptoms Allergies: Coded Allergies: No Known Allergies (Unverified , 04/19/16) Objective Vital Signs Last 24 Hour Vital Signs Date Time Temp Pulse Resp B/P (MAP) Pulse Ox O2 Delivery O2 Flow Rate FiO2 08/24/17 11:57 147/85 08/24/17 11:49 98.3 85 20 147/85 96 Room Air 08/24/17 08:00 97.6 85 20 138/84 96 Room Air 08/24/17 06:02 125/81 08/24/17 04:00 97.6 60 18 125/81 98 Room Air 08/24/17 00:10 114/79 08/24/17 00:09 97.5 64 18 114/79 97 Room Air 08/23/17 20:08 97.8 66 18 122/80 98 Room Air 08/23/17 18:17 132/89 08/23/17 16:00 97.7 81 19 132/89 99 Room Air Height (Feet): 5 Height (Inches): 5.00 Weight (Pounds): 190 General Appearance: WD/WN, no acute distress HEENT: normocephalic, atraumatic, anicteric, mucous membranes moist, PERRL Respiratory/Chest: chest wall non-tender, lungs clear, normal breath sounds, no respiratory distress, no accessory muscle use Cardiovascular: normal peripheral pulses, normal rate, regular rhythm, no gallop/murmur, no JVD Abdomen: normal bowel sounds, soft, non tender, no organomegaly, non distended , no mass, no scars Extremities: no cyanosis, no clubbing Skin: no rash, no lesions, ulcers Neurologic/Psychiatric: alert, oriented x 3 Current Medications Medications (Trade) Dose Ordered Sig/Leah Route PRN Reason Start Time Stop Time Status Last Admin Dose Admin Acetaminophen (Tylenol) 650 mg Q4H PRN ORAL fever 07/25/17 16:15 08/24/17 16:14 Acetaminophen (Tylenol) 650 mg Q4H PRN RECTAL Mild Pain (Pain Scale 1-3) 07/27/17 15:45 08/24/17 20:29 Clonidine HCl (Catapres) 0.1 mg Q6HR ORAL 08/14/17 00:00 08/28/17 08:59 08/24/17 11:57 Dextrose (Dextrose 50%) STAT PRN IV Hypoglycemia 07/26/17 08:45 08/25/17 08:44 Heparin Sodium (Porcine) (Heparin 5000 units/ml) 5,000 units EVERY 12 HOURS SUBQ 07/25/17 21:00 08/24/17 20:59 08/24/17 08:26 Insulin Aspart (NovoLOG) BEFORE MEALS AND HS SUBQ 07/25/17 17:00 08/24/17 16:59 08/24/17 11:52 Insulin Aspart (NovoLOG) 4 units NOVOTIAC SUBQ 08/15/17 16:50 09/14/17 16:49 08/24/17 11:53 Insulin Detemir (Levemir) 8 units BID SUBQ 08/17/17 09:00 09/16/17 08:59 08/24/17 08:27 Nitroglycerin (Ntg) 0.4 mg Q5M PRN SL Prn Chest Pain 07/25/17 16:15 08/24/17 16:14 Ondansetron HCl (Zofran) 4 mg Q6H PRN IVP Nausea & Vomiting 07/25/17 16:15 08/24/17 16:14 Piperacillin/ Tazobactam/ Dextrose 50 ml @ 12.5 mls/hr Q8HR IVPB 08/13/17 22:00 08/27/17 23:59 08/24/17 06:01 Polyethylene Glycol (Miralax) 17 gm DAILYPRN PRN ORAL Constipation 07/25/17 16:15 08/24/17 16:14 08/17/17 08:15 Povidone Iodine (Betadine Caridad) 1 applic DAILY TOPIC 07/29/17 09:00 08/25/17 15:59 08/24/17 08:25 Fernando Clayton M.D. Aug 24, 2017 14:52
[2017-08-24 16:00] VITALS: BP 139/90
[2017-08-24 20:21] VITALS: BP 123/98
[2017-08-24] MEDS ORDERED: Nitroglycerin Subl 0.4mg tab SL PRN (20:45)
[2017-08-24] MEDS ORDERED: Miralax 17gm pkt ORAL SCH (20:45)
--- NOTE | 2017-08-24 21:28 | General Progress Note ---
Assessment/Plan Problem List: (1) Abscess of right shoulder ICD Codes: L02.413 - Cutaneous abscess of right upper limb SNOMED: 06840796 (2) Diabetes mellitus ICD Codes: E11.9 - Type 2 diabetes mellitus without complications SNOMED: 86859619 (3) AUGUSTO (acute kidney injury) ICD Codes: N17.9 - Acute kidney failure, unspecified SNOMED: 97371363 Status: progressing Assessment/Plan dm abscess of shoulder bg improving afebrile reviewed chart and labs Subjective ROS Limited/Unobtainable: Yes Allergies: Coded Allergies: No Known Allergies (Unverified , 04/19/16) Subjective shoulder pain Objective Last 24 Hour Vital Signs Date Time Temp Pulse Resp B/P (MAP) Pulse Ox O2 Delivery O2 Flow Rate FiO2 08/24/17 20:21 98.0 71 18 123/98 96 Room Air 08/24/17 18:08 139/90 08/24/17 16:00 97.1 79 17 139/90 97 Room Air 08/24/17 11:57 147/85 08/24/17 11:49 98.3 85 20 147/85 96 Room Air 08/24/17 08:00 97.6 85 20 138/84 96 Room Air 08/24/17 06:02 125/81 08/24/17 04:00 97.6 60 18 125/81 98 Room Air 08/24/17 00:10 114/79 08/24/17 00:09 97.5 64 18 114/79 97 Room Air Intake and Output 08/24/17 08/25/17 19:00 07:00 Intake Total 900 ml Output Total 400 ml Balance 500 ml Intake Oral 900 ml Output Urine Total 400 ml # Voids 4 Height (Feet): 5 Height (Inches): 5.00 Weight (Pounds): 190 Cardiovascular: normal rate Respiratory/Chest: lungs clear Abdomen: soft Erik Cardona MD Aug 24, 2017 21:28
[2017-08-25 00:18] VITALS: BP 93/68
[2017-08-25 04:00] VITALS: BP 114/84
--- NOTE | 2017-08-25 05:44 | General Progress Note ---
Assessment/Plan Problem List: (1) Non-compliance ICD Codes: Z91.19 - Patient's noncompliance with other medical treatment and regimen SNOMED: 2646084 (2) Poorly controlled diabetes mellitus ICD Codes: E11.65 - Type 2 diabetes mellitus with hyperglycemia SNOMED: 839361362 (3) Abscess of right shoulder ICD Codes: L02.413 - Cutaneous abscess of right upper limb SNOMED: 32085308 (4) Elevated lactic acid level ICD Codes: E87.2 - Acidosis SNOMED: 4569042 Assessment/Plan glucose well controlled continue Levemir 8 units bid continue Novolog 4 units ac tid + SSI clear for DC home for endocrine stand point Rx for all diabetes meds and supply left in chart Subjective Allergies: Coded Allergies: No Known Allergies (Unverified , 04/19/16) All Systems: reviewed and negative except above Subjective events noted - interval noted reviewed Objective Last 24 Hour Vital Signs Date Time Temp Pulse Resp B/P (MAP) Pulse Ox O2 Delivery O2 Flow Rate FiO2 08/25/17 00:18 98.2 72 19 93/68 97 Room Air 08/25/17 00:00 93/68 08/24/17 20:21 98.0 71 18 123/98 96 Room Air 08/24/17 18:08 139/90 08/24/17 16:00 97.1 79 17 139/90 97 Room Air 08/24/17 11:57 147/85 08/24/17 11:49 98.3 85 20 147/85 96 Room Air 08/24/17 08:00 97.6 85 20 138/84 96 Room Air 08/24/17 06:02 125/81 Height (Feet): 5 Height (Inches): 5.00 Weight (Pounds): 190 General Appearance: no apparent distress Neck: normal alignment Cardiovascular: normal rate Respiratory/Chest: lungs clear Abdomen: normal bowel sounds Objective Current Medications Medications (Trade) Dose Ordered Sig/Leah Route PRN Reason Start Time Stop Time Status Last Admin Dose Admin Acetaminophen (Tylenol) 650 mg Q4H PRN ORAL Mild Pain/Temp > 100.5 08/24/17 20:45 09/23/17 20:44 Clonidine HCl (Catapres) 0.1 mg Q6HR ORAL 08/14/17 00:00 08/28/17 08:59 08/24/17 18:08 Dextrose (Dextrose 50%) STAT PRN IV Hypoglycemia 08/24/17 20:45 09/23/17 20:44 Insulin Aspart (NovoLOG) BEFORE MEALS AND HS SUBQ 08/24/17 21:00 09/23/17 20:59 08/24/17 21:01 Insulin Aspart (NovoLOG) 4 units NOVOTIAC SUBQ 08/15/17 16:50 09/14/17 16:49 08/24/17 16:44 Insulin Detemir (Levemir) 8 units BID SUBQ 08/17/17 09:00 09/16/17 08:59 08/24/17 18:12 Nitroglycerin (Ntg) 0.4 mg Q5M PRN SL Prn Chest Pain 08/24/17 20:45 09/23/17 20:44 Ondansetron HCl (Zofran) 4 mg Q6H PRN IVP Nausea & Vomiting 08/24/17 20:45 09/23/17 20:44 Piperacillin/ Tazobactam/ Dextrose 50 ml @ 12.5 mls/hr Q8HR IVPB 08/13/17 22:00 08/27/17 23:59 08/24/17 21:04 Polyethylene Glycol (Miralax) 17 gm DAILYPRN ORAL 08/24/17 20:45 09/23/17 20:44 Povidone Iodine (Betadine Caridad) 1 applic DAILY TOPIC 08/25/17 09:00 09/20/17 08:59 Item Value Date Time Bedside Blood Glucose 178 mg/dl H 08/24/17 2101 Bedside Blood Glucose 199 mg/dl H 08/24/17 1812 Bedside Blood Glucose 165 mg/dl H 08/24/17 1153 Bedside Blood Glucose 107 mg/dl 08/24/17 0827 ANN DUARTE Aug 25, 2017 05:44
[2017-08-25] MEDS: Zosyn 3.375gm/50ml Premix 50 ML IVPB SCH ×3 (06:10→21:42)
[2017-08-25] MEDS: NovoLOG Insulin Flexpen SUBQ SCH ×7 (06:14→21:39)
[2017-08-25 08:00] VITALS: BP 127/93
[2017-08-25] MEDS: Levemir Flexpen SUBQ SCH ×2 (08:30→17:28)
[2017-08-25] MEDS: Betadine 4oz Bottle TOPIC SCH (08:31)
[2017-08-25 12:00] VITALS: BP 123/90
--- NOTE | 2017-08-25 13:40 | Nephrology Progress Note ---
Assessment/Plan Assessment 1.[place]USTO most likely improving 2,uncontrolled DM 3,Hyponatremia improving 4.Right shoulder abscess 5.morbid obesity Plan renal function is stable monitoring renal function mix all ivpb with NS.9 replace electrolyte as need it avoid NSAID ok to d/c home fallow up as out patient for monitoring renal function Subjective Constitutional: Reports: no symptoms Genitourinary: Reports: no symptoms Neurologic/Psychiatric: Reports: no symptoms Subjective alert and awake no complaints NAD Objective Objective Last 24 Hour Vital Signs Date Time Temp Pulse Resp B/P (MAP) Pulse Ox O2 Delivery O2 Flow Rate FiO2 08/25/17 12:00 98.2 71 19 123/90 98 Room Air 08/25/17 11:51 123/90 08/25/17 08:00 97.8 77 18 127/93 99 Room Air 08/25/17 06:11 114/84 08/25/17 04:00 98.0 72 19 114/84 98 Room Air 08/25/17 00:18 98.2 72 19 93/68 97 Room Air 08/25/17 00:00 93/68 08/24/17 20:21 98.0 71 18 123/98 96 Room Air 08/24/17 18:08 139/90 08/24/17 16:00 97.1 79 17 139/90 97 Room Air Intake and Output 08/25/17 08/26/17 19:00 07:00 Intake Total 350 ml Balance 350 ml Intake Oral 350 ml Height (Feet): 5 Height (Inches): 5.00 Weight (Pounds): 190 Objective Head and Neck: No JVP. No LAD. No thyromegaly. Extraocular movement intact. Pupils are reactive to light and accommodation. LUNGS: Clear to auscultation. CARDIAC: Regular rate and rhythm. S1 and S2. No murmur. No rub. ABDOMEN: Obese, nontender, and nondistended. Extremities: A 1 to 2+ edema. Right shoulder, he has a 20 x 20 cm round lesion with the yellowish, foul smelling drainage. It is very tender to touch and has had some degree of fluctuation. BHARGAVI SANZ Aug 25, 2017 13:40
[2017-08-25 16:01] VITALS: BP 141/95
--- NOTE | 2017-08-25 18:03 | Infectious Diseases Prog Note ---
Assessment/Plan Problems: (1) Abscess of right shoulder Assessment & Plan: S/P I&D for source control , on zosyn to cover for necrotizing fasciitis and skin abscess due to MSSA , and bacteremia , continue local wound care as per surgery. will need four weeks of IV antibiotics, EOT (2) Gram-positive cocci bacteremia Assessment & Plan: with MSSA, due to shoulder abscess and necrotizing fascitis , had source control with I&D, now on zosyn only , 2 D echo didn't show any valve vegetations , repeated blood culture to confirm clearance is negative on 07/26 , continue zosyn only for now which cover MSSA bacteremia and skin necrotizing fascitis and abscess. will need four weeks of iv antibiotics therapy for MSSA bacteremia and necrotizing fascitis . EOT 08/27/17 (3) Poorly controlled diabetes mellitus Assessment & Plan: recommend tight glycemic control to keep blood glucose between 80-120 (4) AUGUSTO (acute kidney injury) Assessment & Plan: keep off vancomycin completely , avoid nephrotoxic meds , monitor renal function, nephrology is following Subjective Constitutional: Reports: no symptoms HEENT: Reports: no symptoms Respiratory: Reports: no symptoms Breasts: Reports: no symptoms Cardiovascular: Reports: no symptoms Gastrointestinal/Abdominal: Reports: no symptoms Genitourinary: Reports: no symptoms Neurologic: Reports: no symptoms Psychiatric: Reports: no symptoms Skin: Reports: no symptoms Endocrine: Reports: no symptoms Hematologic: Reports: no symptoms Allergies: Coded Allergies: No Known Allergies (Unverified , 04/19/16) Objective Vital Signs Last 24 Hour Vital Signs Date Time Temp Pulse Resp B/P (MAP) Pulse Ox O2 Delivery O2 Flow Rate FiO2 08/25/17 17:24 141/95 08/25/17 16:01 97.6 64 18 141/95 97 Room Air 08/25/17 12:00 98.2 71 19 123/90 98 Room Air 08/25/17 11:51 123/90 08/25/17 08:00 97.8 77 18 127/93 99 Room Air 08/25/17 06:11 114/84 08/25/17 04:00 98.0 72 19 114/84 98 Room Air 08/25/17 00:18 98.2 72 19 93/68 97 Room Air 08/25/17 00:00 93/68 08/24/17 20:21 98.0 71 18 123/98 96 Room Air 08/24/17 18:08 139/90 Height (Feet): 5 Height (Inches): 5.00 Weight (Pounds): 190 General Appearance: WD/WN, no acute distress HEENT: normocephalic, atraumatic, anicteric, PERRL Respiratory/Chest: chest wall non-tender, lungs clear, normal breath sounds, no respiratory distress, no accessory muscle use Cardiovascular: normal peripheral pulses, normal rate, regular rhythm, no gallop/murmur, no JVD Abdomen: normal bowel sounds, soft, non tender, no organomegaly, non distended , no mass, no scars Genitourinary: normal external genitalia Extremities: no cyanosis Skin: no rash, no lesions, ulcers - right shoulder surgical wound with no pus or necrosis, but granulation Current Medications Medications (Trade) Dose Ordered Sig/Leah Route PRN Reason Start Time Stop Time Status Last Admin Dose Admin Acetaminophen (Tylenol) 650 mg Q4H PRN ORAL Mild Pain/Temp > 100.5 08/24/17 20:45 09/23/17 20:44 Clonidine HCl (Catapres) 0.1 mg Q6HR ORAL 08/14/17 00:00 08/28/17 08:59 08/25/17 17:24 Dextrose (Dextrose 50%) STAT PRN IV Hypoglycemia 08/24/17 20:45 09/23/17 20:44 Insulin Aspart (NovoLOG) BEFORE MEALS AND HS SUBQ 08/24/17 21:00 09/23/17 20:59 08/25/17 16:46 Insulin Aspart (NovoLOG) 4 units NOVOTIAC SUBQ 08/15/17 16:50 09/14/17 16:49 08/25/17 16:47 Insulin Detemir (Levemir) 8 units BID SUBQ 08/17/17 09:00 09/16/17 08:59 08/25/17 17:28 Nitroglycerin (Ntg) 0.4 mg Q5M PRN SL Prn Chest Pain 08/24/17 20:45 09/23/17 20:44 Ondansetron HCl (Zofran) 4 mg Q6H PRN IVP Nausea & Vomiting 08/24/17 20:45 09/23/17 20:44 Piperacillin/ Tazobactam/ Dextrose 50 ml @ 12.5 mls/hr Q8HR IVPB 08/13/17 22:00 08/27/17 23:59 08/25/17 13:48 Polyethylene Glycol (Miralax) 17 gm DAILYPRN ORAL 08/24/17 20:45 09/23/17 20:44 Povidone Iodine (Betadine Caridad) 1 applic DAILY TOPIC 08/25/17 09:00 09/20/17 08:59 08/25/17 08:31 Fernando Clayton M.D. Aug 25, 2017 18:03
[2017-08-25 20:00] VITALS: BP 118/81
--- NOTE | 2017-08-25 20:13 | General Progress Note ---
Assessment/Plan Problem List: (1) Abscess of right shoulder ICD Codes: L02.413 - Cutaneous abscess of right upper limb SNOMED: 03778234 (2) Diabetes mellitus ICD Codes: E11.9 - Type 2 diabetes mellitus without complications SNOMED: 30174312 (3) AUGUSTO (acute kidney injury) ICD Codes: N17.9 - Acute kidney failure, unspecified SNOMED: 73611564 Status: progressing Assessment/Plan dm abscess of shoulder reviewed chart and labs afebrile no change Subjective ROS Limited/Unobtainable: Yes Allergies: Coded Allergies: No Known Allergies (Unverified , 04/19/16) Subjective shoulder pain Objective Last 24 Hour Vital Signs Date Time Temp Pulse Resp B/P (MAP) Pulse Ox O2 Delivery O2 Flow Rate FiO2 08/25/17 17:24 141/95 08/25/17 16:01 97.6 64 18 141/95 97 Room Air 08/25/17 12:00 98.2 71 19 123/90 98 Room Air 08/25/17 11:51 123/90 08/25/17 08:00 97.8 77 18 127/93 99 Room Air 08/25/17 06:11 114/84 08/25/17 04:00 98.0 72 19 114/84 98 Room Air 08/25/17 00:18 98.2 72 19 93/68 97 Room Air 08/25/17 00:00 93/68 08/24/17 20:21 98.0 71 18 123/98 96 Room Air Intake and Output 08/25/17 08/26/17 19:00 07:00 Intake Total 1070 ml Output Total 400 ml Balance 670 ml Intake Oral 1020 ml IV Total 50 ml Output Urine Total 400 ml # Voids 2 Height (Feet): 5 Height (Inches): 5.00 Weight (Pounds): 190 Neck: supple Cardiovascular: normal rate Respiratory/Chest: lungs clear Erik Cardona MD Aug 25, 2017 20:13
[2017-08-26] VITALS: BP 132/84
[2017-08-26 04:00] VITALS: BP 137/79
[2017-08-26] MEDS: Zosyn 3.375gm/50ml Premix 50 ML IVPB SCH ×2 (06:25→13:55)
[2017-08-26] MEDS: NovoLOG Insulin Flexpen SUBQ SCH ×6 (06:30→17:23)
[2017-08-26 08:04] VITALS: BP 143/103
[2017-08-26] MEDS: Levemir Flexpen SUBQ SCH ×2 (08:16→17:21)
[2017-08-26] MEDS: Betadine 4oz Bottle TOPIC SCH (08:18)
--- NOTE | 2017-08-26 09:19 | Nephrology Progress Note ---
Assessment/Plan Assessment 1.[place] most likely improving 2,uncontrolled DM 3,Hyponatremia improving 4.Right shoulder abscess 5.morbid obesity Plan renal function is stable monitoring renal function mix all ivpb with NS.9 replace electrolyte as need it avoid NSAID ok to d/c home fallow up as out patient for monitoring renal function Subjective Subjective alert and awake no complaints NAD Objective Objective Last 24 Hour Vital Signs Date Time Temp Pulse Resp B/P (MAP) Pulse Ox O2 Delivery O2 Flow Rate FiO2 08/26/17 08:04 97.2 69 20 143/103 99 Room Air 08/26/17 06:26 137/79 08/26/17 04:00 97.4 63 19 137/79 99 Room Air 08/26/17 00:35 132/84 08/26/17 00:00 97.5 60 20 132/84 98 Room Air 08/25/17 20:00 97.5 72 19 118/81 94 Room Air 08/25/17 17:24 141/95 08/25/17 16:01 97.6 64 18 141/95 97 Room Air 08/25/17 12:00 98.2 71 19 123/90 98 Room Air 08/25/17 11:51 123/90 Intake and Output 08/26/17 08/27/17 19:00 07:00 Intake Total 380 ml Balance 380 ml Intake Oral 380 ml # Voids 1 Height (Feet): 5 Height (Inches): 5.00 Weight (Pounds): 190 Objective Head and Neck: No JVP. No LAD. No thyromegaly. Extraocular movement intact. Pupils are reactive to light and accommodation. LUNGS: Clear to auscultation. CARDIAC: Regular rate and rhythm. S1 and S2. No murmur. No rub. ABDOMEN: Obese, nontender, and nondistended. Extremities: A 1 to 2+ edema. Right shoulder, he has a 20 x 20 cm round lesion with the yellowish, foul smelling drainage. It is very tender to touch and has had some degree of fluctuation. BHARGAVI SANZ Aug 26, 2017 09:19
[2017-08-26 11:30] VITALS: BP 121/84
--- NOTE | 2017-08-26 15:44 | Infectious Diseases Prog Note ---
Assessment/Plan Problems: (1) Abscess of right shoulder Assessment & Plan: S/P I&D for source control , was treated with zosyn to cover for necrotizing fasciitis and skin abscess due to MSSA , and bacteremia , continue local wound care as per surgery recommendations . he is done with his iv antibiotics today, needs follow up with PCP for wound check , and further care. D/W patient and RN (2) Gram-positive cocci bacteremia Assessment & Plan: with MSSA, due to shoulder abscess and necrotizing fascitis , had source control with I&D, 2 D echo didn't show any valve vegetations , repeated blood culture to confirm clearance is negative on 07/26 , was treated with zosyn which cover MSSA bacteremia and skin necrotizing fascitis and abscess, and received four weeks of iv antibiotics therapy for MSSA bacteremia and necrotizing fascitis .continue local wound care and dressing change, with close follow up with PCP (3) Poorly controlled diabetes mellitus Assessment & Plan: recommend tight glycemic control to keep blood glucose between 80-120 (4) [place]UGUSTO (acute kidney injury) Assessment & Plan: avoid nephrotoxic meds , monitor renal function, follow up with nephrology as an out patient Subjective Constitutional: Reports: no symptoms HEENT: Reports: no symptoms Respiratory: Reports: no symptoms Breasts: Reports: no symptoms Cardiovascular: Reports: no symptoms Gastrointestinal/Abdominal: Reports: no symptoms Genitourinary: Reports: no symptoms Neurologic: Reports: no symptoms Psychiatric: Reports: no symptoms Skin: Reports: no symptoms Endocrine: Reports: no symptoms Hematologic: Reports: no symptoms Musculoskeletal: Reports: no symptoms Allergies: Coded Allergies: No Known Allergies (Unverified , 04/19/16) Objective Vital Signs Last 24 Hour Vital Signs Date Time Temp Pulse Resp B/P (MAP) Pulse Ox O2 Delivery O2 Flow Rate FiO2 08/26/17 11:30 98.1 68 20 121/84 98 Room Air 08/26/17 11:18 120/74 08/26/17 08:04 97.2 69 20 143/103 99 Room Air 08/26/17 06:26 137/79 08/26/17 04:00 97.4 63 19 137/79 99 Room Air 08/26/17 00:35 132/84 08/26/17 00:00 97.5 60 20 132/84 98 Room Air 08/25/17 20:00 97.5 72 19 118/81 94 Room Air 08/25/17 17:24 141/95 08/25/17 16:01 97.6 64 18 141/95 97 Room Air Height (Feet): 5 Height (Inches): 5.00 Weight (Pounds): 190 General Appearance: WD/WN, no acute distress HEENT: normocephalic, atraumatic, anicteric, mucous membranes moist Respiratory/Chest: chest wall non-tender, lungs clear, normal breath sounds, no respiratory distress, no accessory muscle use Cardiovascular: normal peripheral pulses, normal rate, regular rhythm, no gallop/murmur, no JVD Abdomen: normal bowel sounds, soft, non tender, no organomegaly, non distended , no mass, no scars Extremities: no cyanosis, no clubbing Skin: no rash, no lesions, no ulcers, other - right shoulder large surgical wound with clean borders and healthy granulation tissue, no necrosis Neurologic/Psychiatric: alert, oriented x 3 Current Medications Medications (Trade) Dose Ordered Sig/Leah Route PRN Reason Start Time Stop Time Status Last Admin Dose Admin Acetaminophen (Tylenol) 650 mg Q4H PRN ORAL Mild Pain/Temp > 100.5 08/24/17 20:45 09/23/17 20:44 Clonidine HCl (Catapres) 0.1 mg Q6HR ORAL 08/14/17 00:00 08/28/17 08:59 08/26/17 11:18 Dextrose (Dextrose 50%) STAT PRN IV Hypoglycemia 08/24/17 20:45 09/23/17 20:44 Insulin Aspart (NovoLOG) BEFORE MEALS AND HS SUBQ 08/24/17 21:00 09/23/17 20:59 08/26/17 12:22 Insulin Aspart (NovoLOG) 4 units NOVOTIAC SUBQ 08/15/17 16:50 09/14/17 16:49 08/26/17 12:21 Insulin Detemir (Levemir) 8 units BID SUBQ 08/17/17 09:00 09/16/17 08:59 08/26/17 08:16 Nitroglycerin (Ntg) 0.4 mg Q5M PRN SL Prn Chest Pain 08/24/17 20:45 09/23/17 20:44 Ondansetron HCl (Zofran) 4 mg Q6H PRN IVP Nausea & Vomiting 08/24/17 20:45 09/23/17 20:44 Piperacillin/ Tazobactam/ Dextrose 50 ml @ 12.5 mls/hr Q8HR IVPB 08/13/17 22:00 08/27/17 23:59 08/26/17 13:55 Polyethylene Glycol (Miralax) 17 gm DAILYPRN ORAL 08/24/17 20:45 09/23/17 20:44 Povidone Iodine (Betadine Caridad) 1 applic DAILY TOPIC 08/25/17 09:00 09/20/17 08:59 08/26/17 08:18 Fernando Clayton M.D. Aug 26, 2017 15:44
[2017-08-26 16:11] VITALS: BP 138/98
[2017-08-26 17:06] VITALS: BP 138/98
[2017-08-26] MEDS ORDERED: LEVEMIR FL100 UNIT/1 SUBQ (17:43)
[2017-08-26] MEDS ORDERED: NOVOLOG100 UNITS1 SQ (17:43)
--- NOTE | 2017-08-28 06:58 | Discharge Summary ---
Discharge Summary Hospital Course Date of Admission Jul 25, 2017 at 13:27 Date of Discharge Aug 26, 2017 at 18:30 Admitting Diagnosis Right Shoulder Abscess HPI Ramu Vela is a 42 year old male who was admitted on Jul 25, 2017 at 13:27 for Right Shoulder Abscess Hospital Course [id number] Discharge Discharge Disposition Patient was discharged to Home (01) Discharge Diagnoses: Rhoda Monte NP Aug 28, 2017 06:58
--- NOTE | 2017-08-28 20:00 | Discharge Summary 2 SIG ---
DATE OF ADMISSION: 07/25/2017 DATE OF DISCHARGE: 08/26/2017 CONSULTANTS: 1. Fernando Clayton M.D. 2. Lashell Pedroza M.D. 3. Mike Francis M.D. HISTORY OF PRESENT ILLNESS: He was admitted to [facility] in 2015 and underwent incision and drainage of right thigh abscess and at that time, had Staph aureus bacteremia and sepsis. The patient is a 42-year-old male, who presented to ED for a rash/abscess on the right shoulder. The patient is diabetic and has stopped taking his diabetic medication for several months. He stated that he had a skin infection a year ago and was admitted to [facility] in 2015 and underwent incision and drainage of right thigh abscess; and at that time, had Staph aureus bacteremia and sepsis. He presented to ED this time as shoulder was swollen and became red and had 10/10 pain. BRIEF HOSPITAL COURSE: On evaluation at ED, laboratories showed leukocytosis, WBC 14 with elevated lactate. Glucose was elevated at 637 with normal bicarbonate. Insulin was given. CAT scan of the chest showed a large area of subcutaneous edema and skin thickening with some muscular enlargement in the right posterior aspect of the chest consistent with cellulitis. He was admitted for antibiotic management and was followed by Dr. Clayton. He was initially started on vancomycin and cefepime pending culture results. He was seen by Dr. Francis, who performed incision and drainage on the right shoulder with extensive debridement on 07/27/2017. Blood culture showed growth of Staphylococcus aureus. Wound culture with Staphylococcus aureus. A 2D echocardiogram was done and did not show any valvular vegetations. Vancomycin was discontinued as creatinine was rising. He was also followed by Dr. Pedroza for hyponatremia and was given IV hydration. Hyponatremia eventually improved. Blood sugars were also monitored and was given NovoLog and Levemir. The patient had shoulder abscess and necrotizing fasciitis. The patient will eventually need four weeks of IV antibiotic therapy to cover for MSSA bacteremia. He was continued on wound care and glucose control. He eventually finished four weeks of IV antibiotic in the hospital. He eventually finished four weeks of IV antibiotics for MSSA bacteremia and necrotizing fasciitis. He was eventually discharged home. Advised to follow up with PCP. FINAL DIAGNOSES: 1. Gram-positive cocci bacteremia with methicillin-sensitive Staphylococcus aureus and necrotizing fasciitis. 2. Abscess of the right shoulder status post incision and drainage. 3. Acute kidney injury. 4. Diabetes mellitus, out of control. 5. Acute hyponatremia. 6. Morbid obesity, uncontrolled. 7. Elevated lactic acid. 8. Noncompliance with medications. DISPOSITION: The patient was discharged home. DISCHARGE MEDICATIONS: Refer to medication list. FOLLOWUP: The patient was educated on how to do wound care. Advised to follow up with PCP. Mu Suarez D.O. I have been assigned to dictate discharge summary on this account and I was not involved in the patient's management. Rhoda Monte N.P. DR: Gaby JOB#: [id number] CC: LISA
== END 2017-08-26 18:30 | disposition home or self-care (01) | DRG 420 ==
LOC: EMR 13:02 → 3E 13:27 → EDBEDREQ 15:12
PROC: 0JBD0ZZ Excision of Right Upper Arm Subcutaneous Tissue and Fascia, Open Approach (ICD-10-PCS; principal; 2017-07-27 12:00)
DX: E11.628 Type 2 diabetes mellitus with other skin complications (principal); N17.0 Acute kidney failure with tubular necrosis; M72.6 Necrotizing fasciitis; B95.61 Methicillin susceptible Staphylococcus aureus infection as the cause of diseases classified elsewhere; L02.413 Cutaneous abscess of right upper limb; I13.10 Hypertensive heart and chronic kidney disease without heart failure, with stage 1 through stage 4 chronic kidney disease, or unspecified chronic kidney disease; L03.113 Cellulitis of right upper limb; E87.2 Acidosis; R78.81 Bacteremia; E11.65 Type 2 diabetes mellitus with hyperglycemia; E87.1 Hypo-osmolality and hyponatremia; D63.8 Anemia in other chronic diseases classified elsewhere; E66.01 Morbid (severe) obesity due to excess calories; E11.22 Type 2 diabetes mellitus with diabetic chronic kidney disease; K21.9 Gastro-esophageal reflux disease without esophagitis; N18.9 Chronic kidney disease, unspecified; E78.5 Hyperlipidemia, unspecified; Z68.31 Body mass index [BMI] 31.0-31.9, adult; Z91.14 Patient's other noncompliance with medication regimen; Z79.84 Long term (current) use of oral hypoglycemic drugs; Z83.3 Family history of diabetes mellitus
CPT/HCPCS: 36415; 71010; 71260; 80048; 80053; 80202; 81001; 82043; 82044; 82550; 82553; 82570; 82962; 83036; 83605; 83880; 84300; 84484; 85007; 85025; 85610; 85730; 86850; 86900; 86901; 87040; 87070; 87181; 87205; 89050; 93005; 93306; 93970; 94003; 94150; 94664; 99285; A4246; J1815; J2250; J2405; S5561